=== PATIENT | male | born 1950 | race African-American/Black ===

== ENCOUNTER → 2016-07-08 | Outpatient (CLI) | payer MEDICARE ==
[2016-03-10 22:30] VITALS: BP 170/72
[~2016-07-08] MED LIST: ALLO100T PO; ALPR0.254 PO; AMIT10TA PO; AMLO10TA2 PO; ASPI1CPM PO; ASPI325T4 PO; ATOR20TA PO; BACL10TA PO; BENA40TA15 PO; CALC-98 PO; CALC667C PO; CITA20TA9 PO; CLOP75TA27 PO; COLC0.6T34 PO; DOCU-27 PO; ERGO500012 PO; FAMO-63 PO; FOLI1TAB16 PO; FURO40TA4 PO; GEMF600T3 PO; HYDR-2762 PO; INSU100I13 SQ; IOHEXOL 180 MG/ML 10 ML VIAL. ONE; Metoprolol Tartrate PO; NITR0.4T SL; OMEP20CA9 PO; ONDA4TAB10 SL; OXYC1TAB9 PO; PARI1CAP PO; POTA20TA12 PO; PROAIR HFA8.5 GM IH; TIZA2CAP PO; VITA1TAB19 PO; [UNRECOGNIZED DRUG - CODE]; [UNRECOGNIZED DRUG - CODE] PO; [UNRECOGNIZED DRUG - OTHER] PO; methylPREDNISolone ACETATE 40 MG/ML VIAL. ONE; methylPREDNISolone ACETATE 80 MG/ML VIAL. ONE
--- NOTE | 2016-07-08 13:23 | PAIN ---
DATE OF SERVICE: 07/08/2016 PROGRESS NOTE DIAGNOSES: Lumbar radiculopathy with lumbar spinal stenosis. HISTORY OF PRESENT ILLNESS: The patient is a 66-year-old male who returns for followup status post lumbar epidural steroid injection x 1 in 09/2015. The patient did very well after this. Reports the pain only began returning in the last few weeks. The patient reports still significant pain in the low back, now more on the right side than the left side, but still pain in the bilateral lower extremities, rated as 10 on a scale of 10, worse with walking and he has been ambulating with a walker because of the pain and perceived weakness in the lower extremities. The patient reports also some weakness and pain in the right leg, more on the lateral and anterior thigh, rates a 10 on a scale of 10. The patient has been off his Plavix now for 7 days, reports no new motor or sensory deficits, no new bowel or bladder incontinence or other complaints. The patient's old chart was reviewed as his current medication regimen updated. Current review of systems updated today as well. PHYSICAL EXAMINATION: VITAL SIGNS: Today, the patient's blood pressure is 145/75, pulse 87, respirations 18, temperature 97.6 degrees Fahrenheit and height is 64 inches. GENERAL: The patient is awake, alert, oriented, appropriate, very pleasant demeanor. HEENT: Shows normocephalic and atraumatic. Extraocular movements are intact and symmetrical. Oral cavity shows mucous membranes are moist and pink. Dentition is intact. NECK: Shows anterior throat supple. CHEST: Shows breath sounds clear to auscultation bilaterally. HEART: Shows S1 and S2 clear. ABDOMEN: Soft, nontender, and nondistended. No palpable organomegaly noted. No rebound or guarding demonstrated. BACK: The patient's back shows spine grossly in midline. Lumbar paraspinous muscle shows some moderate tenderness to palpation, but only diffusely throughout the upper, middle and lower distribution of paraspinous muscles, but is symmetrical without evidence of atrophy or hypertrophy. No tenderness over the sacrum or sacroiliac regions. EXTREMITIES: The patient's lower extremities show deep tendon reflexes at 1+ in the patellar and tendo calcaneus tendons and are equal. Motor is approximately 3 on a scale 5 with left dorsiflexion, extension and 4/5 on the right. Quadriceps and hamstring flexion is 4/5 bilaterally. PLAN: Options were discussed with the patient and the patient's spouse who accompanies her to this visit today. We will proceed with a lumbar epidural steroid injection as he has done very well with these in the past. He is also in between days of dialysis. Risks were again discussed including, but not limited to bleeding, infection, possibility of epidural hematoma, subsequent neurologic compromise, dural puncture, headaches, spinal cord and/or nerve damage, side effects of steroid medication and poor results regarding pain control. The patient understands and wished to proceed. The patient will return to clinic in approximately 2 weeks for followup. He was counseled on return appointment, activity level and side effects to be aware of. The patient will start his Plavix again tomorrow. DIAGNOSES: Lumbar radiculopathy with lumbar spinal stenosis. PROCEDURE: Lumbar epidural steroid injection, translaminar approach at the L4-L5 level with fluoroscopic guidance under sterile prep and drape and local anesthetic. MEDICATIONS INJECTED: Depo-Medrol 120 mg plus 10 mL of preservative-free normal saline and 2 mL of Isovue for contrast. The patient's condition at discharge is stable. The patient tolerated the procedure well, had no complications. RON BEE MD DR: RIANA/fanny JOB#: [id number] / [id number]
== END | disposition home or self-care (01) ==
LOC: PNCL 11:38
PROVIDERS: ATTEND Anesthesiology
DX: M54.16 Radiculopathy, lumbar region (principal); I63.9 Cerebral infarction, unspecified; I10 Essential (primary) hypertension; I73.9 Peripheral vascular disease, unspecified; E78.00 Pure hypercholesterolemia, unspecified; E66.9 Obesity, unspecified; N28.9 Disorder of kidney and ureter, unspecified; M19.90 Unspecified osteoarthritis, unspecified site; E11.9 Type 2 diabetes mellitus without complications; Z87.891 Personal history of nicotine dependence; D64.9 Anemia, unspecified
CPT/HCPCS: 62311; J1030; J1040

== ENCOUNTER → 2016-07-22 | Outpatient (CLI) | payer MEDICARE ==
[2016-03-10 22:30] VITALS: BP 170/72
--- NOTE | 2016-07-23 00:13 | PAIN ---
DATE OF SERVICE: 07/22/2016 DIAGNOSIS: Lumbar radiculopathy with lumbar spinal stenosis. HISTORY OF PRESENT ILLNESS: The patient is a 66-year-old male who returns for followup status post lumbar epidural steroid injection x 1. The patient reports about 80% improvement and is still helping the pain in his low back and right leg. The patient reports he is able to sleep in his own bed now. He has been walking with much greater ease and comfort, though still using his walker. He reports his pain 8 on a scale of 10 that is worse, but currently is 2 on a scale of 10 today. The patient reports no new motor or sensory deficits, no new bowel or bladder incontinence or other complaints, though still some significant pain that is sharp and achy in the right side right leg as it was previously, radiating into the posterior lateral aspect of the thigh, medial thigh as well as the posterior lateral lower leg. PHYSICAL EXAMINATION: VITAL SIGNS: Shows blood pressure 159/79, pulse 85, respirations 18, temperature 97.8 degrees Fahrenheit, height 6 feet 4 inches, weight 190 pounds. GENERAL: The patient is awake, alert, oriented, appropriate, very pleasant demeanor. HEENT: Head shows normocephalic, atraumatic. Extraocular movements are intact, symmetrical. Oral cavity, mucous membranes moist and pink. Dentition is intact. NECK: Shows anterior throat supple without palpable lymphadenopathy noted. Swallow reflex is symmetrical. CHEST: Shows normal on inspection. Breath sounds clear to auscultation bilaterally. HEART: Shows S1 and S2 clear. ABDOMEN: Soft, nontender, nondistended. No palpable organomegaly is noted. BACK: Shows spine grossly midline. Lumbar paraspinous muscle shows some moderate tenderness with palpation bilaterally, but appears roughly symmetrical on inspection. No atrophy or hypertrophy. There is moderate tenderness in the inferior aspect, more on the right than the left, but without radiation. No tenderness over the spinous processes, sacrum or sacroiliac regions. The patient has full rotational motion of the lumbar spine, both laterally as well as extension and flexion without difficulty. EXTREMITIES: Lower extremities showed deep tendon reflexes 1+ in the patellar and tendo calcaneus tendons are equal. Motor exam is approximately 4 on a scale of 5 left ankle and 5/5 on the right. The patient is wearing a supportive brace on his left ankle. Options were discussed with the patient. The patient's old chart was reviewed as his current medication regimen updated. Current review of systems updated today as well. We will plan on a second lumbar epidural steroid injection today with fluoroscopic guidance. The patient has been off his Plavix now for 7 days. Risks were again discussed including, but not limited to bleeding, infection, possibility of epidural hematoma, subsequent neurologic compromise, dural puncture, headaches, spinal cord and/or nerve damage, side effects of steroid medication and poor results regarding pain control. The patient understands and wishes to proceed. The patient will return to clinic in approximately 2 weeks for followup, was counseled on return appointment, activity level and side effects to be aware of. DIAGNOSIS: Lumbar radiculopathy with lumbar spinal stenosis. PROCEDURE: Lumbar epidural steroid injection, translaminar approach at the L4-L5 level using C-arm fluoroscopic guidance under sterile prep and drape using local anesthesia. Medications injected 120 mg Depo-Medrol plus 10 mL of preservative-free normal saline and 2 mL of Isovue contrast. CONDITION AT DISCHARGE: Stable. The patient tolerated procedure well, had no complications. RON BEE MD DR: RIANA/fanny JOB#: [id number] / [id number]
== END ==
LOC: PNCL 08:50
PROVIDERS: ATTEND Anesthesiology
DX: M48.06 Spinal stenosis, lumbar region (principal); M54.16 Radiculopathy, lumbar region; E78.00 Pure hypercholesterolemia, unspecified; E11.22 Type 2 diabetes mellitus with diabetic chronic kidney disease; N18.9 Chronic kidney disease, unspecified; E66.9 Obesity, unspecified; M19.90 Unspecified osteoarthritis, unspecified site; D64.9 Anemia, unspecified; Z87.891 Personal history of nicotine dependence
CPT/HCPCS: 62323; J1030; J1040

== ENCOUNTER → 2017-02-24 | Outpatient (CLI) | payer MEDICARE ==
[2016-03-10 22:30] VITALS: BP 170/72
[~2017-02-24] MED LIST changes: -ASPI325T4 PO; +ASPI325T8 PO; +BUPIVACAINE MPF 0.5% 10 ML VIAL for KCIC. IJ ONE; -CLOP75TA27 PO; +CLOP75TA57 PO; +DOCU-109 PO; -DOCU-27 PO; -ERGO500012 PO; +ERGO500027 PO; -IOHEXOL 180 MG/ML 10 ML VIAL. ONE; +IOHEXOL 300 MG/ML 50 ML VIAL. INT ART ONE; +LIDOCAINE 1% Multi-Dose 20 ML VIAL. ID ONE; +methylPREDNISolone ACETATE 40 MG/ML VIAL. INT ART ONE; -methylPREDNISolone ACETATE 40 MG/ML VIAL. ONE; -methylPREDNISolone ACETATE 80 MG/ML VIAL. ONE
--- NOTE | 2017-02-24 16:27 | KCIC ---
Examination: Frontal view the pelvis with frontal view of the left hip HISTORY: History of left hip pain COMPARISON: None available FINDINGS: The bilateral femoral heads within the acetabula. Mild joint space loss identified in the bilateral hip joint likely degeneration Few well-formed calcific densities identified lateral to the proximal femur within the soft tissues likely soft tissue calcifications. There is no acute fracture or dislocation. Surgical clips project in the region of the left IMPRESSION: 1. Mild degenerative changes bilateral hip joints. 2. Few well-formed calcific densities identified lateral to the proximal femur within the soft tissues likely soft tissue calcifications. Electronically signed by: Christo Lopez MD (02/24/2017 4:24 PM) [place] [id number]
--- NOTE | 2017-02-24 16:44 | KCIC ---
PROCEDURE Therapeutic left hip injection using fluoroscopic guidance. HISTORY Hip pain. DJD. TECHNIQUE The procedure was explained to the patient as were potential risks, including infection, bleeding or allergic reaction. All questions were answered. Informed written and verbal consent was obtained. The hip was prepped and draped in the usual sterile manner. Following administration of local anesthetic, a 22-gauge spinal needle was advanced into the hip joint without difficulty, with care taken to avoid the vascular structures. Stylet was removed and following negative aspiration, a mixture of 4 cc Omnipaque-300, 2 cc (80 mg) Depo-Medrol, 4 cc 0.5% Marcaine and 4 cc 1% lidocaine were injected without difficulty. Fluoroscopy demonstrates uniform and satisfactory distribution of the injection through the hip. The needle was removed. There was good hemostasis at the injection site. The patient left in stable condition without immediate complication. The patient was given postprocedural instructions, instructed to contact us or the emergency room if there are any complications. Note there is communication of the iliopsoas bursa with the joint. A single spot image was obtained. FLUOROSCOPY TIME: 22 seconds Electronically signed by: Cornell Ojeda MD (02/24/2017 4:40 PM) [facility]
== END | disposition home or self-care (01) ==
LOC: KCIC 13:53
PROVIDERS: ATTEND Physical Medicine & Rehabilitation
DX: M16.12 Unilateral primary osteoarthritis, left hip (principal)
CPT/HCPCS: 20610; 73501; 77002; J1030; Q9967

== ENCOUNTER → 2017-04-28 | Outpatient (CLI) | payer MEDICARE ==
[2016-03-10 22:30] VITALS: BP 170/72
[~2017-04-28] MED LIST changes: -BUPIVACAINE MPF 0.5% 10 ML VIAL for KCIC. IJ ONE; -IOHEXOL 300 MG/ML 50 ML VIAL. INT ART ONE; -LIDOCAINE 1% Multi-Dose 20 ML VIAL. ID ONE; +REGADENOSON 0.4 MG/5 ML DISP.SYRIN. IV ONE; -methylPREDNISolone ACETATE 40 MG/ML VIAL. INT ART ONE
--- NOTE | 2017-04-29 07:36 | RAD ---
APPROVED REPORT Test Type: Pharmacological Stress Nurse/Tech: Abbie Wheeler R.N. Test Indications: cp Cardiac History: stents 3 yrs ago, htn, cva, dm Medications: see ehr Medical History: see ehr Resting ECG: sr Resting Heart Rate: 76 bpm Resting Blood Pressure: 128/66mmHg Pretest Chest Pain: No chest pain Nurse/Tech Notes lungs cta, heart tones regular Consent: The procedure was explained to the patient in lay terms. Informed consent was witnessed. Pato eout was entered into [employer]. History and Stress Test performed by RT Eric (R) (N) Pharm. Details Pharmacologic stress testing was performed using 0.4mg per 5ml of regadenoson given intravenously ove r 7-10 seconds. Stress Symptoms No chest pain or symptoms.Dyspnea POST EXERCISE Reason for Termination: Infusion complete Target HR: No Max HR: 119 bpm Max Blood Pressure: 135/64mmHg Chest Pain: No. Arrhythmia: No. ST Change: No. INTERPRETATION Stress EKG Conclusion: Baseline EKG showed sinus rhythm. No ischemic changes at peak stress. No arr hythmias. Imaging Protocol IMAGE PROTOCOL: Rest Tc-99m/stress Tc-99m 1 day Rest: Stress: Viability: Radiopharm.Tc99m UpcmqctoxBk42g Sestamibi Ozmk46jOn 32mCi Img Date 04/28/2017 04/28/2017 Inj-Img Uiqp49qpa. 60min. Rest Admin Site:IV - Left HandAdministrator:RT Eric (R)(N) Stress Admin Site: IV - Left HandAdministrator: RT Eric (Shayla)(N) STRESS DATA End Diast. Vol.73.0mlAv. Heart Rate89.0bpm End Syst. Vol.22.0mlCO Index BSA0.0L/min Myocardial Xdlg408.0gEject. Rmqnnaoh50.0% Stress Rates Pk. Fill Rate3.84EDV/secLVtime Pk. Fill 165.21msec Pk. Empty Rate5.43ESV/secLVtime Pk. Cjjum110.79msec 07/08 Pk. Fill1.06EDV/sec Stress Scores Regional WT1.00Summed WT10.00 Regional WM0.00Summed WM12.00 Study quality was good. Left Ventricular size was Normal at Rest and Stress. Lung uptake was Normal. Left Ventricular ejection fraction is 70%. The rest and stress images show normal perfusion, normal contraction and thickening. LV Perf. Quant 17 Seg. SSS0.00 17 Seg. SRS0.00 17 Seg. SDS0.00 Stress Defect Extent (% LAD)0.00Rest Defect Extent (% LAD)0.00Rev. Defect Extent (% LAD)0.00 Stress Defect Extent (% LCX) 0.00Rest Defect Extent (% LCX)0.00Rev. Defect Extent (% LCX)0.00 Stress Defect Extent (% RCA)0.00Rest Defect Extent (% RCA)0.00Rev. Defect Extent (% RCA)0.00 Stress Defect Extent (% DELMI)0.00Rest Defect Extent (% DELMI)0.00Rev. Defect Extent (% DELMI)0.00 Conclusion 1. Regadenoson cardioisotope stress test did not show any evidence of ischemia or infarct. 2. Normal left ventricular systolic function with ejection fraction calculated at 70%. 3. Low risk for cardiac events.
== END | disposition home or self-care (01) ==
LOC: NM 09:19
PROVIDERS: ATTEND Internal Medicine Cardiovascular Disease
DX: I63.9 Cerebral infarction, unspecified (principal); I10 Essential (primary) hypertension; E11.9 Type 2 diabetes mellitus without complications; I49.5 Sick sinus syndrome
CPT/HCPCS: 78452; 93017; 96374; 96375; 96376; A9500; J2785

== ENCOUNTER 2018-09-07 13:47 | Emergency (ER) | payer MEDICARE ==
[~2018-09-07] VITALS: Ht 193 cm; Wt 90.7 kg
[~2018-09-07 13:47] MED LIST changes: +ALBU2.5V8 IH; -AMLO10TA2 PO; +AMLO10TA8 PO; -GEMF600T3 PO; +GEMF600T8 PO; -HYDR-2762 PO; +HYDR-2765 PO; +OMEP20CA10 PO; -OMEP20CA9 PO; +OXYC-411 PO; -OXYC1TAB9 PO; -PROAIR HFA8.5 GM IH; -REGADENOSON 0.4 MG/5 ML DISP.SYRIN. IV ONE
[2018-09-07 14:21] VITALS: BP 114/56
--- NOTE | 2018-09-07 14:31 | PHYS DOC ---
Past Medical History Past Medical History: CVA, Diabetes-Type II, Hypertension, OR, Renal Disease, Stroke Past Surgical History: Coronary Bypass Surgery Additional Past Surgical Histo: CARDIAC STENT, LEFT LEG BYPASS, fem pop left leg x 2 Alcohol Use: None Drug Use: None Adult General Chief Complaint Chief Complaint: MECHANICAL FALL HPI HPI Patient is a 68 year old male who presents with patient states he fell on his left side hitting his ribs in the edge of the couch patient continues to have pain to the left ribs and he does have bruising to the left ribs. Review of Systems Review of Systems Constitutional: Denies fever or chills [] Eyes: Denies change in visual acuity, redness, or eye pain [] HENT: Denies nasal congestion or sore throat [] Respiratory: Denies cough or shortness of breath [] Cardiovascular: No additional information not addressed in HPI [] GI: Denies abdominal pain, nausea, vomiting, bloody stools or diarrhea [] : Denies dysuria or hematuria [] Musculoskeletal: Left Rib pain. Denies back pain or joint pain [] Integument: Denies rash or skin lesions [] Neurologic: Denies headache, focal weakness or sensory changes [] All other systems were reviewed and found to be within normal limits, except as documented in this note. Allergies Allergies Allergies Coded Allergies Type Severity Reaction Last Updated Verified No Known Drug Allergies 02/27/15 No Physical Exam Physical Exam Constitutional: Well developed, well nourished, no acute distress, non-toxic appearance. [] HENT: Normocephalic, atraumatic, bilateral external ears normal, oropharynx moist, no oral exudates, nose normal. [] Eyes: PERRLA, EOMI, conjunctiva normal, no discharge. [] Neck: Normal range of motion, no tenderness, supple, no stridor. [] Cardiovascular:Heart rate regular rhythm, no murmur [] Lungs & Thorax: Bilateral breath sounds clear to auscultation [] Abdomen: Bowel sounds normal, soft, no tenderness, no masses, no pulsatile masses. [] Skin: Warm, dry, no erythema, no rash. [] Back: No tenderness, no CVA tenderness. [] Extremities: Left rib tenderness and bruising, no cyanosis, no clubbing, ROM intact, no edema. [] Neurologic: Alert and oriented X 3, normal motor function, normal sensory function, no focal deficits noted. [] Psychologic: Affect normal, judgement normal, mood normal. [] Current Patient Data Vital Signs Vital Signs Date Time Temp Pulse Resp B/P (MAP) Pulse Ox O2 Delivery O2 Flow Rate FiO2 09/07/18 14:21 97.9 77 16 114/56 (75) 97 Room Air 97.9 EKG EKG [] Radiology/Procedures Radiology/Procedures [] Impressions: [facility] [address] [place] [address] IMAGING REPORT Signed PATIENT: VALENTINA PHILIP ACCOUNT: [id number] : 1950 LOCATION: ER AGE: 68 SEX: M EXAM STATUS: REG ER ORD. PHYSICIAN: KURTIS MANSFIELD APRN REASON: FALL, LANDING ON LEFT SIDE PROCEDURE: RIBS LEFT Exam:Left ribs with PA/lateral chest Date: 09/07/2018 2:20 PM Comparison: No prior Indication: FALL, LANDED ON LEFT SIDE, PAIN TO LEFT RIBS Findings/ Impression: The heart is not enlarged. Mediastinal and hilar contours are normal. Subtle linear opacities in the lung bases likely scarring/atelectasis. No lobar consolidation. No pleural effusion or pneumothorax. AP, Oblique and Spot images of left ribs demonstrate a minimally displaced left lateral left fifth rib fracture. Symmetrical intercostal spacing. Electronically signed by: Dwight Thomas MD (09/07/2018 2:47 PM) [facility] DICTATED and SIGNED BY: DWIGHT THOMAS MD DATE: 09/07/18 1446 Course & Med Decision Making Course & Med Decision Making Patient is a 68 year old male who presents with patient states he fell on his left side hitting his ribs in the edge of the couch patient continues to have pain to the left ribs and he does have bruising to the left ribs. Alert and oriented. Speaks in full clear sentences. Patient has had a past history of a stroke in he walks with a walker and a cane. Lung sounds are clear to upper lobes but diminished in lower lobes. Vital signs within normal limits. Patient has left rib bruising, tenderness with palpation but no crepitus or deformities felt. Patient denies hitting his head, loc, visual changes, neck pain, chest pain or shortness of air or dizziness. No cervical, thoracic or lumbar spine pain, bruising or deformity with palpation. Patient states when he coughs it is painful. Left rib and chest xray The heart is not enlarged. Mediastinal and hilar contours are normal. Subtle linear opacities in the lung bases likely scarring/ atelectasis. No lobar consolidation. No pleural effusion or pneumothorax. AP, Oblique and Spot images of left ribs demonstrate a minimally displaced left lateral left fifth rib fracture. Symmetrical intercostal spacing. Patient will be educated how to use a incentive spirometry and not to wrap anything around his rib cage as he has a higher chance of developing pneumonia. Patient needs to follow up with his primary care doctor within 3 days. Dragon Disclaimer Dragon Disclaimer This electronic medical record was generated, in whole or in part, using a voice recognition dictation system. Departure Departure Impression: Primary Impression: Rib fracture Additional Impression: Fall Disposition: HOME, SELF-CARE Condition: STABLE Referrals: UNKNOWN PCP NAME (PCP) Patient Instructions: Incentive Spirometer, Rib Fracture Additional Instructions: Take medication as prescribed. Do not to wrap anything around your rib cage as you have a higher chance of developing pneumonia. Patient needs to follow up with his primary care doctor within 3 days. Scripts Hydrocodone Bit/Acetaminophen (HYDROCODONE-APAP 5-325 ) 1 Tab Tablet 1 TAB PO PRN Q8HRS PRN for PAIN, #10 TAB 0 Refills Prov: KURTIS MANSFIELD APRN 09/07/18 Problem Qualifiers Primary Impression: Rib fracture Encounter type: initial encounter Rib fracture type: single rib Fracture type: closed Laterality: left Qualified Codes: S22.32XA - Fracture of one rib, left side, initial encounter for closed fracture Additional Impression: Fall Encounter type: initial encounter Qualified Codes: W19.XXXA - Unspecified fall, initial encounter KURTIS MANSFIELD [employer] Sep 07, 2018 14:31
--- NOTE | 2018-09-07 14:50 | RAD ---
Exam:Left ribs with PA/lateral chest Date: 09/07/2018 2:20 PM Comparison: No prior Indication: FALL, LANDED ON LEFT SIDE, PAIN TO LEFT RIBS Findings/ Impression: The heart is not enlarged. Mediastinal and hilar contours are normal. Subtle linear opacities in the lung bases likely scarring/atelectasis. No lobar consolidation. No pleural effusion or pneumothorax. AP, Oblique and Spot images of left ribs demonstrate a minimally displaced left lateral left fifth rib fracture. Symmetrical intercostal spacing. Electronically signed by: Carlos Thomas MD (09/07/2018 2:47 PM) [facility]
[2018-09-07] MEDS ORDERED: HYDR-2761 PO (15:10)
== END 2018-09-07 15:37 | disposition home or self-care (01) ==
LOC: ER 13:47
DX: S22.32XA Fracture of one rib, left side, initial encounter for closed fracture (principal); I10 Essential (primary) hypertension; E11.9 Type 2 diabetes mellitus without complications; Z86.73 Personal history of transient ischemic attack (TIA), and cerebral infarction without residual deficits; I25.2 Old myocardial infarction; Z95.1 Presence of aortocoronary bypass graft; Z95.5 Presence of coronary angioplasty implant and graft; W18.09XA Striking against other object with subsequent fall, initial encounter; Y93.89 Activity, other specified; Y92.89 Other specified places as the place of occurrence of the external cause; Y99.8 Other external cause status
CPT/HCPCS: 71046; 71100; 99283

== ENCOUNTER 2019-01-19 09:58 | Inpatient (IN) | payer MEDICARE ==
[~2019-01-19] VITALS: Ht 190.5 cm; Wt 94.8 kg
[~2019-01-19 09:58] MED LIST changes: +HYDR-2761 PO
[2019-01-19] MEDS ORDERED: IV NORMAL SALINE 1000ML BAG 1,000 ML IV SCH (10:29)
[2019-01-19] MEDS ORDERED: fentaNYL PF VIAL 100 MCG/2 ML VIAL IV ONE ×2 (10:30→13:00)
--- NOTE | 2019-01-19 10:38 | PHYS DOC ---
Past Medical History Past Medical History: CVA, Diabetes-Type II, Hypertension, MA, Renal Disease, Stroke Past Surgical History: Coronary Bypass Surgery Additional Past Surgical Histo: CARDIAC STENT, LEFT LEG BYPASS, fem pop left leg x 2 Alcohol Use: None Drug Use: None Adult General Chief Complaint Chief Complaint: RIB PAIN HPI HPI Patient is a 68 year old male who presents with Thursday began having left rib pain. Patient states it hurts when he takes a deep breath and with movement. Patient states the pain is sharp and rates it 10 out 10. Patient states she's been taking Aleve for the pain. Review of Systems Review of Systems Constitutional: Denies fever or chills [] Eyes: Denies change in visual acuity, redness, or eye pain [] HENT: Denies nasal congestion or sore throat [] Respiratory: Denies cough or shortness of breath [] Cardiovascular: No additional information not addressed in HPI [] GI: Denies abdominal pain, nausea, vomiting, bloody stools or diarrhea [] : Denies dysuria or hematuria [] Musculoskeletal: Left rib pain. Denies back pain or joint pain [] Integument: Denies rash or skin lesions [] Neurologic: Denies headache, focal weakness or sensory changes [] Endocrine: Denies polyuria or polydipsia [] All other systems were reviewed and found to be within normal limits, except as documented in this note. Current Medications Current Medications Current Medications Medications (Trade) Dose Ordered Sig/Neeraj Start Time Stop Time Status Last Admin Dose Admin Fentanyl Citrate (Fentanyl 2ml Vial) 25 mcg PRN Q1HR PRN 01/19/19 13:00 01/20/19 12:59 Info (CONTRAST GIVEN -- Rx MONITORING) 1 each PRN DAILY PRN 01/19/19 11:30 01/21/19 11:29 Iohexol (Omnipaque 350 Mg/ml) 100 ml 1X ONCE 01/19/19 11:30 01/19/19 11:31 DC 01/19/19 11:30 100 ML Ondansetron HCl (Zofran) 4 mg PRN Q8HRS PRN 01/19/19 13:00 01/20/19 12:59 Piperacillin Sod/ Tazobactam Sod (Zosyn Per Pharmacy) 1 each PRN DAILY PRN 01/19/19 13:00 UNV Piperacillin Sod/ Tazobactam Sod 2.25 gm/Sodium Chloride 50 ml @ 100 mls/hr 1X ONCE 01/19/19 13:00 01/19/19 13:29 Sodium Chloride 1,000 ml @ 1,000 mls/hr Q1H 01/19/19 10:29 01/19/19 11:28 DC 01/19/19 11:02 1,000 MLS/HR Allergies Allergies Allergies Coded Allergies Type Severity Reaction Last Updated Verified No Known Drug Allergies 02/27/15 No Physical Exam Physical Exam Constitutional: Well developed, well nourished, no acute distress, non-toxic appearance. [] HENT: Normocephalic, atraumatic, bilateral external ears normal, oropharynx moist, no oral exudates, nose normal. [] Eyes: PERRLA, EOMI, conjunctiva normal, no discharge. [] Neck: Normal range of motion, no tenderness, supple, no stridor. [] Cardiovascular:Heart rate regular, Sinus rhythm with T abnormality, no murmur [] Lungs & Thorax: Bilateral upper breath sounds clear to auscultation, lower bilateral breath sounds diminished. [] Abdomen: Bowel sounds normal, soft, no tenderness, no masses, no pulsatile masses. [] Skin: Warm, dry, no erythema, no rash. [] Back: No tenderness, no CVA tenderness. [] Extremities: No tenderness, no cyanosis, no clubbing, ROM intact, no edema. [] Neurologic: Alert and oriented X 3, normal motor function, normal sensory function, no focal deficits noted. [] Psychologic: Affect normal, judgement normal, mood normal. [] Current Patient Data Vital Signs Vital Signs Date Time Temp Pulse Resp B/P (MAP) Pulse Ox O2 Delivery O2 Flow Rate FiO2 01/19/19 12:30 76 18 121/63 (82) 97 Room Air 01/19/19 10:15 98.5 98.5 Lab Values Laboratory Tests Test 01/19/19 10:33 White Blood Count 8.1 x10^3/uL (4.0-11.0) Red Blood Count 4.11 x10^6/uL (4.30-5.70) L Hemoglobin 12.7 g/dL (13.0-17.5) L Hematocrit 37.0 % (39.0-53.0) L Mean Corpuscular Volume 90 fL (79-100) Mean Corpuscular Hemoglobin 31 pg (25-35) Mean Corpuscular Hemoglobin Concent 34 g/dL (31-37) Red Cell Distribution Width 15.2 % (11.5-14.5) H Platelet Count 235 x10^3/uL (140-400) Neutrophils (%) (Auto) 69 % (31-73) Lymphocytes (%) (Auto) 17 % (24-48) L Monocytes (%) (Auto) 8 % (0-9) Eosinophils (%) (Auto) 5 % (0-3) H Basophils (%) (Auto) 1 % (0-3) Neutrophils # (Auto) 5.6 x10^3/uL (1.8-7.7) Lymphocytes # (Auto) 1.4 x10^3/uL (1.0-4.8) Monocytes # (Auto) 0.6 x10^3/uL (0.0-1.1) Eosinophils # (Auto) 0.4 x10^3/uL (0.0-0.7) Basophils # (Auto) 0.1 x10^3/uL (0.0-0.2) Prothrombin Time 13.8 SEC (11.7-14.0) Prothrombin Time INR 1.1 (0.8-1.1) Sodium Level 140 mmol/L (136-145) Potassium Level 4.1 mmol/L (3.5-5.1) Chloride Level 98 mmol/L (98-107) Carbon Dioxide Level 29 mmol/L (21-32) Anion Gap 13 (6-14) Blood Urea Nitrogen 27 mg/dL (8-26) H Creatinine 5.4 mg/dL (0.7-1.3) H Estimated GFR (Cockcroft-Gault) 12.9 BUN/Creatinine Ratio 5 (6-20) L Glucose Level 188 mg/dL (70-99) H Calcium Level 9.1 mg/dL (8.5-10.1) Total Bilirubin 0.3 mg/dL (0.2-1.0) Aspartate Amino Transferase (AST) 11 U/L (15-37) L Alanine Aminotransferase (ALT) 14 U/L (16-63) L Alkaline Phosphatase 74 U/L (46-116) Troponin I Quantitative < 0.017 ng/mL (0.000-0.055) Total Protein 7.3 g/dL (6.4-8.2) Albumin 4.1 g/dL (3.4-5.0) Albumin/Globulin Ratio 1.3 (1.0-1.7) Lipase 209 U/L (73-393) Laboratory Tests 01/19/19 10:33 Laboratory Tests 01/19/19 10:33 EKG EKG Sinus rhythm T abnormality but no STEMI.[] Interpretation Time: [address] Howell Radiology/Procedures Radiology/Procedures [] Impressions: [facility] [address] [place] [address] IMAGING REPORT Signed PATIENT: VALENTINA PHILIP ACCOUNT: [id number] : 1950 LOCATION: ER AGE: 68 SEX: M EXAM STATUS: REG ER ORD. PHYSICIAN: KURTIS MANSFIELD APRN REASON: left sided sharp pain with breathing-[id number] OMNI 350 PROCEDURE: CT ANGIOGRAPHY CHEST Examination: CT angiography chest HISTORY: History of left-sided pain with breathing COMPARISON: None available TECHNIQUE: Axial CT angiographic images of the chest were performed with IV contrast. Coronal and sagittal 3-D MIP reformats are performed Exposure: One or more of the following individualized dose reduction techniques were utilized for this examination: 1. Automated exposure control 2. Adjustment of the mA and/or kV according to patient size 3. Use of iterative reconstruction technique FINDINGS: The central airways are patent. The heart size grossly appears unremarkable. The caliber of the aorta grossly appears unremarkable. Diffuse coronary artery calcifications identified. There is no evidence of filling defect identified in the main pulmonary arterial trunk and right and left main pulmonary arteries and the visualized lobar, segmental branch of the pulmonary arteries. Bilateral lung emphysematous changes. Mild bibasilar lung airspace opacities likely atelectasis or infiltrates. The visualized liver, spleen, adrenals grossly appears unremarkable. Probable sludge in the gallbladder partially visualized. Mild degenerative changes thoracic spine. Old left rib fractures. IMPRESSION: 1. No evidence of pulmonary embolism. 2. Coronary artery calcifications. 3. Bilateral lung emphysematous changes. Minimal bibasilar lung atelectasis. 4. Probable gallbladder sludge. Electronically signed by: Christo Lopez MD (01/19/2019 12:27 PM) [id number] DICTATED and SIGNED BY: CHRISTO LOPEZ MD DATE: 01/19/19 1227 Course & Med Decision Making Course & Med Decision Making Patient is a 68 year old male who presents with Thursday began having left mid rib pain. Patient states it hurts when he takes a deep breath and with movement. Patient states the pain is sharp and rates it 10 out 10. Patient states she's been taking Aleve for the pain. Patient is currently on Plavix. Patient has a history of NSTEMI, sciatica, UTI, hypertension, rib fractures, falls. Vital signs are within normal limits. Patient's rating his pain a 10 out of 10. He denies chest pain, shortness of air, nausea, vomiting, recent illness, cough, falls, injury to his left ribs, fever, diarrhea, dysuria, dizziness. No extremity swelling. Lungs are clear to auscultation in upper lobes but managed and lower lobes. Abdomen is soft and nontender. There is no tenderness, bruising, deformities, or crepitus over left ribs or chest. Patient speaks in full clear sentences. No calf tenderness. EKG shows sinus rhythm with a T abnormality but no STEMI. Receives dialysis on Wednesdays and Fridays. Patient states he did have dialysis today. CTA of chest is ordered to rule out PE. I have consulted with Dr. Howell on this patient. We will tell nephrology that the patient will need dialysis tomorrow because of the contrast used. CT Chest shows 1. No evidence of pulmonary embolism. 2. Coronary artery calcifications. 3. Bilateral lung emphysematous changes. Minimal bibasilar lung atelectasis or infiltrates. 4. Probable gallbladder sludge. Patient to be treated for pneumonia and admitted. I have spoken to Dr Kaur for admission. I have spoken with Dr Chavez with nephrology about the patient needing dialysis due to contrast dye given. Dr Chavez states that he can get dialysis Thursday. Dragon Disclaimer Dragon Disclaimer This electronic medical record was generated, in whole or in part, using a voice recognition dictation system. Departure Departure Impression: Primary Impression: Pneumonia Disposition: ADMITTED INPATIENT Admitting Physician: QUE Condition: STABLE Referrals: ANGELA RM MD (PCP) Problem Qualifiers Primary Impression: Pneumonia Pneumonia type: due to unspecified organism Laterality: bilateral Lung location: lower lobe of lung Qualified Codes: J18.1 - Lobar pneumonia, unspecified organism KURTIS MANSFIELD PETROGRAPHY TEACHER Jan 19, 2019 10:38
[2019-01-19 10:44] LABS: BASO # 0.1 x10^3/uL (0.0-0.2); BASO % 1 % (0-3); EOS # 0.4 x10^3/uL (0.0-0.7); EOS % 5 % (0-3); HEMOGLOBIN 12.7 g/dL (13.0-17.5); LYMPH # 1.4 x10^3/uL (1.0-4.8); LYMPH % 17 % (24-48); MEAN CORPUSCULAR HEMOGLOBIN 31 pg (25-35); MEAN CORPUSCULAR HGB CONC 34 g/dL (31-37); MEAN CORPUSCULAR VOLUME 90 fL (79-100); MONO # 0.6 x10^3/uL (0.0-1.1); MONO % 8 % (0-9); NEUT # 5.6 x10^3/uL (1.8-7.7); NEUT % 69 % (31-73); PLATELET COUNT 235 x10^3/uL (140-400); RED BLOOD COUNT 4.11 x10^6/uL (4.30-5.70); RED CELL DISTRIBUTION WIDTH 15.2 % (11.5-14.5); WHITE BLOOD COUNT 8.1 x10^3/uL (4.0-11.0)
[2019-01-19 10:54] LABS: PROTHROMBIN TIME PATIENT 13.8 SEC (11.7-14.0)
[2019-01-19 10:56] LABS: CALCIUM 9.1 mg/dL (8.5-10.1); CREATININE 5.4 mg/dL (0.7-1.3); GFR 12.9; POTASSIUM 4.1 mmol/L (3.5-5.1)
[2019-01-19 11:03] LABS: ALBUMIN 4.1 g/dL (3.4-5.0); ALBUMIN/GLOBULIN RATIO 1.3 (1.0-1.7); TOTAL BILIRUBIN 0.3 mg/dL (0.2-1.0); TOTAL PROTEIN 7.3 g/dL (6.4-8.2)
[2019-01-19] MEDS ORDERED: CONTRAST GIVEN. MC PRN (11:30)
[2019-01-19] MEDS ORDERED: IOHEXOL 350 MG/ML 100 ML VIAL. IV ONE (11:30)
--- NOTE | 2019-01-19 12:29 | RAD ---
Examination: CT angiography chest HISTORY: History of left-sided pain with breathing COMPARISON: None available TECHNIQUE: Axial CT angiographic images of the chest were performed with IV contrast. Coronal and sagittal 3-D MIP reformats are performed Exposure: One or more of the following individualized dose reduction techniques were utilized for this examination: 1. Automated exposure control 2. Adjustment of the mA and/or kV according to patient size 3. Use of iterative reconstruction technique FINDINGS: The central airways are patent. The heart size grossly appears unremarkable. The caliber of the aorta grossly appears unremarkable. Diffuse coronary artery calcifications identified. There is no evidence of filling defect identified in the main pulmonary arterial trunk and right and left main pulmonary arteries and the visualized lobar, segmental branch of the pulmonary arteries. Bilateral lung emphysematous changes. Mild bibasilar lung airspace opacities likely atelectasis or infiltrates. The visualized liver, spleen, adrenals grossly appears unremarkable. Probable sludge in the gallbladder partially visualized. Mild degenerative changes thoracic spine. Old left rib fractures. IMPRESSION: 1. No evidence of pulmonary embolism. 2. Coronary artery calcifications. 3. Bilateral lung emphysematous changes. Minimal bibasilar lung atelectasis. 4. Probable gallbladder sludge. Electronically signed by: Christo Lopez MD (01/19/2019 12:27 PM) [id number]
[2019-01-19] MEDS ORDERED: ONDANSETRON PF 4 MG/2 ML VIAL. IV PRN (13:00)
[2019-01-19] MEDS ORDERED: PIP/TAZO PER PHARMACY MC PRN (13:00)
[2019-01-19] MEDS ORDERED: fentaNYL PF VIAL 100 MCG/2 ML VIAL IV PRN ×2 (13:00→15:45)
[2019-01-19] MEDS ORDERED: PIPERACILLIN/TAZOBACTAM 2.25 GM in IV NORMAL SALINE 50ML 50 ML IV ONE (13:00)
--- NOTE | 2019-01-19 13:11 | PDOC1 ---
History and Physical Date of Admission Date of Admission DATE: 01/19/19 TIME: 13:10 Identification/Chief Complaint Chief Complaint SEEN IN ER, 68 year old male who presents SINCE Thursday began having left rib pain. Patient states it hurts when he takes a deep breath CTA C/W POSSIBLE INFILTRATE ON LEFT Past Medical History Past Medical History Past Medical History Past Medical History: CVA, Diabetes-Type II, Hypertension, ID, Renal Disease, Stroke Past Surgical History: Coronary Bypass Surgery Additional Past Surgical Histo: CARDIAC STENT, LEFT LEG BYPASS, fem pop left leg x 2 Alcohol Use: None Drug Use: None Cardiovascular: CAD Family History Family History: High Cholestrol Social History Smoke: Quit (REMOTE USE 2006) ALCOHOL: none Drugs: None Current Problem List Problem List Problems Medical Problems: (1) Pneumonia Status: Acute Current Medications Current Medications Current Medications Sodium Chloride 1,000 ml @ 1,000 mls/hr Q1H IV Last administered on 01/19/19at 11:02; Start 01/19/19 at 10:29; Stop 01/19/19 at 11:28; Status DC Fentanyl Citrate (Fentanyl 2ml Vial) 50 mcg 1X ONCE IV Last administered on 01/19/19at 11:01; Start 01/19/19 at 10:30; Stop 01/19/19 at 10:33; Status DC Iohexol (Omnipaque 350 Mg/ml) 100 ml 1X ONCE IV Last administered on 01/19/19at 11:30; Start 01/19/19 at 11:30; Stop 01/19/19 at 11:31; Status DC Info (CONTRAST GIVEN -- Rx MONITORING) 1 each PRN DAILY PRN MC SEE COMMENTS; Start 01/19/19 at 11:30; Stop 01/21/19 at 11:29 Piperacillin Sod/ Tazobactam Sod (Zosyn Per Pharmacy) 1 each PRN DAILY PRN MC SEE COMMENTS; Start 01/19/19 at 13:00; Status UNV Piperacillin Sod/ Tazobactam Sod 2.25 gm/Sodium Chloride 50 ml @ 100 mls/hr 1X ONCE IV ; Start 01/19/19 at 13:00; Stop 01/19/19 at 13:29 Fentanyl Citrate (Fentanyl 2ml Vial) 25 mcg 1X ONCE IV ; Start 01/19/19 at 13:00; Stop 01/19/19 at 13:03; Status DC Ondansetron HCl (Zofran) 4 mg PRN Q8HRS PRN IV NAUSEA/VOMITING; Start 01/19/19 at 13:00; Stop 01/20/19 at 12:59 Fentanyl Citrate (Fentanyl 2ml Vial) 25 mcg PRN Q1HR PRN IV PAIN; Start 01/19/19 at 13:00; Stop 01/20/19 at 12:59 Active Scripts Active Hydrocodone-Apap 5-325 (Hydrocodone Bit/Acetaminophen) 1 Tab Tablet 1 Tab PO PRN Q8HRS PRN Nitrostat (Nitroglycerin) 0.4 Mg Tab.subl 0.4 Mg SL PRN Q5MIN PRN Lipitor (Atorvastatin Calcium) 20 Mg Tablet 40 Mg PO QHS [Metoprolol Tartrate] 25 MG Tablet 12.5 Mg PO BID Plavix (Clopidogrel Bisulfate) 75 Mg Tablet 75 Mg PO DAILYWBKFT Reported Colace (Docusate Sodium) 100 Mg Capsule 1 Cap PO BID [hydrocod-acet 5/500] 1-2 Tab PO Q6-8HRS PRN [hydrocodone-acet] 1-2 Tab Aspirin 325 Mg Tablet 1 Tab PO DAILY Zofran Odt (Ondansetron) 4 Mg Tab.rapdis 1 Tab SL Q8HRS Amlodipine Besylate 10 Mg Tablet 1 Tab PO DAILY Alprazolam 0.25 Mg Tablet 1 Tab PO PRN TID PRN Calcium Acetate 667 Mg Capsule 667 Mg PO BIDWMEALS Baclofen 10 Mg Tablet 1 Tab PO TID Hydrocodone-Apap 7.5-325 (Hydrocodone Bit/Acetaminophen) 1 Each Tablet 1 Tab PO QID Allopurinol 100 Mg Tablet 2 Tab PO BID Celexa (Citalopram Hydrobromide) 20 Mg Tablet 1 Tab PO DAILY Lantus Solostar (Insulin Glargine,Hum.rec.anlog) 100 Unit/1 Ml Insuln.pen 15 Unit SQ QHS Allergies Allergies: Coded Allergies: No Known Drug Allergies (Unverified , 02/27/15) ROS Review of System Review of Systems Review of Systems Constitutional: Denies fever or chills [] Eyes: Denies change in visual acuity, redness, or eye pain [] HENT: Denies nasal congestion or sore throat [] Respiratory: Denies cough or shortness of breath [] Cardiovascular: No additional information not addressed in HPI [] GI: Denies abdominal pain, nausea, vomiting, bloody stools or diarrhea [] : Denies dysuria or hematuria [] Musculoskeletal: Left rib pain. Denies back pain or joint pain [] Integument: Denies rash or skin lesions [] Neurologic: Denies headache, focal weakness or sensory changes [] Endocrine: Denies polyuria or polydipsia [] 14 PT systems were reviewed and found to be within normal limits, except as documented General: YES: Fatigue Respiratory: YES: Shortness of breath Cardiovascular: yes Chest Pain Gastrointestinal: No Nausea, No Vomiting, No Abdominal Pain, No Diarrhea, No Constipation, No Melena, No Hematochezia, No Other Musculoskeletal: Yes Joint Stiffness Neurological: Yes Gait Disturbance Physical Exam Physical Exam Physical Exam Physical Exam Constitutional: Well developed, well nourished, no acute distress, non-toxic appearance. [] HENT: Normocephalic, atraumatic, bilateral external ears normal, oropharynx moist, no oral exudates, nose normal. [] Eyes: PERRLA, EOMI, conjunctiva normal, no discharge. [] Neck: Normal range of motion, no tenderness, supple, no stridor. [] Cardiovascular:Heart rate regular, Sinus rhythm with T abnormality, no murmur [] Lungs & Thorax: Bilateral upper breath sounds clear to auscultation, lower bilateral breath sounds diminished. [] Abdomen: Bowel sounds normal, soft, no tenderness, no masses, no pulsatile masses. [] Skin: Warm, dry, no erythema, no rash. [] Back: No tenderness, no CVA tenderness. [] Extremities: No tenderness, no cyanosis, no clubbing, ROM intact, no edema. [] Neurologic: Alert and oriented X 3, normal motor function, normal sensory function, no focal deficits noted. [] Psychologic: Affect normal, judgement normal, mood normal. [] General: Alert, Oriented X3, Cooperative, No acute distress HEENT: Atraumatic, EOMI, Mucous membr. moist/pink Lungs: Clear to auscultation, Normal air movement Heart: RRR, no thrills Breasts: Not examined Abdomen: Normal bowel sounds, Soft Rectal Exam: not examined Extremities: No cyanosis Neuro: Normal speech, Cranial nerves 3-12 NL Psych/Mental Status: Mental status NL, Mood NL Vitals Vitals Vital Signs Date Time Temp Pulse Resp B/P (MAP) Pulse Ox O2 Delivery O2 Flow Rate FiO2 01/19/19 12:30 76 18 121/63 (82) 97 Room Air 01/19/19 10:15 98.5 98.5 Labs Labs Laboratory Tests Test 01/19/19 10:33 White Blood Count 8.1 x10^3/uL (4.0-11.0) Red Blood Count 4.11 x10^6/uL (4.30-5.70) Hemoglobin 12.7 g/dL (13.0-17.5) Hematocrit 37.0 % (39.0-53.0) Mean Corpuscular Volume 90 fL (79-100) Mean Corpuscular Hemoglobin 31 pg (25-35) Mean Corpuscular Hemoglobin Concent 34 g/dL (31-37) Red Cell Distribution Width 15.2 % (11.5-14.5) Platelet Count 235 x10^3/uL (140-400) Neutrophils (%) (Auto) 69 % (31-73) Lymphocytes (%) (Auto) 17 % (24-48) Monocytes (%) (Auto) 8 % (0-9) Eosinophils (%) (Auto) 5 % (0-3) Basophils (%) (Auto) 1 % (0-3) Neutrophils # (Auto) 5.6 x10^3/uL (1.8-7.7) Lymphocytes # (Auto) 1.4 x10^3/uL (1.0-4.8) Monocytes # (Auto) 0.6 x10^3/uL (0.0-1.1) Eosinophils # (Auto) 0.4 x10^3/uL (0.0-0.7) Basophils # (Auto) 0.1 x10^3/uL (0.0-0.2) Prothrombin Time 13.8 SEC (11.7-14.0) Prothromb Time International Ratio 1.1 (0.8-1.1) Sodium Level 140 mmol/L (136-145) Potassium Level 4.1 mmol/L (3.5-5.1) Chloride Level 98 mmol/L (98-107) Carbon Dioxide Level 29 mmol/L (21-32) Anion Gap 13 (6-14) Blood Urea Nitrogen 27 mg/dL (8-26) Creatinine 5.4 mg/dL (0.7-1.3) Estimated GFR (Cockcroft-Gault) 12.9 BUN/Creatinine Ratio 5 (6-20) Glucose Level 188 mg/dL (70-99) Calcium Level 9.1 mg/dL (8.5-10.1) Total Bilirubin 0.3 mg/dL (0.2-1.0) Aspartate Amino Transf (AST/SGOT) 11 U/L (15-37) Alanine Aminotransferase (ALT/SGPT) 14 U/L (16-63) Alkaline Phosphatase 74 U/L (46-116) Troponin I Quantitative < 0.017 ng/mL (0.000-0.055) Total Protein 7.3 g/dL (6.4-8.2) Albumin 4.1 g/dL (3.4-5.0) Albumin/Globulin Ratio 1.3 (1.0-1.7) Lipase 209 U/L (73-393) Laboratory Tests Test 01/19/19 10:33 White Blood Count 8.1 x10^3/uL (4.0-11.0) Red Blood Count 4.11 x10^6/uL (4.30-5.70) Hemoglobin 12.7 g/dL (13.0-17.5) Hematocrit 37.0 % (39.0-53.0) Mean Corpuscular Volume 90 fL (79-100) Mean Corpuscular Hemoglobin 31 pg (25-35) Mean Corpuscular Hemoglobin Concent 34 g/dL (31-37) Red Cell Distribution Width 15.2 % (11.5-14.5) Platelet Count 235 x10^3/uL (140-400) Neutrophils (%) (Auto) 69 % (31-73) Lymphocytes (%) (Auto) 17 % (24-48) Monocytes (%) (Auto) 8 % (0-9) Eosinophils (%) (Auto) 5 % (0-3) Basophils (%) (Auto) 1 % (0-3) Neutrophils # (Auto) 5.6 x10^3/uL (1.8-7.7) Lymphocytes # (Auto) 1.4 x10^3/uL (1.0-4.8) Monocytes # (Auto) 0.6 x10^3/uL (0.0-1.1) Eosinophils # (Auto) 0.4 x10^3/uL (0.0-0.7) Basophils # (Auto) 0.1 x10^3/uL (0.0-0.2) Prothrombin Time 13.8 SEC (11.7-14.0) Prothromb Time International Ratio 1.1 (0.8-1.1) Sodium Level 140 mmol/L (136-145) Potassium Level 4.1 mmol/L (3.5-5.1) Chloride Level 98 mmol/L (98-107) Carbon Dioxide Level 29 mmol/L (21-32) Anion Gap 13 (6-14) Blood Urea Nitrogen 27 mg/dL (8-26) Creatinine 5.4 mg/dL (0.7-1.3) Estimated GFR (Cockcroft-Gault) 12.9 BUN/Creatinine Ratio 5 (6-20) Glucose Level 188 mg/dL (70-99) Calcium Level 9.1 mg/dL (8.5-10.1) Total Bilirubin 0.3 mg/dL (0.2-1.0) Aspartate Amino Transf (AST/SGOT) 11 U/L (15-37) Alanine Aminotransferase (ALT/SGPT) 14 U/L (16-63) Alkaline Phosphatase 74 U/L (46-116) Troponin I Quantitative < 0.017 ng/mL (0.000-0.055) Total Protein 7.3 g/dL (6.4-8.2) Albumin 4.1 g/dL (3.4-5.0) Albumin/Globulin Ratio 1.3 (1.0-1.7) Lipase 209 U/L (73-393) Images Images STRESS TEST STRESS TEST Conclusion 1. Regadenoson cardioisotope stress test did not show any evidence of ischemia or infarct. 2. Normal left ventricular systolic function with ejection fraction calculated at 70%. 3. Low risk for cardiac events. DATE: 04/29/17 0736 HEART CATH HEART CATH Findings. Hemodynamics. LV pressure of 132/26 aortic root pressure 128/82. Coronaries. Left main. The left main had no lesions. Left anterior descending. The LAD was a moderate size vessel with normal distribution. It had a proximal to mid eccentric 95% lesion. Left circumflex. The left circumflex is a moderate size vessel. It had a mid 45-50% lesion. Right coronary artery. Right coronary was a moderate sized vessel. A diffuse mid disease in the 40% range. <Conclusion> Severe single-vessel coronary artery disease with a 95% eccentric LAD lesion. Moderate disease of the left circumflex and right coronary artery. Successful bare metal stent placement to the LAD decreasing a 95% lesion to 0%. DATE: 11/15/14 1100 PROCEDURE: CT ANGIOGRAPHY CHEST Examination: CT angiography chest HISTORY: History of left-sided pain with breathing COMPARISON: None available TECHNIQUE: Axial CT angiographic images of the chest were performed with IV contrast. Coronal and sagittal 3-D MIP reformats are performed Exposure: One or more of the following individualized dose reduction techniques were utilized for this examination: 1. Automated exposure control 2. Adjustment of the mA and/or kV according to patient size 3. Use of iterative reconstruction technique FINDINGS: The central airways are patent. The heart size grossly appears unremarkable. The caliber of the aorta grossly appears unremarkable. Diffuse coronary artery calcifications identified. There is no evidence of filling defect identified in the main pulmonary arterial trunk and right and left main pulmonary arteries and the visualized lobar, segmental branch of the pulmonary arteries. Bilateral lung emphysematous changes. Mild bibasilar lung airspace opacities likely atelectasis or infiltrates. The visualized liver, spleen, adrenals grossly appears unremarkable. Probable sludge in the gallbladder partially visualized. Mild degenerative changes thoracic spine. Old left rib fractures. IMPRESSION: 1. No evidence of pulmonary embolism. 2. Coronary artery calcifications. 3. Bilateral lung emphysematous changes. Minimal bibasilar lung atelectasis. 4. Probable gallbladder sludge. Electronically signed by: Christo Lopez MD (01/19/2019 12:27 PM) [id number] LEFT VENTRICLE The left ventricle is normal size. There is moderate concentric left ventricular hypertrophy. The left ventricular systolic function is normal. The ejection fraction is 50-55%. There is normal LV segmental wall motion. The left ventricular diastolic function and filling is normal for age. RIGHT VENTRICLE The right ventricle is normal size. There is normal right ventricular wall thickness. The right ventricular systolic function is normal. ATRIA The left atrium is borderline dilated. The right atrium size is normal. The interatrial septum is intact with no evidence for an atrial septal defect or patent foramen ovale as noted on 2-D or Doppler imaging. AORTIC VALVE The aortic valve is normal in structure and function. Doppler and Color Flow revealed no significant aortic regurgitation. There is no significant aortic valvular stenosis. MITRAL VALVE The mitral valve is normal in structure and function. There is no evidence of mitral valve prolapse. There is no mitral valve stenosis. Doppler and Color-flow revealed trace mitral regurgitation. TRICUSPID VALVE The tricuspid valve is normal in structure and function. Doppler and Color Flow revealed trace tricuspid regurgitation with an estimated PAP of 30 mmHg. There is no tricuspid valve stenosis. PULMONIC VALVE The pulmonic valve is not well visualized. Doppler and Color Flow revealed trace pulmonic valvular regurgitation. GREAT VESSELS The aortic root is normal in size. The IVC was not visualized. PERICARDIAL EFFUSION There is no evidence of significant pericardial effusion. Critical Notification Critical Value: No <Conclusion> The left ventricular systolic function is normal. The ejection fraction is 50-55%. There is normal LV segmental wall motion. Trace mitral regurgitation. Trace tricuspid regurgitation with an estimated PAP of 30 mmHg. There is no evidence of significant pericardial effusion. Signed by : Sonny Merrill, Electronically Approved : 01/19/2019 16:57:49 VTE Prophylaxis Ordered VTE Prophylaxis Devices: Yes VTE Pharmacological Prophylaxi: Yes Assessment/Plan Assessment/Plan IMPRESSION 1. LEFT CHEST DISCOMFORT AT REST 2. ESRD on dialysis 3. No evidence of pulmonary embolism. 4.Coronary artery calcifications. 5. Bilateral lung emphysematous changes. Minimal bibasilar lung atelectasis. 6. Probable gallbladder sludge. 7. Successful bare metal stent placement to the LAD decreasing a 95% lesion to 0%. 11/17 plan admit cardiology consult pulm consult tele serial troponin i IS ECHO 64 MIN PT EXAM, CHART REVIEW, > 50% OF TIME SPENT WITH EXAM, CHART REVIEW, PT CARE COORDINATION CARLA RIVAS MD Jan 19, 2019 13:11
--- NOTE | 2019-01-19 14:22 | EKG ---
[facility] [address] [place] [address] Test Date: 2019-01-19 Test Time: 10:23:18 Pat Name: VALENTINA PHILIP Department: Room: Gender: M Field [employer]: : 1950 Requested By: KURTIS MANSFIELD Order Number: [id number] Reading MD: Measurements Intervals [place] Rate: 94 P: 39 NE: 140 QRS: 41 QRSD: 82 T: 59 QT: 366 QTc: 463 Interpretive Statements SINUS RHYTHM T ABNORMALITY IN HIGH LATERAL LEADS ABNORMAL ECG RI6.01 No previous ECG available for comparison
--- NOTE | 2019-01-19 14:56 | PDOC2 ---
CARDIAC CONSULT DATE OF CONSULT Date of Consult DATE: 01/19/19 TIME: 14:52 REASON FOR CONSULT Reason for Consult: Chest pain REFERRING PHYSICIAN Referring Physician: Dr. Kaur. SOURCE Source: Chart review, Patient HISTORY OF PRESENT ILLNESS HISTORY OF PRESENT ILLNESS This is a 68 yo male who presented secondary to left rib pain since Thursday. Has been constant. Describes as aching and sharp. Worse with deep breathing. Is excruciating with certain movements. Cannot lay on his left side due to the pain. Left side is slightly tender to touch. No associated shortness of breath, dizziness, diaphoresis, palpitations, or nausea/vomiting. No recent illness/fevers or injury. Does report occasional non-productive cough. PAST MEDICAL HISTORY Cardiovascular: CAD, HTN, Hyperlipidemia, Other (PVD) CENTRAL NERVOUS SYSTEM: CVA Heme/Onc: Anemia NOS Musculoskeletal: Osteoarthritis Renal/: Chronic renal insuff Endocrine: Diabetes PAST SURGICAL HISTORY Past Surgical History: Other (PCI/BMS to LAD) FAMILY HISTORY Family History: Diabetes, Hypertension SOCIAL HISTORY Smoke: Quit (2006) ALCOHOL: none Drugs: None Lives: with Family CURRENT MEDICATIONS CURRENT MEDICATIONS Current Medications Medications (Trade) Dose Ordered Sig/Neeraj Route PRN Reason Start Time Stop Time Status Last Admin Dose Admin Sodium Chloride 1,000 ml @ 1,000 mls/hr Q1H IV 01/19/19 10:29 01/19/19 11:28 DC 01/19/19 11:02 Fentanyl Citrate (Fentanyl 2ml Vial) 50 mcg 1X ONCE IV 01/19/19 10:30 01/19/19 10:33 DC 01/19/19 11:01 Iohexol (Omnipaque 350 Mg/ml) 100 ml 1X ONCE IV 01/19/19 11:30 01/19/19 11:31 DC 01/19/19 11:30 Piperacillin Sod/ Tazobactam Sod 2.25 gm/Sodium Chloride 50 ml @ 100 mls/hr 1X ONCE IV 01/19/19 13:00 01/19/19 13:29 DC 01/19/19 13:08 Fentanyl Citrate (Fentanyl 2ml Vial) 25 mcg 1X ONCE IV 01/19/19 13:00 01/19/19 13:03 DC 01/19/19 13:11 ALLERGIES ALLERGIES: Coded Allergies: No Known Drug Allergies (Unverified , 02/27/15) ROS Review of System 14 point ROS conducted with pertinent positives noted above in HPI. PHYSICAL EXAM General: Alert, Oriented X3, Cooperative, No acute distress HEENT: Atraumatic, Mucous membr. moist/pink Lungs: Clear to auscultation, Normal air movement, Other (left side tenderness upon palpitation) Heart: Regular rate, Normal S1, Normal S2, Other (2/6 systolic murmur) Abdomen: Soft, No tenderness Extremities: No edema, Normal pulses Skin: No significant lesion Neuro: Normal speech, Sensation intact Psych/Mental Status: Mental status NL, Mood NL MUSCULOSKELETAL: Osteoarthritic changes both hands VITALS/I&O VITALS/I&O: Vital Signs Date Time Temp Pulse Resp B/P (MAP) Pulse Ox O2 Delivery O2 Flow Rate FiO2 01/19/19 14:00 74 18 113/69 (84) 96 Room Air 01/19/19 10:15 98.5 98.5 LABS Lab: Laboratory Tests Test 01/19/19 10:33 White Blood Count 8.1 x10^3/uL (4.0-11.0) Red Blood Count 4.11 x10^6/uL (4.30-5.70) L Hemoglobin 12.7 g/dL (13.0-17.5) L Hematocrit 37.0 % (39.0-53.0) L Mean Corpuscular Volume 90 fL (79-100) Mean Corpuscular Hemoglobin 31 pg (25-35) Mean Corpuscular Hemoglobin Concent 34 g/dL (31-37) Red Cell Distribution Width 15.2 % (11.5-14.5) H Platelet Count 235 x10^3/uL (140-400) Neutrophils (%) (Auto) 69 % (31-73) Lymphocytes (%) (Auto) 17 % (24-48) L Monocytes (%) (Auto) 8 % (0-9) Eosinophils (%) (Auto) 5 % (0-3) H Basophils (%) (Auto) 1 % (0-3) Neutrophils # (Auto) 5.6 x10^3/uL (1.8-7.7) Lymphocytes # (Auto) 1.4 x10^3/uL (1.0-4.8) Monocytes # (Auto) 0.6 x10^3/uL (0.0-1.1) Eosinophils # (Auto) 0.4 x10^3/uL (0.0-0.7) Basophils # (Auto) 0.1 x10^3/uL (0.0-0.2) Prothrombin Time 13.8 SEC (11.7-14.0) Prothrombin Time INR 1.1 (0.8-1.1) Sodium Level 140 mmol/L (136-145) Potassium Level 4.1 mmol/L (3.5-5.1) Chloride Level 98 mmol/L (98-107) Carbon Dioxide Level 29 mmol/L (21-32) Anion Gap 13 (6-14) Blood Urea Nitrogen 27 mg/dL (8-26) H Creatinine 5.4 mg/dL (0.7-1.3) H Estimated GFR (Cockcroft-Gault) 12.9 BUN/Creatinine Ratio 5 (6-20) L Glucose Level 188 mg/dL (70-99) H Calcium Level 9.1 mg/dL (8.5-10.1) Total Bilirubin 0.3 mg/dL (0.2-1.0) Aspartate Amino Transferase (AST) 11 U/L (15-37) L Alanine Aminotransferase (ALT) 14 U/L (16-63) L Alkaline Phosphatase 74 U/L (46-116) Troponin I Quantitative < 0.017 ng/mL (0.000-0.055) Total Protein 7.3 g/dL (6.4-8.2) Albumin 4.1 g/dL (3.4-5.0) Albumin/Globulin Ratio 1.3 (1.0-1.7) Lipase 209 U/L (73-393) Laboratory Tests 01/19/19 10:33 Laboratory Tests 01/19/19 10:33 ECHOCARDIOGRAM ECHOCARDIOGRAM <Conclusion> The left ventricular systolic function is normal. The Ejection Fraction is estimated at 55-60%. Transmitral Doppler flow pattern is Grade I-abnormal relaxation pattern. Doppler and Color Flow revealed trace mitral valve regurgitation. Doppler and Color Flow revealed mild tricuspid regurgitation. The PA pressure was estimated at 35 mmHg. There is no evidence of significant pericardial effusion. DATE: 11/14/14 7018 STRESS TEST STRESS TEST Conclusion 1. Regadenoson cardioisotope stress test did not show any evidence of ischemia or infarct. 2. Normal left ventricular systolic function with ejection fraction calculated at 70%. 3. Low risk for cardiac events. DATE: 04/29/17 0736 HEART CATH HEART CATH Findings. Hemodynamics. LV pressure of 132/26 aortic root pressure 128/82. Coronaries. Left main. The left main had no lesions. Left anterior descending. The LAD was a moderate size vessel with normal distribution. It had a proximal to mid eccentric 95% lesion. Left circumflex. The left circumflex is a moderate size vessel. It had a mid 45-50% lesion. Right coronary artery. Right coronary was a moderate sized vessel. A diffuse mid disease in the 40% range. <Conclusion> Severe single-vessel coronary artery disease with a 95% eccentric LAD lesion. Moderate disease of the left circumflex and right coronary artery. Successful bare metal stent placement to the LAD decreasing a 95% lesion to 0%. DATE: 11/15/14 1100 ASSESSMENT/PLAN ASSESSMENT/PLAN 1. Left side, chest pain. Atypical. Initial troponin negative. CT with old left rib fractures 2. CAD s/p PCI/BMS stent to the LAD 2014. Clinically stable 3. Hypertension; controlled 4. Hyperlipidemia; statin 5. Diabetes, II; as per PCP 6. ESRD on HD 7. H/o CVA Recommendations Trend troponin Echo to assess LV systolic function Resume secondary prevention measures including DAPT with ASA/Plavix, statin therapy, and BB. Fluid management via HD as per nephrology. Supportive care EILEEN CHATTERJEE APRN Jan 19, 2019 14:56
[2019-01-19] MEDS ORDERED: ACETAMINOPHEN 325 MG TABLET. PO PRN (15:45)
[2019-01-19 15:49] VITALS: BP 139/80
[2019-01-19] MEDS: ASPIRIN ENTERIC COATED 81 MG TABLET.DR. PO SCH (16:36)
--- NOTE | 2019-01-19 16:58 | CARD ---
MR#: [id number] Date of Study: 01/19/2019 Ordering Physician: EILEEN CHATTERJEE, Referring Physician: CARLA RIVAS, Tech: Janeth Parra APPROVED REPORT EXAM: Two-dimensional and M-mode echocardiogram with Doppler and color Doppler. Other Information Quality : AverageHR: 70bpm INDICATION CAD Chest Pain Surgery/Intervention CABG: Date: 2011 RISK FACTORS Hypertension Diabetes 2D DIMENSIONS Left Atrium(2D)4.9 (1.6-4.0cm)IVSd1.7 (0.7-1.1cm) Aortic Root(2D)3.4 (2.0-3.7cm)LVDd5.4 (3.9-5.9cm) LVOT Diameter2.2 (1.8-2.4cm)PWd1.5 (0.7-1.1cm) LVDs4.0 (2.5-4.0cm)FS (%) 25.8 % SV72.1 mlLVEF(%)50.2 (>50%) Aortic Valve AoV Peak Jerzy.127.6cm/sAoV VTI25.2cm AO Peak GR.6.5mmHgLVOT VTI 20.61cm AO Mean GR.3mmHg Mitral Valve MV E Lgczcszf50.4cm/sMV DECEL [id number] MV A Kwhfrtcj05.4cm/sE/A Ratio1.3 TDI Lateral E' P. V10.23cm/sMedial E' P. V8.04cm/s E/Lateral E'9.6E/Medial E'12.2 Tricuspid Valve TR P. Idmrqckd502cv/sRAP PCWKXBFK4wdTn TR Peak Gr.08fnKaRKAW12nmZy Pulmonary Vein S1 Mtvnjlam29.5cm/sS2 Dxyvejig13.87cm/s D2 Pehfdclj50.9cm/sPVa [id number] LEFT VENTRICLE The left ventricle is normal size. There is moderate concentric left ventricular hypertrophy. The lef t ventricular systolic function is normal. The ejection fraction is 50-55%. There is normal LV segmen marisol wall motion. The left ventricular diastolic function and filling is normal for age. RIGHT VENTRICLE The right ventricle is normal size. There is normal right ventricular wall thickness. The right ventr icular systolic function is normal. ATRIA The left atrium is borderline dilated. The right atrium size is normal. The interatrial septum is int act with no evidence for an atrial septal defect or patent foramen ovale as noted on 2-D or Doppler i maging. AORTIC VALVE The aortic valve is normal in structure and function. Doppler and Color Flow revealed no significant aortic regurgitation. There is no significant aortic valvular stenosis. MITRAL VALVE The mitral valve is normal in structure and function. There is no evidence of mitral valve prolapse. There is no mitral valve stenosis. Doppler and Color-flow revealed trace mitral regurgitation. TRICUSPID VALVE The tricuspid valve is normal in structure and function. Doppler and Color Flow revealed trace tricus pid regurgitation with an estimated PAP of 30 mmHg. There is no tricuspid valve stenosis. PULMONIC VALVE The pulmonic valve is not well visualized. Doppler and Color Flow revealed trace pulmonic valvular re gurgitation. GREAT VESSELS The aortic root is normal in size. The IVC was not visualized. PERICARDIAL EFFUSION There is no evidence of significant pericardial effusion. Critical Notification Critical Value: No <Conclusion> The left ventricular systolic function is normal. The ejection fraction is 50-55%. There is normal LV segmental wall motion. Trace mitral regurgitation. Trace tricuspid regurgitation with an estimated PAP of 30 mmHg. There is no evidence of significant pericardial effusion. Signed by : Sonny Merrill, Electronically Approved : 01/19/2019 16:57:49
[2019-01-19 19:00] VITALS: BP 124/61
[2019-01-19] MEDS: PIPERACILLIN/TAZOBACTAM 2.25 GM in IV NORMAL SALINE 50ML 50 ML IV SCH (20:10)
[2019-01-19] MEDS: HYDROcodone/APAP 5/325MG 1 TAB TABLET PO PRN (21:11)
[2019-01-19] MEDS ORDERED: NITROGLYCERIN SUBLINGUAL 0.4 MG BOTTLE OF 25. SL PRN (21:30)
[2019-01-19] MEDS: INSULIN GLARGINE 300 UNITS/3 ML INSULN.PEN. SQ SCH (22:00)
[2019-01-19] MEDS: ONDANSETRON ODT 4 MG TAB.RAPDIS. PO SCH (22:00)
[2019-01-19 23:31] VITALS: BP 119/69
[2019-01-19] MEDS: ATORVASTATIN CALCIUM 40 MG TABLET. PO SCH (23:42)
[2019-01-19] MEDS: ALPRAZolam 0.25 MG TABLET PO PRN (23:42)
[2019-01-19] MEDS: METOPROLOL TART IMMED RELEASE 25 MG TABLET. PO SCH (23:43)
[2019-01-20] MEDS: HYDROcodone/APAP 5/325MG 1 TAB TABLET PO PRN ×5 (01:15→23:41)
[2019-01-20 03:00] VITALS: BP 127/64
[2019-01-20] MEDS: ONDANSETRON ODT 4 MG TAB.RAPDIS. PO SCH ×4 (05:29→21:30)
[2019-01-20 07:20] VITALS: BP 129/65
[2019-01-20] MEDS ORDERED: guaiFENesin DM 200MG/20MG 10 ML SYRUP PO PRN (08:30)
[2019-01-20] MEDS ORDERED: DEXTROSE 50% 25 GM / 50ML DISP.SYRIN. IV PRN (08:30)
[2019-01-20] MEDS ORDERED: TEMAZEPAM 7.5 MG CAPSULE PO PRN (08:30)
[2019-01-20] MEDS: PIPERACILLIN/TAZOBACTAM 2.25 GM in IV NORMAL SALINE 50ML 50 ML IV SCH (08:58)
[2019-01-20] MEDS: ASPIRIN ENTERIC COATED 81 MG TABLET.DR. PO SCH (08:59)
[2019-01-20] MEDS: CITALOPRAM 20 MG TABLET. PO SCH (08:59)
[2019-01-20] MEDS: DOCUSATE SODIUM 100 MG CAPSULE. PO SCH ×2 (08:59→21:30)
[2019-01-20] MEDS: ALLOPURINOL 100 MG TABLET. PO SCH (08:59)
[2019-01-20] MEDS: CALCIUM ACETATE 667 MG CAPSULE PO SCH ×2 (08:59→17:22)
[2019-01-20] MEDS: CLOPIDOGREL BISULFATE 75 MG TABLET PO SCH (08:59)
[2019-01-20] MEDS: ASPIRIN 325 MG TABLET PO SCH (09:00)
[2019-01-20] MEDS: amLODIPine BESYLATE 10 MG TABLET PO SCH (09:00)
[2019-01-20] MEDS: METOPROLOL TART IMMED RELEASE 25 MG TABLET. PO SCH ×2 (09:01→21:31)
--- NOTE | 2019-01-20 11:00 | PDOC ---
PROGRESS NOTES Chief Complaint Chief Complaint 1. LEFT CHEST DISCOMFORT AT REST 2. ESRD on dialysis, AOCD 3. No evidence of pulmonary embolism. 4.Coronary artery calcifications. 5. Bilateral lung emphysematous changes. Minimal bibasilar lung atelectasis. 6. Probable gallbladder sludge. 7. Successful bare metal stent placement to the LAD decreasing a 95% lesion to 0%. 11/17 History of Present Illness History of Present Illness Feels fine, no more left-sided chest discomfort Cardiology note reviewed, for echocardiogram Also dialysis per renal Being treated for "" pneumonia" on Zosyn Plan: dc abx no convincing pneumonia on x-ray Dialysis per renal Okay to transfer out of telemetry DC library monitor Discussed with RN echo today,. target home tmr or even maybe later today Vitals Vitals Vital Signs Date Time Temp Pulse Resp B/P (MAP) Pulse Ox O2 Delivery O2 Flow Rate FiO2 01/20/19 09:01 73 127/64 01/20/19 08:00 Room Air 01/20/19 07:20 97.7 16 95 97.7 Physical Exam General: Alert, Oriented X3, Cooperative, No acute distress Heart: Regular rate, Normal S1, Normal S2, Other (2/6 systolic murmur) Abdomen: Normal bowel sounds, Soft Extremities: No cyanosis Skin: No significant lesion Labs LABS Laboratory Tests Test 01/19/19 16:45 01/19/19 20:23 01/19/19 21:45 01/20/19 03:15 Troponin I Quantitative < 0.017 ng/mL (0.000-0.055) < 0.017 ng/mL (0.000-0.055) Glucose (Fingerstick) 156 mg/dL (70-99) Triglycerides Level 136 mg/dL (0-150) Cholesterol Level 114 mg/dL (0-200) LDL Cholesterol, Calculated 49 mg/dL (0-100) VLDL Cholesterol, Calculated 27 mg/dL (0-40) Non-HDL Cholesterol Calculated 76 mg/dL (0-129) HDL Cholesterol 38 mg/dL (40-60) Cholesterol/HDL Ratio 3.0 Review of Systems Review of Systems A 14 point ROS was completed with the following noted as positive: Other systems reviewed and negative. \\CONSTITUTIONAL: No fever or chills EYES: No recent changes SKIN: No rash or itching CARDIOVASCULAR: No chest pain, syncope, palpitations, or edema RESPIRATORY: No SOB or cough GASTROINTESTINAL: No nausea, vomiting or abdominal pain NEUROLOGICAL: No headaches or weakness ENDOCRINE: No cold or heat intolerance GENITOURINARY: No urgency or frequency of urination MUSCULOSKELETAL: No back pain or joint pain LYMPHATICS: No enlarged lymph nodes PSYCHIATRIC: No anxiety or depression Assessment and Plan Assessmemt and Plan Problems Medical Problems: (1) Pneumonia Status: Acute Comment Review of Relevant I have reviewed the following items dariel (where applicable) has been applied. Labs Laboratory Tests Test 01/19/19 10:33 01/19/19 16:45 01/19/19 20:23 01/19/19 21:45 White Blood Count 8.1 x10^3/uL (4.0-11.0) Red Blood Count 4.11 x10^6/uL (4.30-5.70) Hemoglobin 12.7 g/dL (13.0-17.5) Hematocrit 37.0 % (39.0-53.0) Mean Corpuscular Volume 90 fL (79-100) Mean Corpuscular Hemoglobin 31 pg (25-35) Mean Corpuscular Hemoglobin Concent 34 g/dL (31-37) Red Cell Distribution Width 15.2 % (11.5-14.5) Platelet Count 235 x10^3/uL (140-400) Neutrophils (%) (Auto) 69 % (31-73) Lymphocytes (%) (Auto) 17 % (24-48) Monocytes (%) (Auto) 8 % (0-9) Eosinophils (%) (Auto) 5 % (0-3) Basophils (%) (Auto) 1 % (0-3) Neutrophils # (Auto) 5.6 x10^3/uL (1.8-7.7) Lymphocytes # (Auto) 1.4 x10^3/uL (1.0-4.8) Monocytes # (Auto) 0.6 x10^3/uL (0.0-1.1) Eosinophils # (Auto) 0.4 x10^3/uL (0.0-0.7) Basophils # (Auto) 0.1 x10^3/uL (0.0-0.2) Prothrombin Time 13.8 SEC (11.7-14.0) Prothromb Time International Ratio 1.1 (0.8-1.1) Sodium Level 140 mmol/L (136-145) Potassium Level 4.1 mmol/L (3.5-5.1) Chloride Level 98 mmol/L (98-107) Carbon Dioxide Level 29 mmol/L (21-32) Anion Gap 13 (6-14) Blood Urea Nitrogen 27 mg/dL (8-26) Creatinine 5.4 mg/dL (0.7-1.3) Estimated GFR (Cockcroft-Gault) 12.9 BUN/Creatinine Ratio 5 (6-20) Glucose Level 188 mg/dL (70-99) Calcium Level 9.1 mg/dL (8.5-10.1) Total Bilirubin 0.3 mg/dL (0.2-1.0) Aspartate Amino Transf (AST/SGOT) 11 U/L (15-37) Alanine Aminotransferase (ALT/SGPT) 14 U/L (16-63) Alkaline Phosphatase 74 U/L (46-116) Troponin I Quantitative < 0.017 ng/mL (0.000-0.055) < 0.017 ng/mL (0.000-0.055) < 0.017 ng/mL (0.000-0.055) Total Protein 7.3 g/dL (6.4-8.2) Albumin 4.1 g/dL (3.4-5.0) Albumin/Globulin Ratio 1.3 (1.0-1.7) Lipase 209 U/L (73-393) Glucose (Fingerstick) 156 mg/dL (70-99) Test 01/20/19 03:15 Triglycerides Level 136 mg/dL (0-150) Cholesterol Level 114 mg/dL (0-200) LDL Cholesterol, Calculated 49 mg/dL (0-100) VLDL Cholesterol, Calculated 27 mg/dL (0-40) Non-HDL Cholesterol Calculated 76 mg/dL (0-129) HDL Cholesterol 38 mg/dL (40-60) Cholesterol/HDL Ratio 3.0 Laboratory Tests Test 01/19/19 16:45 01/19/19 20:23 01/19/19 21:45 01/20/19 03:15 Troponin I Quantitative < 0.017 ng/mL (0.000-0.055) < 0.017 ng/mL (0.000-0.055) Glucose (Fingerstick) 156 mg/dL (70-99) Triglycerides Level 136 mg/dL (0-150) Cholesterol Level 114 mg/dL (0-200) LDL Cholesterol, Calculated 49 mg/dL (0-100) VLDL Cholesterol, Calculated 27 mg/dL (0-40) Non-HDL Cholesterol Calculated 76 mg/dL (0-129) HDL Cholesterol 38 mg/dL (40-60) Cholesterol/HDL Ratio 3.0 Medications Current Medications Sodium Chloride 1,000 ml @ 1,000 mls/hr Q1H IV Last administered on 01/19/19at 11:02; Start 01/19/19 at 10:29; Stop 01/19/19 at 11:28; Status DC Fentanyl Citrate (Fentanyl 2ml Vial) 50 mcg 1X ONCE IV Last administered on 01/19/19at 11:01; Start 01/19/19 at 10:30; Stop 01/19/19 at 10:33; Status DC Iohexol (Omnipaque 350 Mg/ml) 100 ml 1X ONCE IV Last administered on 01/19/19at 11:30; Start 01/19/19 at 11:30; Stop 01/19/19 at 11:31; Status DC Info (CONTRAST GIVEN -- Rx MONITORING) 1 each PRN DAILY PRN MC SEE COMMENTS; Start 01/19/19 at 11:30; Stop 01/21/19 at 11:29 Piperacillin Sod/ Tazobactam Sod (Zosyn Per Pharmacy) 1 each PRN DAILY PRN MC SEE COMMENTS; Start 01/19/19 at 13:00 Piperacillin Sod/ Tazobactam Sod 2.25 gm/Sodium Chloride 50 ml @ 100 mls/hr 1X ONCE IV Last administered on 01/19/19at 13:08; Start 01/19/19 at 13:00; Stop 01/19/19 at 13:29; Status DC Fentanyl Citrate (Fentanyl 2ml Vial) 25 mcg 1X ONCE IV Last administered on 01/19/19at 13:11; Start 01/19/19 at 13:00; Stop 01/19/19 at 13:03; Status DC Ondansetron HCl (Zofran) 4 mg PRN Q8HRS PRN IV NAUSEA/VOMITING; Start 01/19/19 at 13:00; Stop 01/20/19 at 12:59 Fentanyl Citrate (Fentanyl 2ml Vial) 25 mcg PRN Q1HR PRN IV PAIN; Start 01/19/19 at 13:00; Stop 01/19/19 at 15:43; Status DC Piperacillin Sod/ Tazobactam Sod 2.25 gm/Sodium Chloride 50 ml @ 100 mls/hr Q12HR IV Last administered on 01/20/19 08:58; Start 01/19/19 at 21:00 Aspirin (Ecotrin) 81 mg DAILYWBKFT PO Last administered on 01/20/19 08:59; Start 01/19/19 at 16:00 Fentanyl Citrate (Fentanyl 2ml Vial) 50 mcg PRN Q6HRS PRN IV PAIN Last administered on 01/19/19 16:36; Start 01/19/19 at 15:45 Acetaminophen (Tylenol) 650 mg PRN Q6HRS PRN PO PAIN; Start 01/19/19 at 15:45 Acetaminophen/ Hydrocodone Bitart (Lortab 5/325) 1 tab PRN Q4HRS PRN PO PAIN Last administered on 01/20/19at 05:29; Start 01/19/19 at 21:15 Allopurinol (Zyloprim) 200 mg QODAY PO Last administered on 01/20/19 08:59; Start 01/20/19 at 09:00 Alprazolam (Xanax) 0.25 mg PRN TID PRN PO ANXIETY Last administered on 01/19/19 t 23:42; Start 01/19/19 at 21:30 Amlodipine Besylate (Norvasc) 10 mg DAILY PO Last administered on 01/20/19at 09:00; Start 01/20/19 at 09:00 Aspirin (Yuniel Aspirin) 325 mg DAILY PO ; Start 01/20/19 at 09:00 Atorvastatin Calcium (Lipitor) 40 mg QHS PO Last administered on 01/19/19at 23:42; Start 01/19/19 at 22:00 Calcium Acetate (Phoslo) 667 mg BIDWMEALS PO Last administered on 01/20/19at 08:59; Start 01/20/19 at 08:00 Citalopram Hydrobromide (CeleXA) 20 mg DAILY PO Last administered on 01/20/19at 08:59; Start 01/20/19 at 09:00 Clopidogrel Bisulfate (Plavix) 75 mg DAILYWBKFT PO Last administered on 01/20/19at 08:59; Start 01/20/19 at 08:00 Docusate Sodium (Colace) 100 mg BID PO Last administered on 01/20/19at 08:59; Start 01/20/19 at 09:00 Acetaminophen/ Hydrocodone Bitart (Lortab 5/325) 1 tab PRN Q8HRS PRN PO MODERATE PAIN 4-6; Start 01/19/19 at 21:30 Insulin Glargine (Lantus) 15 units QHS SQ ; Start 01/19/19 at 22:00 Nitroglycerin (Nitrostat) 0.4 mg PRN Q5MIN PRN SL CHEST PAIN; Start 01/19/19 at 21:30 Ondansetron HCl (Zofran Odt) 4 mg Q8HRS PO ; Start 01/19/19 at 22:00; Stop 01/20/19 at 08:24; Status DC Metoprolol Tartrate (Lopressor) 12.5 mg BID PO Last administered on 01/20/19at 09:01; Start 01/19/19 at 22:00 Ondansetron HCl (Zofran Odt) 4 mg Q6HRS PO ; Start 01/20/19 at 12:00 Albuterol/ Ipratropium (Duoneb) 3 ml RTQID NEB ; Start 01/20/19 at 12:00 Guaifenesin (Robitussin Dm) 10 ml PRN Q6HRS PRN PO COUGH; Start 01/20/19 at 08:30 Insulin Human Lispro (HumaLOG) 0-9 UNITS TIDWMEALS SQ ; Start 01/20/19 at 12:00 Dextrose (Dextrose 50%-Water Syringe) 12.5 gm PRN Q15MIN PRN IV SEE COMMENTS; Start 01/20/19 at 08:30 Temazepam (Restoril) 7.5 mg PRN QHS PRN PO INSOMNIA; Start 01/20/19 at 08:30 Active Scripts Active Hydrocodone-Apap 5-325 (Hydrocodone Bit/Acetaminophen) 1 Tab Tablet 1 Tab PO PRN Q8HRS PRN Nitrostat (Nitroglycerin) 0.4 Mg Tab.subl 0.4 Mg SL PRN Q5MIN PRN Lipitor (Atorvastatin Calcium) 20 Mg Tablet 40 Mg PO QHS [Metoprolol Tartrate] 25 MG Tablet 12.5 Mg PO BID Plavix (Clopidogrel Bisulfate) 75 Mg Tablet 75 Mg PO DAILYWBKFT Reported Colace (Docusate Sodium) 100 Mg Capsule 1 Cap PO BID [hydrocod-acet 5/500] 1-2 Tab PO Q6-8HRS PRN [hydrocodone-acet] 1-2 Tab Aspirin 325 Mg Tablet 1 Tab PO DAILY Zofran Odt (Ondansetron) 4 Mg Tab.rapdis 1 Tab SL Q8HRS Amlodipine Besylate 10 Mg Tablet 1 Tab PO DAILY Alprazolam 0.25 Mg Tablet 1 Tab PO PRN TID PRN Calcium Acetate 667 Mg Capsule 667 Mg PO BIDWMEALS Allopurinol 100 Mg Tablet 2 Tab PO BID Celexa (Citalopram Hydrobromide) 20 Mg Tablet 1 Tab PO DAILY Lantus Solostar (Insulin Glargine,Hum.rec.anlog) 100 Unit/1 Ml Insuln.pen 15 U nit SQ QHS Vitals/I & O Vital Sign - Last 24 Hours 01/19/19 01/19/19 01/19/19 01/19/19 11:00 11:30 12:00 12:30 Pulse 86 78 78 76 Resp 18 18 18 18 B/P (MAP) 103/61 (75) 123/61 (81) 126/66 (86) 121/63 (82) Pulse Ox 96 97 95 97 O2 Delivery Room Air Room Air Room Air Room Air 01/19/19 01/19/19 01/19/19 01/19/19 13:00 14:00 14:30 15:49 Temp 98.7 98.7 Pulse 76 74 86 Resp 18 18 20 B/P (MAP) 138/72 (94) 113/69 (84) 139/80 (99) Pulse Ox 97 96 95 O2 Delivery Room Air Room Air Room Air Room Air 01/19/19 01/19/19 01/19/19 01/19/19 17:06 19:00 20:00 21:11 Temp 98.4 98.4 Pulse 74 Resp 16 B/P (MAP) 124/61 (82) Pulse Ox 95 98 O2 Delivery Room Air Room Air Room Air Room Air 01/19/19 01/19/19 01/20/19 01/20/19 23:31 23:43 01:15 03:00 Temp 98.5 98.1 98.5 98.1 Pulse 79 79 73 Resp 16 16 B/P (MAP) 119/69 (86) 119/69 127/64 (85) Pulse Ox 97 96 O2 Delivery Room Air Room Air Room Air 01/20/19 01/20/19 01/20/19 01/20/19 05:29 06:32 07:20 08:00 Temp 97.7 97.7 Pulse 70 Resp 16 B/P (MAP) 129/65 (86) Pulse Ox 95 O2 Delivery Room Air Room Air Room Air Room Air 01/20/19 01/20/19 09:00 09:01 Pulse 73 73 B/P (MAP) 127/64 127/64 Intake and Output 01/19/19 01/19/19 01/20/19 15:00 23:00 07:00 Intake Total 1050 ml 300 ml 350 ml Output Total 150 ml Balance 1050 ml 300 ml 200 ml KAREN SHARP MD Jan 20, 2019 11:00
[2019-01-20 11:20] VITALS: BP 125/60
--- NOTE | 2019-01-20 11:56 | PDOC2 ---
CONSULT Date of Consult Date of Consult DATE: 01/20/19 TIME: 11:51 Reason for Consult Reason for Consult: ESRD MWF on HD Identification/Chief Complaint Chief Complaint No complaints currently Source Source: Chart review, Patient History of Present Illness Reason for Visit: Pt is a 68 yo AA male who presented secondary to left rib pain since Thursday. Has been constant. Describes as aching and sharp. Worse with deep breathing. Is excruciating with certain movements. Cannot lay on his left side due to the pain. Left side is slightly tender to touch. No associated shortness of breath, dizziness, diaphoresis, palpitations, or nausea/vomiting. No recent illness/fevers or injury. Does report occasional non-productive cough. He is ESRD on HD MWF morning 6 am shift ,under the care of Dr. Gallardo. No RRF . No Complaints currently Past Medical History Cardiovascular: CAD, HTN, Hyperlipidemia, Other (PVD) CENTRAL NERVOUS SYSTEM: CVA Heme/Onc: Anemia NOS Musculoskeletal: Osteoarthritis Renal/: Chronic renal insuff Endocrine: Diabetes Past Surgical History Past Surgical History: Other (PCI/BMS to LAD) Family History Family History: Diabetes, Hypertension Social History Quit (2006) ALCOHOL: none Drugs: None Lives: with Family Current Problem List Problem List Problems Medical Problems: (1) Pneumonia Status: Acute Current Medications Current Medications Current Medications Sodium Chloride 1,000 ml @ 1,000 mls/hr Q1H IV Last administered on 01/19/19at 11:02; Start 01/19/19 at 10:29; Stop 01/19/19 at 11:28; Status DC Fentanyl Citrate (Fentanyl 2ml Vial) 50 mcg 1X ONCE IV Last administered on 01/19/19at 11:01; Start 01/19/19 at 10:30; Stop 01/19/19 at 10:33; Status DC Iohexol (Omnipaque 350 Mg/ml) 100 ml 1X ONCE IV Last administered on 01/19/19at 11:30; Start 01/19/19 at 11:30; Stop 01/19/19 at 11:31; Status DC Info (CONTRAST GIVEN -- Rx MONITORING) 1 each PRN DAILY PRN MC SEE COMMENTS; Start 01/19/19 at 11:30; Stop 01/21/19 at 11:29 Piperacillin Sod/ Tazobactam Sod (Zosyn Per Pharmacy) 1 each PRN DAILY PRN MC SEE COMMENTS; Start 01/19/19 at 13:00; Stop 01/20/19 at 11:00; Status DC Piperacillin Sod/ Tazobactam Sod 2.25 gm/Sodium Chloride 50 ml @ 100 mls/hr 1X ONCE IV Last administered on 01/19/19at 13:08; Start 01/19/19 at 13:00; Stop 01/19/19 at 13:29; Status DC Fentanyl Citrate (Fentanyl 2ml Vial) 25 mcg 1X ONCE IV Last administered on 01/19/19at 13:11; Start 01/19/19 at 13:00; Stop 01/19/19 at 13:03; Status DC Ondansetron HCl (Zofran) 4 mg PRN Q8HRS PRN IV NAUSEA/VOMITING; Start 01/19/19 at 13:00; Stop 01/20/19 at 12:59 Fentanyl Citrate (Fentanyl 2ml Vial) 25 mcg PRN Q1HR PRN IV PAIN; Start 01/19/19 at 13:00; Stop 01/19/19 at 15:43; Status DC Piperacillin Sod/ Tazobactam Sod 2.25 gm/Sodium Chloride 50 ml @ 100 mls/hr Q12HR IV Last administered on 01/20/19at 08:58; Start 01/19/19 at 21:00; Stop 01/20/19 at 11:00; Status DC Aspirin (Ecotrin) 81 mg DAILYWBKFT PO Last administered on 01/20/19at 08:59; Start 01/19/19 at 16:00 Fentanyl Citrate (Fentanyl 2ml Vial) 50 mcg PRN Q6HRS PRN IV PAIN Last administered on 01/19/19at 16:36; Start 01/19/19 at 15:45 Acetaminophen (Tylenol) 650 mg PRN Q6HRS PRN PO PAIN; Start 01/19/19 at 15:45 Acetaminophen/ Hydrocodone Bitart (Lortab 5/325) 1 tab PRN Q4HRS PRN PO PAIN Last administered on 01/20/19at 05:29; Start 01/19/19 at 21:15 Allopurinol (Zyloprim) 200 mg QODAY PO Last administered on 01/20/19at 08:59; Start 01/20/19 at 09:00 Alprazolam (Xanax) 0.25 mg PRN TID PRN PO ANXIETY Last administered on 01/19/19at 23:42; Start 01/19/19 at 21:30 Amlodipine Besylate (Norvasc) 10 mg DAILY PO Last administered on 01/20/19at 09:00; Start 01/20/19 at 09:00 Aspirin (Yuniel Aspirin) 325 mg DAILY PO ; Start 01/20/19 at 09:00 Atorvastatin Calcium (Lipitor) 40 mg QHS PO Last administered on 01/19/19at 23:42; Start 01/19/19 at 22:00 Calcium Acetate (Phoslo) 667 mg BIDWMEALS PO Last administered on 01/20/19at 08:59; Start 01/20/19 at 08:00 Citalopram Hydrobromide (CeleXA) 20 mg DAILY PO Last administered on 01/20/19at 08:59; Start 01/20/19 at 09:00 Clopidogrel Bisulfate (Plavix) 75 mg DAILYWBKFT PO Last administered on 01/20/19at 08:59; Start 01/20/19 at 08:00 Docusate Sodium (Colace) 100 mg BID PO Last administered on 01/20/19at 08:59; Start 01/20/19 at 09:00 Acetaminophen/ Hydrocodone Bitart (Lortab 5/325) 1 tab PRN Q8HRS PRN PO MODERATE PAIN 4-6; Start 01/19/19 at 21:30 Insulin Glargine (Lantus) 15 units QHS SQ ; Start 01/19/19 at 22:00 Nitroglycerin (Nitrostat) 0.4 mg PRN Q5MIN PRN SL CHEST PAIN; Start 01/19/19 at 21:30 Ondansetron HCl (Zofran Odt) 4 mg Q8HRS PO ; Start 01/19/19 at 22:00; Stop at 08:24; Status DC Metoprolol Tartrate (Lopressor) 12.5 mg BID PO Last administered on 01/20/19at 09:01; Start 01/19/19 at 22:00 Ondansetron HCl (Zofran Odt) 4 mg Q6HRS PO ; Start 01/20/19 at 12:00 Albuterol/ Ipratropium (Duoneb) 3 ml RTQID NEB ; Start 01/20/19 at 12:00 Guaifenesin (Robitussin Dm) 10 ml PRN Q6HRS PRN PO COUGH; Start 01/20/19 at 08:30 Insulin Human Lispro (HumaLOG) 0-9 UNITS TIDWMEALS SQ ; Start 01/20/19 at 12:00 Dextrose (Dextrose 50%-Water Syringe) 12.5 gm PRN Q15MIN PRN IV SEE COMMENTS; Start 01/20/19 at 08:30 Temazepam (Restoril) 7.5 mg PRN QHS PRN PO INSOMNIA; Start 01/20/19 at 08:30 Active Scripts Active Hydrocodone-Apap 5-325 (Hydrocodone Bit/Acetaminophen) 1 Tab Tablet 1 Tab PO PRN Q8HRS PRN Nitrostat (Nitroglycerin) 0.4 Mg Tab.subl 0.4 Mg SL PRN Q5MIN PRN Lipitor (Atorvastatin Calcium) 20 Mg Tablet 40 Mg PO QHS [Metoprolol Tartrate] 25 MG Tablet 12.5 Mg PO BID Plavix (Clopidogrel Bisulfate) 75 Mg Tablet 75 Mg PO DAILYWBKFT Reported Colace (Docusate Sodium) 100 Mg Capsule 1 Cap PO BID [hydrocod-acet 5/500] 1-2 Tab PO Q6-8HRS PRN [hydrocodone-acet] 1-2 Tab Aspirin 325 Mg Tablet 1 Tab PO DAILY Zofran Odt (Ondansetron) 4 Mg Tab.rapdis 1 Tab SL Q8HRS Amlodipine Besylate 10 Mg Tablet 1 Tab PO DAILY Alprazolam 0.25 Mg Tablet 1 Tab PO PRN TID PRN Calcium Acetate 667 Mg Capsule 667 Mg PO BIDWMEALS Allopurinol 100 Mg Tablet 2 Tab PO BID Celexa (Citalopram Hydrobromide) 20 Mg Tablet 1 Tab PO DAILY Lantus Solostar (Insulin Glargine,Hum.rec.anlog) 100 Unit/1 Ml Insuln.pen 15 Unit SQ QHS Allergies Allergies: Coded Allergies: No Known Drug Allergies (Unverified , 02/27/15) ROS Review of System Per HPI Physical Exam Physical Exam GEN: NAD, sitting up in chair HEN: OM moist NECK Supple, CVS: RRR RESP: CTA, No Acc. Muscle Use GI: Non Tender, Non Distended : No CVA tenderness, No Suprapubic Tenderness, No Veliz NEURO Grossly normal Vital Signs Vital Signs Date Time Temp Pulse Resp B/P (MAP) Pulse Ox O2 Delivery O2 Flow Rate FiO2 01/20/19 09:01 73 127/64 01/20/19 08:00 Room Air 01/20/19 07:20 97.7 16 95 97.7 Assessment & Plan ESRD - On HD MWF - Dr Gallardo Last HD on 01/19, labs reviewed from yesterday currently no indication for HD , tomorrow if not dced if Dced will go back to OP unit (he goes at 6 am ) Left Chest discomfort No evidence of pulmonary embolism. Hx of CAD Dc per primary, Rc RN and patient Labs Labs Laboratory Tests Test 01/19/19 10:33 01/19/19 16:45 01/19/19 20:23 01/19/19 21:45 White Blood Count 8.1 x10^3/uL (4.0-11.0) Red Blood Count 4.11 x10^6/uL (4.30-5.70) Hemoglobin 12.7 g/dL (13.0-17.5) Hematocrit 37.0 % (39.0-53.0) Mean Corpuscular Volume 90 fL (79-100) Mean Corpuscular Hemoglobin 31 pg (25-35) Mean Corpuscular Hemoglobin Concent 34 g/dL (31-37) Red Cell Distribution Width 15.2 % (11.5-14.5) Platelet Count 235 x10^3/uL (140-400) Neutrophils (%) (Auto) 69 % (31-73) Lymphocytes (%) (Auto) 17 % (24-48) Monocytes (%) (Auto) 8 % (0-9) Eosinophils (%) (Auto) 5 % (0-3) Basophils (%) (Auto) 1 % (0-3) Neutrophils # (Auto) 5.6 x10^3/uL (1.8-7.7) Lymphocytes # (Auto) 1.4 x10^3/uL (1.0-4.8) Monocytes # (Auto) 0.6 x10^3/uL (0.0-1.1) Eosinophils # (Auto) 0.4 x10^3/uL (0.0-0.7) Basophils # (Auto) 0.1 x10^3/uL (0.0-0.2) Prothrombin Time 13.8 SEC (11.7-14.0) Prothromb Time International Ratio 1.1 (0.8-1.1) Sodium Level 140 mmol/L (136-145) Potassium Level 4.1 mmol/L (3.5-5.1) Chloride Level 98 mmol/L (98-107) Carbon Dioxide Level 29 mmol/L (21-32) Anion Gap 13 (6-14) Blood Urea Nitrogen 27 mg/dL (8-26) Creatinine 5.4 mg/dL (0.7-1.3) Estimated GFR (Cockcroft-Gault) 12.9 BUN/Creatinine Ratio 5 (6-20) Glucose Level 188 mg/dL (70-99) Calcium Level 9.1 mg/dL (8.5-10.1) Total Bilirubin 0.3 mg/dL (0.2-1.0) Aspartate Amino Transf (AST/SGOT) 11 U/L (15-37) Alanine Aminotransferase (ALT/SGPT) 14 U/L (16-63) Alkaline Phosphatase 74 U/L (46-116) Troponin I Quantitative < 0.017 ng/mL (0.000-0.055) < 0.017 ng/mL (0.000-0.055) < 0.017 ng/mL (0.000-0.055) Total Protein 7.3 g/dL (6.4-8.2) Albumin 4.1 g/dL (3.4-5.0) Albumin/Globulin Ratio 1.3 (1.0-1.7) Lipase 209 U/L (73-393) Glucose (Fingerstick) 156 mg/dL (70-99) Test 01/20/19 03:15 Triglycerides Level 136 mg/dL (0-150) Cholesterol Level 114 mg/dL (0-200) LDL Cholesterol, Calculated 49 mg/dL (0-100) VLDL Cholesterol, Calculated 27 mg/dL (0-40) Non-HDL Cholesterol Calculated 76 mg/dL (0-129) HDL Cholesterol 38 mg/dL (40-60) Cholesterol/HDL Ratio 3.0 Laboratory Tests Test 01/19/19 16:45 01/19/19 20:23 01/19/19 21:45 01/20/19 03:15 Troponin I Quantitative < 0.017 ng/mL (0.000-0.055) < 0.017 ng/mL (0.000-0.055) Glucose (Fingerstick) 156 mg/dL (70-99) Triglycerides Level 136 mg/dL (0-150) Cholesterol Level 114 mg/dL (0-200) LDL Cholesterol, Calculated 49 mg/dL (0-100) VLDL Cholesterol, Calculated 27 mg/dL (0-40) Non-HDL Cholesterol Calculated 76 mg/dL (0-129) HDL Cholesterol 38 mg/dL (40-60) Cholesterol/HDL Ratio 3.0 Review All relevant outside records, renal labs, imaging studies, telemetry/EKG's were reviewed. Images Images CTA 1. No evidence of pulmonary embolism. 2. Coronary artery calcifications. 3. Bilateral lung emphysematous changes. Minimal bibasilar lung atelectasis. 4. Probable gallbladder sludge. MARRY NATH MD Jan 20, 2019 11:56
[2019-01-20] MEDS: INSULIN LISPRO 300 UNITS/3 ML INSULN.PEN. SQ SCH ×2 (12:00→17:26)
[2019-01-20] MEDS: IPRATRPIUM/ALBUTEROL 0.5/2.5MG 3 ML NEBU. NEB SCH ×3 (12:05→20:50)
--- NOTE | 2019-01-20 13:58 | NUR ---
SS following for discharge planning. SS reviewed pt chart. Pt is from home and is currently on room air. PT recommended group home unit. SS met with pt to discuss group home unit and discharge planning. Pt declined group home unit and home healthcare at this time. SS will continue to follow for discharge planning.
[2019-01-20 15:00] VITALS: BP 119/64
--- NOTE | 2019-01-20 15:40 | NUR ---
Patient received to room 530 per wheelchair accompanied by his . Patient A&O times four. Side rails up times two, call light at hand. Patient verb. understanding up with assist only and fall protocol. Bed alarm set. Patient verb. understanding orientation to room and unit routines. Patient skin W&D, VIVIAN fistula with good bruit and thrill. Continue cares and monitor.
[2019-01-20 19:00] VITALS: BP 168/69
[2019-01-20] MEDS: ATORVASTATIN CALCIUM 40 MG TABLET. PO SCH (21:30)
[2019-01-20] MEDS: LACTOBACILLUS RHAMNOSUS GG 1 CAPSULE. PO SCH (21:30)
[2019-01-20] MEDS: INSULIN GLARGINE 300 UNITS/3 ML INSULN.PEN. SQ SCH (21:39)
[2019-01-20 23:00] VITALS: BP 136/59
[2019-01-21 03:00] VITALS: BP 122/62
[2019-01-21] MEDS: ONDANSETRON ODT 4 MG TAB.RAPDIS. PO SCH ×4 (06:16→23:31)
[2019-01-21 07:00] VITALS: BP 135/70
[2019-01-21] MEDS: IPRATRPIUM/ALBUTEROL 0.5/2.5MG 3 ML NEBU. NEB SCH ×5 (07:25→20:57)
[2019-01-21] MEDS: HYDROcodone/APAP 5/325MG 1 TAB TABLET PO PRN ×3 (07:42→23:33)
[2019-01-21] MEDS: INSULIN LISPRO 300 UNITS/3 ML INSULN.PEN. SQ SCH ×3 (08:00→17:50)
[2019-01-21] MEDS ORDERED: IV NORMAL SALINE 1000ML BAG 1,000 ML IV PRN ×2 (08:22)
[2019-01-21] MEDS ORDERED: DIALYSIS PATIENT. MC PRN (08:30)
[2019-01-21] MEDS ORDERED: diphenhydrAMINE 50 MG/ML VIAL IV PRN ×2 (08:30)
[2019-01-21] MEDS: amLODIPine BESYLATE 10 MG TABLET PO SCH (09:00)
[2019-01-21] MEDS: METOPROLOL TART IMMED RELEASE 25 MG TABLET. PO SCH ×2 (09:00→21:34)
[2019-01-21 11:00] VITALS: BP 111/71
--- NOTE | 2019-01-21 11:25 | NUR ---
Patient return from dialysis per bed. Patient alert and oriented times four, call light at hand, side rails up times two, bed alarm set, patient verb. understanding up assist only. Continue cares and monitor.
--- NOTE | 2019-01-21 11:44 | NUR ---
Blood pressure medications in morning held for dialysis, continue to hold on return as BP 111/71, pulse 84. Continue cares and monitor.
[2019-01-21] MEDS: ASPIRIN 325 MG TABLET PO SCH (12:03)
[2019-01-21] MEDS: DOCUSATE SODIUM 100 MG CAPSULE. PO SCH ×2 (12:04→21:34)
[2019-01-21] MEDS: ASPIRIN ENTERIC COATED 81 MG TABLET.DR. PO SCH (12:04)
[2019-01-21] MEDS: CLOPIDOGREL BISULFATE 75 MG TABLET PO SCH (12:04)
[2019-01-21] MEDS: CITALOPRAM 20 MG TABLET. PO SCH (12:04)
[2019-01-21] MEDS: LACTOBACILLUS RHAMNOSUS GG 1 CAPSULE. PO SCH ×2 (12:04→21:35)
[2019-01-21] MEDS: CALCIUM ACETATE 667 MG CAPSULE PO SCH ×2 (12:04→17:46)
--- NOTE | 2019-01-21 12:27 | PDOC ---
PROGRESS NOTES Chief Complaint Chief Complaint 1. LEFT CHEST DISCOMFORT AT REST, persist 2. ESRD on dialysis, AOCD 3. No evidence of pulmonary embolism. 4.Coronary artery calcifications. 5. Bilateral lung emphysematous changes. Minimal bibasilar lung atelectasis. 6. Probable gallbladder sludge. 7. Successful bare metal stent placement to the LAD decreasing a 95% lesion to 0%. 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 Discussed with RN x-ray l/s, thoracic spine 27 min pt exam, chart review, > 50% of time spent with exam, chart review, pt care coordination Vitals Vitals Vital Signs Date Time Temp Pulse Resp B/P (MAP) Pulse Ox O2 Delivery O2 Flow Rate FiO2 01/21/19 11:00 98.4 84 18 111/71 (84) 99 Room Air 98.4 Physical Exam General: Alert, Oriented X3, Cooperative, No acute distress, mild distress, moderate distress Heart: Regular rate, Normal S1, Normal S2, Other (2/6 systolic murmur) Lungs: Clear Abdomen: Normal bowel sounds, Soft, No tenderness Extremities: No clubbing, No cyanosis Skin: No significant lesion Labs LABS Laboratory Tests Test 01/20/19 16:59 01/20/19 20:48 01/21/19 07:40 01/21/19 11:34 Glucose (Fingerstick) 257 mg/dL (70-99) 197 mg/dL (70-99) 137 mg/dL (70-99) 129 mg/dL (70-99) Assessment and Plan Assessmemt and Plan Problems Medical Problems: (1) Pneumonia Status: Acute Comment Review of Relevant I have reviewed the following items dariel (where applicable) has been applied. Labs Laboratory Tests Test 01/19/19 16:45 01/19/19 20:23 01/19/19 21:45 01/20/19 03:15 Troponin I Quantitative < 0.017 ng/mL (0.000-0.055) < 0.017 ng/mL (0.000-0.055) Glucose (Fingerstick) 156 mg/dL (70-99) Triglycerides Level 136 mg/dL (0-150) Cholesterol Level 114 mg/dL (0-200) LDL Cholesterol, Calculated 49 mg/dL (0-100) VLDL Cholesterol, Calculated 27 mg/dL (0-40) Non-HDL Cholesterol Calculated 76 mg/dL (0-129) HDL Cholesterol 38 mg/dL (40-60) Cholesterol/HDL Ratio 3.0 Test 01/20/19 07:26 01/20/19 11:59 01/20/19 16:59 01/20/19 20:48 Glucose (Fingerstick) 122 mg/dL (70-99) 132 mg/dL (70-99) 257 mg/dL (70-99) 197 mg/dL (70-99) Test 01/21/19 07:40 01/21/19 11:34 Glucose (Fingerstick) 137 mg/dL (70-99) 129 mg/dL (70-99) Laboratory Tests Test 01/20/19 16:59 01/20/19 20:48 01/21/19 07:40 01/21/19 11:34 Glucose (Fingerstick) 257 mg/dL (70-99) 197 mg/dL (70-99) 137 mg/dL (70-99) 129 mg/dL (70-99) Microbiology 01/19/19 Blood Culture - Preliminary, Resulted NO GROWTH AFTER 1 DAY Medications Current Medications Sodium Chloride 1,000 ml @ 1,000 mls/hr Q1H IV Last administered on 01/19/19at 11:02; Start 01/19/19 at 10:29; Stop 01/19/19 at 11:28; Status DC Fentanyl Citrate (Fentanyl 2ml Vial) 50 mcg 1X ONCE IV Last administered on 01/19/19at 11:01; Start 01/19/19 at 10:30; Stop 01/19/19 at 10:33; Status DC Iohexol (Omnipaque 350 Mg/ml) 100 ml 1X ONCE IV Last administered on 01/19/19at 11:30; Start 01/19/19 at 11:30; Stop 01/19/19 at 11:31; Status DC Info (CONTRAST GIVEN -- Rx MONITORING) 1 each PRN DAILY PRN MC SEE COMMENTS; Start 01/19/19 at 11:30; Stop 01/21/19 at 11:29; Status DC Piperacillin Sod/ Tazobactam Sod (Zosyn Per Pharmacy) 1 each PRN DAILY PRN MC SEE COMMENTS; Start 01/19/19 at 13:00; Stop 01/20/19 at 11:00; Status DC Piperacillin Sod/ Tazobactam Sod 2.25 gm/Sodium Chloride 50 ml @ 100 mls/hr 1X ONCE IV Last administered on 01/19/19at 13:08; Start 01/19/19 at 13:00; Stop 01/19/19 at 13:29; Status DC Fentanyl Citrate (Fentanyl 2ml Vial) 25 mcg 1X ONCE IV Last administered on 01/19/19at 13:11; Start 01/19/19 at 13:00; Stop 01/19/19 at 13:03; Status DC Ondansetron HCl (Zofran) 4 mg PRN Q8HRS PRN IV NAUSEA/VOMITING; Start 01/19/19 at 13:00; Stop 01/20/19 at 12:59; Status DC Fentanyl Citrate (Fentanyl 2ml Vial) 25 mcg PRN Q1HR PRN IV PAIN; Start 01/19/19 at 13:00; Stop 01/19/19 at 15:43; Status DC Piperacillin Sod/ Tazobactam Sod 2.25 gm/Sodium Chloride 50 ml @ 100 mls/hr Q12HR IV Last administered on 01/20/19at 08:58; Start 01/19/19 at 21:00; Stop 01/20/19 at 11:00; Status DC Aspirin (Ecotrin) 81 mg DAILYWBKFT PO Last administered on 01/21/19at 12:04; Start 01/19/19 at 16:00 Fentanyl Citrate (Fentanyl 2ml Vial) 50 mcg PRN Q6HRS PRN IV PAIN Last administered on 01/19/19at 16:36; Start 01/19/19 at 15:45 Acetaminophen (Tylenol) 650 mg PRN Q6HRS PRN PO HEADACHE / FEVER; Start 01/19/19 at 15:45 Acetaminophen/ Hydrocodone Bitart (Lortab 5/325) 1 tab PRN Q4HRS PRN PO PAIN Last administered on 01/20/19at 13:00; Start 01/19/19 at 21:15; Stop 01/20/19 at 14:27; Status DC Allopurinol (Zyloprim) 200 mg QODAY PO Last administered on 01/20/19 08:59; Start 01/20/19 at 09:00 Alprazolam (Xanax) 0.25 mg PRN TID PRN PO ANXIETY Last administered on 01/19/19 23:42; Start 01/19/19 at 21:30 Amlodipine Besylate (Norvasc) 10 mg DAILY PO Last administered on 01/20/19 09:00; Start 01/20/19 at 09:00 Aspirin (Yuniel Aspirin) 325 mg DAILY PO Last administered on 01/21/19 12:03; Start 01/20/19 at 09:00 Atorvastatin Calcium (Lipitor) 40 mg QHS PO Last administered on 01/20/19 21:30; Start 01/19/19 at 22:00 Calcium Acetate (Phoslo) 667 mg BIDWMEALS PO Last administered on 01/21/19 12:04; Start 01/20/19 at 08:00 Citalopram Hydrobromide (CeleXA) 20 mg DAILY PO Last administered on 01/21/19 12:04; Start 01/20/19 at 09:00 Clopidogrel Bisulfate (Plavix) 75 mg DAILYWBKFT PO Last administered on 01/21/19 12:04; Start 01/20/19 at 08:00 Docusate Sodium (Colace) 100 mg BID PO Last administered on 01/21/19 12:04; Start 01/20/19 at 09:00 Acetaminophen/ Hydrocodone Bitart (Lortab 5/325) 1 tab PRN Q8HRS PRN PO MODERAT E PAIN 4-6 Last administered on 01/21/19 07:42; Start 01/19/19 at 21:30 Insulin Glargine (Lantus) 15 units QHS SQ Last administered on 01/20/19at 21:39; Start 01/19/19 at 22:00 Nitroglycerin (Nitrostat) 0.4 mg PRN Q5MIN PRN SL CHEST PAIN; Start 01/19/19 at 21:30 Ondansetron HCl (Zofran Odt) 4 mg Q8HRS PO ; Start 01/19/19 at 22:00; Stop 01/20/19 at 08:24; Status DC Metoprolol Tartrate (Lopressor) 12.5 mg BID PO Last administered on 01/20/19at 21:31; Start 01/19/19 at 22:00 Ondansetron HCl (Zofran Odt) 4 mg Q6HRS PO Last administered on 01/21/19at 06:16; Start 01/20/19 at 12:00 Albuterol/ Ipratropium (Duoneb) 3 ml RTQID NEB Last administered on 01/21/19at 07:25; Start 01/20/19 at 12:00 Guaifenesin (Robitussin Dm) 10 ml PRN Q6HRS PRN PO COUGH; Start 01/20/19 at 08:30 Insulin Human Lispro (HumaLOG) 0-9 UNITS TIDWMEALS SQ Last administered on 01/20/19at 17:26; Start 01/20/19 at 12:00 Dextrose (Dextrose 50%-Water Syringe) 12.5 gm PRN Q15MIN PRN IV SEE COMMENTS; Start 01/20/19 at 08:30 Temazepam (Restoril) 7.5 mg PRN QHS PRN PO INSOMNIA; Start 01/20/19 at 08:30 Lactobacillus Rhamnosus (Culturelle) 1 cap BID PO Last administered on 01/03 03/24at 12:04; Start 01/20/19 at 21:00 Sodium Chloride 1,000 ml @ 1,000 mls/hr Q1H PRN IV hypotension; Start 01/21/19 at 08:22; Stop 01/21/19 at 14:21 Diphenhydramine HCl (Benadryl) 25 mg 1X PRN PRN IV ITCHING; Start 01/21/19 at 08:30; Stop 01/22/19 at 08:29 Diphenhydramine HCl (Benadryl) 25 mg 1X PRN PRN IV ITCHING; Start 01/21/19 at 08:30; Stop 01/22/19 at 08:29 Sodium Chloride 1,000 ml @ 400 mls/hr Q2H30M PRN IV PATENCY; Start 01/21/19 at 08:22; Stop 01/21/19 at 20:21 Info (PHARMACY MONITORING -- do not chart) 1 each PRN DAILY PRN MC SEE COMMENTS; Start 01/21/19 at 08:30 Active Scripts Active Hydrocodone-Apap 5-325 (Hydrocodone Bit/Acetaminophen) 1 Tab Tablet 1 Tab PO PRN Q8HRS PRN Nitrostat (Nitroglycerin) 0.4 Mg Tab.subl 0.4 Mg SL PRN Q5MIN PRN Lipitor (Atorvastatin Calcium) 20 Mg Tablet 40 Mg PO QHS [Metoprolol Tartrate] 25 MG Tablet 12.5 Mg PO BID Plavix (Clopidogrel Bisulfate) 75 Mg Tablet 75 Mg PO DAILYWBKFT Reported Colace (Docusate Sodium) 100 Mg Capsule 1 Cap PO BID [hydrocod-acet 5/500] 1-2 Tab PO Q6-8HRS PRN [hydrocodone-acet] 1-2 Tab Aspirin 325 Mg Tablet 1 Tab PO DAILY Zofran Odt (Ondansetron) 4 Mg Tab.rapdis 1 Tab SL Q8HRS Amlodipine Besylate 10 Mg Tablet 1 Tab PO DAILY Alprazolam 0.25 Mg Tablet 1 Tab PO PRN TID PRN Calcium Acetate 667 Mg Capsule 667 Mg PO BIDWMEALS Allopurinol 100 Mg Tablet 2 Tab PO BID Celexa (Citalopram Hydrobromide) 20 Mg Tablet 1 Tab PO DAILY Lantus Solostar (Insulin Glargine,Hum.rec.anlog) 100 Unit/1 Ml Insuln.pen 15 Unit SQ QHS Vitals/I & O Vital Sign - Last 24 Hours 01/20/19 01/20/19 01/20/19 01/20/19 13:00 15:00 15:39 16:14 Temp 97.5 97.5 Pulse 64 Resp 17 18 B/P (MAP) 119/64 (82) Pulse Ox 94 95 O2 Delivery Room Air Room Air Room Air Room Air 01/20/19 01/20/19 01/20/19 01/20/19 16:39 19:00 20:00 20:51 Temp 97.3 97.3 Pulse 77 Resp 20 20 B/P (MAP) 168/69 (102) Pulse Ox 92 98 O2 Delivery Room Air Room Air Room Air 01/20/19 01/20/19 01/20/19 01/21/19 21:31 23:00 23:41 00:41 Temp 98.3 98.3 Pulse 77 77 Resp 20 B/P (MAP) 168/69 136/59 (84) Pulse Ox 92 98 98 O2 Delivery Room Air Room Air Room Air 01/21/19 01/21/19 01/21/19 01/21/19 03:00 07:00 07:25 07:42 Temp 97.5 98.6 97.5 98.6 Pulse 69 69 Resp 22 18 20 B/P (MAP) 122/62 (82) 135/70 (91) Pulse Ox 98 100 96 O2 Delivery Room Air Room Air Room Air Room Air 01/21/19 01/21/19 01/21/19 01/21/19 08:00 09:00 09:00 11:00 Temp 98.4 98.4 Pulse 84 84 84 Resp 18 B/P (MAP) 111/71 111/71 111/71 (84) Pulse Ox 99 O2 Delivery Room Air Room Air Intake and Output 01/20/19 01/20/19 01/21/19 15:00 23:00 07:00 Intake Total 200 ml 380 ml 390 ml Output Total 150 ml Balance 50 ml 380 ml 390 ml CARLA RIVAS MD Jan 21, 2019 12:27
[2019-01-21 15:00] VITALS: BP 100/62
[2019-01-21] MEDS: LIDOCAINE (700MG/PATCH) PATCH. TD SCH (17:54)
[2019-01-21 19:00] VITALS: BP 127/65
[2019-01-21] MEDS: PATCH REMOVAL. MC SCH (21:00)
[2019-01-21] MEDS: ATORVASTATIN CALCIUM 40 MG TABLET. PO SCH (21:31)
[2019-01-21] MEDS: ALPRAZolam 0.25 MG TABLET PO PRN (21:31)
[2019-01-21] MEDS: INSULIN GLARGINE 300 UNITS/3 ML INSULN.PEN. SQ SCH (21:42)
[2019-01-21 22:58] VITALS: BP 132/64
--- NOTE | 2019-01-22 00:52 | PDOC ---
SUBJECTIVE ROS Seen on HD 01/21 OBJECTIVE Vital Signs Vital Signs Date Time Temp Pulse Resp B/P (MAP) Pulse Ox O2 Delivery O2 Flow Rate FiO2 01/22/19 00:34 18 95 Room Air 01/21/19 22:58 98.3 92 132/64 (86) 98.3 I & 0 Intake and Output 01/22/19 06:59 Intake Total 420 ml Output Total 120 ml Balance 300 ml Intake Oral 420 ml Output Urine Total 120 ml # Voids 2 PHYSICAL EXAM Physical Exam GEN: NAD, sitting up in chair HEN: OM moist NECK Supple, CVS: RRR RESP: CTA, No Acc. 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 Hx of CAD COMMENT/RELEVANT DATA Meds Current Medications Medications (Trade) Dose Ordered Sig/Neeraj Start Time Stop Time Status Last Admin Dose Admin Acetaminophen (Tylenol) 650 mg PRN Q6HRS PRN 01/19/19 15:45 Acetaminophen/ Hydrocodone Bitart (Lortab 5/325) 1 tab PRN Q8HRS PRN 01/19/19 21:30 01/21/19 23:33 1 TAB Albuterol/ Ipratropium (Duoneb) 3 ml RTQID 01/20/19 12:00 01/21/19 20:57 3 ML Allopurinol (Zyloprim) 200 mg QODAY 01/20/19 09:00 01/20/19 08:59 200 MG Alprazolam (Xanax) 0.25 mg PRN TID PRN 01/19/19 21:30 01/21/19 21:31 0.25 MG Amlodipine Besylate (Norvasc) 10 mg DAILY 01/20/19 09:00 01/20/19 09:00 10 MG Aspirin (Yuniel Aspirin) 325 mg DAILY 01/20/19 09:00 01/21/19 12:03 325 MG Aspirin (Ecotrin) 81 mg DAILYWBKFT 01/19/19 16:00 01/21/19 12:04 81 MG Atorvastatin Calcium (Lipitor) 40 mg QHS 01/19/19 22:00 01/21/19 21:31 40 MG Calcium Acetate (Phoslo) 667 mg BIDWMEALS 01/20/19 08:00 01/21/19 17:46 667 MG Citalopram Hydrobromide (CeleXA) 20 mg DAILY 01/20/19 09:00 01/21/19 12:04 20 MG Clopidogrel Bisulfate (Plavix) 75 mg DAILYWBKFT 01/20/19 08:00 01/21/19 12:04 75 MG Dextrose (Dextrose 50%-Water Syringe) 12.5 gm PRN Q15MIN PRN 01/20/19 08:30 Diphenhydramine HCl (Benadryl) 25 mg 1X PRN PRN 01/21/19 08:30 01/22/19 08:29 Docusate Sodium (Colace) 100 mg BID 01/20/19 09:00 01/21/19 21:34 100 MG Fentanyl Citrate (Fentanyl 2ml Vial) 50 mcg PRN Q6HRS PRN 01/19/19 15:45 01/19/19 16:36 50 MCG Guaifenesin (Robitussin Dm) 10 ml PRN Q6HRS PRN 01/20/19 08:30 Info (CONTRAST GIVEN -- Rx MONITORING) 1 each PRN DAILY PRN 01/19/19 11:30 01/21/19 11:29 DC Info (PHARMACY MONITORING -- do not chart) 1 each PRN DAILY PRN 01/21/19 08:30 Insulin Glargine (Lantus) 15 units QHS 01/19/19 22:00 01/21/19 21:42 15 UNITS Insulin Human Lispro (HumaLOG) 0-9 UNITS TIDWMEALS 01/20/19 12:00 01/21/19 17:50 7 UNITS Iohexol (Omnipaque 350 Mg/ml) 100 ml 1X ONCE 01/19/19 11:30 01/19/19 11:31 DC 01/19/19 11:30 100 ML Lactobacillus Rhamnosus (Culturelle) 1 cap BID 01/20/19 21:00 01/21/19 21:35 1 CAP Lidocaine (Lidoderm) 1 patch DAILY 01/21/19 17:00 01/21/19 17:54 1 PATCH Metoprolol Tartrate (Lopressor) 12.5 mg BID 01/19/19 22:00 01/21/19 21:34 12.5 MG Miscellaneous (Lidoderm Patch Removal) 1 ea QHS 01/21/19 21:00 Nitroglycerin (Nitrostat) 0.4 mg PRN Q5MIN PRN 01/19/19 21:30 Ondansetron HCl (Zofran Odt) 4 mg Q6HRS 01/20/19 12:00 01/21/19 23:31 4 MG Ondansetron HCl (Zofran) 4 mg PRN Q8HRS PRN 01/19/19 13:00 01/20/19 12:59 DC Piperacillin Sod/ Tazobactam Sod (Zosyn Per Pharmacy) 1 each PRN DAILY PRN 01/19/19 13:00 01/20/19 11:00 DC Piperacillin Sod/ Tazobactam Sod 2.25 gm/Sodium Chloride 50 ml @ 100 mls/hr Q12HR 01/19/19 21:00 01/20/19 11:00 DC 01/20/19 08:58 100 MLS/HR Sodium Chloride 1,000 ml @ 400 mls/hr Q2H30M PRN 01/21/19 08:22 01/21/19 20:21 DC Temazepam (Restoril) 7.5 mg PRN QHS PRN 01/20/19 08:30 Lab Laboratory Tests Test 01/21/19 07:40 01/21/19 11:34 01/21/19 16:48 01/21/19 20:44 Glucose (Fingerstick) 137 mg/dL (70-99) 129 mg/dL (70-99) 279 mg/dL (70-99) 193 mg/dL (70-99) Results All relevant outside records, renal labs, imaging studies, telemetry/EKG's were reviewed. MARRY NATH MD Jan 22, 2019 00:52
[2019-01-22 03:00] VITALS: BP 108/60
[2019-01-22 04:55] LABS: BASO # 0.1 x10^3/uL (0.0-0.2); BASO % 1 % (0-3); EOS # 0.4 x10^3/uL (0.0-0.7); EOS % 7 % (0-3); HEMATOCRIT 37.1 % (39.0-53.0); HEMOGLOBIN 12.3 g/dL (13.0-17.5); LYMPH # 1.3 x10^3/uL (1.0-4.8); LYMPH % 20 % (24-48); MEAN CORPUSCULAR HEMOGLOBIN 30 pg (25-35); MEAN CORPUSCULAR HGB CONC 33 g/dL (31-37); MEAN CORPUSCULAR VOLUME 91 fL (79-100); MONO # 0.5 x10^3/uL (0.0-1.1); MONO % 8 % (0-9); NEUT % 64 % (31-73); PLATELET COUNT 236 x10^3/uL (140-400); RED BLOOD COUNT 4.08 x10^6/uL (4.30-5.70); RED CELL DISTRIBUTION WIDTH 15.1 % (11.5-14.5); WHITE BLOOD COUNT 6.3 x10^3/uL (4.0-11.0)
[2019-01-22] MEDS: ONDANSETRON ODT 4 MG TAB.RAPDIS. PO SCH ×3 (05:23→17:25)
[2019-01-22 05:24] LABS: ALBUMIN 3.5 g/dL (3.4-5.0); ALBUMIN/GLOBULIN RATIO 0.9 (1.0-1.7); CALCIUM 9.7 mg/dL (8.5-10.1); CREATININE 8.8 mg/dL (0.7-1.3); GFR 7.4; POTASSIUM 4.4 mmol/L (3.5-5.1); TOTAL BILIRUBIN 0.3 mg/dL (0.2-1.0); TOTAL PROTEIN 7.2 g/dL (6.4-8.2)
[2019-01-22] MEDS: IPRATRPIUM/ALBUTEROL 0.5/2.5MG 3 ML NEBU. NEB SCH ×4 (07:36→21:20)
[2019-01-22 07:44] VITALS: BP 130/79
[2019-01-22] MEDS: ASPIRIN ENTERIC COATED 81 MG TABLET.DR. PO SCH (08:00)
[2019-01-22] MEDS: INSULIN LISPRO 300 UNITS/3 ML INSULN.PEN. SQ SCH ×3 (08:00→17:00)
--- NOTE | 2019-01-22 08:11 | RAD ---
Indication: Severe pain TECHNIQUE: 4 views of the left ribs COMPARISON: None FINDINGS/ impression: Multiple healed 5, 6, 7 left lateral rib fractures. Left lung is clear. Minimally displaced acute fractures are seen of the left eighth and ninth ribs. Electronically signed by: Cayetano rTujillo DO (01/22/2019 8:08 AM) [facility]
--- NOTE | 2019-01-22 08:31 | RAD ---
Indication: Severe pain TECHNIQUE: 3 views of the thoracic spine and multiple views of the lumbar spine COMPARISON: None FINDINGS: Thoracic spine: Thoracic spine is in normal anatomic alignment. Multilevel mild degenerative disc disease. Heart is normal in size. Visualized lungs are clear. No significant loss of vertebral body height to suggest high-grade compression deformity. Lumbar spine: Very mild grade 1 anterolisthesis of L5 over S1. No compression deformities. Mild multilevel degenerative disc disease. No significant facet arthropathy. IMPRESSION: As above. Electronically signed by: Cayetano Trujillo DO (01/22/2019 8:28 AM) [facility]
[2019-01-22] MEDS: LIDOCAINE (700MG/PATCH) PATCH. TD SCH (08:45)
[2019-01-22] MEDS: CALCIUM ACETATE 667 MG CAPSULE PO SCH ×2 (08:46→17:25)
[2019-01-22] MEDS: CITALOPRAM 20 MG TABLET. PO SCH (08:47)
[2019-01-22] MEDS: ALPRAZolam 0.25 MG TABLET PO PRN (08:47)
[2019-01-22] MEDS: ASPIRIN 325 MG TABLET PO SCH (08:47)
[2019-01-22] MEDS: CLOPIDOGREL BISULFATE 75 MG TABLET PO SCH (08:47)
[2019-01-22] MEDS: LACTOBACILLUS RHAMNOSUS GG 1 CAPSULE. PO SCH ×2 (08:47→21:04)
[2019-01-22] MEDS: DOCUSATE SODIUM 100 MG CAPSULE. PO SCH ×2 (08:47→21:04)
[2019-01-22] MEDS: ALLOPURINOL 100 MG TABLET. PO SCH (08:47)
[2019-01-22] MEDS: METOPROLOL TART IMMED RELEASE 25 MG TABLET. PO SCH ×2 (08:48→21:04)
[2019-01-22] MEDS: amLODIPine BESYLATE 10 MG TABLET PO SCH (08:48)
[2019-01-22 10:32] VITALS: BP 95/65
--- NOTE | 2019-01-22 10:44 | PDOC ---
PROGRESS NOTES Chief Complaint Chief Complaint 1. LEFT CHEST DISCOMFORT AT REST, persist Minimally displaced acute fractures are seen of the left eighth and ninth ribs. 2. ESRD on dialysis, AOCD 3. No evidence of pulmonary embolism. 4.Coronary artery calcifications. 5. Bilateral lung emphysematous changes. Minimal bibasilar lung atelectasis. 6. Probable gallbladder sludge. 7. Successful bare metal stent placement to the LAD decreasing a 95% lesion to 0%. 11/17 History of Present Illness History of Present Illness left-sided chest discomfort, mod- severe left flank, IMPROVING STILL PRESENT REVIEWED echocardiogram Also dialysis per renal Plan: dc abx Dialysis per renal Discussed with RN x-ray l/s, thoracic spine LEFT RIBS 29 min pt exam, chart review, > 50% of time spent with exam, chart review, pt care coordination Vitals Vitals Vital Signs Date Time Temp Pulse Resp B/P (MAP) Pulse Ox O2 Delivery O2 Flow Rate FiO2 01/22/19 10:32 97.8 81 18 95/65 (75) 96 Room Air 97.8 Physical Exam General: Alert, Oriented X3, Cooperative, No acute distress, mild distress Heart: Regular rate, Normal S1, Normal S2, Other (2/6 systolic murmur) Lungs: Clear Abdomen: Normal bowel sounds, Soft, No tenderness Extremities: No clubbing, No cyanosis, No edema Skin: No significant lesion Labs LABS RECD: 01/19/19-[address]: KURTIS MANSFIELD APRN SOURCE: BLOOD ENTR: 01/19/19-[address]: [facility]ELA [facility] DO ORDERED: BCULT Procedure Result BLOOD CULTURE Preliminary NO GROWTH AFTER 3 DAYS Indication: Severe pain TECHNIQUE: 4 views of the left ribs COMPARISON: None FINDINGS/ impression: Multiple healed 5, 6, 7 left lateral rib fractures. Left lung is clear. Minimally displaced acute fractures are seen of the left eighth and ninth ribs. Electronically signed by: Cayetano Trujillo DO (01/22/2019 8:08 AM) [facility] Indication: Severe pain TECHNIQUE: 3 views of the thoracic spine and multiple views of the lumbar spine COMPARISON: None FINDINGS: Thoracic spine: Thoracic spine is in normal anatomic alignment. Multilevel mild degenerative disc disease. Heart is normal in size. Visualized lungs are clear. No significant loss of vertebral body height to suggest high-grade compression deformity. Lumbar spine: Very mild grade 1 anterolisthesis of L5 over S1. No compression deformities. Mild multilevel degenerative disc disease. No significant facet arthropathy. IMPRESSION: As above. Electronically signed by: Cayetano Trujillo DO (01/22/2019 8:28 AM) [facility]okay[facility]comUN[facility] REASON: severe pain PROCEDURE: LUMBAR SPINE MIN 4V Indication: Severe pain TECHNIQUE: 3 views of the thoracic spine and multiple views of the lumbar spine COMPARISON: None FINDINGS: Thoracic spine: Thoracic spine is in normal anatomic alignment. Multilevel mild degenerative disc disease. Heart is normal in size. Visualized lungs are clear. No significant loss of vertebral body height to suggest high-grade compression deformity. Lumbar spine: Very mild grade 1 anterolisthesis of L5 over S1. No compression deformities. Mild multilevel degenerative disc disease. No significant facet arthropathy. IMPRESSION: As above. Electronically signed by: Cayetano Trujillo DO (01/22/2019 8:28 AM) [facility] Laboratory Tests Test 01/21/19 11:34 01/21/19 16:48 01/21/19 20:44 01/22/19 04:00 Glucose (Fingerstick) 129 mg/dL (70-99) 279 mg/dL (70-99) 193 mg/dL (70-99) White Blood Count 6.3 x10^3/uL (4.0-11.0) Red Blood Count 4.08 x10^6/uL (4.30-5.70) Hemoglobin 12.3 g/dL (13.0-17.5) Hematocrit 37.1 % (39.0-53.0) Mean Corpuscular Volume 91 fL (79-100) Mean Corpuscular Hemoglobin 30 pg (25-35) Mean Corpuscular Hemoglobin Concent 33 g/dL (31-37) Red Cell Distribution Width 15.1 % (11.5-14.5) Platelet Count 236 x10^3/uL (140-400) Neutrophils (%) (Auto) 64 % (31-73) Lymphocytes (%) (Auto) 20 % (24-48) Monocytes (%) (Auto) 8 % (0-9) Eosinophils (%) (Auto) 7 % (0-3) Basophils (%) (Auto) 1 % (0-3) Neutrophils # (Auto) 4.0 x10^3/uL (1.8-7.7) Lymphocytes # (Auto) 1.3 x10^3/uL (1.0-4.8) Monocytes # (Auto) 0.5 x10^3/uL (0.0-1.1) Eosinophils # (Auto) 0.4 x10^3/uL (0.0-0.7) Basophils # (Auto) 0.1 x10^3/uL (0.0-0.2) Sodium Level 140 mmol/L (136-145) Potassium Level 4.4 mmol/L (3.5-5.1) Chloride Level 96 mmol/L (98-107) Carbon Dioxide Level 30 mmol/L (21-32) Anion Gap 14 (6-14) Blood Urea Nitrogen 49 mg/dL (8-26) Creatinine 8.8 mg/dL (0.7-1.3) Estimated GFR (Cockcroft-Gault) 7.4 BUN/Creatinine Ratio 6 (6-20) Glucose Level 235 mg/dL (70-99) Calcium Level 9.7 mg/dL (8.5-10.1) Total Bilirubin 0.3 mg/dL (0.2-1.0) Aspartate Amino Transf (AST/SGOT) 10 U/L (15-37) Alanine Aminotransferase (ALT/SGPT) 12 U/L (16-63) Alkaline Phosphatase 68 U/L (46-116) Total Protein 7.2 g/dL (6.4-8.2) Albumin 3.5 g/dL (3.4-5.0) Albumin/Globulin Ratio 0.9 (1.0-1.7) Test 01/22/19 07:15 Glucose (Fingerstick) 153 mg/dL (70-99) Assessment and Plan Assessmemt and Plan Problems Medical Problems: (1) Pneumonia Status: Acute Comment Review of Relevant I have reviewed the following items dariel (where applicable) has been applied. Labs Laboratory Tests Test 01/20/19 11:59 01/20/19 16:59 01/20/19 20:48 01/21/19 07:40 Glucose (Fingerstick) 132 mg/dL (70-99) 257 mg/dL (70-99) 197 mg/dL (70-99) 137 mg/dL (70-99) Test 01/21/19 11:34 01/21/19 16:48 01/21/19 20:44 01/22/19 04:00 Glucose (Fingerstick) 129 mg/dL (70-99) 279 mg/dL (70-99) 193 mg/dL (70-99) White Blood Count 6.3 x10^3/uL (4.0-11.0) Red Blood Count 4.08 x10^6/uL (4.30-5.70) Hemoglobin 12.3 g/dL (13.0-17.5) Hematocrit 37.1 % (39.0-53.0) Mean Corpuscular Volume 91 fL (79-100) Mean Corpuscular Hemoglobin 30 pg (25-35) Mean Corpuscular Hemoglobin Concent 33 g/dL (31-37) Red Cell Distribution Width 15.1 % (11.5-14.5) Platelet Count 236 x10^3/uL (140-400) Neutrophils (%) (Auto) 64 % (31-73) Lymphocytes (%) (Auto) 20 % (24-48) Monocytes (%) (Auto) 8 % (0-9) Eosinophils (%) (Auto) 7 % (0-3) Basophils (%) (Auto) 1 % (0-3) Neutrophils # (Auto) 4.0 x10^3/uL (1.8-7.7) Lymphocytes # (Auto) 1.3 x10^3/uL (1.0-4.8) Monocytes # (Auto) 0.5 x10^3/uL (0.0-1.1) Eosinophils # (Auto) 0.4 x10^3/uL (0.0-0.7) Basophils # (Auto) 0.1 x10^3/uL (0.0-0.2) Sodium Level 140 mmol/L (136-145) Potassium Level 4.4 mmol/L (3.5-5.1) Chloride Level 96 mmol/L (98-107) Carbon Dioxide Level 30 mmol/L (21-32) Anion Gap 14 (6-14) Blood Urea Nitrogen 49 mg/dL (8-26) Creatinine 8.8 mg/dL (0.7-1.3) Estimated GFR (Cockcroft-Gault) 7.4 BUN/Creatinine Ratio 6 (6-20) Glucose Level 235 mg/dL (70-99) Calcium Level 9.7 mg/dL (8.5-10.1) Total Bilirubin 0.3 mg/dL (0.2-1.0) Aspartate Amino Transf (AST/SGOT) 10 U/L (15-37) Alanine Aminotransferase (ALT/SGPT) 12 U/L (16-63) Alkaline Phosphatase 68 U/L (46-116) Total Protein 7.2 g/dL (6.4-8.2) Albumin 3.5 g/dL (3.4-5.0) Albumin/Globulin Ratio 0.9 (1.0-1.7) Test 01/22/19 07:15 Glucose (Fingerstick) 153 mg/dL (70-99) Laboratory Tests Test 01/21/19 11:34 01/21/19 16:48 01/21/19 20:44 01/22/19 04:00 Glucose (Fingerstick) 129 mg/dL (70-99) 279 mg/dL (70-99) 193 mg/dL (70-99) White Blood Count 6.3 x10^3/uL (4.0-11.0) Red Blood Count 4.08 x10^6/uL (4.30-5.70) Hemoglobin 12.3 g/dL (13.0-17.5) Hematocrit 37.1 % (39.0-53.0) Mean Corpuscular Volume 91 fL (79-100) Mean Corpuscular Hemoglobin 30 pg (25-35) Mean Corpuscular Hemoglobin Concent 33 g/dL (31-37) Red Cell Distribution Width 15.1 % (11.5-14.5) Platelet Count 236 x10^3/uL (140-400) Neutrophils (%) (Auto) 64 % (31-73) Lymphocytes (%) (Auto) 20 % (24-48) Monocytes (%) (Auto) 8 % (0-9) Eosinophils (%) (Auto) 7 % (0-3) Basophils (%) (Auto) 1 % (0-3) Neutrophils # (Auto) 4.0 x10^3/uL (1.8-7.7) Lymphocytes # (Auto) 1.3 x10^3/uL (1.0-4.8) Monocytes # (Auto) 0.5 x10^3/uL (0.0-1.1) Eosinophils # (Auto) 0.4 x10^3/uL (0.0-0.7) Basophils # (Auto) 0.1 x10^3/uL (0.0-0.2) Sodium Level 140 mmol/L (136-145) Potassium Level 4.4 mmol/L (3.5-5.1) Chloride Level 96 mmol/L (98-107) Carbon Dioxide Level 30 mmol/L (21-32) Anion Gap 14 (6-14) Blood Urea Nitrogen 49 mg/dL (8-26) Creatinine 8.8 mg/dL (0.7-1.3) Estimated GFR (Cockcroft-Gault) 7.4 BUN/Creatinine Ratio 6 (6-20) Glucose Level 235 mg/dL (70-99) Calcium Level 9.7 mg/dL (8.5-10.1) Total Bilirubin 0.3 mg/dL (0.2-1.0) Aspartate Amino Transf (AST/SGOT) 10 U/L (15-37) Alanine Aminotransferase (ALT/SGPT) 12 U/L (16-63) Alkaline Phosphatase 68 U/L (46-116) Total Protein 7.2 g/dL (6.4-8.2) Albumin 3.5 g/dL (3.4-5.0) Albumin/Globulin Ratio 0.9 (1.0-1.7) Test 01/22/19 07:15 Glucose (Fingerstick) 153 mg/dL (70-99) Microbiology 01/19/19 Blood Culture - Preliminary, Resulted NO GROWTH AFTER 2 DAYS Medications Current Medications Sodium Chloride 1,000 ml @ 1,000 mls/hr Q1H IV Last administered on 01/19/19at 11:02; Start 01/19/19 at 10:29; Stop 01/19/19 at 11:28; Status DC Fentanyl Citrate (Fentanyl 2ml Vial) 50 mcg 1X ONCE IV Last administered on 01/19/19at 11:01; Start 01/19/19 at 10:30; Stop 01/19/19 at 10:33; Status DC Iohexol (Omnipaque 350 Mg/ml) 100 ml 1X ONCE IV Last administered on 01/19/19at 11:30; Start 01/19/19 at 11:30; Stop 01/19/19 at 11:31; Status DC Info (CONTRAST GIVEN -- Rx MONITORING) 1 each PRN DAILY PRN MC SEE COMMENTS; Start 01/19/19 at 11:30; Stop 01/21/19 at 11:29; Status DC Piperacillin Sod/ Tazobactam Sod (Zosyn Per Pharmacy) 1 each PRN DAILY PRN MC SEE COMMENTS; Start 01/19/19 at 13:00; Stop 01/20/19 at 11:00; Status DC Piperacillin Sod/ Tazobactam Sod 2.25 gm/Sodium Chloride 50 ml @ 100 mls/hr 1X ONCE IV Last administered on 01/19/19at 13:08; Start 01/19/19 at 13:00; Stop 01/19/19 at 13:29; Status DC Fentanyl Citrate (Fentanyl 2ml Vial) 25 mcg 1X ONCE IV Last administered on 01/19/19at 13:11; Start 01/19/19 at 13:00; Stop 01/19/19 at 13:03; Status DC Ondansetron HCl (Zofran) 4 mg PRN Q8HRS PRN IV NAUSEA/VOMITING; Start 01/19/19 at 13:00; Stop 01/20/19 at 12:59; Status DC Fentanyl Citrate (Fentanyl 2ml Vial) 25 mcg PRN Q1HR PRN IV PAIN; Start 01/19/19 at 13:00; Stop 01/19/19 at 15:43; Status DC Piperacillin Sod/ Tazobactam Sod 2.25 gm/Sodium Chloride 50 ml @ 100 mls/hr Q12HR IV Last administered on 01/20/19 08:58; Start 01/19/19 at 21:00; Stop 01/20/19 at 11:00; Status DC Aspirin (Ecotrin) 81 mg DAILYWBKFT PO Last administered on 01/21/19 12:04; Start 01/19/19 at 16:00 Fentanyl Citrate (Fentanyl 2ml Vial) 50 mcg PRN Q6HRS PRN IV PAIN Last administered on 01/19/19 16:36; Start 01/19/19 at 15:45 Acetaminophen (Tylenol) 650 mg PRN Q6HRS PRN PO HEADACHE / FEVER; Start 9 at 15:45 Acetaminophen/ Hydrocodone Bitart (Lortab 5/325) 1 tab PRN Q4HRS PRN PO PAIN Last administered on 01/20/19 13:00; Start 01/19/19 at 21:15; Stop 01/20/19 at 14:27; Status DC Allopurinol (Zyloprim) 200 mg QODAY PO Last administered on 01/22/19 08:47; Start 01/20/19 at 09:00 Alprazolam (Xanax) 0.25 mg PRN TID PRN PO ANXIETY Last administered on 01/22/19 08:47; Start 01/19/19 at 21:30 Amlodipine Besylate (Norvasc) 10 mg DAILY PO Last administered on 01/22/19 08:48; Start 01/20/19 at 09:00 Aspirin (Yuniel Aspirin) 325 mg DAILY PO Last administered on 01/22/19 08:47; Start 01/20/19 at 09:00 Atorvastatin Calcium (Lipitor) 40 mg QHS PO Last administered on 01/21/19 21:31; Start 01/19/19 at 22:00 Calcium Acetate (Phoslo) 667 mg BIDWMEALS PO Last administered on 01/22/19 08:46; Start 01/20/19 at 08:00 Citalopram Hydrobromide (CeleXA) 20 mg DAILY PO Last administered on 01/22/19 08:47; Start 01/20/19 at 09:00 Clopidogrel Bisulfate (Plavix) 75 mg DAILYWBKFT PO Last administered on 01/22/19 08:47; Start 01/20/19 at 08:00 Docusate Sodium (Colace) 100 mg BID PO Last administered on 01/22/19 08:47; Start 01/20/19 at 09:00 Acetaminophen/ Hydrocodone Bitart (Lortab 5/325) 1 tab PRN Q8HRS PRN PO MODERATE PAIN 4-6 Last administered on 01/21/19 23:33; Start 01/19/19 at 21:30 Insulin Glargine (Lantus) 15 units QHS SQ Last administered on 01/21/19 21:42; Start 01/19/19 at 22:00 Nitroglycerin (Nitrostat) 0.4 mg PRN Q5MIN PRN SL CHEST PAIN; Start 01/19/19 at 21:30 Ondansetron HCl (Zofran Odt) 4 mg Q8HRS PO ; Start 01/19/19 at 22:00; Stop 01/20/19 at 08:24; Status DC Metoprolol Tartrate (Lopressor) 12.5 mg BID PO Last administered on 01/22/19at 08:48; Start 01/19/19 at 22:00 Ondansetron HCl (Zofran Odt) 4 mg Q6HRS PO Last administered on 01/22/19 05 :23; Start 01/20/19 at 12:00 Albuterol/ Ipratropium (Duoneb) 3 ml RTQID NEB Last administered on 01/22/19at 07:36; Start 01/20/19 at 12:00 Guaifenesin (Robitussin Dm) 10 ml PRN Q6HRS PRN PO COUGH; Start 01/20/19 at 08:30 Insulin Human Lispro (HumaLOG) 0-9 UNITS TIDWMEALS SQ Last administered on 01/21/19at 17:50; Start 01/20/19 at 12:00 Dextrose (Dextrose 50%-Water Syringe) 12.5 gm PRN Q15MIN PRN IV SEE COMMENTS; Start 01/20/19 at 08:30 Temazepam (Restoril) 7.5 mg PRN QHS PRN PO INSOMNIA; Start 01/20/19 at 08:30 Lactobacillus Rhamnosus (Culturelle) 1 cap BID PO Last administered on 01/22/19at 08:47; Start 01/20/19 at 21:00 Sodium Chloride 1,000 ml @ 1,000 mls/hr Q1H PRN IV hypotension; Start 01/21/19 at 08:22; Stop 01/21/19 at 14:21; Status DC Diphenhydramine HCl (Benadryl) 25 mg 1X PRN PRN IV ITCHING; Start 01/21/19 at 08:30; Stop 01/22/19 at 08:29; Status DC Diphenhydramine HCl (Benadryl) 25 mg 1X PRN PRN IV ITCHING; Start 01/21/19 at 08:30; Stop 01/22/19 at 08:29; Status DC Sodium Chloride 1,000 ml @ 400 mls/hr Q2H30M PRN IV PATENCY; Start 01/21/19 at 08:22; Stop 01/21/19 at 20:21; Status DC Info (PHARMACY MONITORING -- do not chart) 1 each PRN DAILY PRN MC SEE COMMENTS; Start 01/21/19 at 08:30 Lidocaine (Lidoderm) 1 patch DAILY TD Last administered on 01/22/19at 08:45; Start 01/21/19 at 17:00 Miscellaneous (Lidoderm Patch Removal) 1 ea QHS MC ; Start 01/21/19 at 21:00 Active Scripts Active Hydrocodone-Apap 5-325 (Hydrocodone Bit/Acetaminophen) 1 Tab Tablet 1 Tab PO PRN Q8HRS PRN Nitrostat (Nitroglycerin) 0.4 Mg Tab.subl 0.4 Mg SL PRN Q5MIN PRN Lipitor (Atorvastatin Calcium) 20 Mg Tablet 40 Mg PO QHS [Metoprolol Tartrate] 25 MG Tablet 12.5 Mg PO BID Plavix (Clopidogrel Bisulfate) 75 Mg Tablet 75 Mg PO DAILYWBKFT Reported Colace (Docusate Sodium) 100 Mg Capsule 1 Cap PO BID [hydrocod-acet 5/500] 1-2 Tab PO Q6-8HRS PRN [hydrocodone-acet] 1-2 Tab Aspirin 325 Mg Tablet 1 Tab PO DAILY Zofran Odt (Ondansetron) 4 Mg Tab.rapdis 1 Tab SL Q8HRS Amlodipine Besylate 10 Mg Tablet 1 Tab PO DAILY Alprazolam 0.25 Mg Tablet 1 Tab PO PRN TID PRN Calcium Acetate 667 Mg Capsule 667 Mg PO BIDWMEALS Allopurinol 100 Mg Tablet 2 Tab PO BID Celexa (Citalopram Hydrobromide) 20 Mg Tablet 1 Tab PO DAILY Lantus Solostar (Insulin Glargine,Hum.rec.anlog) 100 Unit/1 Ml Insuln.pen 15 Unit SQ QHS Vitals/I & O Vital Sign - Last 24 Hours 01/21/19 01/21/19 01/21/19 01/21/19 11:00 13:00 15:00 15:17 Temp 98.4 98.3 98.4 98.3 Pulse 84 84 Resp 18 17 B/P (MAP) 111/71 (84) 100/62 (75) Pulse Ox 99 99 93 95 O2 Delivery Room Air Room Air Room Air Room Air 01/21/19 01/21/19 01/21/19 01/21/19 15:32 19:00 20:00 20:59 Temp 98.6 98.6 Pulse 86 Resp 20 18 B/P (MAP) 127/65 (85) Pulse Ox 94 96 O2 Delivery Room Air Room Air Room Air Room Air 01/21/19 01/21/19 01/21/19 01/22/19 21:34 22:58 23:33 00:34 Temp 98.3 98.3 Pulse 86 92 Resp 18 18 18 B/P (MAP) 127/65 132/64 (86) Pulse Ox 95 95 95 O2 Delivery Room Air Room Air Room Air 01/22/19 01/22/19 01/22/19 01/22/19 03:00 07:36 07:44 08:48 Temp 98.3 97.6 98.3 97.6 Pulse 84 88 88 Resp 18 18 B/P (MAP) 108/60 (76) 130/79 (96) 130/79 Pulse Ox 90 95 96 O2 Delivery Room Air Room Air Room Air 01/22/19 01/22/19 08:48 10:32 Temp 97.8 97.8 Pulse 88 81 Resp 18 B/P (MAP) 130/79 95/65 (75) Pulse Ox 96 O2 Delivery Room Air Intake and Output 01/21/19 01/21/19 01/22/19 14:59 22:59 06:59 Intake Total 180 ml 240 ml Output Total 120 ml Balance 60 ml 240 ml CARLA RIVAS MD Jan 22, 2019 10:44
--- NOTE | 2019-01-22 11:47 | PDOC ---
Renal-Progress Notes Subjective Notes Notes NO COMPLAINTS History of Present Illness Hx of present illness STABLE Vitals Vitals Vital Signs Date Time Temp Pulse Resp B/P (MAP) Pulse Ox O2 Delivery O2 Flow Rate FiO2 01/22/19 11:36 95 Room Air 01/22/19 10:32 97.8 81 18 95/65 (75) 97.8 Weight Weight [ ] I.O. Intake and Output Intake and Output 01/22/19 07:00 Intake Total 420 ml Output Total 120 ml Balance 300 ml Intake Oral 420 ml Output Urine Total 120 ml # Voids 3 Labs Labs Laboratory Tests Test 01/21/19 16:48 01/21/19 20:44 01/22/19 04:00 01/22/19 07:15 Glucose (Fingerstick) 279 mg/dL (70-99) 193 mg/dL (70-99) 153 mg/dL (70-99) White Blood Count 6.3 x10^3/uL (4.0-11.0) Red Blood Count 4.08 x10^6/uL (4.30-5.70) Hemoglobin 12.3 g/dL (13.0-17.5) Hematocrit 37.1 % (39.0-53.0) Mean Corpuscular Volume 91 fL (79-100) Mean Corpuscular Hemoglobin 30 pg (25-35) Mean Corpuscular Hemoglobin Concent 33 g/dL (31-37) Red Cell Distribution Width 15.1 % (11.5-14.5) Platelet Count 236 x10^3/uL (140-400) Neutrophils (%) (Auto) 64 % (31-73) Lymphocytes (%) (Auto) 20 % (24-48) Monocytes (%) (Auto) 8 % (0-9) Eosinophils (%) (Auto) 7 % (0-3) Basophils (%) (Auto) 1 % (0-3) Neutrophils # (Auto) 4.0 x10^3/uL (1.8-7.7) Lymphocytes # (Auto) 1.3 x10^3/uL (1.0-4.8) Monocytes # (Auto) 0.5 x10^3/uL (0.0-1.1) Eosinophils # (Auto) 0.4 x10^3/uL (0.0-0.7) Basophils # (Auto) 0.1 x10^3/uL (0.0-0.2) Sodium Level 140 mmol/L (136-145) Potassium Level 4.4 mmol/L (3.5-5.1) Chloride Level 96 mmol/L (98-107) Carbon Dioxide Level 30 mmol/L (21-32) Anion Gap 14 (6-14) Blood Urea Nitrogen 49 mg/dL (8-26) Creatinine 8.8 mg/dL (0.7-1.3) Estimated GFR (Cockcroft-Gault) 7.4 BUN/Creatinine Ratio 6 (6-20) Glucose Level 235 mg/dL (70-99) Calcium Level 9.7 mg/dL (8.5-10.1) Total Bilirubin 0.3 mg/dL (0.2-1.0) Aspartate Amino Transf (AST/SGOT) 10 U/L (15-37) Alanine Aminotransferase (ALT/SGPT) 12 U/L (16-63) Alkaline Phosphatase 68 U/L (46-116) Total Protein 7.2 g/dL (6.4-8.2) Albumin 3.5 g/dL (3.4-5.0) Albumin/Globulin Ratio 0.9 (1.0-1.7) Micro Micro Microbiology 01/19/19 Blood Culture - Preliminary, Resulted NO GROWTH AFTER 2 DAYS Review of Systems Constitutional: yes: weakness, alert Ears/Nose/Throat: Yes: no symptom reported Eyes: Yes: no symptom reported Pulmonary: Yes no symptom reported Cardiovascular: Yes no symptom reported Gastrointestional: Yes: no symptom reported Genitourinary: Yes: no symptom reported Musculoskeletal: Yes: no symptom reported Psychiatric/Neurological: Yes: no symptom reported Endocrine: Yes: no symptom reported Physical Exam General Appearance: no apparent distress Skin: warm Respiratory: decreased breath sounds Heart: S1S2 Abdomen: bowel sounds present Genitourinary: bladder flat Extremities: pulses present Neurology: alert Musculoskeletal: Osteoarthritis Assessment Assessment IMP ESRD ANEMIA HTN LEFT CHEST WALL PAIN-BETTER PLAN HD MWF WILL FOLLOW MARIE YUAN MD Jan 22, 2019 11:47
[2019-01-22 15:00] VITALS: BP 148/75
[2019-01-22] MEDS: HYDROcodone/APAP 5/325MG 1 TAB TABLET PO PRN (17:25)
[2019-01-22 19:00] VITALS: BP_SYST 119; BP_SYST 130; BP_DIAS 65; BP_DIAS 69
[2019-01-22] MEDS: PATCH REMOVAL. MC SCH (21:00)
[2019-01-22] MEDS: ATORVASTATIN CALCIUM 40 MG TABLET. PO SCH (21:04)
[2019-01-22] MEDS: INSULIN GLARGINE 300 UNITS/3 ML INSULN.PEN. SQ SCH (21:08)
[2019-01-22 22:41] VITALS: BP 100/64
[2019-01-23] MEDS: ONDANSETRON ODT 4 MG TAB.RAPDIS. PO SCH ×2 (00:35→05:49)
[2019-01-23] MEDS: HYDROcodone/APAP 5/325MG 1 TAB TABLET PO PRN ×2 (01:26→09:04)
[2019-01-23 03:00] VITALS: BP 121/68
[2019-01-23 06:32] LABS: BASO # 0.1 x10^3/uL (0.0-0.2); BASO % 1 % (0-3); EOS # 0.6 x10^3/uL (0.0-0.7); EOS % 9 % (0-3); HEMATOCRIT 37.1 % (39.0-53.0); HEMOGLOBIN 12.2 g/dL (13.0-17.5); LYMPH # 1.5 x10^3/uL (1.0-4.8); LYMPH % 21 % (24-48); MEAN CORPUSCULAR HEMOGLOBIN 30 pg (25-35); MEAN CORPUSCULAR HGB CONC 33 g/dL (31-37); MEAN CORPUSCULAR VOLUME 92 fL (79-100); MONO # 0.5 x10^3/uL (0.0-1.1); MONO % 8 % (0-9); NEUT # 4.3 x10^3/uL (1.8-7.7); NEUT % 62 % (31-73); PLATELET COUNT 239 x10^3/uL (140-400); RED BLOOD COUNT 4.05 x10^6/uL (4.30-5.70); RED CELL DISTRIBUTION WIDTH 15.1 % (11.5-14.5)
[2019-01-23] MEDS: IPRATRPIUM/ALBUTEROL 0.5/2.5MG 3 ML NEBU. NEB SCH ×2 (07:50→11:53)
[2019-01-23 07:59] VITALS: BP 127/64
[2019-01-23] MEDS: INSULIN LISPRO 300 UNITS/3 ML INSULN.PEN. SQ SCH (08:00)
[2019-01-23] MEDS: LIDOCAINE (700MG/PATCH) PATCH. TD SCH (09:00)
[2019-01-23] MEDS: DOCUSATE SODIUM 100 MG CAPSULE. PO SCH (09:01)
[2019-01-23] MEDS: METOPROLOL TART IMMED RELEASE 25 MG TABLET. PO SCH (09:02)
[2019-01-23] MEDS: CALCIUM ACETATE 667 MG CAPSULE PO SCH (09:05)
[2019-01-23] MEDS: ASPIRIN 325 MG TABLET PO SCH (09:05)
[2019-01-23] MEDS: amLODIPine BESYLATE 10 MG TABLET PO SCH (09:06)
[2019-01-23] MEDS: CITALOPRAM 20 MG TABLET. PO SCH (09:06)
[2019-01-23] MEDS: ALPRAZolam 0.25 MG TABLET PO PRN (09:07)
[2019-01-23] MEDS: CLOPIDOGREL BISULFATE 75 MG TABLET PO SCH (09:07)
[2019-01-23] MEDS: LACTOBACILLUS RHAMNOSUS GG 1 CAPSULE. PO SCH (09:08)
[2019-01-23 09:52] LABS: ALBUMIN 3.4 g/dL (3.4-5.0); CALCIUM 9.3 mg/dL (8.5-10.1); CREATININE 10.5 mg/dL (0.7-1.3); PHOSPHORUS 6.7 mg/dL (2.6-4.7); POTASSIUM 4.9 mmol/L (3.5-5.1)
[2019-01-23] MEDS ORDERED: HYDR-2761 PO (10:33)
[2019-01-23] MEDS ORDERED: LIDO700A21 TD (10:33)
--- NOTE | 2019-01-23 10:38 | PDOC3 ---
Discharge Summary Visit Information Date of Admission: Jan 19, 2019 Date of Discharge: Jan 23, 2019 Admitting Diagnosis Comment: 1. LEFT CHEST DISCOMFORT AT REST, persist Minimally displaced acute fractures are seen of the left eighth and ninth ribs. 2. ESRD on dialysis, AOCD 3. No evidence of pulmonary embolism. 4.Coronary artery calcifications. 5. Bilateral lung emphysematous changes. Minimal bibasilar lung atelectasis. 6. Probable gallbladder sludge. 7. Successful bare metal stent placement to the LAD decreasing a 95% lesion to 0%. 11/17 Final Diagnosis Problems Medical Problems: (1) Pneumonia Status: Acute Brief Hospital Course Allergies Allergies Coded Allergies Type Severity Reaction Last Updated Verified No Known Drug Allergies 02/27/15 No Vital Signs Vital Signs Date Time Temp Pulse Resp B/P (MAP) Pulse Ox O2 Delivery O2 Flow Rate FiO2 01/23/19 09:06 70 127/64 01/23/19 09:04 18 Room Air 01/23/19 07:59 97.9 95 97.9 Lab Results Laboratory Tests Test 01/21/19 11:34 01/21/19 16:48 01/21/19 20:44 01/22/19 04:00 Glucose (Fingerstick) 129 mg/dL (70-99) 279 mg/dL (70-99) 193 mg/dL (70-99) White Blood Count 6.3 x10^3/uL (4.0-11.0) Red Blood Count 4.08 x10^6/uL (4.30-5.70) Hemoglobin 12.3 g/dL (13.0-17.5) Hematocrit 37.1 % (39.0-53.0) Mean Corpuscular Volume 91 fL (79-100) Mean Corpuscular Hemoglobin 30 pg (25-35) Mean Corpuscular Hemoglobin Concent 33 g/dL (31-37) Red Cell Distribution Width 15.1 % (11.5-14.5) Platelet Count 236 x10^3/uL (140-400) Neutrophils (%) (Auto) 64 % (31-73) Lymphocytes (%) (Auto) 20 % (24-48) Monocytes (%) (Auto) 8 % (0-9) Eosinophils (%) (Auto) 7 % (0-3) Basophils (%) (Auto) 1 % (0-3) Neutrophils # (Auto) 4.0 x10^3/uL (1.8-7.7) Lymphocytes # (Auto) 1.3 x10^3/uL (1.0-4.8) Monocytes # (Auto) 0.5 x10^3/uL (0.0-1.1) Eosinophils # (Auto) 0.4 x10^3/uL (0.0-0.7) Basophils # (Auto) 0.1 x10^3/uL (0.0-0.2) Sodium Level 140 mmol/L (136-145) Potassium Level 4.4 mmol/L (3.5-5.1) Chloride Level 96 mmol/L (98-107) Carbon Dioxide Level 30 mmol/L (21-32) Anion Gap 14 (6-14) Blood Urea Nitrogen 49 mg/dL (8-26) Creatinine 8.8 mg/dL (0.7-1.3) Estimated GFR (Cockcroft-Gault) 7.4 BUN/Creatinine Ratio 6 (6-20) Glucose Level 235 mg/dL (70-99) Calcium Level 9.7 mg/dL (8.5-10.1) Total Bilirubin 0.3 mg/dL (0.2-1.0) Aspartate Amino Transf (AST/SGOT) 10 U/L (15-37) Alanine Aminotransferase (ALT/SGPT) 12 U/L (16-63) Alkaline Phosphatase 68 U/L (46-116) Total Protein 7.2 g/dL (6.4-8.2) Albumin 3.5 g/dL (3.4-5.0) Albumin/Globulin Ratio 0.9 (1.0-1.7) Test 01/22/19 07:15 01/22/19 11:49 01/22/19 17:12 01/22/19 20:13 Glucose (Fingerstick) 153 mg/dL (70-99) 212 mg/dL (70-99) 132 mg/dL (70-99) 172 mg/dL (70-99) Test 01/23/19 05:30 01/23/19 07:47 01/23/19 09:00 White Blood Count 7.0 x10^3/uL (4.0-11.0) Red Blood Count 4.05 x10^6/uL (4.30-5.70) Hemoglobin 12.2 g/dL (13.0-17.5) Hematocrit 37.1 % (39.0-53.0) Mean Corpuscular Volume 92 fL (79-100) Mean Corpuscular Hemoglobin 30 pg (25-35) Mean Corpuscular Hemoglobin Concent 33 g/dL (31-37) Red Cell Distribution Width 15.1 % (11.5-14.5) Platelet Count 239 x10^3/uL (140-400) Neutrophils (%) (Auto) 62 % (31-73) Lymphocytes (%) (Auto) 21 % (24-48) Monocytes (%) (Auto) 8 % (0-9) Eosinophils (%) (Auto) 9 % (0-3) Basophils (%) (Auto) 1 % (0-3) Neutrophils # (Auto) 4.3 x10^3/uL (1.8-7.7) Lymphocytes # (Auto) 1.5 x10^3/uL (1.0-4.8) Monocytes # (Auto) 0.5 x10^3/uL (0.0-1.1) Eosinophils # (Auto) 0.6 x10^3/uL (0.0-0.7) Basophils # (Auto) 0.1 x10^3/uL (0.0-0.2) Glucose (Fingerstick) 144 mg/dL (70-99) Sodium Level 134 mmol/L (136-145) Potassium Level 4.9 mmol/L (3.5-5.1) Chloride Level 94 mmol/L (98-107) Carbon Dioxide Level 23 mmol/L (21-32) Anion Gap 17 (6-14) Blood Urea Nitrogen 67 mg/dL (8-26) Creatinine 10.5 mg/dL (0.7-1.3) Estimated GFR (Cockcroft-Gault) 6.0 Glucose Level 189 mg/dL (70-99) Calcium Level 9.3 mg/dL (8.5-10.1) Phosphorus Level 6.7 mg/dL (2.6-4.7) Albumin 3.4 g/dL (3.4-5.0) Laboratory Tests Test 01/22/19 11:49 01/22/19 17:12 01/22/19 20:13 01/23/19 05:30 Glucose (Fingerstick) 212 mg/dL (70-99) 132 mg/dL (70-99) 172 mg/dL (70-99) White Blood Count 7.0 x10^3/uL (4.0-11.0) Red Blood Count 4.05 x10^6/uL (4.30-5.70) Hemoglobin 12.2 g/dL (13.0-17.5) Hematocrit 37.1 % (39.0-53.0) Mean Corpuscular Volume 92 fL (79-100) Mean Corpuscular Hemoglobin 30 pg (25-35) Mean Corpuscular Hemoglobin Concent 33 g/dL (31-37) Red Cell Distribution Width 15.1 % (11.5-14.5) Platelet Count 239 x10^3/uL (140-400) Neutrophils (%) (Auto) 62 % (31-73) Lymphocytes (%) (Auto) 21 % (24-48) Monocytes (%) (Auto) 8 % (0-9) Eosinophils (%) (Auto) 9 % (0-3) Basophils (%) (Auto) 1 % (0-3) Neutrophils # (Auto) 4.3 x10^3/uL (1.8-7.7) Lymphocytes # (Auto) 1.5 x10^3/uL (1.0-4.8) Monocytes # (Auto) 0.5 x10^3/uL (0.0-1.1) Eosinophils # (Auto) 0.6 x10^3/uL (0.0-0.7) Basophils # (Auto) 0.1 x10^3/uL (0.0-0.2) Test 01/23/19 07:47 01/23/19 09:00 Glucose (Fingerstick) 144 mg/dL (70-99) Sodium Level 134 mmol/L (136-145) Potassium Level 4.9 mmol/L (3.5-5.1) Chloride Level 94 mmol/L (98-107) Carbon Dioxide Level 23 mmol/L (21-32) Anion Gap 17 (6-14) Blood Urea Nitrogen 67 mg/dL (8-26) Creatinine 10.5 mg/dL (0.7-1.3) Estimated GFR (Cockcroft-Gault) 6.0 Glucose Level 189 mg/dL (70-99) Calcium Level 9.3 mg/dL (8.5-10.1) Phosphorus Level 6.7 mg/dL (2.6-4.7) Albumin 3.4 g/dL (3.4-5.0) Brief Hospital Course Mr. Amaya is a 68 old -[place] male ESRD on dialysis. Came in for chest pains comanage with cardiology. That is okay- the CP part./ He has some left eighth and ninth rib fractures - acute fractures- he refuses SNU or home health. That will heal by scar tissue. Imaging showed no PE. Some bronchitis or chronic lung disease. Stable to go home. Lidoderm patch was helping his left sided rib fractures and I have Rxd that and also some pain medicine Again refuses SNU her home health Cleared by cardiology and other services including renal To undergo dialysis as scheduled as outpatient Consults performed renal/cardiac Procedures performed just imaging Discharge Information Condition at Discharge: Improved, Stable Disposition/Orders: D/C to Home Scheduled Allopurinol (Allopurinol) 100 Mg Tablet, 2 TAB PO BID, #30 Ref 5 (Reported) Entered as Reported by: PANKAJ DOZIER on 04/22/145 Last Action: Continued on 01/19/192121 by CARLA RIVAS MD Amlodipine Besylate (Amlodipine Besylate) 10 Mg Tablet, 1 TAB PO DAILY, #30 Ref 5 (Reported) Entered as Reported by: PANKAJ DOZIER on 04/22/14 2315 Last Action: Continued on 01/19/192121 by CARLA RIVAS MD Aspirin (Aspirin) 325 Mg Tablet, 1 TAB PO DAILY, #30 Ref 5 (Reported) Entered as Reported by: ANA VALADEZ on 03/06/15 1234 Last Action: Continued on 01/19/192121 by CARLA RIVAS MD Atorvastatin Calcium (Lipitor) 20 Mg Tablet, 40 MG PO QHS, #30 Prescribed by: HAYLIE LONG on 11/16/14 1303 Last Action: Continued on 01/19/192121 by CARLA RIVAS MD Calcium Acetate (Calcium Acetate) 667 Mg Capsule, 667 MG PO BIDWMEALS, (Reported) Entered as Reported by: PANKAJ DOZIER on 04/22/142314 Last Action: Continued on 01/19/192121 by CARLA RIVAS MD Citalopram Hydrobromide (Celexa) 20 Mg Tablet, 1 TAB PO DAILY, #90 Ref 3 (Reported) Entered as Reported by: PANKAJ DOZIER on 04/22/142314 Last Action: Continued on 01/19/192121 by CARLA RIVAS MD Clopidogrel Bisulfate (Plavix) 75 Mg Tablet, 75 MG PO DAILYWBK, #30 Ref 1 Prescribed by: HAYLIE LONG on 11/16/14 1303 Last Action: Continued on 01/19/192121 by CARLA RIVAS MD Docusate Sodium (Colace) 100 Mg Capsule, 1 CAP PO BID, #14 (Reported) Entered as Reported by: MARCO ANTONIO SANTO on 05/02/15 1438 Last Action: Continued on 01/19/192121 by CARLA RIVAS MD Insulin Glargine,Hum.rec.anlog (Lantus Solostar) 100 Unit/1 Ml Insuln.pen, 15 UNIT SQ QHS, #15 Ref 3 (Reported) Entered as Reported by: PANKAJ DOZIER on 04/22/142314 Last Action: Continued on 01/19/192121 by CRALA RIVAS MD Lidocaine (Lidocaine PATCH ) 1 Each Adh..patch, 1 PATCH TD DAILY for pain, #14 Prescribed by: KAREN SHARP on 01/23/19 1033 Ondansetron (Zofran Odt) 4 Mg Tab.rapdis, 1 TAB SL Q8HRS, #10 (Reported) Entered as Reported by: Luanne Wahl on 11/13/142158 Last Action: Continued on 01/19/192121 by CARLA RIVAS MD [Metoprolol Tartrate] 25 MG TABLET, 12.5 MG PO BID Prescribed by: HAYLIE LONG on 11/16/14 1303 Last Action: Converted on 01/19/192121 by CARLA RIVAS MD Scheduled PRN Alprazolam (Alprazolam) 0.25 Mg Tablet, 1 TAB PO PRN TID PRN for ANXIETY, #90 (Reported) Entered as Reported by: PANKAJ DOZIER on 04/22/142314 Last Action: Continued on 01/19/192121 by CARLA RIVAS MD Hydrocodone Bit/Acetaminophen (Hydrocodone-Apap 5-325 ) 1 Tab Tablet, 1 TAB PO PRN Q8HRS PRN for PAIN, #30 Ref 0 Prescribed by: KAREN SHARP on 01/23/19 1033 Nitroglycerin (Nitrostat) 0.4 Mg Tab.subl, 0.4 MG SL PRN Q5MIN PRN for CHEST PAIN, #120 Prescribed by: HAYLIE LONG on 11/16/14 1303 Last Action: Continued on 01/19/192121 by CARLA RIVAS MD Discontinued Medications Baclofen (Baclofen) 10 Mg Tablet, 1 TAB PO TID, #90 Ref 2 (Reported) Entered as Reported by: PANKAJ DOZIER on 04/22/142314 Last Action: Discontinued on 01/19/191501 by JUAN JOSÉ ROJAS Hydrocodone Bit/Acetaminophen (Hydrocodone-Apap 7.5-325 ) 1 Each Tablet, 1 TAB PO QID, #120 (Reported) Entered as Reported by: PANKAJ DOZIER on 04/22/142314 Last Action: Discontinued on 01/19/191501 by JUAN JOSÉ ROJAS [hydrocod-acet 5/500] , 1-2 TAB PO Q6-8HRS PRN for PAIN, #24 (Reported) Entered as Reported by: MARCO ANTONIO SANTO on 05/02/15 1438 Last Action: HELD on 01/19/192121 by CARLA RIVAS MD [hydrocodone-acet] , 1-2 TAB, (Reported) Entered as Reported by: MARCO ANTONIO SANTO on 05/02/15 143 Last Action: HELD on 01/19/192121 by MD LILA HANDLEY CHERRIE Y MD Jan 23, 2019 10:38
--- NOTE | 2019-01-23 10:58 | PDOC ---
Renal-Progress Notes Subjective Notes Notes NOTHING NEW History of Present Illness Hx of present illness STABLE Vitals Vitals Vital Signs Date Time Temp Pulse Resp B/P (MAP) Pulse Ox O2 Delivery O2 Flow Rate FiO2 01/23/19 09:06 70 127/64 01/23/19 09:04 18 Room Air 01/23/19 07:59 97.9 95 97.9 Weight Weight [ ] I.O. Intake and Output Intake and Output 01/23/19 06:59 Intake Total 1100 ml Output Total 200 ml Balance 900 ml Intake Oral 1100 ml Output Urine Total 200 ml Labs Labs Laboratory Tests Test 01/22/19 11:49 01/22/19 17:12 01/22/19 20:13 01/23/19 05:30 Glucose (Fingerstick) 212 mg/dL (70-99) 132 mg/dL (70-99) 172 mg/dL (70-99) White Blood Count 7.0 x10^3/uL (4.0-11.0) Red Blood Count 4.05 x10^6/uL (4.30-5.70) Hemoglobin 12.2 g/dL (13.0-17.5) Hematocrit 37.1 % (39.0-53.0) Mean Corpuscular Volume 92 fL (79-100) Mean Corpuscular Hemoglobin 30 pg (25-35) Mean Corpuscular Hemoglobin Concent 33 g/dL (31-37) Red Cell Distribution Width 15.1 % (11.5-14.5) Platelet Count 239 x10^3/uL (140-400) Neutrophils (%) (Auto) 62 % (31-73) Lymphocytes (%) (Auto) 21 % (24-48) Monocytes (%) (Auto) 8 % (0-9) Eosinophils (%) (Auto) 9 % (0-3) Basophils (%) (Auto) 1 % (0-3) Neutrophils # (Auto) 4.3 x10^3/uL (1.8-7.7) Lymphocytes # (Auto) 1.5 x10^3/uL (1.0-4.8) Monocytes # (Auto) 0.5 x10^3/uL (0.0-1.1) Eosinophils # (Auto) 0.6 x10^3/uL (0.0-0.7) Basophils # (Auto) 0.1 x10^3/uL (0.0-0.2) Test 01/23/19 07:47 01/23/19 09:00 Glucose (Fingerstick) 144 mg/dL (70-99) Sodium Level 134 mmol/L (136-145) Potassium Level 4.9 mmol/L (3.5-5.1) Chloride Level 94 mmol/L (98-107) Carbon Dioxide Level 23 mmol/L (21-32) Anion Gap 17 (6-14) Blood Urea Nitrogen 67 mg/dL (8-26) Creatinine 10.5 mg/dL (0.7-1.3) Estimated GFR (Cockcroft-Gault) 6.0 Glucose Level 189 mg/dL (70-99) Calcium Level 9.3 mg/dL (8.5-10.1) Phosphorus Level 6.7 mg/dL (2.6-4.7) Albumin 3.4 g/dL (3.4-5.0) Micro Micro Microbiology 01/19/19 Blood Culture - Preliminary, Resulted NO GROWTH AFTER 3 DAYS Review of Systems Constitutional: yes: weakness, alert Ears/Nose/Throat: Yes: no symptom reported Eyes: Yes: no symptom reported Pulmonary: Yes no symptom reported Cardiovascular: Yes no symptom reported Gastrointestional: Yes: no symptom reported Genitourinary: Yes: no symptom reported Musculoskeletal: Yes: no symptom reported Psychiatric/Neurological: Yes: no symptom reported Endocrine: Yes: no symptom reported Physical Exam General Appearance: no apparent distress Skin: warm Respiratory: decreased breath sounds Heart: S1S2 Abdomen: bowel sounds present Genitourinary: bladder flat Extremities: pulses present Neurology: alert Musculoskeletal: Osteoarthritis Assessment Assessment IMP ESRD ANEMIA HTN LEFT CHEST WALL PAIN-BETTER PLAN HD TOMORROW WILL FOLLOW MARIE YUAN MD Jan 23, 2019 10:58
[2019-01-23 11:46] VITALS: BP 98/59
--- NOTE | 2019-01-23 12:39 | NUR ---
Discharge Note: VALENTINA PHILIP CANDO Discharge instructions and discharge home medications reviewed with Spouse and a copy given. All questions have been answered and understanding verbalized. The following instructions and handouts were given: PNU, ABT&R, ABD pain Discontinued lines and drains: peripheral line. Patient discharged to Home or Self Care with Spouse via Wheelchair
== END 2019-01-23 12:43 | disposition home or self-care (01) | DRG 177 ==
LOC: ER 09:58 → 6 SOUTH 12:47 → 5 NORTH 01-20 15:22
PROVIDERS: ADMIT Family Medicine; ATTEND Family Medicine
PROC: 5A1D70Z Performance of Urinary Filtration, Intermittent, Less than 6 Hours Per Day (ICD-10-PCS; principal; 2019-01-19)
DX: J15.6 Pneumonia due to other Gram-negative bacteria (principal); N18.6 End stage renal disease; S22.42XA Multiple fractures of ribs, left side, initial encounter for closed fracture; I12.0 Hypertensive chronic kidney disease with stage 5 chronic kidney disease or end stage renal disease; D63.8 Anemia in other chronic diseases classified elsewhere; E11.22 Type 2 diabetes mellitus with diabetic chronic kidney disease; E11.51 Type 2 diabetes mellitus with diabetic peripheral angiopathy without gangrene; E78.5 Hyperlipidemia, unspecified; F41.9 Anxiety disorder, unspecified; M19.90 Unspecified osteoarthritis, unspecified site; I25.10 Atherosclerotic heart disease of native coronary artery without angina pectoris; Z79.82 Long term (current) use of aspirin; Z79.4 Long term (current) use of insulin; Z79.899 Other long term (current) drug therapy; Z82.49 Family history of ischemic heart disease and other diseases of the circulatory system; Z86.73 Personal history of transient ischemic attack (TIA), and cerebral infarction without residual deficits; Z95.5 Presence of coronary angioplasty implant and graft; Z99.2 Dependence on renal dialysis; Z95.1 Presence of aortocoronary bypass graft; Z83.3 Family history of diabetes mellitus
CPT/HCPCS: 36415; 71100; 71275; 72072; 72110; 80053; 80061; 80069; 82962; 83690; 84484; 85025; 85610; 87040; 93005; 93306; 94640; 94760; 96361; 96365; 96375; 96376; G0238; J1815; J2543; J3010; J7030; J7620; Q0162; Q9967; 99285-25

== ENCOUNTER → 2019-04-07 | Outpatient (CLI) | payer MEDICARE ==
[~2019-04-07] MED LIST changes: +LIDO700A21 TD; -NITR0.4T SL; +NITR0.4T24 SL; -PARI1CAP PO; +PARI1CAP17 PO
--- NOTE | 2019-04-07 09:21 | KCIC ---
EXAM: Abdominal aortic sonogram. HISTORY: Aneurysm screening. Cigarette smoking history. Hypertension. TECHNIQUE: Sonographic imaging of the abdominal aorta was performed. COMPARISON: None. FINDINGS: The proximal abdominal aorta is obscured due to bowel gas. There is partially calcified atherosclerotic plaque throughout the visualized abdominal aorta. The abdominal aorta measures 2.0 cm in maximum caliber. The common iliac arteries are normal in caliber. IMPRESSION: No sonographic evidence of abdominal aortic aneurysm. The proximal abdominal aorta is obscured. Electronically signed by: Elsi Holguin MD (04/07/2019 9:18 AM) [place] [id number]
== END | disposition home or self-care (01) ==
LOC: KCIC US 07:51
PROVIDERS: ATTEND Family Medicine
DX: I70.0 Atherosclerosis of aorta (principal); I71.4 Abdominal aortic aneurysm, without rupture; I10 Essential (primary) hypertension; Z87.891 Personal history of nicotine dependence; I25.2 Old myocardial infarction
CPT/HCPCS: 76770

== ENCOUNTER → 2019-07-21 | Day surgery (SDC) | payer MEDICARE ==
[~2019-07-21] MED LIST changes: +AMOX1TAB58 PO; +CITA20TA6 PO; +CLON0.1T PO; +CLONAZEPAM1 MG PO; +IV NORMAL SALINE 1000ML BAG 1,000 ML IV ONE; +IV RINGERS,LACTATED 1000ML 1,000 ML IV SCH; +LIDOCAINE 1% PF 2 ML VIAL. ID PRN; -OMEP20CA10 PO; +OMEP20CA16 PO; +ONDANSETRON PF 4 MG/2 ML VIAL. IV PRN; +PROCHLORPERAZINE 10 MG/2 ML VIAL. IV PRN; +PROPOFOL 40 ML IV ONE; +fentaNYL PF VIAL 100 MCG/2 ML VIAL IV PRN
[2019-07-21 13:14] VITALS: BP 128/59
--- NOTE | 2019-07-21 16:20 | HP ---
ADMIT DATE: 07/21/2019 REFERRING PHYSICIAN: Shonda Manzanares MD REASON: Colonic polyps and possible kidney transplant, end-stage renal disease. HISTORY OF PRESENT ILLNESS: This is a 69-year-old -[place] male with past medical history significant for end-stage kidney disease, on dialysis; dyslipidemia, diabetes, diverticulosis, colonic polyps, hyperlipidemia and status post cardiac stenting is seen for interval colon exam. He is presently attempting to advance into the kidney transplant list and surveillance exam. There has been no change in bowel habits, diarrhea, constipation and no melena and/or hematochezia and family history likewise is unrevealing for colon cancer. He is otherwise without additional complaints. PAST MEDICAL HISTORY: End-stage renal disease, hypertension, diabetes, hyperparathyroidism, colonic polyps, diverticulosis. ALLERGIES: MORPHINE. MEDICATIONS: Include Xanax, amlodipine, aspirin, atorvastatin, calcium, citalopram, clonazepam, clonidine, Plavix, hydrocodone, insulin, nitroglycerin, Zofran. FAMILY AND SOCIAL HISTORY: Significant for hypertension with siblings, diabetes with brother and mother, breast cancer with sister and aunt. PAST SURGICAL HISTORY: CABG. REVIEW OF SYSTEMS: Per records. PHYSICAL EXAMINATION: GENERAL: Reveals a well-nourished, well-developed -[place] male who is alert, cooperative, in no acute distress. VITAL SIGNS: Temperature 98.2, pulse 80, respirations 20. HEENT: Normocephalic, atraumatic head. Pupils and extraocular muscles are not tested. Sclerae anicteric. NECK: Supple. LUNGS: Clear. CARDIOVASCULAR: Reveals an S1, S2 without S3, S4 or appreciable murmur. ABDOMEN: Reveals a soft abdomen, normal bowel sounds, without appreciable hepatosplenomegaly. EXTREMITIES: Reveals AV fistula in one arm. IMPRESSION AND PLAN: History of colonic polyps. Surveillance exam is recommended at this time. Risks and benefits of procedure were discussed. The patient is willing to proceed. YUKI OLSON MD DR: CHRISTIANE/fanny JOB#: [id number] / [id number]
== END ==
LOC: ENDOS 10:55
PROVIDERS: ATTEND Internal Medicine Gastroenterology
DX: Z12.11 Encounter for screening for malignant neoplasm of colon (principal); K57.30 Diverticulosis of large intestine without perforation or abscess without bleeding; K64.0 First degree hemorrhoids; I12.0 Hypertensive chronic kidney disease with stage 5 chronic kidney disease or end stage renal disease; E11.22 Type 2 diabetes mellitus with diabetic chronic kidney disease; N18.6 End stage renal disease; Z86.010 Personal history of colon polyps; Z79.899 Other long term (current) drug therapy; Z88.6 Allergy status to analgesic agent; Z95.1 Presence of aortocoronary bypass graft; Z79.4 Long term (current) use of insulin
CPT/HCPCS: 82962; G0105; J2704; 45378

== ENCOUNTER 2019-09-21 10:33 | Emergency (ER) | payer MEDICARE ==
[~2019-09-21] VITALS: Ht 190.5 cm; Wt 160.0 kg
[~2019-09-21 10:33] MED LIST changes: +ASPI-630 PO; -IV NORMAL SALINE 1000ML BAG 1,000 ML IV ONE; -IV RINGERS,LACTATED 1000ML 1,000 ML IV SCH; -LIDOCAINE 1% PF 2 ML VIAL. ID PRN; -ONDANSETRON PF 4 MG/2 ML VIAL. IV PRN; -PROCHLORPERAZINE 10 MG/2 ML VIAL. IV PRN; -PROPOFOL 40 ML IV ONE; -fentaNYL PF VIAL 100 MCG/2 ML VIAL IV PRN; +phoslo
[2019-09-21 11:02] VITALS: BP 128/59
--- NOTE | 2019-09-21 11:28 | PHYS DOC ---
Past Medical History Past Medical History: CVA, Diabetes-Type II, Hypertension, TX, Renal Disease, Stroke (KURTIS MANSFIELD APRN) Past Surgical History: Coronary Bypass Surgery Additional Past Surgical Histo: CARDIAC STENT, LEFT LEG BYPASS, fem pop left leg x 2 (KURTIS AMNSFIELD APRN) Smoking Status: Former Smoker Alcohol Use: None Drug Use: None (KURTIS MANSFIELD APRN) Adult General Chief Complaint Chief Complaint: ABDOMINAL PAIN HPI HPI Patient is a 69 year old male who presents with patient states he is currently going to [facility] and 2 weeks ago he went to [facility] and they did a CT of his abdomen and pelvis. He states that they did this CT because he is on the kidney transplant list and they are looking for placement of where they could put the kidney when a new one came available. He states that this was all done 2 weeks ago. He states that yesterday they called him and stated that it looked like he had a bowel blockage. He states he is been taking a lot of laxatives and only having watery bowel movements but no stool is coming out. He states his been going on for the last 2 weeks. Patient states he has not had a bowel movement for the last 2 weeks. He denies abdominal pain, nausea, vomiting, fever, headache, numbness or tingling, chest pain, shortness of breath, visual changes, dizziness. Patient states he gets dialysis Thursday and Fridays at [facility] and his band and cuff cutter is Dr. Gallardo. Patient has a history of hypertension, TX with stents, CVA, diabetes type 2, renal disease. Patient s tates that when he had the bypass he was given too much contrast dye and that is what killed his kidneys. Patient denies any pain. (KURTIS MANSFIELD EDUCATION MANAGER) Review of Systems Review of Systems GI: Denies abdominal pain, nausea, vomiting, bloody stools or diarrhea. Constipation. [] All other systems were reviewed and found to be within normal limits, except as documented in this note. (KURTIS MANSFIELD APRN) Allergies Allergies Allergies Coded Allergies Type Severity Reaction Last Updated Verified morphine Adverse Reaction Severe 07/21/19 Yes (CECE RITCHIE MD) Physical Exam Physical Exam Constitutional: Well developed, well nourished, no acute distress, non-toxic appearance. [] HENT: Normocephalic, atraumatic, bilateral external ears normal, oropharynx moist, no oral exudates, nose normal. [] Eyes: PERRLA, EOMI, conjunctiva normal, no discharge. [] Neck: Normal range of motion, no tenderness, supple, no stridor. [] Cardiovascular:Heart rate regular rhythm, no murmur [] Lungs & Thorax: Bilateral breath sounds clear to auscultation [] Abdomen: Bowel sounds hypoactive, soft, distended, no tenderness, no masses, no pulsatile masses. Hard bowel felt in rectal vault. [] Skin: Warm, dry, no erythema, no rash. [] Back: No tenderness, no CVA tenderness. [] Extremities: No tenderness, no cyanosis, no clubbing, ROM intact, no edema. [] Neurologic: Alert and oriented X 3, normal motor function, normal sensory function, no focal deficits noted. [] Psychologic: Affect normal, judgement normal, mood normal. [] (KURTIS MANSFIELD APRN) Current Patient Data Vital Signs Vital Signs Date Time Temp Pulse Resp B/P (MAP) Pulse Ox O2 Delivery O2 Flow Rate FiO2 09/21/19 11:02 98.1 103 20 128/59 (82) 95 Room Air 98.1 (CECE RITCHIE MD) Lab Values Laboratory Tests Test 09/21/19 11:55 White Blood Count 9.7 x10^3/uL (4.0-11.0) Red Blood Count 4.18 x10^6/uL (4.30-5.70) L Hemoglobin 12.3 g/dL (13.0-17.5) L Hematocrit 37.2 % (39.0-53.0) L Mean Corpuscular Volume 89 fL (79-100) Mean Corpuscular Hemoglobin 29 pg (25-35) Mean Corpuscular Hemoglobin Concent 33 g/dL (31-37) Red Cell Distribution Width 16.1 % (11.5-14.5) H Platelet Count 238 x10^3/uL (140-400) Neutrophils (%) (Auto) 72 % (31-73) Lymphocytes (%) (Auto) 14 % (24-48) L Monocytes (%) (Auto) 9 % (0-9) Eosinophils (%) (Auto) 4 % (0-3) H Basophils (%) (Auto) 1 % (0-3) Neutrophils # (Auto) 7.0 x10^3/uL (1.8-7.7) Lymphocytes # (Auto) 1.4 x10^3/uL (1.0-4.8) Monocytes # (Auto) 0.8 x10^3/uL (0.0-1.1) Eosinophils # (Auto) 0.4 x10^3/uL (0.0-0.7) Basophils # (Auto) 0.1 x10^3/uL (0.0-0.2) Sodium Level 141 mmol/L (136-145) Potassium Level 4.5 mmol/L (3.5-5.1) Chloride Level 102 mmol/L (98-107) Carbon Dioxide Level 28 mmol/L (21-32) Anion Gap 11 (6-14) Blood Urea Nitrogen 29 mg/dL (8-26) H Creatinine 5.9 mg/dL (0.7-1.3) H Estimated GFR (Cockcroft-Gault) 11.6 BUN/Creatinine Ratio 5 (6-20) L Glucose Level 140 mg/dL (70-99) H Calcium Level 9.5 mg/dL (8.5-10.1) Total Bilirubin 0.3 mg/dL (0.2-1.0) Aspartate Amino Transferase (AST) 8 U/L (15-37) L Alanine Aminotransferase (ALT) 9 U/L (16-63) L Alkaline Phosphatase 87 U/L (46-116) Total Protein 7.4 g/dL (6.4-8.2) Albumin 3.6 g/dL (3.4-5.0) Albumin/Globulin Ratio 0.9 (1.0-1.7) L Laboratory Tests 09/21/19 11:55 Laboratory Tests 09/21/19 11:55 (CECE RITCHIE MD) Lab Values Laboratory Tests Test 09/21/19 11:55 White Blood Count 9.7 x10^3/uL (4.0-11.0) Red Blood Count 4.18 x10^6/uL (4.30-5.70) L Hemoglobin 12.3 g/dL (13.0-17.5) L Hematocrit 37.2 % (39.0-53.0) L Mean Corpuscular Volume 89 fL (79-100) Mean Corpuscular Hemoglobin 29 pg (25-35) Mean Corpuscular Hemoglobin Concent 33 g/dL (31-37) Red Cell Distribution Width 16.1 % (11.5-14.5) H Platelet Count 238 x10^3/uL (140-400) Neutrophils (%) (Auto) 72 % (31-73) Lymphocytes (%) (Auto) 14 % (24-48) L Monocytes (%) (Auto) 9 % (0-9) Eosinophils (%) (Auto) 4 % (0-3) H Basophils (%) (Auto) 1 % (0-3) Neutrophils # (Auto) 7.0 x10^3/uL (1.8-7.7) Lymphocytes # (Auto) 1.4 x10^3/uL (1.0-4.8) Monocytes # (Auto) 0.8 x10^3/uL (0.0-1.1) Eosinophils # (Auto) 0.4 x10^3/uL (0.0-0.7) Basophils # (Auto) 0.1 x10^3/uL (0.0-0.2) Sodium Level 141 mmol/L (136-145) Potassium Level 4.5 mmol/L (3.5-5.1) Chloride Level 102 mmol/L (98-107) Carbon Dioxide Level 28 mmol/L (21-32) Anion Gap 11 (6-14) Blood Urea Nitrogen 29 mg/dL (8-26) H Creatinine 5.9 mg/dL (0.7-1.3) H Estimated GFR (Cockcroft-Gault) 11.6 BUN/Creatinine Ratio 5 (6-20) L Glucose Level 140 mg/dL (70-99) H Calcium Level 9.5 mg/dL (8.5-10.1) Total Bilirubin 0.3 mg/dL (0.2-1.0) Aspartate Amino Transferase (AST) 8 U/L (15-37) L Alanine Aminotransferase (ALT) 9 U/L (16-63) L Alkaline Phosphatase 87 U/L (46-116) Total Protein 7.4 g/dL (6.4-8.2) Albumin 3.6 g/dL (3.4-5.0) Albumin/Globulin Ratio 0.9 (1.0-1.7) L Laboratory Tests 09/21/19 11:55 Laboratory Tests 09/21/19 11:55 (KURTIS MANSFIELD APRN) EKG EKG [] (KURTIS MANSFIELD APRN) Radiology/Procedures Radiology/Procedures [] (KURTIS MANSFIELD APRN) Impressions: [facility] [address] [place] [address] IMAGING REPORT Signed PATIENT: VALENTINA PHILIP ACCOUNT: [id number] : 1950 LOCATION: ER AGE: 69 SEX: M EXAM STATUS: PRE ER ORD. PHYSICIAN: KURTIS MANSFIELD APRN REASON: constipation PROCEDURE: KUB Supine abdomen. HISTORY: Constipation Supine view was taken of the abdomen. There is moderate stool throughout the colon including the rectum. A fecal impaction is possible. Patient previous surgery at the left groin. There are clips from a cholecystectomy. There is no small bowel obstruction. IMPRESSION: 1. Increased stool in colon and rectum. Electronically signed by: Mitchell Byers MD (09/21/2019 11:45 AM) [id number] DICTATED and SIGNED BY: MITCHELL BYERS MD DATE: 09/21/19 1145 (KURTIS MANSFIELD APRN) Course & Med Decision Making Course & Med Decision Making Pertinent Labs and Imaging studies reviewed. (See chart for details) Abdomen is distended but soft and nontender. During rectal exam hard stool could be felt at the tip of my index finger but could not be grasped to be disimpacted. No hemorrhoids or masses are felt or seen with rectal exam. There was no blood seen on my finger only stool. Patient's bowel sounds are hypoactive. Patient states he is passing gas. He states he is still eating but may be 2 small meals a day and then after that he states he cannot eat anymore. A soap suds enema if administered by MITZI Pantoja. RN states that the patient would not hold the fluid in the rectum and would push the fluid back out. A Milk of Molasses enema is done with again just fluid out. I have rechecked the rectum and the stool has moved down lower. I was able to remove a moderate amount of stool. The stool is soft. The patient is put on the commode at this time to see if he can expel more stool on his own. PCT Emigdio was business services analyst in the room. Upon reexamination patient was able to have a bowel movement on his own. Patient is discharged home and to follow up with primary care provider. [] (KURTIS MANSFIELD APRN) Course & Med Decision Making Staff Physician Addendum: I was working in the ER during the course of this patient's visit. I was available for consultation as needed, but I was not directly involved in the c are of this patient. (CECE RITCHIE MD) Dragon Disclaimer Dragon Disclaimer This electronic medical record was generated, in whole or in part, using a voice recognition dictation system. (KURTIS MANSFIELD APRN) Departure Departure Impression: Primary Impression: Constipation Disposition: 01 HOME, SELF-CARE Condition: STABLE Referrals: ANGELA RM MD (PCP) Patient Instructions: Constipation, Adult Additional Instructions: Follow up with primary care provider. Problem Qualifiers Primary Impression: Constipation Constipation type: unspecified constipation type Qualified Codes: K59.00 - Constipation, unspecified KURTIS MANSFIELD APRN Sep 21, 2019 11:28 CECE RITCHIE MD Sep 22, 2019 06:37
--- NOTE | 2019-09-21 11:48 | RAD ---
Supine abdomen. HISTORY: Constipation Supine view was taken of the abdomen. There is moderate stool throughout the colon including the rectum. A fecal impaction is possible. Patient previous surgery at the left groin. There are clips from a cholecystectomy. There is no small bowel obstruction. IMPRESSION: 1. Increased stool in colon and rectum. Electronically signed by: Mitchell Byers MD (09/21/2019 11:45 AM) [id number]
[2019-09-21 12:07] LABS: BASO # 0.1 x10^3/uL (0.0-0.2); BASO % 1 % (0-3); EOS # 0.4 x10^3/uL (0.0-0.7); EOS % 4 % (0-3); HEMATOCRIT 37.2 % (39.0-53.0); HEMOGLOBIN 12.3 g/dL (13.0-17.5); LYMPH # 1.4 x10^3/uL (1.0-4.8); LYMPH % 14 % (24-48); MEAN CORPUSCULAR HEMOGLOBIN 29 pg (25-35); MEAN CORPUSCULAR HGB CONC 33 g/dL (31-37); MEAN CORPUSCULAR VOLUME 89 fL (79-100); MONO # 0.8 x10^3/uL (0.0-1.1); MONO % 9 % (0-9); NEUT % 72 % (31-73); PLATELET COUNT 238 x10^3/uL (140-400); RED BLOOD COUNT 4.18 x10^6/uL (4.30-5.70); RED CELL DISTRIBUTION WIDTH 16.1 % (11.5-14.5); WHITE BLOOD COUNT 9.7 x10^3/uL (4.0-11.0)
[2019-09-21 12:22] LABS: CALCIUM 9.5 mg/dL (8.5-10.1); CREATININE 5.9 mg/dL (0.7-1.3); GFR 11.6; POTASSIUM 4.5 mmol/L (3.5-5.1)
[2019-09-21 12:28] LABS: ALBUMIN 3.6 g/dL (3.4-5.0); ALBUMIN/GLOBULIN RATIO 0.9 (1.0-1.7); TOTAL BILIRUBIN 0.3 mg/dL (0.2-1.0); TOTAL PROTEIN 7.4 g/dL (6.4-8.2)
== END 2019-09-21 13:41 | disposition home or self-care (01) ==
LOC: ER 10:33
DX: K59.00 Constipation, unspecified (principal); R11.2 Nausea with vomiting, unspecified; E11.9 Type 2 diabetes mellitus without complications; I10 Essential (primary) hypertension; I25.2 Old myocardial infarction; Z86.73 Personal history of transient ischemic attack (TIA), and cerebral infarction without residual deficits; Z87.891 Personal history of nicotine dependence; Z95.1 Presence of aortocoronary bypass graft; Z95.5 Presence of coronary angioplasty implant and graft
CPT/HCPCS: 36415; 74018; 80053; 85025; 99284-25

== ENCOUNTER 2020-02-22 10:12 | Emergency (ER) | payer MEDICARE ==
[~2020-02-22] VITALS: Ht 190.5 cm; Wt 90.0 kg
[~2020-02-22 10:12] MED LIST changes: -OXYC-411 PO; +OXYC1TAB20 PO
--- NOTE | 2020-02-22 11:52 | PHYS DOC ---
Past Medical History Past Medical History: Diabetes-Type II, Hypertension, Renal Failure Past Surgical History: Cholecystectomy, Other Additional Past Surgical Histo: [id number] Smoking Status: Never Smoker Alcohol Use: None Drug Use: None General Adult EDM: Chief Complaint: RIB PAIN HPI: HPI: Patient is a 69 year old male with history of diabetes type 2, hypertension, kidney disease, who presents the ED today complaining of 10 out of 10 left posterior rib pain that began 5 days ago after he is felt. Patient denies any loss of consciousness. Denies hitting his head on the ground. Reports the pain is worse on deep breaths. Denies anything specifically relieving the pain. Describes the pain as sharp. States the pain is constant. Review of Systems: Review of Systems: Constitutional: Denies fever or chills. [] Eyes: Denies change in visual acuity. [] HENT: Denies nasal congestion or sore throat. [] Respiratory: Denies cough or shortness of breath. [] Cardiovascular: Reports left posterior rib pain. Denies chest pain or edema. [] GI: Denies abdominal pain, nausea, vomiting, bloody stools or diarrhea. [] : Denies dysuria. [] Musculoskeletal: Denies back pain or joint pain. [] Integument: Denies rash. [] Neurologic: Denies headache, focal weakness or sensory changes. [] Psychiatric: Denies depression or anxiety. [] Heart Score: Risk Factors: Risk Factors: DM, Current or recent (<one month) smoker, HTN, HLP, family history of CAD, obesity. Risk Scores: Score 0 - 3: 2.5% MACE over next 6 weeks - Discharge Home Score 4 - 6: 20.3% MACE over next 6 weeks - Admit for Clinical Observation Score 7 - 10: 72.7% MACE over next 6 weeks - Early Invasive Strategies Allergies: Allergies: Allergies Coded Allergies Type Severity Reaction Last Updated Verified morphine Adverse Reaction Severe 07/21/19 Yes Physical Exam: PE: Constitutional: Well developed, well nourished, no acute distress, non-toxic appearance. [] HENT: Normocephalic, atraumatic, bilateral external ears normal, oropharynx moist, no oral exudates, nose normal. [] Eyes: PERRLA, EOMI, conjunctiva normal, no discharge. [] Neck: Normal range of motion, tenderness on palpation of left posterior ribs approximately ribs 8 through 11, supple, no stridor. [] Cardiovascular:Heart rate regular rhythm, no murmur [] Lungs & Thorax: Bilateral breath sounds clear to auscultation [] Abdomen: Bowel sounds normal, soft, no tenderness, no masses, no pulsatile masses. [] Skin: Warm, dry, no erythema, no rash. [] Back: No tenderness, no CVA tenderness. [] Extremities: No tenderness, no cyanosis, no clubbing, ROM intact, no edema. [] Neurologic: Alert and oriented X 3, normal motor function, normal sensory function, no focal deficits noted. [] Psychologic: Affect normal, judgement normal, mood normal. [] Current Patient Data: Vital Signs: Vital Signs Date Time Temp Pulse Resp B/P (MAP) Pulse Ox O2 Delivery O2 Flow Rate FiO2 02/22/20 10:22 97.8 114 16 116/66 (83) 99 Room Air 97.8 EKG: EKG: [] Radiology/Procedures: Radiology/Procedures: []PROCEDURE: RIBS LEFT AND PA CHEST PA CHEST AND LEFT RIB SERIES Clinical Indication: fall pain Comparison: AP chest, June 07, 2019. Findings: The cardiomediastinal silhouette is normal. Pulmonary vasculature is normal. Mild scarring or atelectasis in the bilateral lung bases. No pleural effusion or pneumothorax is seen. There are several old left lateral rib fractures, appears to involve the fifth through ninth ribs. There is no acute displaced rib fracture. A nondisplaced or subtle rib fracture could be obscured. IMPRESSION: 1. Mild bibasilar scarring or atelectasis. 2. No acute displaced rib fracture. 3. There are old left lateral rib fractures. Electronically signed by: Reji Hernandez MD (02/22/2020 12:17 PM) [id number] DICTATED and SIGNED BY: REJI HERNANDEZ MD DATE: 02/22/20 1217 Course & Med Decision Making: Course & Med Decision Making Pertinent Labs and Imaging studies reviewed. (See chart for details) This is a 69-year-old male patient presenting to the ED today with left posterior wrist pain that began 5 days ago after falling. Left lateral rib x- rays including PA chest interpreted by radiologist are negative for any acute findings. Noted for old left rib fractures. Patient was discharged home. Incentive spirometry recommended. Ice elevation recommended. Follow-up with PCP in the course of this week. Nadeem Disclaimer: Nadeem Disclaimer: This electronic medical record was generated, in whole or in part, using a voice recognition dictation system. Departure Departure Impression: Primary Impression: Fall Qualified Codes: W19.XXXA - Unspecified fall, initial encounter Additional Impression: Contusion of rib on left side Qualified Codes: S20.212A - Contusion of left front wall of thorax, initial encounter Disposition: HOME, SELF-CARE Condition: STABLE Referrals: ANGELA RM MD (PCP) follow up next week Patient Instructions: Rib Contusion Additional Instructions: You were evaluated in the emergency room for rib pain, your rib x-rays including chest x-rays are negative for any acute findings. Please consider using the incentive spirometry 10 times every hour while awake. Try to ice and elevate the affected area. Take the medicine prescribed as ordered Scripts Cyclobenzaprine Hcl (CYCLOBENZAPRINE HCL) 10 Mg Tablet 1 TAB PO TID, #30 TAB Prov: HORACIO HU APRN 02/22/20 Justicifation of Admission Dx: Justifications for Admission: Justification of Admission Dx: N/A HORACIO HU APRN Feb 22, 2020 11:52
--- NOTE | 2020-02-22 12:20 | RAD ---
PA CHEST AND LEFT RIB SERIES Clinical Indication: fall pain Comparison: AP chest, June 07, 2019. Findings: The cardiomediastinal silhouette is normal. Pulmonary vasculature is normal. Mild scarring or atelectasis in the bilateral lung bases. No pleural effusion or pneumothorax is seen. There are several old left lateral rib fractures, appears to involve the fifth through ninth ribs. There is no acute displaced rib fracture. A nondisplaced or subtle rib fracture could be obscured. IMPRESSION: 1. Mild bibasilar scarring or atelectasis. 2. No acute displaced rib fracture. 3. There are old left lateral rib fractures. Electronically signed by: Reji Herrera MD (02/22/2020 12:17 PM) [id number]
[2020-02-22] MEDS ORDERED: CYCL10TA2 PO (12:31)
[2020-02-22 12:42] VITALS: BP 133/71
== END 2020-02-22 12:43 | disposition home or self-care (01) ==
LOC: ER 10:12
DX: S20.212A Contusion of left front wall of thorax, initial encounter (principal); E11.22 Type 2 diabetes mellitus with diabetic chronic kidney disease; I12.9 Hypertensive chronic kidney disease with stage 1 through stage 4 chronic kidney disease, or unspecified chronic kidney disease; N18.9 Chronic kidney disease, unspecified; Z95.5 Presence of coronary angioplasty implant and graft; Z88.5 Allergy status to narcotic agent; W18.39XA Other fall on same level, initial encounter; Y93.89 Activity, other specified; Y92.89 Other specified places as the place of occurrence of the external cause; Y99.8 Other external cause status
CPT/HCPCS: 71101; 99284

== ENCOUNTER → 2020-07-11 | Outpatient (CLI) | payer MEDICARE ==
[~2020-07-11] MED LIST changes: +AMLO-187 PO; -AMLO10TA8 PO; +CYCL10TA2 PO; +IOHEXOL 180 MG/ML 10 ML VIAL. ONE; +methylPREDNISolone ACETATE 40 MG/ML VIAL. ONE; +methylPREDNISolone ACETATE 80 MG/ML VIAL. ONE
--- NOTE | 2020-07-11 10:13 | PDOC ---
Progress Note - Pain Clinic Date of Service: DOS: DATE: 07/11/20 TIME: 10:07 Diagnosis: Dx: Lumbar radiculopathy with lumbar spinal stenosis History or Present Illness: HPI: 70-year-old male returns follow-up status post lumbar epidural steroid injection x1 last seen August 09, 2019. Patient which did very well near 100% improvement for almost 1year. Patient reports the pain is returning now over the past 1 to 2 weeks in the low back bilaterally into the lower extremities posterior gluteus posterior lateral thighs lateral anterior thighs anterior medial thighs without any specific injury or accident that he is aware of patient reports its been worse with walking and standing better with sitting or laying down does not awaken from sleep at night does not cause any bowel or bladder incontinence patient reports is a 10 on scale 10 is worse however the past week least worst an average and is a 10 today. Patient reports it is aching and severe in the low back itself. Patient reports some radiation to the lower extremities again worse with walking no bowel or bladder incontinence patient is on dialysis as well no new motor or sensory deficits. Physical Exam: VS: Blood pressure 137/61 pulse 43 respirations 16 temperature 97.7 F height is 6 foot 4 inches weight is 200 pounds PE: PHYSICAL EXAMINATION: GENERAL: The patient is awake, alert, oriented, appropriate, very pleasant demeanor HEENT: Shows normocephalic, atraumatic. Extraocular movements are intact and symmetrical. Oral cavity: Mucous membranes moist and pink. NECK: Shows anterior throat supple without palpable lymphadenopathy noted. Swallow reflex symmetrical. CHEST: Shows normal on inspection. Breath sounds are clear bilaterally, distant but no rales or rhonchi. HEART: Shows S1, S2 clear. No murmurs auscultated. ABDOMEN: Soft, nontender, nondistended, obese. No palpable organomegaly is noted. No rebound or guarding demonstrated. BACK: Shows spine grossly in the midline. Normal-appearing cervical lordotic curvature. There is slightly increased thoracic kyphosis, some minor flattening of the lumbar lordotic curvature. Lumbar paraspinous muscles show symmetrical on inspection, on palpation shows some moderate tenderness diffusely throughout the upper, middle and lower distribution of the paraspinous muscles bilaterally and also into the lower thoracic paraspinous musculature, firm and tender, but without specific trigger points, without radiation of pain. The patient has good rotational motion of the lumbar spine, both laterally as well as extension and flexion without significant difficulty. No tenderness over the spinous processes, sacrum or sacroiliac regions. EXTREMITIES: Lower extremities show deep tendon reflexes 1+ in the patellar and tendo calcaneus tendons. Motor exam is 5 on a scale of 5 with right dorsiflexion, extension, quadriceps and hamstring flexion and 4/5 on the left. Peripheral pulses are 1+ posterior tibial. No peripheral edema is noted bilaterally. Lower extremities are warm and dry to touch, equal in color and appearance. SKIN: Shows warm and dry, good turgor. No edema. No sores, rashes or bruising throughout. Procedure: Procedure: Options discussed with the patient. Patient chart reviewed his current medication regimen updated current review of systems updated today as well. We will proceed with a lumbar epidural steroid injection today as the first in the series. Risks are discussed including but not limited to bleeding infection possibility of epidural hematoma and subsequent neurological compromise dural puncture headache spinal cord and nerve damage side effects steroid medication and poor results regarding pain control. Patient understands wished to proceed. Patient will return to clinic in approximate 2 weeks for follow-up, patient was counseled as to return appointment activity level and side effects to be aware of. Medication Injected: Med Injected: Underscore prep and drape patient in prone position using C-arm fluoroscopic guidance the L4-5 level was identified and under sterile prep and drape was and locally anesthetized using 1% lidocaine using a 18-gauge [employer] curved tip needle with stylette the L4-5 epidural space was entered without difficulty using preservative-free normal saline loss of resistance technique. This was verified in both AP and lateral views. At this time negative aspiration was noted and 2 cc of Isovue was injected showing good spread in the epidural space above and below the area of injection without uptake or washout. At this time solution containing 120 mg Depo-Medrol +10 cc preservative-free normal saline was injected. Needle was withdrawn and sterile bandage was applied. Patient tolerated the procedure well and had no complications. Condition at Discharge: Condition at Discharge: Condition at discharge stable, patient tolerated the procedure well and had no complications. RON BEE MD Jul 11, 2020 10:13
== END | disposition home or self-care (01) ==
LOC: PNCL 08:54
PROVIDERS: ATTEND Anesthesiology
DX: M54.16 Radiculopathy, lumbar region (principal); M48.061 Spinal stenosis, lumbar region without neurogenic claudication; Z98.890 Other specified postprocedural states; Z88.8 Allergy status to other drugs, medicaments and biological substances
CPT/HCPCS: 62323; J1030; J1040; Q9965

== ENCOUNTER → 2020-07-30 | Outpatient (CLI) | payer MEDICARE ==
--- NOTE | 2020-07-30 09:07 | PDOC ---
Progress Note - Pain Clinic Date of Service: DOS: DATE: 07/30/20 TIME: 09:04 Diagnosis: Dx: Lumbar radiculopathy with lumbar spinal stenosis History or Present Illness: HPI: 70-year-old male returns follow-up status post lumbar epidural steroid action x1. Patient reports about 50% improvement in the back pain and the bilateral lower extremity pain. Patient reports he can increase his activities greater ease and comfort walking greater distances doing household activities travel with greater ease as well. Patient reports the pain is in the low back and the bilateral lower extremities posterior gluteus posterior lateral thighs anterior thighs mostly in the back itself. Patient ports right essentially equal to left. Patient describes pain as a 10 on scale 10 is worse over the past week 10 on average 10 is least and is a 10 today. Patient scribes pain is severe aching dull and tight shooting sharp in the back as well as aching. Patient reports no new motor or sensory deficits no new bowel or bladder incontinence or other complaints. Physical Exam: VS: Blood pressure is 148/80 pulse 94 respirations 18 temperature 98.3 F height is 6 foot 4 inches weight 200 pounds PE: PHYSICAL EXAMINATION: GENERAL: The patient is awake, alert, oriented, appropriate, very pleasant demeanor HEENT: Shows normocephalic, atraumatic. Extraocular movements are intact and symmetrical. Oral cavity: Mucous membranes moist and pink. NECK: Shows anterior throat supple without palpable lymphadenopathy noted. Swallow reflex symmetrical. CHEST: Shows normal on inspection. Breath sounds are clear bilaterally, no rales or rhonchi. HEART: Shows S1, S2 clear. No murmurs auscultated. ABDOMEN: Soft, nontender, nondistended, obese. No palpable organomegaly is noted. No rebound or guarding demonstrated. BACK: Shows spine grossly in the midline. Normal-appearing cervical lordotic curvature. There is increased thoracic kyphosis, some flattening of the lumbar lordotic curvature. Lumbar paraspinous muscles show symmetrical on inspection, on palpation shows some moderate tenderness diffusely throughout the upper, middle and lower distribution of the paraspinous muscles without specific trigger points, without radiation of pain. The patient has good rotational motion of the lumbar spine, both laterally as well as extension and flexion without significant difficulty. EXTREMITIES: Lower extremities show deep tendon reflexes 1+ in the patellar and tendo calcaneus tendons. Motor exam is 5 on a scale of 5 with right dorsiflexion, extension, quadriceps and hamstring flexion and 4/5 on the left. Peripheral pulses are 1+ posterior tibial. No peripheral edema is noted bilaterally. Patient wearing 90 degree brace on his left ankle. Lower extremities are warm and dry to touch, equal in color and appearance. SKIN: Shows warm and dry, good turgor. No edema. No sores, rashes or bruising throughout. Procedure: Procedure: Options discussed with the patient and patient's spouse who accompanied him his visit today. We will proceed with a second in the series lumbar epidural steroid injection today with fluoroscopic guidance. Risks were discussed including but not limited to: Bleeding, infection, possibility of epidural hematoma and subsequent neurological compromise, dural puncture, headaches, spinal cord and/or nerve damage, side effects of steroid medication, and poor results regarding pain control. Patient understands and wished to proceed. Patient will return to the clinic in approximate 2 weeks for follow-up, was counseled as return appointment activity level and side effects to be aware of. Medication Injected: Med Injected: Procedure is lumbar epidural steroid injection under local anesthetic using sterile prep and drape at the L4-5 level using C-arm fluoroscopic guidance in both AP and lateral views medications injected is 120 mg Depo-Medrol + 10 mL preservative-free normal saline and 2 mL contrast- condition at discharge is stable patient tolerated procedure well had no complications. Condition at Discharge: Condition at Discharge: Condition at discharge stable, patient tolerated procedure well and had no complications. RON BEE MD Jul 30, 2020 09:07
--- NOTE | 2020-07-30 09:08 | PDOC4 ---
PROCEDURE Procedure Patient was consented for lumbar epidural steroid injection. Risks were dis cussed including but not limited to: Bleeding, infection, possibility of epidural hematoma and subsequent neurological compromise, dural puncture, headaches, spinal cord and/or nerve damage, side effects of steroid medication, and poor results regarding pain control. Patient understands and wished to proceed. Procedure is lumbar epidural steroid injection under local anesthetic using sterile prep and drape at the L4-5 level using C-arm fluoroscopic guidance in both AP and lateral views medications injected is 120 mg Depo-Medrol + 10 mL preservative-free normal saline and 2 mL contrast- condition at discharge is stable patient tolerated procedure well had no complications. RON BEE MD Jul 30, 2020 09:08
== END | disposition home or self-care (01) ==
LOC: PNCL 08:15
PROVIDERS: ATTEND Anesthesiology
DX: M48.061 Spinal stenosis, lumbar region without neurogenic claudication (principal); M54.16 Radiculopathy, lumbar region; I25.10 Atherosclerotic heart disease of native coronary artery without angina pectoris; E78.00 Pure hypercholesterolemia, unspecified; I12.9 Hypertensive chronic kidney disease with stage 1 through stage 4 chronic kidney disease, or unspecified chronic kidney disease; E11.22 Type 2 diabetes mellitus with diabetic chronic kidney disease; N18.9 Chronic kidney disease, unspecified; E66.9 Obesity, unspecified; M19.90 Unspecified osteoarthritis, unspecified site; F41.9 Anxiety disorder, unspecified; Z99.2 Dependence on renal dialysis; Z90.49 Acquired absence of other specified parts of digestive tract; Z98.890 Other specified postprocedural states; Z79.899 Other long term (current) drug therapy; Z79.82 Long term (current) use of aspirin; Z79.4 Long term (current) use of insulin; Z87.891 Personal history of nicotine dependence; Z88.6 Allergy status to analgesic agent
CPT/HCPCS: 62323; J1030; J1040; Q9965

== ENCOUNTER → 2020-09-12 | Outpatient (CLI) | payer MEDICARE ==
[2020-08-28 07:00] VITALS: BP 121/70
[~2020-09-12] MED LIST changes: +GEMF600T20 PO; -GEMF600T8 PO; -IOHEXOL 180 MG/ML 10 ML VIAL. ONE; -methylPREDNISolone ACETATE 40 MG/ML VIAL. ONE; -methylPREDNISolone ACETATE 80 MG/ML VIAL. ONE
--- NOTE | 2020-09-12 11:59 | RAD ---
EXAM: Thoracic spine, 3 views. HISTORY: T11 fracture. COMPARISON: 08/27/2020. FINDINGS: 3 views of the thoracic spine are obtained. There is a severe T11 wedge compression fractur e with complete loss of anterior vertebral body height and 2 mm retropulsion of the posterior cortex into the central canal. The degree of compression is increased compared to the prior study. There is minimal chronic anterior wedging of T6. There is suspected bone demineralization. There are incidenta l cholecystectomy clips. IMPRESSION: 1. Increase in a severe wedge compression fracture of T11 with complete loss of anterior vertebral fausto dy height. There is stable slight retropulsion of the cortex at this level. 2. Stable minimal chronic anterior wedging of T6. Electronically signed by: Elsi Holguin MD (09/12/2020 11:57 AM) [id number]
== END ==
LOC: RAD 10:59
PROVIDERS: ATTEND Neurological Surgery
DX: S22.080A Wedge compression fracture of T11-T12 vertebra, initial encounter for closed fracture (principal); S82.201A Unspecified fracture of shaft of right tibia, initial encounter for closed fracture; X58.XXXA Exposure to other specified factors, initial encounter; Y93.89 Activity, other specified; Y92.89 Other specified places as the place of occurrence of the external cause; Y99.8 Other external cause status
CPT/HCPCS: 72072

== ENCOUNTER → 2020-10-29 | Outpatient (CLI) | payer MEDICARE ==
[2020-10-12 10:30] VITALS: BP 117/66
[~2020-10-29] MED LIST changes: +ATOR40TA59 PO; +CLOP75TA PO; +FERR210T PO; +FOLI0.8T7 PO
--- NOTE | 2020-10-29 14:05 | RAD ---
EXAM: Thoracic spine, 4 views. HISTORY: Fracture. COMPARISON: 09/12/2020 FINDINGS: 4 views of the thoracic spine are obtained. There is a severe T11 compression fracture with slight retropulsion of the cortex. This is stable compared to the prior exam. There is a minimal chr onic appearing anterior wedging of T7, also stable in appearance. There is multilevel endplate remode ling. IMPRESSION: 1. Stable severe T11 compression fracture with vertebral body cortex. 2. Mild chronic appearing anterior wedging of T7 superimposed on multilevel endplate remodeling. Electronically signed by: Elsi Holguin MD (10/29/2020 2:03 PM) [id number]
== END ==
LOC: RAD 12:00
PROVIDERS: ATTEND Neurological Surgery
DX: S22.089A Unspecified fracture of T11-T12 vertebra, initial encounter for closed fracture (principal); X58.XXXA Exposure to other specified factors, initial encounter; Y93.89 Activity, other specified; Y92.89 Other specified places as the place of occurrence of the external cause; Y99.8 Other external cause status
CPT/HCPCS: 72072

== ENCOUNTER → 2021-06-11 | Outpatient (CLI) | payer MEDICARE ==
[2020-10-12 10:30] VITALS: BP 117/66
[~2021-06-11] MED LIST changes: +CYCL10TA19 PO; -CYCL10TA2 PO
--- NOTE | 2021-06-12 10:29 | KCIC ---
EXAM: XR KNEE_AP BILAT STANDING 06/11/2021 11:20 AM CLINICAL INDICATION: DJD of both knees. Pain. Left leg brace for foot drop. COMPARISON: None TECHNIQUE: AP standing view of the bilateral knees FINDINGS: The bones are demineralized. There are vascular calcifications. There are surgical clips a nd a vascular stent seen in the medial left thigh and leg. There is no acute fracture or malalignment . Very mild right greater than left medial compartment narrowing and subchondral sclerosis. Tiny late ral compartment osteophytes in the right knee. IMPRESSION: Mild degenerative joint disease, greater on the right. Electronically signed by: Nadine Paredes MD (06/12/2021 10:27 AM) [id number]
== END ==
LOC: KCIC 11:12
PROVIDERS: ATTEND Physical Medicine & Rehabilitation
DX: M17.0 Bilateral primary osteoarthritis of knee (principal); M81.8 Other osteoporosis without current pathological fracture; M25.761 Osteophyte, right knee; M25.861 Other specified joint disorders, right knee; M25.862 Other specified joint disorders, left knee
CPT/HCPCS: 73565

== ENCOUNTER 2021-08-26 05:04 | Inpatient (IN) | payer MEDICARE ==
[~2021-08-26] VITALS: Ht 193 cm; Wt 79.7 kg
[~2021-08-26 05:04] MED LIST changes: +ALPR0.5T6 PO; +SUCR500T PO; +TIZA-75 PO; +TRAM50TA PO
--- NOTE | 2021-08-26 05:40 | PHYS DOC ---
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 Patient states he walks with a cane and has had recurrent falling due to prior CVA in July. Reports he did not hit his head or lose consciousness. No associated dizziness, chest pain, shortness of breath, weakness, facial droop, speech changes, neck pain, headache or dehydration. Reports he received full dialysis on Thursday but is due for dialysis today. EMR was reviewed and patient was admitted 1 month ago for concern for new CVA, MRI did not show any new ischemia. (GUILHERME HENNESSY DO) Review of Systems: Review of Systems: Constitutional: Denies fever or chills. [] Eyes: Denies change in visual acuity. [] HENT: Denies nasal congestion or sore throat. [] Respiratory: Denies cough or shortness of breath. [] Cardiovascular: Denies chest pain or edema. [] GI: Denies abdominal pain, nausea, vomiting, bloody stools or diarrhea. [] : Denies saddle anesthesia or incontinence Musculoskeletal: Denies midline back pain or joint pain. [] Integument: Denies rash or diaphoresis Neurologic: Denies headache, midline neck pain, focal weakness or sensory changes. [] Endocrine: Denies polyuria or polydipsia. [] Lymphatic: Denies swollen glands. [] Psychiatric: Denies depression or anxiety. [] (GUILHERME HENNESSY DO) Heart Score: C/O Chest Pain: No Risk Factors: Risk Factors: DM, Current or recent (<one month) smoker, HTN, HLP, family history of CAD, obesity. Risk Scores: Score 0 - 3: 2.5% MACE over next 6 weeks - Discharge Home Score 4 - 6: 20.3% MACE over next 6 weeks - Admit for Clinical Observation Score 7 - 10: 72.7% MACE over next 6 weeks - Early Invasive Strategies (GUILHERME HENNESSY DO) Allergies: Allergies: Allergies Coded Allergies Type Severity Reaction Last Updated Verified No Known Drug Allergies 08/27/20 No (GUILHERME HENNESSY DO) Physical Exam: PE: Constitutional: no acute distress, non-toxic appearance. HENT: Normocephalic, atraumatic, no septal hematoma, no oral bleeding, no hemotympanum Eyes: Pupils equal and reactive, EOMI, conjunctiva normal, no discharge, no raccoon eyes Neck: Normal range of motion, supple, no midline neck pain, does report left- sided lateral neck pain Cardiovascular: S1/2 present, regular rhythm Lungs & Thorax: Speaking in full sentences, bilateral equal chest rise, no tachypnea or increased work of breathing Abdomen: soft, no tenderness, no rigidity or guarding Skin: Warm, dry, no erythema, no rash. [] Back: No midline spinal step-offs or tenderness, no CVA tenderness, planes of pain in right buttock-pain is reproducible right SI joint Extremities: No tenderness, no cyanosis, no lower extremity edema Neurologic: Alert and oriented X 3, cannot lift his left leg above the bed but states this is chronic from prior stroke, Psychologic: Calm mood, no agitation (GUILHERME HENNESSY DO) EKG: EK concern for motion artifact with heart rate of 101, QTC 449, cannot appreciate any obvious ST elevations or ST depressions, PVCs are present (GUILHERME HENNESSY DO) Radiology/Procedures: Radiology/Procedures: [] (GUILHERME HENNESSY DO) Course & Med Decision Making: Course & Med Decision Making Pertinent Labs and Imaging studies reviewed. (See chart for details) Concern for right-sided low back pain over posterior hip and SI joint in a well- appearing male, fall down 4 steps on Plavix. Pt resting comfortably and in no distress. Due to shift change patient was signed out to oncoming physician Dr. Zhou. Labs, x-rays and CT scans pending. (GUILHERME HENNESSY DO) Course & Med Decision Making Received patient in signout. CT shows worsening of thoracic compression fracture. Discussed with radiologist and it does show progression with some retropulsion. On exam he does have chronic left leg weakness that he states is unchanged. RLE strength is intact through knee flexion, extension, plantarflexion/dorsiflexion of ankle, and dorsiflexion of the great toe. Discussed with neurosurgery PA, pending review with attending neurosurgeon, but likely plan for MRI to evaluate for chronicity. Patient is in a significant amount of pain and has had many frequent falls recently, and will need to be admitted to the hospital for further management. He is due for dialysis today, labs do not show any need for emergent dialysis. Nephrology routinely consulted. His troponin was checked and is mildly elevated, likely due to poor clearance in the setting of ESRD. He has no chest pain or discernible anginal equivalent. We will draw serial troponins to ensure no upward trend. [id number] (SILVIO ZHOU MD) Dragon Disclaimer: Dragon Disclaimer: This electronic medical record was generated, in whole or in part, using a voice recognition dictation system. (GUILHERME HENNESSY DO) Departure Departure Impression: Primary Impression: Thoracic compression fracture Additional Impressions: ESRD (end stage renal disease) Multiple falls Disposition: ADMITTED INPATIENT Admitting Physician: QUE Sánchez) (SILVIO ZHOU MD) Condition: STABLE Referrals: ANGELA RM MD (PCP) GUILHERME HENNESSY DO Aug 26, 2021 05:40 SILVIO ZHOU MD Aug 26, 2021 08:00
[2021-08-26 05:54] LABS: CALCIUM 9.8 mg/dL (8.5-10.1); CREATININE 10.8 mg/dL (0.7-1.3); GFR 5.8; POTASSIUM 5.1 mmol/L (3.5-5.1)
[2021-08-26 05:55] LABS: ALBUMIN 3.6 g/dL (3.4-5.0); ALBUMIN/GLOBULIN RATIO 1.3 (1.0-1.7); MAGNESIUM 2.2 mg/dL (1.8-2.4); TOTAL BILIRUBIN 0.4 mg/dL (0.2-1.0); TOTAL PROTEIN 6.3 g/dL (6.4-8.2)
[2021-08-26 05:56] LABS: BASO # 0.1 x10^3/uL (0.0-0.2); BASO % 1 % (0-3); EOS # 0.3 x10^3/uL (0.0-0.7); EOS % 7 % (0-3); HEMATOCRIT 30.9 % (39.0-53.0); HEMOGLOBIN 9.9 g/dL (13.0-17.5); LYMPH # 0.8 x10^3/uL (1.0-4.8); LYMPH % 17 % (24-48); MEAN CORPUSCULAR HEMOGLOBIN 29 pg (25-35); MEAN CORPUSCULAR HGB CONC 32 g/dL (31-37); MEAN CORPUSCULAR VOLUME 91 fL (79-100); MONO # 0.4 x10^3/uL (0.0-1.1); MONO % 8 % (0-9); NEUT # 3.2 x10^3/uL (1.8-7.7); NEUT % 67 % (31-73); PLATELET COUNT 180 x10^3/uL (140-400); RED BLOOD COUNT 3.39 x10^6/uL (4.30-5.70); RED CELL DISTRIBUTION WIDTH 15.8 % (11.5-14.5); WHITE BLOOD COUNT 4.7 x10^3/uL (4.0-11.0)
[2021-08-26 06:13] LABS: PROTHROMBIN TIME PATIENT 13.4 SEC (11.7-14.0)
--- NOTE | 2021-08-26 06:13 | RAD ---
XR KNEE 3 VIEWS_RT 08/26/2021 5:15 AM INDICATION: Right knee pain COMPARISON: None available. TECHNIQUE: 3 views of the right knee are provided. FINDINGS/ IMPRESSION: There is no acute fracture or dislocation. Small knee joint effusion. Moderate patellofemoral and mil d medial femorotibial osteoarthrosis with joint space narrowing and marginal osteophytosis. Vascular calcifications are present. Bone mineralization is within normal limits. Regional soft tissues are wi thin normal limits. There is no soft tissue gas or osseous erosion. No radiopaque foreign body. Electronically signed by: Rosa Hayes MD (08/26/2021 6:10 AM) SULY
--- NOTE | 2021-08-26 06:15 | RAD ---
XR CHEST 1V 08/26/2021 5:41 AM INDICATION: Fall, back pain COMPARISON: None available TECHNIQUE: Portable frontal view of the chest is provided. FINDINGS: The cardiomediastinal silhouette is within normal limits. Lungs are clear. Atherosclerotic calcificat ion of the thoracic aorta. There are no significant pleural effusions. There is no pulmonary vascular congestion. No pneumothora x. No suspicious osseous abnormality. Remote healed left-sided rib deformity involving the fifth, sixth and seventh ribs. IMPRESSION: There is no acute cardiopulmonary process. Electronically signed by: Rosa Hayes MD (08/26/2021 6:13 AM) [facility]
--- NOTE | 2021-08-26 06:35 | RAD ---
PQRS Compliance Statement: One or more of the following individualized dose reduction techniques were utilized for this examinat ion: 1. Automated exposure control 2. Adjustment of the mA and/or kV according to patient size 3. Use of iterative reconstruction technique CT head and cervical spine without contrast 08/26/2021 6:06 AM INDICATION: Fall on Plavix, back pain COMPARISON: MRI brain 07/24/2021, 08/26/[address] TECHNIQUE: Multiple axial CT images of the head were obtained from skull base through the vertex with out intravenous contrast. Multiple axial CT images of the cervical spine were obtained without intrav enous contrast. Coronal and sagittal reformats are provided. FINDINGS: Head: Ventricles, sulci and basal cisterns are prominent compatible with mild generalized cerebral volume l oss.. Low-attenuation in the periventricular white matter is suggestive of chronic small vessel ische lobito changes. There is no hydrocephalus. Stevens-white matter differentiation is normal. There is no acut e intracranial hemorrhage. There is no mass, mass effect or midline shift. Posterior fossa is normal in appearance. Visualized portions of the orbits are normal. Paranasal sinuses are well aerated. Mastoid air cells a re well aerated. Scalp and calvaria are normal. Cervical spine: Alignment of the cervical spine is normal. Skull base is intact. Craniocervical junction is normal in appearance. Atlantoaxial articulation is normal. Vertebral body heights are maintained without evidence for acute fracture. There is moderate disc height loss at C6-C7 with endplate erosive changes and subcortical sclerosis. Findings could reflect sequela of advanced degenerative disc disease or prior history of discitis. No compressive epidural hematoma. Mild disc height loss at C5-C6. At C4-C5, there is a posterior disc o steophyte complex with moderate left and moderate facet arthropathy results in mild to moderate bilat eral neuroforaminal stenosis. At C5-C6, there is a posterior disc osteophyte complex with moderate fa cet arthropathy and moderate uncovertebral joint disease. Mild bilateral neuroforaminal stenosis. At C6-C7, there is a posterior disc osteophyte complex with severe uncovertebral joint disease and moder ate facet arthropathy results in mild to moderate bilateral neuroforaminal stenosis. There is no prevertebral soft tissue swelling. Thyroid gland is normal in appearance. Visualized port ions of the lung apices are normal without evidence for suspicious pulmonary nodule or infiltrate. IMPRESSION: 1. No acute intracranial hemorrhage. Mild generalized cerebral line loss. Low-attenuation in the alex ventricular white matter is suggestive of chronic small vessel ischemic changes. 2. No acute fracture or significant malalignment of the cervical spine. Progression of degenerative d isc disease at C6-C7 versus sequela of prior discitis. Electronically signed by: Rosa Hayes MD (08/26/2021 6:32 AM) [facility]
--- NOTE | 2021-08-26 06:41 | RAD ---
PQRS Compliance Statement: One or more of the following individualized dose reduction techniques were utilized for this examinat ion: 1. Automated exposure control 2. Adjustment of the mA and/or kV according to patient size 3. Use of iterative reconstruction technique CT abdomen/pelvis without contrast 08/26/2021 6:06 AM INDICATION: Fall on Plavix, back pain COMPARISON: None available TECHNIQUE: Multiple axial CT images of the abdomen and pelvis were obtained without intravenous contr ast. Coronal and sagittal reformats are provided. FINDINGS: There is subsegmental atelectasis at the lung base. Three-vessel coronary artery vascular calcificati on. Heart size is within normal limits. Remote healed left lateral sixth, seventh, eighth and ninth r ib fractures. Evaluation of the solid abdominal viscera is limited by lack of intravenous contrast. Liver is normal in appearance. Calcifications within the spleen suggest sequela prior granulomatous exposure. Adrena l glands and pancreas are normal. Cholecystectomy changes. Abdominal aorta is normal in course and caliber with moderate calcified atheromatous plaque. No patho logically enlarged lymph nodes are identified in abdomen and pelvis. There is no free fluid or free i ntraperitoneal air. There is a simple cyst in the superior pole the right kidney measuring 2.2 cm. Si mple cyst in inferior pole the right kidney measures 2.1 cm. 2 mm nonobstructing calculi identified i n the inferior pole the right kidney. There is no hydronephrosis. No calculi within the ureters or ur inary bladder. Urinary bladder is within normal limits given degree of distention. Prostate and semin al vesicles are normal. Mild to moderate diverticulosis. There is minimal inflammation along the left pericolic gutter adjace nt to moderate diverticulosis suggestive of diverticulitis. Appendix is normal in appearance. No alex diverticular abscess. No bowel obstruction. There is a compression fracture at T12 which is new from 06/07/2019 with 75 percent height loss and retropulsion of the superior endplate resulting in mild to moderate osseous spinal canal stenosis. No definite compressive epidural hematoma. IMPRESSION: 1. There are findings suggestive of mild diverticulitis involving the left colon. No associated absce ss or free air. 2. There is a compression fracture at T12 (there is transitional anatomy at the lumbosacral junction and counting of levels may be of benefit with plain films if surgical intervention is a consideration ). There is 75 percent height loss with retropulsion resulting in mild to moderate osseous spinal can al stenosis. Correlate with point tenderness as findings remain age indeterminate. If there is persis tent clinical concern, further evaluation with MRI of the lumbar spine is recommended. 3. Nonobstructing calculus in inferior pole the right kidney measure 2 mm. Electronically signed by: Rosa Hayes MD (08/26/2021 6:39 AM) [facility]
--- NOTE | 2021-08-26 06:49 | RAD ---
PQRS Compliance Statement: One or more of the following individualized dose reduction techniques were utilized for this examinat ion: 1. Automated exposure control 2. Adjustment of the mA and/or kV according to patient size 3. Use of iterative reconstruction technique CT LUMBAR SPINE RECONSTRUCTION 08/26/2021 6:06 AM Indication: Fall on Plavix COMPARISON: CT lumbar spine 08/26/2020. TECHNIQUE: Multiple axial CT images of the lumbar spine were obtained without intravenous contrast. C oronal and sagittal reformats are provided. FINDINGS: There is transitional anatomy at the lumbosacral junction with rudimentary disc at S1-S2. For the pur poses of this examination, there is a compression fracture at T12 with greater than 75 percent height loss. There may be subtle gas identified along the superior endplate as may be seen with osteonecros is. There is gas within the disc space at T11-T12 and T12-L1 which may represent vacuum disc phenomen a. There is retropulsion of the superior endplate resulting in mild to moderate spinal canal stenosis . No compressive epidural hematoma. IMPRESSION: Superior endplate compression fracture at T12 with greater than 75 percent height loss. There is sugg estion of osteonecrosis. Retropulsion with mild to moderate osseous spinal canal stenosis, progressed . This finding appears progressed since the CT lumbar spine from 08/26/2020, however remains age indet erminate. If there is concern for acute or chronic trauma, further characterization with MRI of the l umbar spine may be of benefit. Electronically signed by: Rosa Hayes MD (08/26/2021 6:47 AM) SULY
--- NOTE | 2021-08-26 06:55 | EKG ---
[facility] [address] [place] [address] Test Date: 2021-08-26 Test Time: 05:51:19 Pat Name: VALENTINA PHILIP Department: Room: Gender: M [employer] Internship: : 1950 Requested By: GUILHERME HENNESSY Order Number: [id number] Reading MD: Bruno Lou MD Measurements Intervals [place] Rate: 99 P: 75 NV: 124 QRS: 34 QRSD: 74 T: 36 QT: 346 QTc: 449 Interpretive Statements SINUS RHYTHM QRS(T) CONTOUR ABNORMALITY CONSISTENT WITH ANTEROSEPTAL INFARCT PROBABLY OLD ABNORMAL ECG Electronically Signed On 09-02-2021 16:22:01 [employer] by Bruno Lou MD
[2021-08-26] MEDS ORDERED: MORPHINE SULFATE 4 MG/ML INJ. IVP ONE (07:15)
[2021-08-26] MEDS ORDERED: LABETALOL 20 MG/4 ML DISP.SYRIN. IVP PRN (11:15)
[2021-08-26] MEDS ORDERED: LABETALOL 20 MG/4 ML DISP.SYRIN. IVP ONE (11:15)
[2021-08-26] MEDS: cloNIDine HCL 0.1 MG TABLET PO SCH (11:47)
[2021-08-26] MEDS: HYDROcodone/APAP 5/325MG 1 TAB TABLET PO PRN ×2 (12:00→20:56)
[2021-08-26] MEDS ORDERED: IV NORMAL SALINE 1000ML BAG 1,000 ML IV PRN ×2 (12:00)
[2021-08-26] MEDS ORDERED: DIALYSIS PATIENT. MC PRN (12:00)
--- NOTE | 2021-08-26 14:37 | PDOC1 ---
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 He also had a fall on Thursday and also today. However he believes that most of his back pain is coming from when he fell down the stairs about 5 steps on a week ago. Patient did not lose consciousness or head of any head trauma. He denies any dizziness, chest pain, shortness of breath, weakness, facial droop, speech changes, neck pain, dehydration. Patient did go to dialysis on Thursday but missed dialysis today on Thursday. Past Medical/Surgical History: PMH/PSH: Past Medical History: Diabetes-Type II, Hypertension, SC, Renal Failure, Stroke, ESRD Past Surgical History: Cholecystectomy, STENTX1, LLE VEIN GRAFT Allergies: Allergies: Coded Allergies: No Known Drug Allergies (Unverified , 08/27/20) Family History: Family History: Reviewed with no relevant findings in the chart Social History: Social History: Smoking Status: Former Smoker Alcohol Use: None Drug Use: None Current Medications: Current Medications Current Medications Morphine Sulfate (Morphine Sulfate) 4 mg 1X ONCE IVP Last administered on 08/26/21at 07:54; Start 08/26/21 at 07:15; Stop 08/26/21 at 07:16; Status DC Amlodipine Besylate (Norvasc) 10 mg DAILY PO Last administered on 08/26/21at 12:09; Start 08/27/21 at 09:00 Clonidine HCl (Catapres) 0.1 mg DAILY PO Last administered on 08/26/21at 11:47; Start 08/26/21 at 12:00 Labetalol HCl (Normodyne Iv Push) 10 mg PRN Q2HRS PRN IVP ELEVATED BP, SEE COMMENTS; Start 08/26/21 at 11:15 Labetalol HCl (Normodyne Iv Push) 10 mg PRN Q15MIN ONCE IVP ; Start 08/26/21 at 11:15; Stop 08/26/21 at 11:28; Status DC Acetaminophen/ Hydrocodone Bitart (Lortab 5/325) 1 tab PRN Q6HRS PRN PO PAIN Last administered on 08/26/21at 12:00; Start 08/26/21 at 12:00 Methocarbamol (Robaxin) 750 mg PRN Q8HRS PRN PO MUSCLE SPASMS; Start 08/26/21 at 12:00 Sodium Chloride 1,000 ml @ 1,000 mls/hr Q1H PRN IV hypotension; Start 08/26/21 at 12:00; Stop 08/26/21 at 17:59 Sodium Chloride 1,000 ml @ 400 mls/hr Q2H30M PRN IV PATENCY; Start 08/26/21 at 12:00; Stop 08/26/21 at 23:59 Info (PHARMACY MONITORING -- do not chart) 1 each PRN DAILY PRN MC SEE COMMENTS; Start 08/26/21 at 12:00 Active Scripts Active Tramadol Hcl 50 Mg Tablet 50 Mg PO PRN TID PRN 3 Days Clopidogrel (Clopidogrel Bisulfate) 75 Mg Tablet 75 Mg PO DAILYWBKFT MDD 75 mg 90 Days Reported Velphoro (Sucroferric Oxyhydroxide) 500 Mg Tab.chew 2 Tab PO TID 30 Days Alprazolam 0.5 Mg Tablet 1 Tab PO PRN TID PRN Amlodipine Besylate 10 Mg Tablet 10 Mg PO DAILY Clonidine Hcl 0.1 Mg Tablet 0.1 Mg PO DAILY Dialyvite 800 Tablet (Folic Acid/Vitamin B Comp W-C) 0.8 Mg Tablet 1 Tab PO DAILY 30 Days Ferric Citrate 210 Mg Tablet 2 Tab PO TIDWMEALS 30 Days Aspirin 325 Mg Tablet 1 Tab PO DAILY Lantus Solostar (Insulin Glargine,Hum.rec.anlog) 100 Unit/1 Ml Insuln.pen 10 Unit SQ DAILY 8-10 units daily ROS: Review of Systems Review of System REVIEW OF SYSTEMS: GENERAL: Denies weakness SKIN: No bruising, hair changes or rashes. EYES: No blurred, double or loss of vision. NOSE AND THROAT: No history of nosebleeds, hoarseness or sore throat. HEART: No history of palpitations, chest pain or shortness of breath on exertion. LUNGS: Denies cough, hemoptysis, wheezing or shortness of breath. GASTROINTESTINAL: Denies changes in appetite, nausea, vomiting, diarrhea or constipation. GENITOURINARY: No history of frequency, urgency, hesitancy or nocturia. NEUROLOGIC: Denies history of numbness, tingling, or tremor. PSYCHIATRIC: No history of panic, anxiety or depression. ENDOCRINE: No history of heat or cold intolerance, polyuria or polydipsia. EXTREMITIES: Denies joint pain, pain on walking or stiffness. Physical Exam: Vital Signs: Vital Signs Date Time Temp Pulse Resp B/P (MAP) Pulse Ox O2 Delivery O2 Flow Rate FiO2 08/26/21 12:30 94 206/102 (136) 94 Room Air 08/26/21 12:00 16 08/26/21 05:10 98.7 98.7 Physcial Exam: General: Well developed, well nourished, no acute distress, well appearing HEENT: Pupils equally round and reactive to light, EOMI, no discharge, normal conjunctiva Neck: Supple, no nuchal rigidity, no JVD, trachea midline, no tenderness Cardiac: RRR, no murmurs, no gallops, no rubs Chest/Lungs: CTAB, no wheeze, no rhonchi, no crackles Abdomen: soft, non-distended, no guarding, no peritoneal signs, non-tender Back: No point tenderness. There is some right buttock pain. Extremities: no edema, pulses intact, non-tender,capillary refill <3 sec bilateral upper and lower extremities, Neuro:Alert and oriented X 3, cannot lift his left leg above the bed but states this is chronic from prior stroke, Labs: Labs: Laboratory Tests Test 08/26/21 05:30 08/26/21 08:35 08/26/21 11:45 White Blood Count 4.7 x10^3/uL (4.0-11.0) Red Blood Count 3.39 x10^6/uL (4.30-5.70) Hemoglobin 9.9 g/dL (13.0-17.5) Hematocrit 30.9 % (39.0-53.0) Mean Corpuscular Volume 91 fL (79-100) Mean Corpuscular Hemoglobin 29 pg (25-35) Mean Corpuscular Hemoglobin Concent 32 g/dL (31-37) Red Cell Distribution Width 15.8 % (11.5-14.5) Platelet Count 180 x10^3/uL (140-400) Neutrophils (%) (Auto) 67 % (31-73) Lymphocytes (%) (Auto) 17 % (24-48) Monocytes (%) (Auto) 8 % (0-9) Eosinophils (%) (Auto) 7 % (0-3) Basophils (%) (Auto) 1 % (0-3) Neutrophils # (Auto) 3.2 x10^3/uL (1.8-7.7) Lymphocytes # (Auto) 0.8 x10^3/uL (1.0-4.8) Monocytes # (Auto) 0.4 x10^3/uL (0.0-1.1) Eosinophils # (Auto) 0.3 x10^3/uL (0.0-0.7) Basophils # (Auto) 0.1 x10^3/uL (0.0-0.2) Prothrombin Time 13.4 SEC (11.7-14.0) Prothromb Time International Ratio 1.0 (0.8-1.1) Activated Partial Thromboplast Time 38 SEC (24-38) Sodium Level 140 mmol/L (136-145) Potassium Level 5.1 mmol/L (3.5-5.1) Chloride Level 101 mmol/L (98-107) Carbon Dioxide Level 24 mmol/L (21-32) Anion Gap 15 (6-14) Blood Urea Nitrogen 36 mg/dL (8-26) Creatinine 10.8 mg/dL (0.7-1.3) Estimated GFR (Cockcroft-Gault) 5.8 BUN/Creatinine Ratio 3 (6-20) Glucose Level 115 mg/dL (70-99) Calcium Level 9.8 mg/dL (8.5-10.1) Magnesium Level 2.2 mg/dL (1.8-2.4) Total Bilirubin 0.4 mg/dL (0.2-1.0) Aspartate Amino Transf (AST/SGOT) 15 U/L (15-37) Alanine Aminotransferase (ALT/SGPT) 13 U/L (16-63) Alkaline Phosphatase 71 U/L (46-116) Troponin I High Sensitivity 119 ng/L (4-75) 116 ng/L (4-75) 106 ng/L (4-75) Total Protein 6.3 g/dL (6.4-8.2) Albumin 3.6 g/dL (3.4-5.0) Albumin/Globulin Ratio 1.3 (1.0-1.7) Laboratory Tests Test 08/26/21 05:30 08/26/21 08:35 08/26/21 11:45 White Blood Count 4.7 x10^3/uL (4.0-11.0) Red Blood Count 3.39 x10^6/uL (4.30-5.70) Hemoglobin 9.9 g/dL (13.0-17.5) Hematocrit 30.9 % (39.0-53.0) Mean Corpuscular Volume 91 fL (79-100) Mean Corpuscular Hemoglobin 29 pg (25-35) Mean Corpuscular Hemoglobin Concent 32 g/dL (31-37) Red Cell Distribution Width 15.8 % (11.5-14.5) Platelet Count 180 x10^3/uL (140-400) Neutrophils (%) (Auto) 67 % (31-73) Lymphocytes (%) (Auto) 17 % (24-48) Monocytes (%) (Auto) 8 % (0-9) Eosinophils (%) (Auto) 7 % (0-3) Basophils (%) (Auto) 1 % (0-3) Neutrophils # (Auto) 3.2 x10^3/uL (1.8-7.7) Lymphocytes # (Auto) 0.8 x10^3/uL (1.0-4.8) Monocytes # (Auto) 0.4 x10^3/uL (0.0-1.1) Eosinophils # (Auto) 0.3 x10^3/uL (0.0-0.7) Basophils # (Auto) 0.1 x10^3/uL (0.0-0.2) Prothrombin Time 13.4 SEC (11.7-14.0) Prothromb Time International Ratio 1.0 (0.8-1.1) Activated Partial Thromboplast Time 38 SEC (24-38) Sodium Level 140 mmol/L (136-145) Potassium Level 5.1 mmol/L (3.5-5.1) Chloride Level 101 mmol/L (98-107) Carbon Dioxide Level 24 mmol/L (21-32) Anion Gap 15 (6-14) Blood Urea Nitrogen 36 mg/dL (8-26) Creatinine 10.8 mg/dL (0.7-1.3) Estimated GFR (Cockcroft-Gault) 5.8 BUN/Creatinine Ratio 3 (6-20) Glucose Level 115 mg/dL (70-99) Calcium Level 9.8 mg/dL (8.5-10.1) Magnesium Level 2.2 mg/dL (1.8-2.4) Total Bilirubin 0.4 mg/dL (0.2-1.0) Aspartate Amino Transf (AST/SGOT) 15 U/L (15-37) Alanine Aminotransferase (ALT/SGPT) 13 U/L (16-63) Alkaline Phosphatase 71 U/L (46-116) Troponin I High Sensitivity 119 ng/L (4-75) 116 ng/L (4-75) 106 ng/L (4-75) Total Protein 6.3 g/dL (6.4-8.2) Albumin 3.6 g/dL (3.4-5.0) Albumin/Globulin Ratio 1.3 (1.0-1.7) Images: Images PROCEDURE: KNEE RIGHT 3V XR KNEE 3 VIEWS_RT 08/26/2021 5:15 AM INDICATION: Right knee pain COMPARISON: None available. TECHNIQUE: 3 views of the right knee are provided. FINDINGS/ IMPRESSION: There is no acute fracture or dislocation. Small knee joint effusion. Moderate patellofemoral and mild medial femorotibial osteoarthrosis with joint space narrowing and marginal osteophytosis. Vascular calcifications are present. Bone mineralization is within normal limits. Regional soft tissues are within normal limits. There is no soft tissue gas or osseous erosion. No radiopaque foreign body. PROCEDURE: CT LUMBAR SPINE RECONSTRUCTION PQRS Compliance Statement: One or more of the following individualized dose reduction techniques were utilized for this examination: 1. Automated exposure control 2. Adjustment of the mA and/or kV according to patient size 3. Use of iterative reconstruction technique CT LUMBAR SPINE RECONSTRUCTION 08/26/2021 6:06 AM Indication: Fall on Plavix COMPARISON: CT lumbar spine 08/26/2020. TECHNIQUE: Multiple axial CT images of the lumbar spine were obtained without intravenous contrast. Coronal and sagittal reformats are provided. FINDINGS: There is transitional anatomy at the lumbosacral junction with rudimentary disc at S1-S2. For the purposes of this examination, there is a compression fracture at T12 with greater than 75 percent height loss. There may be subtle gas identified along the superior endplate as may be seen with osteonecrosis. There is gas within the disc space at T11-T12 and T12-L1 which may represent vacuum disc phenomena. There is retropulsion of the superior endplate resulting in mild to moderate spinal canal stenosis. No compressive epidural hematoma. IMPRESSION: Superior endplate compression fracture at T12 with greater than 75 percent height loss. There is suggestion of osteonecrosis. Retropulsion with mild to moderate osseous spinal canal stenosis, progressed. This finding appears progressed since the CT lumbar spine from 08/26/2020, however remains age indeterminate. If there is concern for acute or chronic trauma, further characterization with MRI of the lumbar spine may be of benefit. PROCEDURE: CT HEAD AND CERVICAL SPINE WO RS Compliance Statement: One or more of the following individualized dose reduction techniques were utilized for this examination: 1. Automated exposure control 2. Adjustment of the mA and/or kV according to patient size 3. Use of iterative reconstruction technique CT head and cervical spine without contrast 08/26/2021 6:06 AM INDICATION: Fall on Plavix, back pain COMPARISON: MRI brain 07/24/2021, 08/26/[address] TECHNIQUE: Multiple axial CT images of the head were obtained from skull base through the vertex without intravenous contrast. Multiple axial CT images of the cervical spine were obtained without intravenous contrast. Coronal and sagittal reformats are provided. FINDINGS: Head: Ventricles, sulci and basal cisterns are prominent compatible with mild generalized cerebral volume loss.. Low-attenuation in the periventricular white matter is suggestive of chronic small vessel ischemic changes. There is no hydrocephalus. Stevens-white matter differentiation is normal. There is no acute intracranial hemorrhage. There is no mass, mass effect or midline shift. Posterior fossa is normal in appearance. Visualized portions of the orbits are normal. Paranasal sinuses are well aerated. Mastoid air cells are well aerated. Scalp and calvaria are normal. Cervical spine: Alignment of the cervical spine is normal. Skull base is intact. Craniocervical junction is normal in appearance. Atlantoaxial articulation is normal. Vertebral body heights are maintained without evidence for acute fracture. There is moderate disc height loss at C6-C7 with endplate erosive changes and subcortical sclerosis. Findings could reflect sequela of advanced degenerative disc disease or prior history of discitis. No compressive epidural hematoma. Mild disc height loss at C5-C6. At C4-C5, there is a posterior disc osteophyte complex with moderate left and moderate facet arthropathy results in mild to moderate bilateral neuroforaminal stenosis. At C5-C6, there is a posterior disc osteophyte complex with moderate facet arthropathy and moderate uncovertebral joint disease. Mild bilateral neuroforaminal stenosis. At C6-C7, there is a posterior disc osteophyte complex with severe uncovertebral joint disease and moderate facet arthropathy results in mild to moderate bilateral neuroforaminal stenosis. There is no prevertebral soft tissue swelling. Thyroid gland is normal in appearance. Visualized portions of the lung apices are normal without evidence for suspicious pulmonary nodule or infiltrate. IMPRESSION: 1. No acute intracranial hemorrhage. Mild generalized cerebral line loss. Low- attenuation in the periventricular white matter is suggestive of chronic small vessel ischemic changes. 2. No acute fracture or significant malalignment of the cervical spine. Progression of degenerative disc disease at C6-C7 versus sequela of prior discitis. Assessment/Plan Assessment/Plan Hypertensive urgency Multiple mechanical falls Worsening of T12 compression fracture showing retropulsion History of ESRD on HD MWF Anemia consistent with ESRD Electrolyte derangements consistent with ESRD. Elevated troponins likely related to ESRD History of CVA with residual left-sided weakness History of peripheral vascular disease History of diabetes mellitus type 2 History of hypertension Admit to hospitalist service for further management IV antihypertensive regimen to maintain systolic blood pressures between 140-180 Neurosurgery consult PMR consult for back pain Nephrology consult for dialysis PO and IV pain control PT OT modalities Heparin for DVT prophylaxis Protonix GI prophylaxis ADA diet CODE STATUS full code Discussed with RN and SW Disposition inpatient management as above DPOA: Justifications for Admission Other Justification Thoracic Fx SUYAPA GALLEGOS MD Aug 26, 2021 14:37
[2021-08-26] MEDS ORDERED: DEXTROSE 50% 25 GM / 50ML DISP.SYRIN. IV PRN (15:00)
[2021-08-26] MEDS ORDERED: PROCHLORPERAZINE 10 MG/2 ML VIAL. IV PRN (15:00)
[2021-08-26] MEDS ORDERED: diphenhydrAMINE HCL 25 MG CAPSULE PO PRN ×2 (15:00)
[2021-08-26] MEDS ORDERED: SENNOSIDES 8.6 MG TABLET PO PRN (15:00)
[2021-08-26] MEDS ORDERED: diphenhydrAMINE 50 MG/ML VIAL IVP PRN (15:00)
[2021-08-26] MEDS ORDERED: DOCUSATE SODIUM 100 MG CAPSULE. PO PRN (15:00)
[2021-08-26] MEDS ORDERED: ACETAMINOPHEN 325 MG TABLET. PO PRN (15:00)
[2021-08-26] MEDS ORDERED: ONDANSETRON PF 4 MG/2 ML VIAL. IVP PRN (15:00)
[2021-08-26] MEDS: INSULIN LISPRO 300 UNITS/3 ML VIAL. SQ SCH (17:00)
[2021-08-26 17:29] VITALS: BP 163/76
[2021-08-26 19:54] VITALS: BP 162/75
[2021-08-26] MEDS: METHOCARBAMOL 750 MG TABLET PO PRN (20:55)
[2021-08-26] MEDS: LORazepam 0.5 MG TABLET PO PRN (20:56)
[2021-08-26] MEDS: HEPARIN for SUB-Q USE 5,000 UNIT/ML VIAL. SQ SCH (20:58)
[2021-08-26] MEDS: ZOLPIDEM 5 MG TABLET. PO PRN (22:40)
[2021-08-26 23:40] VITALS: BP 142/81
[2021-08-27 03:12] VITALS: BP 169/95
[2021-08-27 07:00] VITALS: BP 194/77
[2021-08-27 07:15] LABS: BASO # 0.1 x10^3/uL (0.0-0.2); BASO % 1 % (0-3); EOS # 0.4 x10^3/uL (0.0-0.7); EOS % 10 % (0-3); HEMATOCRIT 30.7 % (39.0-53.0); LYMPH # 0.8 x10^3/uL (1.0-4.8); LYMPH % 19 % (24-48); MEAN CORPUSCULAR HEMOGLOBIN 30 pg (25-35); MEAN CORPUSCULAR HGB CONC 33 g/dL (31-37); MEAN CORPUSCULAR VOLUME 91 fL (79-100); MONO # 0.4 x10^3/uL (0.0-1.1); MONO % 9 % (0-9); NEUT # 2.6 x10^3/uL (1.8-7.7); NEUT % 61 % (31-73); PLATELET COUNT 179 x10^3/uL (140-400); RED CELL DISTRIBUTION WIDTH 16.1 % (11.5-14.5); WHITE BLOOD COUNT 4.3 x10^3/uL (4.0-11.0)
[2021-08-27] MEDS: PANTOPRAZOLE 40 MG TABLET.DR. PO SCH (07:19)
[2021-08-27 07:30] LABS: CALCIUM 9.4 mg/dL (8.5-10.1); CREATININE 7.6 mg/dL (0.7-1.3); GFR 8.6; MAGNESIUM 2.3 mg/dL (1.8-2.4); PHOSPHORUS 6.6 mg/dL (2.6-4.7); POTASSIUM 4.1 mmol/L (3.5-5.1)
[2021-08-27] MEDS: INSULIN LISPRO 300 UNITS/3 ML VIAL. SQ SCH ×3 (08:00→16:58)
[2021-08-27] MEDS: HEPARIN for SUB-Q USE 5,000 UNIT/ML VIAL. SQ SCH ×2 (09:00→19:55)
[2021-08-27] MEDS: cloNIDine HCL 0.1 MG TABLET PO SCH ×2 (09:02→09:03)
[2021-08-27 11:00] VITALS: BP 137/76
--- NOTE | 2021-08-27 11:05 | PDOC2 ---
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 He also had a fall on Thursday and also today. However he believes that most of his back pain is coming from when he fell down the stairs about 5 steps on a week ago. Patient did not lose consciousness or head of any head trauma. He denies any dizziness, chest pain, shortness of breath, weakness, facial droop, speech changes, neck pain, dehydration. Past Medical History Cardiovascular: CAD, HTN, VT, Hyperlipidemia, Other CENTRAL NERVOUS SYSTEM: CVA Heme/Onc: Anemia NOS Musculoskeletal: Osteoarthritis Renal/: Chronic renal failure Endocrine: Diabetes, Hyperparathyroidism Past Surgical History Past Surgical History: Cholecystectomy, Total knee replacement, Other Family History Family History: Diabetes, Hypertension Social History ALCOHOL: none Drugs: None Lives: with Family Current Problem List Problem List Problems Medical Problems: (1) ESRD (end stage renal disease) Status: Acute (2) Multiple falls Status: Acute (3) Thoracic compression fracture Status: Acute Current Medications Current Medications Current Medications Morphine Sulfate (Morphine Sulfate) 4 mg 1X ONCE IVP Last administered on 08/26/21at 07:54; Start 08/26/21 at 07:15; Stop 08/26/21 at 07:16; Status DC Amlodipine Besylate (Norvasc) 10 mg DAILY PO Last administered on 08/27/21at 09:06; Start 08/27/21 at 09:00 Clonidine HCl (Catapres) 0.1 mg DAILY PO Last administered on 08/27/21at 09:03; Start 08/26/21 at 12:00 Labetalol HCl (Normodyne Iv Push) 10 mg PRN Q2HRS PRN IVP ELEVATED BP, SEE COMMENTS; Start 08/26/21 at 11:15 Labetalol HCl (Normodyne Iv Push) 10 mg PRN Q15MIN ONCE IVP Last administered on 08/26/21at 16:17; Start 08/26/21 at 11:15; Stop 08/26/21 at 11:28; Status DC Acetaminophen/ Hydrocodone Bitart (Lortab 5/325) 1 tab PRN Q6HRS PRN PO PAIN Last administered on 08/26/21at 20:56; Start 08/26/21 at 12:00 Methocarbamol (Robaxin) 750 mg PRN Q8HRS PRN PO MUSCLE SPASMS Last administered on 08/26/21at 20:55; Start 08/26/21 at 12:00 Sodium Chloride 1,000 ml @ 1,000 mls/hr Q1H PRN IV hypotension; Start 08/26/21 at 12:00; Stop 08/26/21 at 17:59; Status DC Sodium Chloride 1,000 ml @ 400 mls/hr Q2H30M PRN IV PATENCY; Start 08/26/21 at 12:00; Stop 08/26/21 at 23:59; Status DC Info (PHARMACY MONITORING -- do not chart) 1 each PRN DAILY PRN MC SEE COMMENTS; Start 08/26/21 at 12:00 Sennosides (Senna) 17.2 mg PRN BID PRN PO CONSTIPATION; Start 08/26/21 at 15:00 Docusate Sodium (Colace) 100 mg PRN DAILY PRN PO HARD STOOLS; Start 08/26/21 at 15:00 Ondansetron HCl (Zofran) 4 mg PRN Q6HRS PRN IVP NAUSEA/VOMITING, 1st CHOICE Last administered on 08/26/21at 20:56; Start 08/26/21 at 15:00 Insulin Human Lispro (HumaLOG) 0-5 UNITS TIDWMEALS SQ ; Start 08/26/21 at 17:00 Dextrose (Dextrose 50%-Water Syringe) 12.5 gm PRN Q15MIN PRN IV SEE COMMENTS; Start 08/26/21 at 15:00 Acetaminophen (Tylenol) 650 mg PRN Q4HRS PRN PO TEMP OVER 100.4F OR MILD PAIN; Start 08/26/21 at 15:00 Lorazepam (Ativan) 0.5 mg PRN Q6HRS PRN PO ANXIETY / AGITATION Last admi nistered on 08/26/21at 20:56; Start 08/26/21 at 15:00 Lorazepam (Ativan Inj) 0.25 mg PRN Q4HRS PRN IV ANXIETY / AGITATION Last a dministered on 08/26/21at 22:40; Start 08/26/21 at 15:00 Heparin Sodium (Porcine) (Heparin Sodium) 5,000 unit Q12HR SQ Last administered on 08/27/21at 09:00; Start 08/26/21 at 21:00 Pantoprazole Sodium (Protonix) 40 mg DAILYAC PO Last administered on 08/27/21at 07:19; Start 08/27/21 at 07:30 Prochlorperazine Edisylate (Compazine) 10 mg PRN Q6HRS PRN IV NAUSEA/VOMITING, 2nd CHOICE; Start 08/26/21 at 15:00 Diphenhydramine HCl (Benadryl) 25 mg PRN Q6HRS PRN IVP ITCHING; Start 08/26/21 at 15:00 Diphenhydramine HCl (Benadryl) 25 mg PRN Q6HRS PRN PO ITCHING; Start 08/26/21 at 15:00 Diphenhydramine HCl (Benadryl) 25 mg PRN QHS PRN PO INSOMNIA, 1st CHOICE Last administered on 08/26/21at 20:56; Start 08/26/21 at 15:00 Zolpidem Tartrate (Ambien) 2.5 mg PRN QHS PRN PO INSOMNIA, 2nd CHOICE Last administered on 08/26/21at 22:40; Start 08/26/21 at 15:00 Lidocaine (Lidoderm) 1 patch DAILY TD ; Start 08/28/21 at 09:00 Miscellaneous (Lidoderm Patch Removal) 1 ea QHS MC ; Start 08/27/21 at 21:00 Diclofenac Sodium (Voltaren) 1 terrell BID TP ; Start 08/27/21 at 21:00 Active Scripts Active Tramadol Hcl 50 Mg Tablet 50 Mg PO PRN TID PRN 3 Days Clopidogrel (Clopidogrel Bisulfate) 75 Mg Tablet 75 Mg PO DAILYWBKFT MDD 75 mg 90 Days Reported Velphoro (Sucroferric Oxyhydroxide) 500 Mg Tab.chew 2 Tab PO TID 30 Days Alprazolam 0.5 Mg Tablet 1 Tab PO PRN TID PRN Amlodipine Besylate 10 Mg Tablet 10 Mg PO DAILY Clonidine Hcl 0.1 Mg Tablet 0.1 Mg PO DAILY Dialyvite 800 Tablet (Folic Acid/Vitamin B Comp W-C) 0.8 Mg Tablet 1 Tab PO DAILY 30 Days Ferric Citrate 210 Mg Tablet 2 Tab PO TIDWMEALS 30 Days Aspirin 325 Mg Tablet 1 Tab PO DAILY Lantus Solostar (Insulin Glargine,Hum.rec.anlog) 100 Unit/1 Ml Insuln.pen 10 Unit SQ DAILY 8-10 units daily Allergies Allergies: Coded Allergies: No Known Drug Allergies (Unverified , 08/27/20) ROS Review of System As per HPI, rest of the ROS is negative Physical Exam Physical Exam General: NAD HEENT: Atraumatic, PERRLA, EOMI, Mucous membr. moist/pink neck Supple Lungs: Decreased at bases, Non labored Heart: S1S2, RRR, no thrills, no rubs, no gallops, no murmurs Abdomen: Normal bowel sounds, Soft, No tenderness, No hepatosplenomegaly, No masses Extremities: No clubbing, No cyanosis, No edema, . RUE fistula with good bruit and thrill Skin: No rashes, Neuro: Normal speech Left upper lower extremity 4 out of 5. Right upper extremity with decreased renal technician strength. Psych/Mental Status: Mental status NL, Mood NL No Veliz, No CVA or SP tenderness Vital Signs Vital Signs Date Time Temp Pulse Resp B/P (MAP) Pulse Ox O2 Delivery O2 Flow Rate FiO2 08/27/21 09:06 86 169/95 08/27/21 08:00 Room Air 96.0 08/27/21 07:00 96.5 18 94 96.5 Assessment & Plan ESRD on HD MWF at [facility],Dialyzed yesterday as inpatient. Currently no emergent indication for dialysis Hypertensive urgencyPOA - antihypertensives/Dialysis per schedule Anemia . S/P PRBC on 07/24/2021 Currently Hgb at goal Multiple mechanical falls Low back pain- Worsening of T12 compression fracture showing retropulsion History of CVA with residual left-sided weakness-- brainstem in 2006 History of peripheral vascular disease History of diabetes mellitus type 2 Peripheral arterial disease - s/p left leg bypass surgeries and stenting 10/2020, on plavix. CAD - s/p remote stenting. Labs Labs Laboratory Tests Test 08/26/21 05:30 08/26/21 08:35 08/26/21 11:45 08/26/21 17:06 White Blood Count 4.7 x10^3/uL (4.0-11.0) Red Blood Count 3.39 x10^6/uL (4.30-5.70) Hemoglobin 9.9 g/dL (13.0-17.5) Hematocrit 30.9 % (39.0-53.0) Mean Corpuscular Volume 91 fL (79-100) Mean Corpuscular Hemoglobin 29 pg (25-35) Mean Corpuscular Hemoglobin Concent 32 g/dL (31-37) Red Cell Distribution Width 15.8 % (11.5-14.5) Platelet Count 180 x10^3/uL (140-400) Neutrophils (%) (Auto) 67 % (31-73) Lymphocytes (%) (Auto) 17 % (24-48) Monocytes (%) (Auto) 8 % (0-9) Eosinophils (%) (Auto) 7 % (0-3) Basophils (%) (Auto) 1 % (0-3) Neutrophils # (Auto) 3.2 x10^3/uL (1.8-7.7) Lymphocytes # (Auto) 0.8 x10^3/uL (1.0-4.8) Monocytes # (Auto) 0.4 x10^3/uL (0.0-1.1) Eosinophils # (Auto) 0.3 x10^3/uL (0.0-0.7) Basophils # (Auto) 0.1 x10^3/uL (0.0-0.2) Prothrombin Time 13.4 SEC (11.7-14.0) Prothromb Time International Ratio 1.0 (0.8-1.1) Activated Partial Thromboplast Time 38 SEC (24-38) Sodium Level 140 mmol/L (136-145) Potassium Level 5.1 mmol/L (3.5-5.1) Chloride Level 101 mmol/L (98-107) Carbon Dioxide Level 24 mmol/L (21-32) Anion Gap 15 (6-14) Blood Urea Nitrogen 36 mg/dL (8-26) Creatinine 10.8 mg/dL (0.7-1.3) Estimated GFR (Cockcroft-Gault) 5.8 BUN/Creatinine Ratio 3 (6-20) Glucose Level 115 mg/dL (70-99) Calcium Level 9.8 mg/dL (8.5-10.1) Magnesium Level 2.2 mg/dL (1.8-2.4) Total Bilirubin 0.4 mg/dL (0.2-1.0) Aspartate Amino Transf (AST/SGOT) 15 U/L (15-37) Alanine Aminotransferase (ALT/SGPT) 13 U/L (16-63) Alkaline Phosphatase 71 U/L (46-116) Troponin I High Sensitivity 119 ng/L (4-75) 116 ng/L (4-75) 106 ng/L (4-75) Total Protein 6.3 g/dL (6.4-8.2) Albumin 3.6 g/dL (3.4-5.0) Albumin/Globulin Ratio 1.3 (1.0-1.7) Glucose (Fingerstick) 122 mg/dL (70-99) Test 08/26/21 20:39 08/27/21 06:00 08/27/21 07:28 Glucose (Fingerstick) 159 mg/dL (70-99) 137 mg/dL (70-99) White Blood Count 4.3 x10^3/uL (4.0-11.0) Red Blood Count 3.40 x10^6/uL (4.30-5.70) Hemoglobin 10.0 g/dL (13.0-17.5) Hematocrit 30.7 % (39.0-53.0) Mean Corpuscular Volume 91 fL (79-100) Mean Corpuscular Hemoglobin 30 pg (25-35) Mean Corpuscular Hemoglobin Concent 33 g/dL (31-37) Red Cell Distribution Width 16.1 % (11.5-14.5) Platelet Count 179 x10^3/uL (140-400) Neutrophils (%) (Auto) 61 % (31-73) Lymphocytes (%) (Auto) 19 % (24-48) Monocytes (%) (Auto) 9 % (0-9) Eosinophils (%) (Auto) 10 % (0-3) Basophils (%) (Auto) 1 % (0-3) Neutrophils # (Auto) 2.6 x10^3/uL (1.8-7.7) Lymphocytes # (Auto) 0.8 x10^3/uL (1.0-4.8) Monocytes # (Auto) 0.4 x10^3/uL (0.0-1.1) Eosinophils # (Auto) 0.4 x10^3/uL (0.0-0.7) Basophils # (Auto) 0.1 x10^3/uL (0.0-0.2) Sodium Level 143 mmol/L (136-145) Potassium Level 4.1 mmol/L (3.5-5.1) Chloride Level 101 mmol/L (98-107) Carbon Dioxide Level 31 mmol/L (21-32) Anion Gap 11 (6-14) Blood Urea Nitrogen 24 mg/dL (8-26) Creatinine 7.6 mg/dL (0.7-1.3) Estimated GFR (Cockcroft-Gault) 8.6 Glucose Level 122 mg/dL (70-99) Calcium Level 9.4 mg/dL (8.5-10.1) Phosphorus Level 6.6 mg/dL (2.6-4.7) Magnesium Level 2.3 mg/dL (1.8-2.4) Laboratory Tests Test 08/26/21 11:45 08/26/21 17:06 08/26/21 20:39 08/27/21 06:00 Troponin I High Sensitivity 106 ng/L (4-75) Glucose (Fingerstick) 122 mg/dL (70-99) 159 mg/dL (70-99) White Blood Count 4.3 x10^3/uL (4.0-11.0) Red Blood Count 3.40 x10^6/uL (4.30-5.70) Hemoglobin 10.0 g/dL (13.0-17.5) Hematocrit 30.7 % (39.0-53.0) Mean Corpuscular Volume 91 fL (79-100) Mean Corpuscular Hemoglobin 30 pg (25-35) Mean Corpuscular Hemoglobin Concent 33 g/dL (31-37) Red Cell Distribution Width 16.1 % (11.5-14.5) Platelet Count 179 x10^3/uL (140-400) Neutrophils (%) (Auto) 61 % (31-73) Lymphocytes (%) (Auto) 19 % (24-48) Monocytes (%) (Auto) 9 % (0-9) Eosinophils (%) (Auto) 10 % (0-3) Basophils (%) (Auto) 1 % (0-3) Neutrophils # (Auto) 2.6 x10^3/uL (1.8-7.7) Lymphocytes # (Auto) 0.8 x10^3/uL (1.0-4.8) Monocytes # (Auto) 0.4 x10^3/uL (0.0-1.1) Eosinophils # (Auto) 0.4 x10^3/uL (0.0-0.7) Basophils # (Auto) 0.1 x10^3/uL (0.0-0.2) Sodium Level 143 mmol/L (136-145) Potassium Level 4.1 mmol/L (3.5-5.1) Chloride Level 101 mmol/L (98-107) Carbon Dioxide Level 31 mmol/L (21-32) Anion Gap 11 (6-14) Blood Urea Nitrogen 24 mg/dL (8-26) Creatinine 7.6 mg/dL (0.7-1.3) Estimated GFR (Cockcroft-Gault) 8.6 Glucose Level 122 mg/dL (70-99) Calcium Level 9.4 mg/dL (8.5-10.1) Phosphorus Level 6.6 mg/dL (2.6-4.7) Magnesium Level 2.3 mg/dL (1.8-2.4) Test 08/27/21 07:28 Glucose (Fingerstick) 137 mg/dL (70-99) Review All relevant outside records, renal labs, imaging studies, telemetry/EKG's were reviewed. Images Images XR CHEST 1V 08/26/2021 5:41 AM INDICATION: Fall, back pain COMPARISON: None available TECHNIQUE: Portable frontal view of the chest is provided. FINDINGS: The cardiomediastinal silhouette is within normal limits. Lungs are clear. Atherosclerotic calcification of the thoracic aorta. There are no significant pleural effusions. There is no pulmonary vascular congestion. No pneumothorax. No suspicious osseous abnormality. Remote healed left-sided rib deformity involving the fifth, sixth and seventh ribs. IMPRESSION: There is no acute cardiopulmonary process. MRI THORACIC SPINE WO History:Reason: T11 fracture / Spl. Instructions: / History: Technique: Multiplanar, multi sequential noncontrast MR imaging was performed of the thoracic spine. Comparison: CT August 26, 2021. MRI August 27, 2020. Findings: Motion degraded evaluation. T11 severe compression fracture most prominent centrally. The overall height loss of the fracture is increased compared to prior MRI. There is edema with cleft fluid in the fracture. There is increased paravertebral edema. Increased retropulsion contributing to mild canal narrowing. No pathologic signal abnormality within the thoracic spinal cord. Mild multilevel degenerative disc changes throughout the thoracic spine. Prominent posterior epidural fat within the upper and mid thoracic spine contributing to mild canal narrowing. No high-grade canal narrowing. Increased moderate T11-T12 neuroforaminal narrowing. Poorly characterized renal cysts. Impression: 1. Motion degraded evaluation. 2. Severe T11 compression fracture with paravertebral edema and fluid in the fracture. Findings may represent acute on chronic compression fracture. 3. Increased T11 compression fracture retropulsion contributing to mild canal narrowing. 4. Increased T11-T12 moderate neuroforaminal narrowing. MARRY NATH MD Aug 27, 2021 11:05
--- NOTE | 2021-08-27 11:07 | CONS ---
DATE OF CONSULTATION: 08/27/2021 ATTENDING PHYSICIAN: Dr. Tan. REASON FOR CONSULTATION: The patient was seen at the request of Dr. Tan for rehab evaluation. HISTORY OF PRESENT ILLNESS: This is a 71-year-old right-handed male known to me. The patient with end-stage renal disease, on hemodialysis; brainstem cerebrovascular accident in 2006 with residual spastic left hemiparesis; peripheral vascular disease with arterial bypass and stent. The patient also with diabetes mellitus, hypertension, anemia of chronic disease and old T11 vertebral body compression fracture, comes with right-sided lower back pain after he fell down a week ago and also on 08/26/2021, the patient did not lose consciousness or any head trauma. The patient also admits pain in his right knee. The patient is not known allergic to any medication. He lives with his . He usually walks with a quad cane. He also had degenerative joint disease of his knees and left shoulder with frozen shoulder left and not much function in his left upper extremity and he uses left ankle foot brace. PHYSICAL EXAMINATION: GENERAL: Today revealed a middle-aged male. He is alert and oriented to time, place, person and circumstance, follows commands appropriately. NEUROLOGIC: Moves all 4 extremities voluntarily. He had residual left hemiparesis with no active left foot dorsiflexion and significant weakness of left upper extremity muscles and also left lower extremity antigravity muscles. He had crepitus on range of motion of left shoulder and both knees with right knee joint effusion. He had tenderness to palpation over lower thoracic spine and adjoining paraspinal muscles. Straight leg raising test is negative bilaterally. No significant thoracic or lumbar paraspinal muscle spasm was noted at this time. He is independent rolling from side to side. I have not tested his transfers for ambulation skills at this time. I have compared his compression fractures of T11 vertebral body done about a year ago and today, may be slightly more retropulsion of the fragments when compared to last time. Other than that, no significant change noted. 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 He had also diabetes mellitus with peripheral neuropathy. RECOMMENDATIONS: Agree with the plans for neurosurgical consultation. He already had back support brace and right knee brace. I suggested injecting his right knee joint with steroids, but at the present time, he feels like last time I have injected, it did not help much. We may have to think about lubrication injection to his right knee, he already had a knee brace. Agree with the plan for physical therapy and occupational therapy, to see what Dr. Atkinson feels comfortable about his compression fractures. Dr. Tan, I appreciate asking me to participate in the care of this interesting patient. I will be glad to see him for followup with you on as needed basis. RICHA/DANICA/KANDIS DR: RICHA/fanny TID: [id number]
--- NOTE | 2021-08-27 11:29 | RAD ---
MRI THORACIC SPINE WO History:Reason: T11 fracture / Spl. Instructions: / History: Technique: Multiplanar, multi sequential noncontrast MR imaging was performed of the thoracic spine. Comparison: CT August 26, 2021. MRI August 27, 2020. Findings: Motion degraded evaluation. T11 severe compression fracture most prominent centrally. The overall height loss of the fracture is increased compared to prior MRI. There is edema with cleft fluid in the fracture. There is increased paravertebral edema. Increased retropulsion contributing to mild canal narrowing. No pathologic signal abnormality within the thoracic spinal cord. Mild multilevel degenerative disc changes throughout the thoracic spine. Prominent posterior epidural fat within the upper and mid thoracic spine contributing to mild canal narrowing. No high-grade alida l narrowing. Increased moderate T11-T12 neuroforaminal narrowing. Poorly characterized renal cysts. Impression: 1. Motion degraded evaluation. 2. Severe T11 compression fracture with paravertebral edema and fluid in the fracture. Findings may represent acute on chronic compression fracture. 3. Increased T11 compression fracture retropulsion contributing to mild canal narrowing. 4. Increased T11-T12 moderate neuroforaminal narrowing. Electronically signed by: James Shetty DO (08/27/2021 11:26 AM) [facility]
--- NOTE | 2021-08-27 12:19 | NUR ---
SW following. Discussed with RN, pt from home with , room air, renal diet. Dr. Atkinson, Dr. Watt and Nephrology following. PT/OT - OT recommending SNF, awaiting therapy note. SW requested PCR COVID for potential placement. SW will continue to follow.
--- NOTE | 2021-08-27 13:01 | PDOC ---
[employer] PROGRESS NOTE Date of Service DOS: DATE: 08/27/21 TIME: 12:59 Chief Complaint Chief Complaint Assessment/Plan Hypertensive urgency Multiple mechanical falls Worsening of T12 compression fracture showing retropulsion History of ESRD on HD MWF Anemia consistent with ESRD Electrolyte derangements consistent with ESRD. Elevated troponins likely related to ESRD History of CVA with residual left-sided weakness History of peripheral vascular disease History of diabetes mellitus type 2 History of hypertension Admit to hospitalist service for further management IV antihypertensive regimen to maintain systolic blood pressures between 140-180 Neurosurgery consult PMR consult for back pain Nephrology consult for dialysis PO and IV pain control PT OT modalities Heparin for DVT prophylaxis Protonix GI prophylaxis ADA diet CODE STATUS full code Discussed with RN and SW Disposition inpatient management as above DPOA: History of Present Illness History of Present Illness 08/27 Patient evaluated examined at bedside. Resting in bed. Had undergone MRI now bit lethargic. Neurosurgery PMR nephrology are following. PT OT ordered. May need placement. Discussed with bedside RN. Vitals/I&O Vitals/I&O: Vital Signs Date Time Temp Pulse Resp B/P (MAP) Pulse Ox O2 Delivery O2 Flow Rate FiO2 08/27/21 11:00 96.6 81 20 137/76 (96) 94 Room Air 96.6 08/27/21 08:00 96.0 I & O 08/26/21 08/26/21 08/27/21 15:00 23:00 07:00 Intake Total 120 ml 0 ml Balance 120 ml 0 ml Physical Exam General: Alert, Oriented X3, Cooperative Heart: Regular rate Lungs: Clear, Other Abdomen: Normal bowel sounds, Soft, No tenderness Extremities: No edema, Normal pulses Skin: No significant lesion Labs Labs: Laboratory Tests Test 08/26/21 17:06 08/26/21 20:39 08/27/21 06:00 08/27/21 07:28 Glucose (Fingerstick) 122 mg/dL (70-99) 159 mg/dL (70-99) 137 mg/dL (70-99) White Blood Count 4.3 x10^3/uL (4.0-11.0) Red Blood Count 3.40 x10^6/uL (4.30-5.70) Hemoglobin 10.0 g/dL (13.0-17.5) Hematocrit 30.7 % (39.0-53.0) Mean Corpuscular Volume 91 fL (79-100) Mean Corpuscular Hemoglobin 30 pg (25-35) Mean Corpuscular Hemoglobin Concent 33 g/dL (31-37) Red Cell Distribution Width 16.1 % (11.5-14.5) Platelet Count 179 x10^3/uL (140-400) Neutrophils (%) (Auto) 61 % (31-73) Lymphocytes (%) (Auto) 19 % (24-48) Monocytes (%) (Auto) 9 % (0-9) Eosinophils (%) (Auto) 10 % (0-3) Basophils (%) (Auto) 1 % (0-3) Neutrophils # (Auto) 2.6 x10^3/uL (1.8-7.7) Lymphocytes # (Auto) 0.8 x10^3/uL (1.0-4.8) Monocytes # (Auto) 0.4 x10^3/uL (0.0-1.1) Eosinophils # (Auto) 0.4 x10^3/uL (0.0-0.7) Basophils # (Auto) 0.1 x10^3/uL (0.0-0.2) Sodium Level 143 mmol/L (136-145) Potassium Level 4.1 mmol/L (3.5-5.1) Chloride Level 101 mmol/L (98-107) Carbon Dioxide Level 31 mmol/L (21-32) Anion Gap 11 (6-14) Blood Urea Nitrogen 24 mg/dL (8-26) Creatinine 7.6 mg/dL (0.7-1.3) Estimated GFR (Cockcroft-Gault) 8.6 Glucose Level 122 mg/dL (70-99) Calcium Level 9.4 mg/dL (8.5-10.1) Phosphorus Level 6.6 mg/dL (2.6-4.7) Magnesium Level 2.3 mg/dL (1.8-2.4) Hepatitis B Surface Antigen Nonreactive (Nonreactive) Test 08/27/21 11:53 Glucose (Fingerstick) 155 mg/dL (70-99) Assessment and Plan Assessmemt and Plan Problems Medical Problems: (1) ESRD (end stage renal disease) Status: Acute (2) Multiple falls Status: Acute (3) Thoracic compression fracture Status: Acute Comment Review of Relevant I have reviewed the following items dariel (where applicable) has been applied. Medications: Current Medications Medications (Trade) Dose Ordered Sig/Neeraj Route PRN Reason Start Time Stop Time Status Last Admin Dose Admin Amlodipine Besylate (Norvasc) 10 mg DAILY PO 08/27/21 09:00 08/27/21 09:06 Ondansetron HCl (Zofran) 4 mg PRN Q6HRS PRN IVP NAUSEA/VOMITING, 1st CHOICE 08/26/21 15:00 08/26/21 20:56 Insulin Human Lispro (HumaLOG) 0-5 UNITS TIDWMEALS SQ 08/26/21 17:00 08/27/21 12:46 Lorazepam (Ativan) 0.5 mg PRN Q6HRS PRN PO ANXIETY / AGITATION 08/26/21 15:00 08/26/21 20:56 Lorazepam (Ativan Inj) 0.25 mg PRN Q4HRS PRN IV ANXIETY / AGITATION 08/26/21 15:00 08/26/21 22:40 Heparin Sodium (Porcine) (Heparin Sodium) 5,000 unit Q12HR SQ 08/26/21 21:00 08/27/21 09:00 Pantoprazole Sodium (Protonix) 40 mg DAILYAC PO 08/27/21 07:30 08/27/21 07:19 Diphenhydramine HCl (Benadryl) 25 mg PRN QHS PRN PO INSOMNIA, 1st CHOICE 08/26/21 15:00 08/26/21 20:56 Zolpidem Tartrate (Ambien) 2.5 mg PRN QHS PRN PO INSOMNIA, 2nd CHOICE 08/26/21 15:00 08/26/21 22:40 Justifications for Admission Other Justification Thoracic Fx PRATIMA RODRIGUEZ MD Aug 27, 2021 13:01
[2021-08-27 15:00] VITALS: BP 127/70
[2021-08-27] MEDS ORDERED: NON FORMULARY ITEM (Ferric Citrate 2 TAB) PO SCH (17:00)
--- NOTE | 2021-08-27 17:26 | PDOC ---
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 The patient also with diabetes mellitus, hypertension, anemia of chronic disease and old T11 vertebral body compression fracture Moves all 4 extremities voluntarily. He had residual left hemiparesis with no active left foot dorsiflexion and significant weakness of left upper extremity muscles and also left lower extremity antigravity muscles Reviewed imaging with Dr. Atkinson, MRI with Severe T11 compression fracture with paravertebral edema and fluid in the fracture. Findings may represent acute on chronic compression fracture. Increased T11 compression fracture retropulsion contributing to mild canal narrowing. Recommend lumbar brace, rehab Justifications for Admission Other Justification Thoracic Fx FELIPE ESQUIVEL APRN Aug 27, 2021 17:26
[2021-08-27 19:00] VITALS: BP 184/85
[2021-08-27] MEDS: PATCH REMOVAL. MC SCH (19:49)
[2021-08-27] MEDS: ALPRAZolam 0.5 MG TABLET PO PRN (19:57)
[2021-08-27] MEDS: HYDROcodone/APAP 5/325MG 1 TAB TABLET PO PRN (19:57)
[2021-08-27] MEDS: ZOLPIDEM 5 MG TABLET. PO PRN (19:57)
[2021-08-27] MEDS: METHOCARBAMOL 750 MG TABLET PO PRN (19:57)
[2021-08-27] MEDS: DICLOFENAC SODIUM 1% TOPICAL GEL 100GM TUBE. TP SCH (20:00)
[2021-08-27 23:30] VITALS: BP 159/72
[2021-08-28 03:30] VITALS: BP 163/81
[2021-08-28 07:00] VITALS: BP 187/90
[2021-08-28 08:00] LABS: BASO % 1 % (0-3); EOS # 0.3 x10^3/uL (0.0-0.7); EOS % 9 % (0-3); HEMATOCRIT 27.5 % (39.0-53.0); LYMPH # 0.9 x10^3/uL (1.0-4.8); LYMPH % 24 % (24-48); MEAN CORPUSCULAR HEMOGLOBIN 30 pg (25-35); MEAN CORPUSCULAR HGB CONC 33 g/dL (31-37); MEAN CORPUSCULAR VOLUME 90 fL (79-100); MONO # 0.3 x10^3/uL (0.0-1.1); MONO % 9 % (0-9); NEUT # 2.2 x10^3/uL (1.8-7.7); NEUT % 58 % (31-73); PLATELET COUNT 149 x10^3/uL (140-400); RED BLOOD COUNT 3.04 x10^6/uL (4.30-5.70); WHITE BLOOD COUNT 3.8 x10^3/uL (4.0-11.0)
[2021-08-28] MEDS: INSULIN LISPRO 300 UNITS/3 ML VIAL. SQ SCH ×3 (08:00→17:07)
[2021-08-28 08:15] LABS: CREATININE 10.2 mg/dL (0.7-1.3); GFR 6.1; MAGNESIUM 2.3 mg/dL (1.8-2.4); POTASSIUM 4.4 mmol/L (3.5-5.1)
[2021-08-28] MEDS: METHOCARBAMOL 750 MG TABLET PO PRN (09:26)
[2021-08-28] MEDS: FOLIC/VIT B COMP W-C (RENAL) TABLET. PO SCH (09:26)
[2021-08-28] MEDS: CLOPIDOGREL BISULFATE 75 MG TABLET PO SCH (09:26)
[2021-08-28] MEDS: LIDOCAINE (700MG/PATCH) PATCH. TD SCH (09:27)
[2021-08-28] MEDS: PANTOPRAZOLE 40 MG TABLET.DR. PO SCH (09:27)
[2021-08-28] MEDS: LORazepam 0.5 MG TABLET PO PRN ×2 (09:27→17:06)
[2021-08-28] MEDS: traMADol 50 MG TABLET PO PRN ×2 (09:27→17:06)
[2021-08-28] MEDS: DICLOFENAC SODIUM 1% TOPICAL GEL 100GM TUBE. TP SCH ×2 (09:28→21:00)
[2021-08-28] MEDS: HEPARIN for SUB-Q USE 5,000 UNIT/ML VIAL. SQ SCH ×2 (09:29→21:22)
[2021-08-28] MEDS: INSULIN GLARGINE SYRINGE. SQ SCH (09:32)
--- NOTE | 2021-08-28 09:51 | NUR ---
Amlodipine is a duplicate order. Only administered 10mg this am.
[2021-08-28] MEDS ORDERED: BUPIVACAINE MPF 0.25% 10 ML VIAL. IJ ONE (10:15)
--- NOTE | 2021-08-28 10:15 | PDOC ---
DATE OF SERVICE DATE: 08/28/21 TIME: 10:14 SUBJECTIVE ROS Stable, denies any complaints . OBJECTIVE Vital Signs Vital Signs Date Time Temp Pulse Resp B/P (MAP) Pulse Ox O2 Delivery O2 Flow Rate FiO2 08/28/21 09:27 95 Room Air 08/28/21 09:26 82 187/90 08/28/21 07:00 97.5 18 97.5 08/27/21 08:00 96.0 I & 0 Intake and Output 08/28/21 07:00 Intake Total 360 ml Balance 360 ml Intake Oral 360 ml PHYSICAL EXAM Physical Exam General: NAD HEENT: Atraumatic, PERRLA, EOMI, Mucous membr. moist/pink neck Supple Lungs: Decreased at bases, Non labored Heart: S1S2, RRR, no thrills, no rubs, no gallops, no murmurs Abdomen: Normal bowel sounds, Soft, No tenderness, No hepatosplenomegaly, No masses Extremities: No clubbing, No cyanosis, No edema, . RUE fistula with good bruit and thrill Skin: No rashes, Neuro: Normal speech Left upper lower extremity 4 out of 5. 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 Psych/Mental Status: Mental status NL, Mood NL No Veliz, No CVA or SP tenderness DIAGNOSIS/ASSESSMENT Assessment & Plan ESRD on HD MWF at [facility],Dialysis today. Discussed treatment plan with SAHIL Hypertensive urgencyPOA - antihypertensives/Dialysis per schedule Anemia . S/P PRBC on 07/24/2021 Currently Hgb at goal Multiple mechanical falls Low back pain- Worsening of T12 compression fracture showing retropulsion History of CVA with residual left-sided weakness-- brainstem in 2006 History of peripheral vascular disease History of diabetes mellitus type 2 Peripheral arterial disease - s/p left leg bypass surgeries and stenting 10/2020, on plavix. CAD - s/p remote stenting. COMMENT/RELEVANT DATA Meds Current Medications Medications (Trade) Dose Ordered Sig/Neeraj Start Time Stop Time Status Last Admin Dose Admin Acetaminophen (Tylenol) 650 mg PRN Q4HRS PRN 08/26/21 15:00 Acetaminophen/ Hydrocodone Bitart (Lortab 5/325) 1 tab PRN Q6HRS PRN 08/26/21 12:00 08/27/21 19:57 1 TAB Alprazolam (Xanax) 0.5 mg PRN TID PRN 08/27/21 13:00 08/27/21 19:57 0.5 MG Amlodipine Besylate (Norvasc) 10 mg DAILY 08/28/21 09:00 Bupivacaine HCl (Sensorcaine-Mpf 0.25%) 10 ml 1X ONCE 08/28/21 10:15 08/28/21 10:16 UNV Clonidine HCl (Catapres) 0.1 mg DAILY 08/26/21 12:00 08/27/21 09:03 0.1 MG Clopidogrel Bisulfate (Plavix) 75 mg DAILYWBKFT 08/28/21 08:00 08/28/21 09:26 75 MG Dextrose (Dextrose 50%-Water Syringe) 12.5 gm PRN Q15MIN PRN 08/26/21 15:00 Diclofenac Sodium (Voltaren) 1 terrell BID 08/27/21 21:00 08/28/21 09:28 1 TERRELL Diphenhydramine HCl (Benadryl) 25 mg PRN QHS PRN 08/26/21 15:00 08/26/21 20:56 25 MG Docusate Sodium (Colace) 100 mg PRN DAILY PRN 08/26/21 15:00 Heparin Sodium (Porcine) (Heparin Sodium) 5,000 unit Q12HR 08/26/21 21:00 08/28/21 09:29 5,000 UNIT Info (PHARMACY MONITORING -- do not chart) 1 each PRN DAILY PRN 08/26/21 12:00 Insulin Glargine (Lantus Syringe) 10 unit DAILY 08/28/21 09:00 08/28/21 09:32 10 UNIT Insulin Human Lispro (HumaLOG) 0-5 UNITS TIDWMEALS 08/26/21 17:00 08/27/21 12:46 2 UNITS Labetalol HCl (Normodyne Iv Push) 10 mg PRN Q15MIN ONCE 08/26/21 11:15 08/26/21 11:28 DC 08/26/21 16:17 10 MG Lidocaine (Lidoderm) 1 patch DAILY 08/28/21 09:00 08/28/21 09:27 1 PATCH Lorazepam (Ativan Inj) 0.25 mg PRN Q4HRS PRN 08/26/21 15:00 08/26/21 22:40 0.25 MG Lorazepam (Ativan) 0.5 mg PRN Q6HRS PRN 08/26/21 15:00 08/28/21 09:27 0.5 MG Methocarbamol (Robaxin) 750 mg PRN Q8HRS PRN 08/26/21 12:00 08/28/21 09:26 750 MG Methylprednisolone Acetate (DEPO-Medrol 40MG VIAL) 40 mg 1X ONCE 08/28/21 10:15 08/28/21 10:16 UNV Miscellaneous (Lidoderm Patch Removal) 1 ea QHS 08/27/21 21:00 Morphine Sulfate (Morphine Sulfate) 4 mg 1X ONCE 08/26/21 07:15 08/26/21 07:16 DC 08/26/21 07:54 4 MG Non-Formulary Medication (Ferric Citrate ) 2 tab TIDWMEALS 08/27/21 17:00 08/28/21 07:15 DC Ondansetron HCl (Zofran) 4 mg PRN Q6HRS PRN 08/26/21 15:00 08/26/21 20:56 4 MG Pantoprazole Sodium (Protonix) 40 mg DAILYAC 08/27/21 07:30 08/28/21 09:27 40 MG Prochlorperazine Edisylate (Compazine) 10 mg PRN Q6HRS PRN 08/26/21 15:00 Sennosides (Senna) 17.2 mg PRN BID PRN 08/26/21 15:00 Sodium Chloride 1,000 ml @ 400 mls/hr Q2H30M PRN 08/26/21 12:00 08/26/21 23:59 DC Tramadol HCl (Ultram) 50 mg PRN TID PRN 08/27/21 13:00 08/28/21 09:27 50 MG Vitamin B Complex/ Vitamin C (Tameka-Kapil) 1 tab DAILY 08/28/21 09:00 08/28/21 09:26 1 TAB Zolpidem Tartrate (Ambien) 2.5 mg PRN QHS PRN 08/26/21 15:00 08/27/21 19:57 2.5 MG Lab Laboratory Tests Test 08/27/21 11:53 08/27/21 15:20 08/27/21 16:35 08/27/21 19:51 Glucose (Fingerstick) 155 mg/dL (70-99) 78 mg/dL (70-99) 172 mg/dL (70-99) Coronavirus (COVID-19)(PCR) Not detected (NOT DETECTD) Test 08/28/21 06:45 08/28/21 07:57 White Blood Count 3.8 x10^3/uL (4.0-11.0) Red Blood Count 3.04 x10^6/uL (4.30-5.70) Hemoglobin 9.0 g/dL (13.0-17.5) Hematocrit 27.5 % (39.0-53.0) Mean Corpuscular Volume 90 fL (79-100) Mean Corpuscular Hemoglobin 30 pg (25-35) Mean Corpuscular Hemoglobin Concent 33 g/dL (31-37) Red Cell Distribution Width 16.0 % (11.5-14.5) Platelet Count 149 x10^3/uL (140-400) Neutrophils (%) (Auto) 58 % (31-73) Lymphocytes (%) (Auto) 24 % (24-48) Monocytes (%) (Auto) 9 % (0-9) Eosinophils (%) (Auto) 9 % (0-3) Basophils (%) (Auto) 1 % (0-3) Neutrophils # (Auto) 2.2 x10^3/uL (1.8-7.7) Lymphocytes # (Auto) 0.9 x10^3/uL (1.0-4.8) Monocytes # (Auto) 0.3 x10^3/uL (0.0-1.1) Eosinophils # (Auto) 0.3 x10^3/uL (0.0-0.7) Basophils # (Auto) 0.0 x10^3/uL (0.0-0.2) Sodium Level 142 mmol/L (136-145) Potassium Level 4.4 mmol/L (3.5-5.1) Chloride Level 101 mmol/L (98-107) Carbon Dioxide Level 28 mmol/L (21-32) Anion Gap 13 (6-14) Blood Urea Nitrogen 35 mg/dL (8-26) Creatinine 10.2 mg/dL (0.7-1.3) Estimated GFR (Cockcroft-Gault) 6.1 Glucose Level 90 mg/dL (70-99) Calcium Level 9.0 mg/dL (8.5-10.1) Magnesium Level 2.3 mg/dL (1.8-2.4) Glucose (Fingerstick) 98 mg/dL (70-99) Results All relevant outside records, renal labs, imaging studies, telemetry/EKG's were reviewed. Justicifation of Admission Dx: Justifications for Admission: Justification of Admission Dx: N/A MARRY NATH MD Aug 28, 2021 10:15
--- NOTE | 2021-08-28 10:19 | PDOC ---
PROGRESS NOTES Date of Service DATE: 08/28/21 TIME: 10:11 Subjective Subjective He admits right knee and low back pain. Objective Objective Vital Signs Date Time Temp Pulse Resp B/P (MAP) Pulse Ox O2 Delivery O2 Flow Rate FiO2 08/28/21 09:27 95 Room Air 08/28/21 09:26 82 187/90 08/28/21 07:00 97.5 18 97.5 08/27/21 08:00 96.0 Intake and Output 08/28/21 07:00 Intake Total 360 ml Balance 360 ml Intake Oral 360 ml Physical Exam Physical Exam He is awake,talking and no change with his neurological status,although nursing noted some disorientation this AM and also he is trying to use remote control as telephone. He continues with tenderness to palpation over right knee joint line and lower thoracic spine and adjoining paraspinal muscles and therapist noted that his back and right knee joint pain is interfering with his mobility and they recommended him to go to SNF. He continues with left hemiparesis and right knee joint effusion. Assessment Assessment Problems Medical Problems: (1) ESRD (end stage renal disease) Status: Acute (2) Multiple falls Status: Acute (3) Thoracic compression fracture Status: Acute Plan Plan of Care To proceed with right knee joint injection with depo-medrol and to ask for MRI scan of right knee to make sure he does not have any degenerative menisci tear that might be responsible or contributing to his frequent falls. Comment Review of Relevant I have reviewed the following items dariel (where applicable) has been applied. Labs Laboratory Tests Test 08/26/21 11:45 08/26/21 17:06 08/26/21 20:39 08/27/21 06:00 Troponin I High Sensitivity 106 ng/L (4-75) Glucose (Fingerstick) 122 mg/dL (70-99) 159 mg/dL (70-99) White Blood Count 4.3 x10^3/uL (4.0-11.0) Red Blood Count 3.40 x10^6/uL (4.30-5.70) Hemoglobin 10.0 g/dL (13.0-17.5) Hematocrit 30.7 % (39.0-53.0) Mean Corpuscular Volume 91 fL (79-100) Mean Corpuscular Hemoglobin 30 pg (25-35) Mean Corpuscular Hemoglobin Concent 33 g/dL (31-37) Red Cell Distribution Width 16.1 % (11.5-14.5) Platelet Count 179 x10^3/uL (140-400) Neutrophils (%) (Auto) 61 % (31-73) Lymphocytes (%) (Auto) 19 % (24-48) Monocytes (%) (Auto) 9 % (0-9) Eosinophils (%) (Auto) 10 % (0-3) Basophils (%) (Auto) 1 % (0-3) Neutrophils # (Auto) 2.6 x10^3/uL (1.8-7.7) Lymphocytes # (Auto) 0.8 x10^3/uL (1.0-4.8) Monocytes # (Auto) 0.4 x10^3/uL (0.0-1.1) Eosinophils # (Auto) 0.4 x10^3/uL (0.0-0.7) Basophils # (Auto) 0.1 x10^3/uL (0.0-0.2) Sodium Level 143 mmol/L (136-145) Potassium Level 4.1 mmol/L (3.5-5.1) Chloride Level 101 mmol/L (98-107) Carbon Dioxide Level 31 mmol/L (21-32) Anion Gap 11 (6-14) Blood Urea Nitrogen 24 mg/dL (8-26) Creatinine 7.6 mg/dL (0.7-1.3) Estimated GFR (Cockcroft-Gault) 8.6 Glucose Level 122 mg/dL (70-99) Calcium Level 9.4 mg/dL (8.5-10.1) Phosphorus Level 6.6 mg/dL (2.6-4.7) Magnesium Level 2.3 mg/dL (1.8-2.4) Hepatitis B Surface Antigen Nonreactive (Nonreactive) Test 08/27/21 07:28 08/27/21 11:53 08/27/21 15:20 08/27/21 16:35 Glucose (Fingerstick) 137 mg/dL (70-99) 155 mg/dL (70-99) 78 mg/dL (70-99) Coronavirus (COVID-19)(PCR) Not detected (NOT DETECTD) Test 08/27/21 19:51 08/28/21 06:45 08/28/21 07:57 Glucose (Fingerstick) 172 mg/dL (70-99) 98 mg/dL (70-99) White Blood Count 3.8 x10^3/uL (4.0-11.0) Red Blood Count 3.04 x10^6/uL (4.30-5.70) Hemoglobin 9.0 g/dL (13.0-17.5) Hematocrit 27.5 % (39.0-53.0) Mean Corpuscular Volume 90 fL (79-100) Mean Corpuscular Hemoglobin 30 pg (25-35) Mean Corpuscular Hemoglobin Concent 33 g/dL (31-37) Red Cell Distribution Width 16.0 % (11.5-14.5) Platelet Count 149 x10^3/uL (140-400) Neutrophils (%) (Auto) 58 % (31-73) Lymphocytes (%) (Auto) 24 % (24-48) Monocytes (%) (Auto) 9 % (0-9) Eosinophils (%) (Auto) 9 % (0-3) Basophils (%) (Auto) 1 % (0-3) Neutrophils # (Auto) 2.2 x10^3/uL (1.8-7.7) Lymphocytes # (Auto) 0.9 x10^3/uL (1.0-4.8) Monocytes # (Auto) 0.3 x10^3/uL (0.0-1.1) Eosinophils # (Auto) 0.3 x10^3/uL (0.0-0.7) Basophils # (Auto) 0.0 x10^3/uL (0.0-0.2) Sodium Level 142 mmol/L (136-145) Potassium Level 4.4 mmol/L (3.5-5.1) Chloride Level 101 mmol/L (98-107) Carbon Dioxide Level 28 mmol/L (21-32) Anion Gap 13 (6-14) Blood Urea Nitrogen 35 mg/dL (8-26) Creatinine 10.2 mg/dL (0.7-1.3) Estimated GFR (Cockcroft-Gault) 6.1 Glucose Level 90 mg/dL (70-99) Calcium Level 9.0 mg/dL (8.5-10.1) Magnesium Level 2.3 mg/dL (1.8-2.4) Laboratory Tests Test 08/27/21 11:53 08/27/21 15:20 08/27/21 16:35 08/27/21 19:51 Glucose (Fingerstick) 155 mg/dL (70-99) 78 mg/dL (70-99) 172 mg/dL (70-99) Coronavirus (COVID-19)(PCR) Not detected (NOT DETECTD) Test 08/28/21 06:45 08/28/21 07:57 White Blood Count 3.8 x10^3/uL (4.0-11.0) Red Blood Count 3.04 x10^6/uL (4.30-5.70) Hemoglobin 9.0 g/dL (13.0-17.5) Hematocrit 27.5 % (39.0-53.0) Mean Corpuscular Volume 90 fL (79-100) Mean Corpuscular Hemoglobin 30 pg (25-35) Mean Corpuscular Hemoglobin Concent 33 g/dL (31-37) Red Cell Distribution Width 16.0 % (11.5-14.5) Platelet Count 149 x10^3/uL (140-400) Neutrophils (%) (Auto) 58 % (31-73) Lymphocytes (%) (Auto) 24 % (24-48) Monocytes (%) (Auto) 9 % (0-9) Eosinophils (%) (Auto) 9 % (0-3) Basophils (%) (Auto) 1 % (0-3) Neutrophils # (Auto) 2.2 x10^3/uL (1.8-7.7) Lymphocytes # (Auto) 0.9 x10^3/uL (1.0-4.8) Monocytes # (Auto) 0.3 x10^3/uL (0.0-1.1) Eosinophils # (Auto) 0.3 x10^3/uL (0.0-0.7) Basophils # (Auto) 0.0 x10^3/uL (0.0-0.2) Sodium Level 142 mmol/L (136-145) Potassium Level 4.4 mmol/L (3.5-5.1) Chloride Level 101 mmol/L (98-107) Carbon Dioxide Level 28 mmol/L (21-32) Anion Gap 13 (6-14) Blood Urea Nitrogen 35 mg/dL (8-26) Creatinine 10.2 mg/dL (0.7-1.3) Estimated GFR (Cockcroft-Gault) 6.1 Glucose Level 90 mg/dL (70-99) Calcium Level 9.0 mg/dL (8.5-10.1) Magnesium Level 2.3 mg/dL (1.8-2.4) Glucose (Fingerstick) 98 mg/dL (70-99) Medications Current Medications Morphine Sulfate (Morphine Sulfate) 4 mg 1X ONCE IVP Last administered on 08/26/21at 07:54; Start 08/26/21 at 07:15; Stop 08/26/21 at 07:16; Status DC Amlodipine Besylate (Norvasc) 10 mg DAILY PO Last administered on 08/28/21at 09:26; Start 08/27/21 at 09:00 Clonidine HCl (Catapres) 0.1 mg DAILY PO Last administered on 08/27/21at 09:03; Start 08/26/21 at 12:00 Labetalol HCl (Normodyne Iv Push) 10 mg PRN Q2HRS PRN IVP ELEVATED BP, SEE COMMENTS; Start 08/26/21 at 11:15 Labetalol HCl (Normodyne Iv Push) 10 mg PRN Q15MIN ONCE IVP Last administered on 08/26/21at 16:17; Start 08/26/21 at 11:15; Stop 08/26/21 at 11:28; Status DC Acetaminophen/ Hydrocodone Bitart (Lortab 5/325) 1 tab PRN Q6HRS PRN PO MODERATE TO SEVERE PAIN Last administered on 08/27/21at 19:57; Start 08/26/21 at 12:00 Methocarbamol (Robaxin) 750 mg PRN Q8HRS PRN PO MUSCLE SPASMS Last administered on 08/28/21at 09:26; Start 08/26/21 at 12:00 Sodium Chloride 1,000 ml @ 1,000 mls/hr Q1H PRN IV hypotension; Start 08/26/21 at 12:00; Stop 08/26/21 at 17:59; Status DC Sodium Chloride 1,000 ml @ 400 mls/hr Q2H30M PRN IV PATENCY; Start 08/26/21 at 12:00; Stop 08/26/21 at 23:59; Status DC Info (PHARMACY MONITORING -- do not chart) 1 each PRN DAILY PRN MC SEE COMMENTS; Start 08/26/21 at 12:00 Sennosides (Senna) 17.2 mg PRN BID PRN PO CONSTIPATION; Start 08/26/21 at 15:00 Docusate Sodium (Colace) 100 mg PRN DAILY PRN PO HARD STOOLS; Start 08/26/21 at 15:00 Ondansetron HCl (Zofran) 4 mg PRN Q6HRS PRN IVP NAUSEA/VOMITING, 1st CHOICE Last administered on 08/26/21at 20:56; Start 08/26/21 at 15:00 Insulin Human Lispro (HumaLOG) 0-5 UNITS TIDWMEALS SQ Last administered on 08/27/21at 12:46; Start 08/26/21 at 17:00 Dextrose (Dextrose 50%-Water Syringe) 12.5 gm PRN Q15MIN PRN IV SEE COMMENTS; Start 08/26/21 at 15:00 Acetaminophen (Tylenol) 650 mg PRN Q4HRS PRN PO TEMP OVER 100.4F OR MILD PAIN; Start 08/26/21 at 15:00 Lorazepam (Ativan) 0.5 mg PRN Q6HRS PRN PO ANXIETY / AGITATION Last admi nistered on 08/28/21at 09:27; Start 08/26/21 at 15:00 Lorazepam (Ativan Inj) 0.25 mg PRN Q4HRS PRN IV ANXIETY / AGITATION Last a dministered on 08/26/21at 22:40; Start 08/26/21 at 15:00 Heparin Sodium (Porcine) (Heparin Sodium) 5,000 unit Q12HR SQ Last administered on 08/28/21at 09:29; Start 08/26/21 at 21:00 Pantoprazole Sodium (Protonix) 40 mg DAILYAC PO Last administered on 08/28/21at 09:27; Start 08/27/21 at 07:30 Prochlorperazine Edisylate (Compazine) 10 mg PRN Q6HRS PRN IV NAUSEA/VOMITING, 2nd CHOICE; Start 08/26/21 at 15:00 Diphenhydramine HCl (Benadryl) 25 mg PRN Q6HRS PRN IVP ITCHING; Start 08/26/21 at 15:00 Diphenhydramine HCl (Benadryl) 25 mg PRN Q6HRS PRN PO ITCHING; Start 08/26/21 at 15:00 Diphenhydramine HCl (Benadryl) 25 mg PRN QHS PRN PO INSOMNIA, 1st CHOICE Last administered on 08/26/21at 20:56; Start 08/26/21 at 15:00 Zolpidem Tartrate (Ambien) 2.5 mg PRN QHS PRN PO INSOMNIA, 2nd CHOICE Last administered on 08/27/21at 19:57; Start 08/26/21 at 15:00 Lidocaine (Lidoderm) 1 patch DAILY TD Last administered on 08/28/21at 09:27; Start 08/28/21 at 09:00 Miscellaneous (Lidoderm Patch Removal) 1 ea QHS MC ; Start 08/27/21 at 21:00 Diclofenac Sodium (Voltaren) 1 terrell BID TP Last administered on 08/28/21at 09:28; Start 08/27/21 at 21:00 Alprazolam (Xanax) 0.5 mg PRN TID PRN PO ANXIETY / AGITATION Last administered on 08/27/21at 19:57; Start 08/27/21 at 13:00 Amlodipine Besylate (Norvasc) 10 mg DAILY PO ; Start 08/28/21 at 09:00 Clopidogrel Bisulfate (Plavix) 75 mg DAILYWBKFT PO Last administered on 08/07 09/24at 09:26; Start 08/28/21 at 08:00 Vitamin B Complex/ Vitamin C (Tameka-Kapil) 1 tab DAILY PO Last administered on 08/28/21at 09:26; Start 08/28/21 at 09:00 Tramadol HCl (Ultram) 50 mg PRN TID PRN PO PAIN Last administered on 08/28/21 09:27; Start 08/27/21 at 13:00 Non-Formulary Medication (Ferric Citrate ) 2 tab TIDWMEALS PO ; Start 08/27/21 at 17:00; Stop 08/28/21 at 07:15; Status DC Insulin Glargine (Lantus Syringe) 10 unit DAILY SQ Last administered on 08/28/21at 09:32; Start 08/28/21 at 09:00 Active Scripts Active Tramadol Hcl 50 Mg Tablet 50 Mg PO PRN TID PRN 3 Days Clopidogrel (Clopidogrel Bisulfate) 75 Mg Tablet 75 Mg PO DAILYWBKFT MDD 75 mg 90 Days Reported Velphoro (Sucroferric Oxyhydroxide) 500 Mg Tab.chew 2 Tab PO TID 30 Days Alprazolam 0.5 Mg Tablet 1 Tab PO PRN TID PRN Amlodipine Besylate 10 Mg Tablet 10 Mg PO DAILY Clonidine Hcl 0.1 Mg Tablet 0.1 Mg PO DAILY Dialyvite 800 Tablet (Folic Acid/Vitamin B Comp W-C) 0.8 Mg Tablet 1 Tab PO MARY LY 30 Days Ferric Citrate 210 Mg Tablet 2 Tab PO TIDWMEALS 30 Days Aspirin 325 Mg Tablet 1 Tab PO DAILY Lantus Solostar (Insulin Glargine,Hum.rec.anlog) 100 Unit/1 Ml Insuln.pen 10 Unit SQ DAILY 8-10 units daily Vitals/I & O Vital Sign - Last 24 Hours 08/27/21 08/27/21 08/27/21 08/27/21 11:00 15:00 19:00 19:57 Temp 96.6 96.5 98.5 96.6 96.5 98.5 Pulse 81 74 93 Resp 20 20 18 18 B/P (MAP) 137/76 (96) 127/70 (89) 184/85 (118) Pulse Ox 94 98 94 98 O2 Delivery Room Air Room Air Room Air Room Air 08/27/21 08/27/21 08/27/21 08/28/21 20:00 20:27 23:30 03:30 Temp 98.5 97.0 98.5 97.0 Pulse 88 96 Resp 18 18 18 B/P (MAP) 159/72 (101) 163/81 (108) Pulse Ox 98 94 95 O2 Delivery Room Air Room Air Room Air Room Air 08/28/21 08/28/21 08/28/21 07:00 09:26 09:27 Temp 97.5 97.5 Pulse 82 82 Resp 18 B/P (MAP) 187/90 (122) 187/90 Pulse Ox 95 95 O2 Delivery Room Air Room Air Intake and Output 08/27/21 08/27/21 08/28/21 15:00 23:00 07:00 Intake Total 360 ml Balance 360 ml Justifications for Admission Other Justification Thoracic Fx LAUREN NAPOLES MD Aug 28, 2021 10:19
[2021-08-28] MEDS ORDERED: methylPREDNISolone ACETATE 80 MG/ML VIAL. IM ONE (10:30)
--- NOTE | 2021-08-28 10:46 | PDOC4 ---
PROCEDURE Procedure At his request,after skin prep with alcohol swab, i injected his right knee joint under aseptic skin technique with 1 ml of depo-medrol and 2 ml of 0.25% marcaine solution and he tolerated the procedure satisfactorily without any side effects. I could not obtain any joint fluid out. LAUREN NAPOLES MD Aug 28, 2021 10:46
[2021-08-28 11:00] VITALS: BP 176/90
[2021-08-28] MEDS ORDERED: DIALYSIS PATIENT. MC PRN (12:30)
--- NOTE | 2021-08-28 12:44 | PDOC ---
[facility] PROGRESS NOTE Date of Service DOS: DATE: 08/28/21 TIME: 12:43 Chief Complaint Chief Complaint Assessment/Plan Hypertensive urgency Multiple mechanical falls Worsening of T12 compression fracture showing retropulsion History of ESRD on HD MWF Anemia consistent with ESRD Electrolyte derangements consistent with ESRD. Elevated troponins likely related to ESRD History of CVA with residual left-sided weakness History of peripheral vascular disease History of diabetes mellitus type 2 History of hypertension Admit to hospitalist service for further management IV antihypertensive regimen to maintain systolic blood pressures between 140-180 Neurosurgery consult PMR consult for back pain Nephrology consult for dialysis PO and IV pain control PT OT modalities Heparin for DVT prophylaxis Protonix GI prophylaxis ADA diet CODE STATUS full code Discussed with RN and SW Disposition inpatient management as above DPOA: History of Present Illness History of Present Illness 08/28 Evaluated examined at bedside. Right knee MRI ordered by PMR team. Patient resting in bed when seen. He will need placement. We will follow up again after the MRI. 08/27 Patient evaluated examined at bedside. Resting in bed. Had undergone MRI now bit lethargic. Neurosurgery PMR nephrology are following. PT OT ordered. May need placement. Discussed with bedside RN. Vitals/I&O Vitals/I&O: Vital Signs Date Time Temp Pulse Resp B/P (MAP) Pulse Ox O2 Delivery O2 Flow Rate FiO2 08/28/21 11:00 97.9 86 18 176/90 (118) 96 Room Air 97.9 08/27/21 08:00 96.0 I & O 08/27/21 08/27/21 08/28/21 15:00 23:00 07:00 Intake Total 360 ml Balance 360 ml Physical Exam General: Alert, Oriented X3, Cooperative Heart: Regular rate Lungs: Clear, Other Abdomen: Normal bowel sounds, Soft, No tenderness Extremities: No edema, Normal pulses Skin: No significant lesion Labs Labs: Laboratory Tests Test 08/27/21 15:20 08/27/21 16:35 08/27/21 19:51 08/28/21 06:45 Coronavirus (COVID-19)(PCR) Not detected (NOT DETECTD) Glucose (Fingerstick) 78 mg/dL (70-99) 172 mg/dL (70-99) White Blood Count 3.8 x10^3/uL (4.0-11.0) Red Blood Count 3.04 x10^6/uL (4.30-5.70) Hemoglobin 9.0 g/dL (13.0-17.5) Hematocrit 27.5 % (39.0-53.0) Mean Corpuscular Volume 90 fL (79-100) Mean Corpuscular Hemoglobin 30 pg (25-35) Mean Corpuscular Hemoglobin Concent 33 g/dL (31-37) Red Cell Distribution Width 16.0 % (11.5-14.5) Platelet Count 149 x10^3/uL (140-400) Neutrophils (%) (Auto) 58 % (31-73) Lymphocytes (%) (Auto) 24 % (24-48) Monocytes (%) (Auto) 9 % (0-9) Eosinophils (%) (Auto) 9 % (0-3) Basophils (%) (Auto) 1 % (0-3) Neutrophils # (Auto) 2.2 x10^3/uL (1.8-7.7) Lymphocytes # (Auto) 0.9 x10^3/uL (1.0-4.8) Monocytes # (Auto) 0.3 x10^3/uL (0.0-1.1) Eosinophils # (Auto) 0.3 x10^3/uL (0.0-0.7) Basophils # (Auto) 0.0 x10^3/uL (0.0-0.2) Sodium Level 142 mmol/L (136-145) Potassium Level 4.4 mmol/L (3.5-5.1) Chloride Level 101 mmol/L (98-107) Carbon Dioxide Level 28 mmol/L (21-32) Anion Gap 13 (6-14) Blood Urea Nitrogen 35 mg/dL (8-26) Creatinine 10.2 mg/dL (0.7-1.3) Estimated GFR (Cockcroft-Gault) 6.1 Glucose Level 90 mg/dL (70-99) Calcium Level 9.0 mg/dL (8.5-10.1) Magnesium Level 2.3 mg/dL (1.8-2.4) Test 08/28/21 07:57 08/28/21 11:36 Glucose (Fingerstick) 98 mg/dL (70-99) 128 mg/dL (70-99) Assessment and Plan Assessmemt and Plan Problems Medical Problems: (1) ESRD (end stage renal disease) Status: Acute (2) Multiple falls Status: Acute (3) Thoracic compression fracture Status: Acute Comment Review of Relevant I have reviewed the following items dariel (where applicable) has been applied. Medications: Current Medications Medications (Trade) Dose Ordered Sig/Neeraj Route PRN Reason Start Time Stop Time Status Last Admin Dose Admin Lidocaine (Lidoderm) 1 patch DAILY TD 08/28/21 09:00 08/28/21 09:27 Diclofenac Sodium (Voltaren) 1 terrell BID TP 08/27/21 21:00 08/28/21 09:28 Alprazolam (Xanax) 0.5 mg PRN TID PRN PO ANXIETY / AGITATION 08/27/21 13:00 08/27/21 19:57 Clopidogrel Bisulfate (Plavix) 75 mg DAILYWBKFT PO 08/28/21 08:00 08/28/21 09:26 Vitamin B Complex/ Vitamin C (Tameka-Kapil) 1 tab DAILY PO 08/28/21 09:00 08/28/21 09:26 Tramadol HCl (Ultram) 50 mg PRN TID PRN PO PAIN 08/27/21 13:00 08/28/21 09:27 Insulin Glargine (Lantus Syringe) 10 unit DAILY SQ 08/28/21 09:00 08/28/21 09:32 Justifications for Admission Other Justification Thoracic Fx PRATIMA RODRIGUEZ MD Aug 28, 2021 12:44
--- NOTE | 2021-08-28 14:41 | NUR ---
SW following. Discussed with RN, therapy recommending SNF. RN advised SW best to speak with pt's . SW spoke with Emerita, she would like [facility] as that is where pt went in the past. Referral phoned and faxed, awaiting acceptance decision.
--- NOTE | 2021-08-28 16:20 | NUR ---
Received report from failure analysis engineer, 3L off BP 151/80. Gauze and tape applied to right upper arm. Pt complaining of pain in his back.
[2021-08-28 19:00] VITALS: BP 136/78
[2021-08-28] MEDS: PATCH REMOVAL. MC SCH (21:00)
[2021-08-28 23:00] VITALS: BP 146/82
--- NOTE | 2021-08-29 01:00 | NUR ---
Bed alarm alarming. Entered patient room and patient was attempting to stand to use bathroom. Attempting to help patient stand this RN and TOOLROOM CHECKER noticed patient was too weak and very unsteady when trying to help him to the bathroom/toilet. TOOLROOM CHECKER left room to get BSC and patient was asked to wait with RN in bed until TOOLROOM CHECKER returns with a BSC for safety. At that time patient became angry and told this RN to "get the fuck out of my way" while swinging his arms. This RN then called out for help. RN x2 arrived to room and helped assist the unsteady patient to the bathroom. Patient was near toilet when he could no longer stand, he was falling over and was then assisted to the toilet by another RN helping.
--- NOTE | 2021-08-29 01:30 | NUR ---
Patient agitated refusing to wear telemetry at this time
[2021-08-29 03:00] VITALS: BP 176/89
[2021-08-29 04:35] LABS: BASO % 1 % (0-3); EOS # 0.3 x10^3/uL (0.0-0.7); EOS % 6 % (0-3); HEMATOCRIT 30.4 % (39.0-53.0); HEMOGLOBIN 9.9 g/dL (13.0-17.5); LYMPH # 0.6 x10^3/uL (1.0-4.8); LYMPH % 12 % (24-48); MEAN CORPUSCULAR HEMOGLOBIN 29 pg (25-35); MEAN CORPUSCULAR HGB CONC 33 g/dL (31-37); MEAN CORPUSCULAR VOLUME 90 fL (79-100); MONO # 0.4 x10^3/uL (0.0-1.1); MONO % 8 % (0-9); NEUT # 3.5 x10^3/uL (1.8-7.7); NEUT % 74 % (31-73); PLATELET COUNT 172 x10^3/uL (140-400); RED BLOOD COUNT 3.38 x10^6/uL (4.30-5.70); RED CELL DISTRIBUTION WIDTH 15.9 % (11.5-14.5); WHITE BLOOD COUNT 4.8 x10^3/uL (4.0-11.0)
[2021-08-29 04:52] LABS: CALCIUM 9.7 mg/dL (8.5-10.1); CREATININE 7.4 mg/dL (0.7-1.3); GFR 8.9; MAGNESIUM 2.2 mg/dL (1.8-2.4); POTASSIUM 4.8 mmol/L (3.5-5.1)
[2021-08-29 07:00] VITALS: BP 196/88
[2021-08-29] MEDS: INSULIN LISPRO 300 UNITS/3 ML VIAL. SQ SCH ×2 (08:00→12:00)
[2021-08-29] MEDS: METHOCARBAMOL 750 MG TABLET PO PRN (09:51)
[2021-08-29] MEDS: cloNIDine HCL 0.1 MG TABLET PO SCH (09:52)
[2021-08-29] MEDS: CLOPIDOGREL BISULFATE 75 MG TABLET PO SCH (09:52)
[2021-08-29] MEDS: LIDOCAINE (700MG/PATCH) PATCH. TD SCH (09:52)
[2021-08-29] MEDS: ALPRAZolam 0.5 MG TABLET PO PRN (09:52)
[2021-08-29] MEDS: PANTOPRAZOLE 40 MG TABLET.DR. PO SCH (09:53)
[2021-08-29] MEDS: traMADol 50 MG TABLET PO PRN (09:53)
[2021-08-29] MEDS: FOLIC/VIT B COMP W-C (RENAL) TABLET. PO SCH (09:53)
[2021-08-29] MEDS: HEPARIN for SUB-Q USE 5,000 UNIT/ML VIAL. SQ SCH (09:54)
[2021-08-29] MEDS: DICLOFENAC SODIUM 1% TOPICAL GEL 100GM TUBE. TP SCH (09:54)
[2021-08-29] MEDS: INSULIN GLARGINE SYRINGE. SQ SCH (09:55)
[2021-08-29 11:00] VITALS: BP 177/86
[2021-08-29] MEDS ORDERED: PANT40TA77 PO (11:07)
[2021-08-29] MEDS ORDERED: METH-562 PO (11:07)
--- NOTE | 2021-08-29 11:09 | SNU/HH DC ---
DISCHARGE ORDERS DISCHARGE INFORMATION: DISCHARGE DATE: Aug 29, 2021 FINAL DIAGNOSIS Problems Medical Problems: (1) ESRD (end stage renal disease) Status: Acute (2) Multiple falls Status: Acute (3) Thoracic compression fracture Status: Acute CONDITION ON DISCHARGE: Stable CODE STATUS: Code Status: Full PRISON: SNF STAY <30 DAYS: Yes POST DISCHARGE ORDERS: ACTIVITY ORDERS: Activity as tolerated WEIGHT BEARING STATUS: As tolerated BATHING ORDERS: Shower-keep dressing dry DIET AFTER DISCHARGE: Renal WOUND/INCISION CARE: Ice to area for comfort, May get incision wet CHECKS AFTER DISCHARGE: CHECKS AFTER DISCHARGE: Check blood press - daily, Check blood sugar, ac/hs, Ch attila your Temp as needed, Weigh Yourself Daily TREATMENT/EQUIPMENT ORDERS: ADAPTIVE EQUIPMENT NEEDED: Walker Physical Therapy For: Evalulation/Treatment Occupational Therapy For: Evaluation/Treatment DISCHARGE MEDICATIONS: Home Meds Active Scripts Pantoprazole Sodium (PANTOPRAZOLE SODIUM ) 40 Mg Tablet.dr, 40 MG PO DAILYAC for gerd for 30 Days, #30 TAB.SR Prov:PRATIMA RODRIGUEZ MD 08/29/21 Methocarbamol (METHOCARBAMOL) 750 Mg Tablet, 750 MG PO PRN Q8HRS PRN for MUSCLE SPASMS for 30 Days, #30 TAB Prov:PRATIMA RODRIGUEZ MD 08/29/21 Tramadol Hcl (TRAMADOL HCL) 50 Mg Tablet, 50 MG PO PRN TID PRN for PAIN for 3 Days, #9 TAB Prov:RIFEDWARDOLPRATIMA MD 07/25/21 Clopidogrel Bisulfate (CLOPIDOGREL) 75 Mg Tablet, 75 MG PO DAILYWBKFT for blood clotting MDD 75 mg for 90 Days, #90 TAB Prov:KISHOR CHAMBERS APRN 10/11/20 Reported Medications Sucroferric Oxyhydroxide (VELPHORO) 500 Mg Tab.chew, 2 TAB PO TID for for 30 Days, #180 TAB 0 Refills 07/25/21 Alprazolam (ALPRAZOLAM) 0.5 Mg Tablet, 1 TAB PO PRN TID PRN for ANXIETY / AGITATION, #90 TAB 07/25/21 Amlodipine Besylate (AMLODIPINE BESYLATE) 10 Mg Tablet, 10 MG PO DAILY for , TAB 07/25/21 Clonidine Hcl (CLONIDINE HCL) 0.1 Mg Tablet, 0.1 MG PO DAILY for , TAB 07/25/21 Folic Acid/Vitamin B Comp W-C (DIALYVITE 800 TABLET) 0.8 Mg Tablet, 1 TAB PO DAILY for for 30 Days, #30 TAB 0 Refills 10/10/20 Ferric Citrate (Ferric Citrate) 210 Mg Tablet, 2 TAB PO TIDWMEALS for for 30 Days, #180 TAB 0 Refills 10/10/20 Aspirin (ASPIRIN) 325 Mg Tablet, 1 TAB PO DAILY for heart health, #30 TAB 5 Refills 07/11/20 Insulin Glargine,Hum.rec.anlog (LANTUS SOLOSTAR) 100 Unit/1 Ml Insuln.pen, 10 UNIT SQ DAILY for , #15 ML 3 Refills 8-10 units daily 04/22/14 PRATIMA RODRIGUEZ MD Aug 29, 2021 11:09
--- NOTE | 2021-08-29 11:11 | PDOC3 ---
[facility]-Discharge Summary Date of Admission: Date of Admission: Aug 26, 2021 Date of Discharge: Date of Discharge: Aug 29, 2021 Admission Diagnosis: Problems: (1) Frequent falls (2) Compression fracture (3) ESRD on dialysis Hospital Course: Hospital Course: [facility] Complaint Assessment/Plan Hypertensive urgency Multiple mechanical falls Worsening of T12 compression fracture showing retropulsion History of ESRD on HD MWF Anemia consistent with ESRD Electrolyte derangements consistent with ESRD. Elevated troponins likely related to ESRD History of CVA with residual left-sided weakness History of peripheral vascular disease History of diabetes mellitus type 2 History of hypertension Admit to hospitalist service for further management IV antihypertensive regimen to maintain systolic blood pressures between 140-180 Neurosurgery consult PMR consult for back pain Nephrology consult for dialysis PO and IV pain control PT OT modalities Heparin for DVT prophylaxis Protonix GI prophylaxis ADA diet CODE STATUS full code Discussed with RN and SW Disposition inpatient management as above DPOA: History of Present Illness History of Present Illness 08/29 Evaluated examined at bedside. Improved. Able to discharge to facility today. Greater than 30 minutes spent on discharge. 19 minutes advance care planning. 08/28 Evaluated examined at bedside. Right knee MRI ordered by PMR team. Patient resting in bed when seen. He will need placement. We will follow up again after the MRI. 08/27 Patient evaluated examined at bedside. Resting in bed. Had undergone MRI now bit lethargic. Neurosurgery PMR nephrology are following. PT OT ordered. May need placement. Discussed with bedside RN. Disposition: Disposition/Orders: D/C to Another Facility Activity: Activity: Resume previous activity Diet: Diet: Renal Medications: Home Meds Active Scripts Pantoprazole Sodium (PANTOPRAZOLE SODIUM ) 40 Mg Tablet., 40 MG PO DAILYAC for gerd for 30 Days, #30 TAB.SR Prov:PRATIMA RODRIGUEZ MD 08/29/21 Methocarbamol (METHOCARBAMOL) 750 Mg Tablet, 750 MG PO PRN Q8HRS PRN for MUSCLE SPASMS for 30 Days, #30 TAB Prov:PRATIMA RODRIGUEZ MD 08/29/21 Tramadol Hcl (TRAMADOL HCL) 50 Mg Tablet, 50 MG PO PRN TID PRN for PAIN for 3 Days, #9 TAB Prov:RIFFELPRATIMA MD 07/25/21 Clopidogrel Bisulfate (CLOPIDOGREL) 75 Mg Tablet, 75 MG PO DAILYWBKFT for blood clotting MDD 75 mg for 90 Days, #90 TAB Prov:KISHOR CHAMBERS [employer] 10/11/20 Reported Medications Sucroferric Oxyhydroxide (VELPHORO) 500 Mg Tab.chew, 2 TAB PO TID for for 30 Days, #180 TAB 0 Refills 07/25/21 Alprazolam (ALPRAZOLAM) 0.5 Mg Tablet, 1 TAB PO PRN TID PRN for ANXIETY / AGITATION, #90 TAB 07/25/21 Amlodipine Besylate (AMLODIPINE BESYLATE) 10 Mg Tablet, 10 MG PO DAILY for , TAB 07/25/21 Clonidine Hcl (CLONIDINE HCL) 0.1 Mg Tablet, 0.1 MG PO DAILY for , TAB 07/25/21 Folic Acid/Vitamin B Comp W-C (DIALYVITE 800 TABLET) 0.8 Mg Tablet, 1 TAB PO DAILY for for 30 Days, #30 TAB 0 Refills 10/10/20 Ferric Citrate (Ferric Citrate) 210 Mg Tablet, 2 TAB PO TIDWMEALS for for 30 Days, #180 TAB 0 Refills 10/10/20 Aspirin (ASPIRIN) 325 Mg Tablet, 1 TAB PO DAILY for heart health, #30 TAB 5 Refills 07/11/20 Insulin Glargine,Hum.rec.anlog (LANTUS SOLOSTAR) 100 Unit/1 Ml Insuln.pen, 10 UNIT SQ DAILY for , #15 ML 3 Refills 8-10 units daily 04/22/14 Scheduled Amlodipine Besylate (Amlodipine Besylate), 10 MG PO DAILY, (Reported) Aspirin (Aspirin), 1 TAB PO DAILY, (Reported) Clonidine Hcl (Clonidine Hcl), 0.1 MG PO DAILY, (Reported) Clopidogrel Bisulfate (Clopidogrel), 75 MG PO DAILYWBKFT Ferric Citrate (Ferric Citrate), 2 TAB PO TIDWMEALS, (Reported) Folic Acid/Vitamin B Comp W-C (Dialyvite 800 Tablet), 1 TAB PO DAILY, (Reported) Insulin Glargine,Hum.rec.anlog (Lantus Solostar), 10 UNIT SQ DAILY, (Reported) Pantoprazole Sodium (Pantoprazole Sodium ), 40 MG PO DAILYAC Sucroferric Oxyhydroxide (Velphoro), 2 TAB PO TID, (Reported) Scheduled PRN Alprazolam (Alprazolam), 1 TAB PO PRN TID PRN for ANXIETY / AGITATION, (Reported) Methocarbamol (Methocarbamol), 750 MG PO PRN Q8HRS PRN for MUSCLE SPASMS Tramadol Hcl (Tramadol Hcl), 50 MG PO PRN TID PRN for PAIN Justicifation of Admission Dx: Justifications for Admission: Justification of Admission Dx: N/A PRATIMA RODRIGUEZ MD Aug 29, 2021 11:11
--- NOTE | 2021-08-29 11:12 | PDOC ---
DATE OF SERVICE DATE: 08/29/21 TIME: 11:09 SUBJECTIVE ROS Stable, denies any complaints . OBJECTIVE Vital Signs Vital Signs Date Time Temp Pulse Resp B/P (MAP) Pulse Ox O2 Delivery O2 Flow Rate FiO2 08/29/21 09:53 93 Room Air 08/29/21 09:53 92 196/88 08/29/21 07:00 98.2 16 98.2 I & 0 Intake and Output 08/29/21 07:00 Intake Total 300 ml Balance 300 ml Intake Oral 300 ml # Bowel Movements 1 PHYSICAL EXAM Physical Exam General: NAD HEENT: Atraumatic, PERRLA, EOMI, Mucous membr. moist/pink neck Supple Lungs: Decreased at bases, Non labored Heart: S1S2, RRR, no thrills, no rubs, no gallops, no murmurs Abdomen: Normal bowel sounds, Soft, No tenderness, No hepatosplenomegaly, No masses Extremities: No clubbing, No cyanosis, No edema, . RUE fistula with good bruit and thrill Skin: No rashes, Neuro: Normal speech Left upper lower extremity 4 out of 5. 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 Psych/Mental Status: Mental status NL, Mood NL No Veliz, No CVA or SP tenderness DIAGNOSIS/ASSESSMENT Assessment & Plan ESRD on HD MWF at [facility], Clinically stable, E-Lytes stable No indication for Dialysis today Hypertensive urgencyPOA - antihypertensives/Dialysis per schedule Anemia . S/P PRBC on 07/24/2021 Currently Hgb at goal Multiple mechanical falls Low back pain- Worsening of T12 compression fracture showing retropulsion History of CVA with residual left-sided weakness-- brainstem in 2006 History of peripheral vascular disease History of diabetes mellitus type 2 Peripheral arterial disease - s/p left leg bypass surgeries and stenting 10/2020, on plavix. CAD - s/p remote stenting. COMMENT/RELEVANT DATA Meds Current Medications Medications (Trade) Dose Ordered Sig/Neeraj Start Time Stop Time Status Last Admin Dose Admin Acetaminophen (Tylenol) 650 mg PRN Q4HRS PRN 08/26/21 15:00 Acetaminophen/ Hydrocodone Bitart (Lortab 5/325) 1 tab PRN Q6HRS PRN 08/26/21 12:00 08/27/21 19:57 1 TAB Alprazolam (Xanax) 0.5 mg PRN TID PRN 08/27/21 13:00 08/29/21 09:52 0.5 MG Amlodipine Besylate (Norvasc) 10 mg DAILY 08/28/21 09:00 08/28/21 14:20 DC Bupivacaine HCl (Sensorcaine-Mpf 0.25%) 10 ml 1X ONCE 08/28/21 10:15 08/28/21 10:19 DC Clonidine HCl (Catapres) 0.1 mg DAILY 08/26/21 12:00 08/29/21 09:52 0.1 MG Clopidogrel Bisulfate (Plavix) 75 mg DAILYWBKFT 08/28/21 08:00 08/29/21 09:52 75 MG Dextrose (Dextrose 50%-Water Syringe) 12.5 gm PRN Q15MIN PRN 08/26/21 15:00 Diclofenac Sodium (Voltaren) 1 terrell BID 08/27/21 21:00 08/29/21 09:54 1 TERRELL Diphenhydramine HCl (Benadryl) 25 mg PRN QHS PRN 08/26/21 15:00 08/26/21 20:56 25 MG Docusate Sodium (Colace) 100 mg PRN DAILY PRN 08/26/21 15:00 Heparin Sodium (Porcine) (Heparin Sodium) 5,000 unit Q12HR 08/26/21 21:00 08/29/21 09:54 5,000 UNIT Hydralazine HCl (Apresoline Inj) 10 mg 1X ONCE 08/29/21 11:15 08/29/21 11:16 Info (PHARMACY MONITORING -- do not chart) 1 each PRN DAILY PRN 08/28/21 12:30 Insulin Glargine (Lantus Syringe) 10 unit DAILY 08/28/21 09:00 08/29/21 09:55 10 UNIT Insulin Human Lispro (HumaLOG) 0-5 UNITS TIDWMEALS 08/26/21 17:00 08/28/21 17:07 2 UNITS Labetalol HCl (Normodyne Iv Push) 10 mg PRN Q15MIN ONCE 08/26/21 11:15 08/26/21 11:28 DC 08/26/21 16:17 10 MG Lidocaine (Lidoderm) 1 patch DAILY 08/28/21 09:00 08/29/21 09:52 1 PATCH Lorazepam (Ativan Inj) 0.25 mg PRN Q4HRS PRN 08/26/21 15:00 08/26/21 22:40 0.25 MG Lorazepam (Ativan) 0.5 mg PRN Q6HRS PRN 08/26/21 15:00 08/28/21 17:06 0.5 MG Methocarbamol (Robaxin) 750 mg PRN Q8HRS PRN 08/26/21 12:00 08/29/21 09:51 750 MG Methylprednisolone Acetate (DEPO-Medrol 80MG VIAL) 40 mg 1X ONCE 08/28/21 10:30 08/28/21 10:31 DC Miscellaneous (Lidoderm Patch Removal) 1 ea QHS 08/27/21 21:00 Morphine Sulfate (Morphine Sulfate) 4 mg 1X ONCE 08/26/21 07:15 08/26/21 07:16 DC 08/26/21 07:54 4 MG Non-Formulary Medication (Ferric Citrate ) 2 tab TIDWMEALS 08/27/21 17:00 08/28/21 07:15 DC Ondansetron HCl (Zofran) 4 mg PRN Q6HRS PRN 08/26/21 15:00 08/26/21 20:56 4 MG Pantoprazole Sodium (Protonix) 40 mg DAILYAC 08/27/21 07:30 08/29/21 09:53 40 MG Prochlorperazine Edisylate (Compazine) 10 mg PRN Q6HRS PRN 08/26/21 15:00 Sennosides (Senna) 17.2 mg PRN BID PRN 08/26/21 15:00 Sodium Chloride 1,000 ml @ 400 mls/hr Q2H30M PRN 08/26/21 12:00 08/26/21 23:59 DC Tramadol HCl (Ultram) 50 mg PRN TID PRN 08/27/21 13:00 08/29/21 09:53 50 MG Vitamin B Complex/ Vitamin C (Tameka-Kapil) 1 tab DAILY 08/28/21 09:00 08/29/21 09:53 1 TAB Zolpidem Tartrate (Ambien) 2.5 mg PRN QHS PRN 08/26/21 15:00 08/27/21 19:57 2.5 MG Lab Laboratory Tests Test 08/28/21 11:36 08/28/21 16:32 08/28/21 20:17 08/29/21 04:10 Glucose (Fingerstick) 128 mg/dL (70-99) 151 mg/dL (70-99) 132 mg/dL (70-99) White Blood Count 4.8 x10^3/uL (4.0-11.0) Red Blood Count 3.38 x10^6/uL (4.30-5.70) Hemoglobin 9.9 g/dL (13.0-17.5) Hematocrit 30.4 % (39.0-53.0) Mean Corpuscular Volume 90 fL (79-100) Mean Corpuscular Hemoglobin 29 pg (25-35) Mean Corpuscular Hemoglobin Concent 33 g/dL (31-37) Red Cell Distribution Width 15.9 % (11.5-14.5) Platelet Count 172 x10^3/uL (140-400) Neutrophils (%) (Auto) 74 % (31-73) Lymphocytes (%) (Auto) 12 % (24-48) Monocytes (%) (Auto) 8 % (0-9) Eosinophils (%) (Auto) 6 % (0-3) Basophils (%) (Auto) 1 % (0-3) Neutrophils # (Auto) 3.5 x10^3/uL (1.8-7.7) Lymphocytes # (Auto) 0.6 x10^3/uL (1.0-4.8) Monocytes # (Auto) 0.4 x10^3/uL (0.0-1.1) Eosinophils # (Auto) 0.3 x10^3/uL (0.0-0.7) Basophils # (Auto) 0.0 x10^3/uL (0.0-0.2) Sodium Level 141 mmol/L (136-145) Potassium Level 4.8 mmol/L (3.5-5.1) Chloride Level 100 mmol/L (98-107) Carbon Dioxide Level 31 mmol/L (21-32) Anion Gap 10 (6-14) Blood Urea Nitrogen 24 mg/dL (8-26) Creatinine 7.4 mg/dL (0.7-1.3) Estimated GFR (Cockcroft-Gault) 8.9 Glucose Level 115 mg/dL (70-99) Calcium Level 9.7 mg/dL (8.5-10.1) Magnesium Level 2.2 mg/dL (1.8-2.4) Test 08/29/21 07:38 Glucose (Fingerstick) 112 mg/dL (70-99) Results All relevant outside records, renal labs, imaging studies, telemetry/EKG's were reviewed. Justicifation of Admission Dx: Justifications for Admission: Justification of Admission Dx: N/A MARRY NATH MD Aug 29, 2021 11:12
[2021-08-29] MEDS ORDERED: hydrALAZINE 20 MG/ML VIAL. IVP ONE (11:15)
--- NOTE | 2021-08-29 11:41 | NUR ---
[facility] following. Discussed with RN, pt accepted at [facility], discharge orders faxed - awaiting transportation time. RN and family notified. [facility] will continue to follow. Addendum: 08/29/21 at 1256 by MELISSA BENITES [facility] arranged transport for [id number]. RN and family notified.
[2021-08-29 13:10] VITALS: BP 153/81
--- NOTE | 2021-08-29 15:01 | PDOC ---
PROGRESS NOTES Date of Service DATE: 08/29/21 TIME: 14:58 Subjective Subjective Right knee joint feels better. He apparently did not sleep well last night. Objective Objective Vital Signs Date Time Temp Pulse Resp B/P (MAP) Pulse Ox O2 Delivery O2 Flow Rate FiO2 08/29/21 13:10 82 153/81 (105) 08/29/21 11:00 99 Room Air 08/29/21 11:00 97.5 18 97.5 08/27/21 08:00 96.0 Intake and Output 08/29/21 07:00 Intake Total 300 ml Balance 300 ml Intake Oral 300 ml # Bowel Movements 1 Physical Exam Physical Exam He is alert,supine in bed with TLSO on higher up and chest piece touching his chin and I have adjusted his brace. I spoke to nursing and his at bedside. Assessment Assessment Problems Medical Problems: (1) ESRD (end stage renal disease) Status: Acute (2) Multiple falls Status: Acute (3) Thoracic compression fracture Status: Acute Plan Plan of Care Agree with plans for transfer to SNF when medically stable. Comment Review of Relevant I have reviewed the following items dariel (where applicable) has been applied. Labs Laboratory Tests Test 08/27/21 15:20 08/27/21 16:35 08/27/21 19:51 08/28/21 06:45 Coronavirus (COVID-19)(PCR) Not detected (NOT DETECTD) Glucose (Fingerstick) 78 mg/dL (70-99) 172 mg/dL (70-99) White Blood Count 3.8 x10^3/uL (4.0-11.0) Red Blood Count 3.04 x10^6/uL (4.30-5.70) Hemoglobin 9.0 g/dL (13.0-17.5) Hematocrit 27.5 % (39.0-53.0) Mean Corpuscular Volume 90 fL (79-100) Mean Corpuscular Hemoglobin 30 pg (25-35) Mean Corpuscular Hemoglobin Concent 33 g/dL (31-37) Red Cell Distribution Width 16.0 % (11.5-14.5) Platelet Count 149 x10^3/uL (140-400) Neutrophils (%) (Auto) 58 % (31-73) Lymphocytes (%) (Auto) 24 % (24-48) Monocytes (%) (Auto) 9 % (0-9) Eosinophils (%) (Auto) 9 % (0-3) Basophils (%) (Auto) 1 % (0-3) Neutrophils # (Auto) 2.2 x10^3/uL (1.8-7.7) Lymphocytes # (Auto) 0.9 x10^3/uL (1.0-4.8) Monocytes # (Auto) 0.3 x10^3/uL (0.0-1.1) Eosinophils # (Auto) 0.3 x10^3/uL (0.0-0.7) Basophils # (Auto) 0.0 x10^3/uL (0.0-0.2) Sodium Level 142 mmol/L (136-145) Potassium Level 4.4 mmol/L (3.5-5.1) Chloride Level 101 mmol/L (98-107) Carbon Dioxide Level 28 mmol/L (21-32) Anion Gap 13 (6-14) Blood Urea Nitrogen 35 mg/dL (8-26) Creatinine 10.2 mg/dL (0.7-1.3) Estimated GFR (Cockcroft-Gault) 6.1 Glucose Level 90 mg/dL (70-99) Calcium Level 9.0 mg/dL (8.5-10.1) Magnesium Level 2.3 mg/dL (1.8-2.4) Test 08/28/21 07:57 08/28/21 11:36 08/28/21 16:32 08/28/21 20:17 Glucose (Fingerstick) 98 mg/dL (70-99) 128 mg/dL (70-99) 151 mg/dL (70-99) 132 mg/dL (70-99) Test 08/29/21 04:10 08/29/21 07:38 08/29/21 11:20 White Blood Count 4.8 x10^3/uL (4.0-11.0) Red Blood Count 3.38 x10^6/uL (4.30-5.70) Hemoglobin 9.9 g/dL (13.0-17.5) Hematocrit 30.4 % (39.0-53.0) Mean Corpuscular Volume 90 fL (79-100) Mean Corpuscular Hemoglobin 29 pg (25-35) Mean Corpuscular Hemoglobin Concent 33 g/dL (31-37) Red Cell Distribution Width 15.9 % (11.5-14.5) Platelet Count 172 x10^3/uL (140-400) Neutrophils (%) (Auto) 74 % (31-73) Lymphocytes (%) (Auto) 12 % (24-48) Monocytes (%) (Auto) 8 % (0-9) Eosinophils (%) (Auto) 6 % (0-3) Basophils (%) (Auto) 1 % (0-3) Neutrophils # (Auto) 3.5 x10^3/uL (1.8-7.7) Lymphocytes # (Auto) 0.6 x10^3/uL (1.0-4.8) Monocytes # (Auto) 0.4 x10^3/uL (0.0-1.1) Eosinophils # (Auto) 0.3 x10^3/uL (0.0-0.7) Basophils # (Auto) 0.0 x10^3/uL (0.0-0.2) Sodium Level 141 mmol/L (136-145) Potassium Level 4.8 mmol/L (3.5-5.1) Chloride Level 100 mmol/L (98-107) Carbon Dioxide Level 31 mmol/L (21-32) Anion Gap 10 (6-14) Blood Urea Nitrogen 24 mg/dL (8-26) Creatinine 7.4 mg/dL (0.7-1.3) Estimated GFR (Cockcroft-Gault) 8.9 Glucose Level 115 mg/dL (70-99) Calcium Level 9.7 mg/dL (8.5-10.1) Magnesium Level 2.2 mg/dL (1.8-2.4) Glucose (Fingerstick) 112 mg/dL (70-99) 135 mg/dL (70-99) Laboratory Tests Test 08/28/21 16:32 08/28/21 20:17 08/29/21 04:10 08/29/21 07:38 Glucose (Fingerstick) 151 mg/dL (70-99) 132 mg/dL (70-99) 112 mg/dL (70-99) White Blood Count 4.8 x10^3/uL (4.0-11.0) Red Blood Count 3.38 x10^6/uL (4.30-5.70) Hemoglobin 9.9 g/dL (13.0-17.5) Hematocrit 30.4 % (39.0-53.0) Mean Corpuscular Volume 90 fL (79-100) Mean Corpuscular Hemoglobin 29 pg (25-35) Mean Corpuscular Hemoglobin Concent 33 g/dL (31-37) Red Cell Distribution Width 15.9 % (11.5-14.5) Platelet Count 172 x10^3/uL (140-400) Neutrophils (%) (Auto) 74 % (31-73) Lymphocytes (%) (Auto) 12 % (24-48) Monocytes (%) (Auto) 8 % (0-9) Eosinophils (%) (Auto) 6 % (0-3) Basophils (%) (Auto) 1 % (0-3) Neutrophils # (Auto) 3.5 x10^3/uL (1.8-7.7) Lymphocytes # (Auto) 0.6 x10^3/uL (1.0-4.8) Monocytes # (Auto) 0.4 x10^3/uL (0.0-1.1) Eosinophils # (Auto) 0.3 x10^3/uL (0.0-0.7) Basophils # (Auto) 0.0 x10^3/uL (0.0-0.2) Sodium Level 141 mmol/L (136-145) Potassium Level 4.8 mmol/L (3.5-5.1) Chloride Level 100 mmol/L (98-107) Carbon Dioxide Level 31 mmol/L (21-32) Anion Gap 10 (6-14) Blood Urea Nitrogen 24 mg/dL (8-26) Creatinine 7.4 mg/dL (0.7-1.3) Estimated GFR (Cockcroft-Gault) 8.9 Glucose Level 115 mg/dL (70-99) Calcium Level 9.7 mg/dL (8.5-10.1) Magnesium Level 2.2 mg/dL (1.8-2.4) Test 08/29/21 11:20 Glucose (Fingerstick) 135 mg/dL (70-99) Medications Current Medications Morphine Sulfate (Morphine Sulfate) 4 mg 1X ONCE IVP Last administered on 08/26/21at 07:54; Start 08/26/21 at 07:15; Stop 08/26/21 at 07:16; Status DC Amlodipine Besylate (Norvasc) 10 mg DAILY PO Last administered on 08/29/21at 09:53; Start 08/27/21 at 09:00 Clonidine HCl (Catapres) 0.1 mg DAILY PO Last administered on 08/29/21at 09:52; Start 08/26/21 at 12:00 Labetalol HCl (Normodyne Iv Push) 10 mg PRN Q2HRS PRN IVP ELEVATED BP, SEE COMMENTS; Start 08/26/21 at 11:15 Labetalol HCl (Normodyne Iv Push) 10 mg PRN Q15MIN ONCE IVP Last administered on 08/26/21at 16:17; Start 08/26/21 at 11:15; Stop 08/26/21 at 11:28; Status DC Acetaminophen/ Hydrocodone Bitart (Lortab 5/325) 1 tab PRN Q6HRS PRN PO MODERATE TO SEVERE PAIN Last administered on 08/27/21at 19:57; Start 08/26/21 at 12:00 Methocarbamol (Robaxin) 750 mg PRN Q8HRS PRN PO MUSCLE SPASMS Last administered on 08/29/21at 09:51; Start 08/26/21 at 12:00 Sodium Chloride 1,000 ml @ 1,000 mls/hr Q1H PRN IV hypotension; Start 08/26/21 at 12:00; Stop 08/26/21 at 17:59; Status DC Sodium Chloride 1,000 ml @ 400 mls/hr Q2H30M PRN IV PATENCY; Start 08/26/21 at 12:00; Stop 08/26/21 at 23:59; Status DC Info (PHARMACY MONITORING -- do not chart) 1 each PRN DAILY PRN MC SEE COMMENTS; Start 08/26/21 at 12:00; Status Cancel Sennosides (Senna) 17.2 mg PRN BID PRN PO CONSTIPATION; Start 08/26/21 at 15:00 Docusate Sodium (Colace) 100 mg PRN DAILY PRN PO HARD STOOLS; Start 08/26/21 at 15:00 Ondansetron HCl (Zofran) 4 mg PRN Q6HRS PRN IVP NAUSEA/VOMITING, 1st CHOICE Last administered on 08/26/21at 20:56; Start 08/26/21 at 15:00 Insulin Human Lispro (HumaLOG) 0-5 UNITS TIDWMEALS SQ Last administered on 08/28/21at 17:07; Start 08/26/21 at 17:00 Dextrose (Dextrose 50%-Water Syringe) 12.5 gm PRN Q15MIN PRN IV SEE COMMENTS; Start 08/26/21 at 15:00 Acetaminophen (Tylenol) 650 mg PRN Q4HRS PRN PO TEMP OVER 100.4F OR MILD PAIN; Start 08/26/21 at 15:00 Lorazepam (Ativan) 0.5 mg PRN Q6HRS PRN PO ANXIETY / AGITATION Last administ ered on 08/28/21at 17:06; Start 08/26/21 at 15:00 Lorazepam (Ativan Inj) 0.25 mg PRN Q4HRS PRN IV ANXIETY / AGITATION Last admin istered on 08/26/21 22:40; Start 08/26/21 at 15:00 Heparin Sodium (Porcine) (Heparin Sodium) 5,000 unit Q12HR SQ Last administered on 08/29/21 09:54; Start 08/26/21 at 21:00 Pantoprazole Sodium (Protonix) 40 mg DAILYAC PO Last administered on 08/29/21 09:53; Start 08/27/21 at 07:30 Prochlorperazine Edisylate (Compazine) 10 mg PRN Q6HRS PRN IV NAUSEA/VOMITING, 2nd CHOICE; Start 08/26/21 at 15:00 Diphenhydramine HCl (Benadryl) 25 mg PRN Q6HRS PRN IVP ITCHING; Start 08/26/21 at 15:00 Diphenhydramine HCl (Benadryl) 25 mg PRN Q6HRS PRN PO ITCHING; Start 08/26/21 at 15:00 Diphenhydramine HCl (Benadryl) 25 mg PRN QHS PRN PO INSOMNIA, 1st CHOICE Last administered on 08/26/21at 20:56; Start 08/26/21 at 15:00 Zolpidem Tartrate (Ambien) 2.5 mg PRN QHS PRN PO INSOMNIA, 2nd CHOICE Last administered on 08/27/21at 19:57; Start 08/26/21 at 15:00 Lidocaine (Lidoderm) 1 patch DAILY TD Last administered on 08/29/21 09:52; Start 08/28/21 at 09:00 Miscellaneous (Lidoderm Patch Removal) 1 ea QHS MC ; Start 08/27/21 at 21:00 Diclofenac Sodium (Voltaren) 1 terrell BID TP Last administered on 08/29/21 09:54; Start 08/27/21 at 21:00 Alprazolam (Xanax) 0.5 mg PRN TID PRN PO ANXIETY / AGITATION Last administered on 08/29/21at 09:52; Start 08/27/21 at 13:00 Amlodipine Besylate (Norvasc) 10 mg DAILY PO ; Start 08/28/21 at 09:00; Stop 08/28/21 at 14:20; Status DC Clopidogrel Bisulfate (Plavix) 75 mg DAILYWBKFT PO Last administered on 08/29/21 09:52; Start 08/28/21 at 08:00 Vitamin B Complex/ Vitamin C (Tameka-Kapil) 1 tab DAILY PO Last administered on 08/29/21at 09:53; Start 08/28/21 at 09:00 Tramadol HCl (Ultram) 50 mg PRN TID PRN PO MILD PAIN 1-3 (2ND CHOICE) Last administered on 08/29/21at 09:53; Start 08/27/21 at 13:00 Non-Formulary Medication (Ferric Citrate ) 2 tab TIDWMEALS PO ; Start 08/27/21 at 17:00; Stop 08/28/21 at 07:15; Status DC Insulin Glargine (Lantus Syringe) 10 unit DAILY SQ Last administered on 08/29/21at 09:55; Start 08/28/21 at 09:00 Methylprednisolone Acetate (DEPO-Medrol 80MG VIAL) 40 mg 1X ONCE IM ; Start at 10:30; Stop 08/28/21 at 10:31; Status DC Bupivacaine HCl (Sensorcaine-Mpf 0.25%) 10 ml 1X ONCE IJ ; Start 08/28/21 at 10:15; Stop 08/28/21 at 10:19; Status DC Info (PHARMACY MONITORING -- do not chart) 1 each PRN DAILY PRN MC SEE COMMENTS; Start 08/28/21 at 12:30 Hydralazine HCl (Apresoline Inj) 10 mg 1X ONCE IVP ; Start 08/29/21 at 11:15; Stop 08/29/21 at 11:16; Status DC Active Scripts Active Pantoprazole Sodium (Pantoprazole Sodium) 40 Mg Tablet.dr 40 Mg PO DAILYAC 30 Days Methocarbamol 750 Mg Tablet 750 Mg PO PRN Q8HRS PRN 30 Days Tramadol Hcl 50 Mg Tablet 50 Mg PO PRN TID PRN 3 Days Clopidogrel (Clopidogrel Bisulfate) 75 Mg Tablet 75 Mg PO DAILYWBKFT MDD 75 mg 90 Days Reported Velphoro (Sucroferric Oxyhydroxide) 500 Mg Tab.chew 2 Tab PO TID 30 Days Alprazolam 0.5 Mg Tablet 1 Tab PO PRN TID PRN Amlodipine Besylate 10 Mg Tablet 10 Mg PO DAILY Clonidine Hcl 0.1 Mg Tablet 0.1 Mg PO DAILY Dialyvite 800 Tablet (Folic Acid/Vitamin B Comp W-C) 0.8 Mg Tablet 1 Tab PO DAILY 30 Days Ferric Citrate 210 Mg Tablet 2 Tab PO TIDWMEALS 30 Days Aspirin 325 Mg Tablet 1 Tab PO DAILY Lantus Solostar (Insulin Glargine,Hum.rec.anlog) 100 Unit/1 Ml Insuln.pen 10 Unit SQ DAILY 8-10 units daily Vitals/I & O Vital Sign - Last 24 Hours 08/28/21 08/28/21 08/28/21 08/28/21 17:06 18:00 19:00 20:00 Temp 97.6 97.6 Pulse 95 Resp 18 B/P (MAP) 136/78 (97) Pulse Ox 96 96 99 O2 Delivery Room Air Room Air Room Air Room Air 08/28/21 08/29/21 08/29/21 08/29/21 23:00 03:00 07:00 08:00 Temp 98.2 98.1 98.2 98.2 98.1 98.2 Pulse 105 88 92 Resp 18 20 16 B/P (MAP) 146/82 (103) 176/89 (118) 196/88 (124) Pulse Ox 99 99 93 O2 Delivery Room Air Room Air Room Air Room Air 08/29/21 08/29/21 08/29/21 08/29/21 09:52 09:53 09:53 11:00 Temp 97.5 97.5 Pulse 92 92 86 Resp 18 B/P (MAP) 196/88 196/88 177/86 (116) Pulse Ox 93 99 O2 Delivery Room Air Room Air 08/29/21 08/29/21 11:00 13:10 Pulse 82 B/P (MAP) 153/81 (105) Pulse Ox 99 O2 Delivery Room Air Intake and Output 08/28/21 08/28/21 08/29/21 15:00 23:00 07:00 Intake Total 300 ml Balance 300 ml Justifications for Admission Other Justification Thoracic Fx LAUREN NAPOLES MD Aug 29, 2021 15:01
--- NOTE | 2021-08-29 15:20 | NUR ---
Patient discharged and belongings with patient and . Escorted out by [employer] transportation in wheelchair with braces. Telemonitor discontinued by this RN.
== END 2021-08-29 15:20 | DRG 542 ==
LOC: ER 05:04 → ED HOLD 09:53 → 5 SOUTH 14:31
PROVIDERS: ADMIT Internal Medicine; ATTEND Internal Medicine
PROC: 5A1D70Z Performance of Urinary Filtration, Intermittent, Less than 6 Hours Per Day (ICD-10-PCS; principal; 2021-08-26)
PROC: 5A1D70Z Performance of Urinary Filtration, Intermittent, Less than 6 Hours Per Day (ICD-10-PCS; 2021-08-28)
PROC: 3E0U33Z Introduction of Anti-inflammatory into Joints, Percutaneous Approach (ICD-10-PCS; 2021-08-28)
PROC: 3E0U3BZ Introduction of Anesthetic Agent into Joints, Percutaneous Approach (ICD-10-PCS; 2021-08-28)
DX: M48.54XA Collapsed vertebra, not elsewhere classified, thoracic region, initial encounter for fracture (principal); N18.6 End stage renal disease; I69.354 Hemiplegia and hemiparesis following cerebral infarction affecting left non-dominant side; I12.0 Hypertensive chronic kidney disease with stage 5 chronic kidney disease or end stage renal disease; I16.0 Hypertensive urgency; E11.22 Type 2 diabetes mellitus with diabetic chronic kidney disease; E11.42 Type 2 diabetes mellitus with diabetic polyneuropathy; E11.51 Type 2 diabetes mellitus with diabetic peripheral angiopathy without gangrene; Z20.822 Contact with and (suspected) exposure to COVID-19; E78.5 Hyperlipidemia, unspecified; I25.10 Atherosclerotic heart disease of native coronary artery without angina pectoris; M19.012 Primary osteoarthritis, left shoulder; M25.78 Osteophyte, vertebrae; Z96.659 Presence of unspecified artificial knee joint; D63.1 Anemia in chronic kidney disease; W10.9XXA Fall (on) (from) unspecified stairs and steps, initial encounter; I49.3 Ventricular premature depolarization; R79.89 Other specified abnormal findings of blood chemistry; E21.3 Hyperparathyroidism, unspecified; M25.461 Effusion, right knee; Z82.49 Family history of ischemic heart disease and other diseases of the circulatory system; Z83.3 Family history of diabetes mellitus; Z87.891 Personal history of nicotine dependence; Z99.2 Dependence on renal dialysis; Z90.49 Acquired absence of other specified parts of digestive tract; Y93.89 Activity, other specified; Y92.89 Other specified places as the place of occurrence of the external cause; Y99.8 Other external cause status
CPT/HCPCS: 36415; 70450; 71045; 72125; 72146; 73562; 74176; 80048; 80053; 82962; 83735; 84100; 84484; 85025; 85610; 85730; 87340; 93005; 96374; J1644; J1815; J2060; J2270; J2405; J3490; U0003; 97116-GP; 97530-GO; 97530-GP; 99285-25; G0378; Q0163

== ENCOUNTER 2021-10-31 18:02 | Inpatient (IN) | payer MEDICARE ==
[~2021-10-31] VITALS: Ht 190.5 cm; Wt 75.6 kg
[~2021-10-31 18:02] MED LIST changes: +METH-562 PO; +PANT40TA77 PO
--- NOTE | 2021-10-31 18:44 | PHYS DOC ---
Past Medical History Past Medical History: Diabetes-Type II, Hypertension, DC, Renal Failure, Stroke Additional Past Medical Histor: Dialysis Past Surgical History: Cholecystectomy, Other Additional Past Surgical Histo: STENTX1, LLE VEIN GRAFT, R UPPER ARM AV FISTULA Smoking Status: Former Smoker Alcohol Use: None Drug Use: None General Adult EDM: Chief Complaint: WEAKNESS/GENERALIZED HPI: HPI: Patient is a 71 year old male with a history of previous stroke chronic back pain and cardiac disease comes in with dyspnea exertion failure to thrive multiple falls. sent the patient into the ER as she is unable to take care of him any longer by herself. Patient denies any suicidal homicidal ideation. Denies any fevers or chills. Denies any new focal weakness. Review of Systems: Review of Systems: Constitutional: Extreme fatigue denies fever or chills. [] Eyes: Denies change in visual acuity. [] HENT: Denies nasal congestion or sore throat. [] Respiratory: Denies cough or shortness of breath. [] Cardiovascular: Dyspnea on exertion denies chest pain or edema. [] GI: Denies abdominal pain, nausea, vomiting, bloody stools or diarrhea. [] : Decreased appetite denies dysuria. [] Musculoskeletal: Chronic back pain Integument: Denies rash. [] Neurologic: Multiple falls gait instability denies headache, focal weakness or sensory changes. [] Endocrine: Denies polyuria or polydipsia. [] Lymphatic: Denies swollen glands. [] Psychiatric: Denies depression or anxiety. [] Heart Score: C/O Chest Pain: No Risk Factors: Risk Factors: DM, Current or recent (<one month) smoker, HTN, HLP, family history of CAD, obesity. Risk Scores: Score 0 - 3: 2.5% MACE over next 6 weeks - Discharge Home Score 4 - 6: 20.3% MACE over next 6 weeks - Admit for Clinical Observation Score 7 - 10: 72.7% MACE over next 6 weeks - Early Invasive Strategies Allergies: Allergies: Allergies Coded Allergies Type Severity Reaction Last Updated Verified No Known Drug Allergies 08/27/20 No Physical Exam: PE: Constitutional: Well developed, no acute distress, non-toxic appearance. [] Frail-appearing HENT: Normocephalic, atraumatic, bilateral external ears normal, oropharynx moist, no oral exudates, nose normal. [] Eyes: PERRLA, EOMI, conjunctiva normal, no discharge. [] Neck: Normal range of motion, no tenderness, supple, no stridor. [] Cardiovascular:Heart rate regular rhythm, no murmur [] Lungs & Thorax: Bilateral breath sounds clear to auscultation [] Abdomen: Bowel sounds normal, soft, no tenderness, no masses, no pulsatile masses. [] Skin: Warm, dry, no erythema, no rash. [] Back: Patient has a back brace no tenderness, no CVA tenderness. [] Extremities: No tenderness, no cyanosis, no clubbing, ROM intact, no edema. [] Neurologic: Patient has old residual left-sided weakness. Patient has a brace for left foot drop as well has a glove over his left hand. Alert and oriented X 3, Psychologic: Affect normal, judgement normal, mood normal. [] Current Patient Data: Labs: Laboratory Tests Test 10/31/21 18:20 White Blood Count 4.3 x10^3/uL Red Blood Count 4.44 x10^6/uL Hemoglobin 13.1 g/dL Hematocrit 39.8 % Mean Corpuscular Volume 90 fL Mean Corpuscular Hemoglobin 30 pg Mean Corpuscular Hemoglobin Concent 33 g/dL Red Cell Distribution Width 16.2 % Platelet Count 181 x10^3/uL Neutrophils (%) (Auto) 60 % Lymphocytes (%) (Auto) 21 % Monocytes (%) (Auto) 13 % Eosinophils (%) (Auto) 7 % Basophils (%) (Auto) 0 % Neutrophils # (Auto) 2.6 x10^3/uL Lymphocytes # (Auto) 0.9 x10^3/uL Monocytes # (Auto) 0.6 x10^3/uL Eosinophils # (Auto) 0.3 x10^3/uL Basophils # (Auto) 0.0 x10^3/uL Prothrombin Time 13.3 SEC Prothromb Time International Ratio 1.0 Sodium Level 139 mmol/L Potassium Level 4.5 mmol/L Chloride Level 101 mmol/L Carbon Dioxide Level 28 mmol/L Anion Gap 10 Blood Urea Nitrogen 32 mg/dL Creatinine 9.9 mg/dL Estimated GFR (Cockcroft-Gault) 6.4 BUN/Creatinine Ratio 3 Glucose Level 85 mg/dL Calcium Level 9.7 mg/dL Total Bilirubin 0.5 mg/dL Aspartate Amino Transf (AST/SGOT) 12 U/L Alanine Aminotransferase (ALT/SGPT) 16 U/L Alkaline Phosphatase 66 U/L Ammonia < 10 mcmol/L Troponin I High Sensitivity 66 ng/L ZN-Ory-N-Type Natriuretic Peptide > 33536 pg/mL Total Protein 6.6 g/dL Albumin 3.3 g/dL Albumin/Globulin Ratio 1.0 Current Medications Medications (Trade) Dose Ordered Sig/Neeraj Route PRN Reason Start Time Stop Time Status Last Admin Dose Admin Morphine Sulfate (Morphine Sulfate) 4 mg 1X ONCE IVP 10/31/21 19:30 10/31/21 19:31 DC 10/31/21 19:22 Vital Signs: Vital Signs Date Time Temp Pulse Resp B/P (MAP) Pulse Ox O2 Delivery O2 Flow Rate FiO2 10/31/21 18:05 98.8 94 16 170/101 (124) 96 Room Air 98.8 EKG: EKG: [] Radiology/Procedures: Radiology/Procedures: [] EXAMINATION: Chest radiograph. VIEWS: Single AP view of the chest COMPARISON: Chest radiograph from 08/26/2021 INDICATION:71 years, Male, generalized weakness. FINDINGS: Stable cardiomediastinal silhouette. Similar bilateral increased interstitial markings and bibasilar opacities favoring scarring and/or chronic interstitial changes. No focal consolidation. No pleural effusion or pneumothorax. No acute osseous process. External thoracic brace is noted overlying the mediastinum. Healed left-sided rib deformities are redemonstrated. IMPRESSION: No acute cardiopulmonary process. CT Head W/O Contrast: History: Reason: ams / Spl. Instructions: / History: Comparison: August 26, 2021 Axial images were obtained without contrast. There is moderate diffuse atrophy. There is no mass effect, extraaxial fluid collections or hydrocephalus. There is no gross bleed. Mild, patchy periventricular and subcortical white matter hypoattenuation is seen. There is no focal loss of otero-white matter distinction to suggest acute ischemia, i.e. stroke. Impression: No acute findings. PQRS Compliance Statement: One or more of the following individualized dose reduction techniques were utilized for this examination: 1. Automated exposure control 2. Adjustment of the mA and/or kV according to patient size 3. Use of iterative reconstruction technique Course & Med Decision Making: Course & Med Decision Making Pertinent Labs and Imaging studies reviewed. (See chart for details) [] Patient has been having frequent falls and states that she is unable to take care of him. Patient unable to carry out daily ADLs by himself and states that he would like to be placed in rehab. Nadeem Disclaimer: Nadeem Disclaimer: This electronic medical record was generated, in whole or in part, using a voice recognition dictation system. Departure Departure Impression: Primary Impression: Failure to thrive Additional Impression: Ambulatory dysfunction Disposition: ADMITTED INPATIENT Condition: STABLE Referrals: ANGELA RM MD (PCP) REANNA NEGRO DO Oct 31, 2021 18:44
--- NOTE | 2021-10-31 19:03 | RAD ---
EXAMINATION: Chest radiograph. VIEWS: Single AP view of the chest COMPARISON: Chest radiograph from 08/26/2021 INDICATION:71 years, Male, generalized weakness. FINDINGS: Stable cardiomediastinal silhouette. Similar bilateral increased interstitial markings and bibasilar opacities favoring scarring and/or chronic interstitial changes. No focal consolidation. No pleural e ffusion or pneumothorax. No acute osseous process. External thoracic brace is noted overlying the med iastinum. Healed left-sided rib deformities are redemonstrated. IMPRESSION: No acute cardiopulmonary process. Electronically signed by: Mando Hughes DO (10/31/2021 7:00 PM) [facility]
--- NOTE | 2021-10-31 19:04 | RAD ---
CT Head W/O Contrast: History: Reason: ams / Spl. Instructions: / History: Comparison: August 26, 2021 Axial images were obtained without contrast. There is moderate diffuse atrophy. There is no mass effect, extraaxial fluid collections or hydrocep halus. There is no gross bleed. Mild, patchy periventricular and subcortical white matter hypoatten uation is seen. There is no focal loss of otero-white matter distinction to suggest acute ischemia, i .e. stroke. Impression: No acute findings. RS Compliance Statement: One or more of the following individualized dose reduction techniques were utilized for this examinat ion: 1. Automated exposure control 2. Adjustment of the mA and/or kV according to patient size 3. Use of iterative reconstruction technique Electronically signed by: Herve Santillan III, MD (10/31/2021 7:02 PM) [facility]
[2021-10-31] MEDS ORDERED: MORPHINE SULFATE 4 MG/ML INJ. IVP ONE (19:30)
[2021-10-31 19:31] LABS: BASO % 0 % (0-3); EOS # 0.3 x10^3/uL (0.0-0.7); EOS % 7 % (0-3); HEMATOCRIT 39.8 % (39.0-53.0); HEMOGLOBIN 13.1 g/dL (13.0-17.5); LYMPH # 0.9 x10^3/uL (1.0-4.8); LYMPH % 21 % (24-48); MEAN CORPUSCULAR HEMOGLOBIN 30 pg (25-35); MEAN CORPUSCULAR HGB CONC 33 g/dL (31-37); MEAN CORPUSCULAR VOLUME 90 fL (79-100); MONO # 0.6 x10^3/uL (0.0-1.1); MONO % 13 % (0-9); NEUT # 2.6 x10^3/uL (1.8-7.7); NEUT % 60 % (31-73); PLATELET COUNT 181 x10^3/uL (140-400); RED BLOOD COUNT 4.44 x10^6/uL (4.30-5.70); RED CELL DISTRIBUTION WIDTH 16.2 % (11.5-14.5); WHITE BLOOD COUNT 4.3 x10^3/uL (4.0-11.0)
[2021-10-31 19:35] LABS: PROTHROMBIN TIME PATIENT 13.3 SEC (11.7-14.0)
[2021-10-31 20:12] LABS: CALCIUM 9.7 mg/dL (8.5-10.1); CREATININE 9.9 mg/dL (0.7-1.3); GFR 6.4; POTASSIUM 4.5 mmol/L (3.5-5.1)
--- NOTE | 2021-10-31 20:16 | EKG ---
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
[2021-10-31 20:17] LABS: ALBUMIN 3.3 g/dL (3.4-5.0); TOTAL BILIRUBIN 0.5 mg/dL (0.2-1.0); TOTAL PROTEIN 6.6 g/dL (6.4-8.2)
[2021-11-01] VITALS (7 sets, daily range): BP systolic 174–205; BP diastolic 63–93
[2021-11-01] MEDS ORDERED: MORPHINE SULFATE 2 MG/ML INJ. IVP ONE (00:45)
[2021-11-01] MEDS ORDERED: ACETAMINOPHEN 325 MG TABLET. PO PRN (03:15)
[2021-11-01] MEDS ORDERED: ONDANSETRON PF 4 MG/2 ML VIAL. IVP PRN (03:15)
[2021-11-01] MEDS: hydrALAZINE 20 MG/ML VIAL. IVP PRN (03:52)
[2021-11-01] MEDS: cloNIDine HCL 0.1 MG TABLET PO SCH ×3 (06:16→23:41)
--- NOTE | 2021-11-01 07:07 | PDOC1 ---
History and Physical Date of Admission Date of Admission DATE: 11/01/21 TIME: 06:54 Identification/Chief Complaint Chief Complaint Progressive weakness, falls Source Source: Patient History of Present Illness History of Present Illness Mr. Michelle is a 71-year-old male with past medical history of ESRD on HD, DM 2, HTN, CAD with prior [place], remote brainstem CVA 2006, PAD status post left lower extremity bypass and stenting who comes to the ED via EMS from home for progressive weakness, frequent falls, progressive dyspnea on exertion and his notes she is unable to care for him at home currently. He has a cane at me to been previously advised his walker. Despite this he still had falls at home he notes he is very dyspneic. 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 He has been hospitalized for symptomatic anemia fall with lumbar fracture within the last year. Normally he uses a cane in his right hand even using his cane he could not stand up and notes he had some right arm weakness which is new to him. CT head interpretation diffuse atrophy no acute radiographic findings. EKG sinus rhythm rate 94 bpm some PACs no T WI no ST segment elevations or depressions. Labs with WBC 4.3, Hb 13.1, platelets 181, INR 1, NA 139, K4.5, BUN 32, CR 9.9, glucose 85, calcium 9.7, bilirubin 0.5, AST 12, ALT 16, alkaline phosphatase 66, ammonia less than 10, NT proBNP greater than 35,000, high-sensitivity troponin is 66, albumin 3.3 Past Medical History Cardiovascular: CAD, HTN, [place], Hyperlipidemia, Other CENTRAL NERVOUS SYSTEM: CVA Heme/Onc: Anemia NOS Musculoskeletal: Osteoarthritis Renal/: Chronic renal failure Endocrine: Diabetes, Hyperparathyroidism Past Surgical History Past Surgical History: Cholecystectomy, Total knee replacement, Other Family History Family History: Diabetes, Hypertension Social History Smoke: No ALCOHOL: none Drugs: None Current Problem List Problem List Problems Medical Problems: (1) Ambulatory dysfunction Status: Acute (2) Failure to thrive Status: Acute Current Medications Current Medications Current Medications Morphine Sulfate (Morphine Sulfate) 4 mg 1X ONCE IVP Last administered on 10/31/21at 19:22; Start 10/31/21 at 19:30; Stop 10/31/21 at 19:31; Status DC Morphine Sulfate (Morphine Sulfate) 2 mg 1X ONCE IVP Last administered on 11/01/21at 00:45; Start 11/01/21 at 00:45; Stop 11/01/21 at 00:46; Status DC Fentanyl Citrate (Fentanyl 2ml Vial) 25 mcg PRN Q3HRS PRN IVP SEVERE PAIN 7-10; Start 11/01/21 at 03:15 Acetaminophen (Tylenol) 650 mg PRN Q6HRS PRN PO MILD PAIN / TEMP > 100.3'F; Start 11/01/21 at 03:15 Ondansetron HCl (Zofran) 4 mg PRN Q4HRS PRN IVP NAUSEA/VOMITING; Start 11/01/21 at 03:15 Hydralazine HCl (Apresoline Inj) 10 mg PRN Q4HRS PRN IVP ELEVATED BP, SEE COMMENTS Last administered on 11/01/21at 03:52; Start 11/01/21 at 03:15 Amlodipine Besylate (Norvasc) 10 mg DAILY PO Last administered on 11/01/21at 03:52; Start 11/01/21 at 03:15 Clonidine HCl (Catapres) 0.1 mg Q8HRS PO Last administered on 11/01/21at 06:16; Start 11/01/21 at 06:00 Active Scripts Active Pantoprazole Sodium (Pantoprazole Sodium) 40 Mg Tablet.dr 40 Mg PO DAILYAC 30 Days Methocarbamol 750 Mg Tablet 750 Mg PO PRN Q8HRS PRN 30 Days Tramadol Hcl 50 Mg Tablet 50 Mg PO PRN TID PRN 3 Days Clopidogrel (Clopidogrel Bisulfate) 75 Mg Tablet 75 Mg PO DAILYWBKFT MDD 75 mg 90 Days Reported Velphoro (Sucroferric Oxyhydroxide) 500 Mg Tab.chew 2 Tab PO TID 30 Days Alprazolam 0.5 Mg Tablet 1 Tab PO PRN TID PRN Amlodipine Besylate 10 Mg Tablet 10 Mg PO DAILY Clonidine Hcl 0.1 Mg Tablet 0.1 Mg PO DAILY Dialyvite 800 Tablet (Folic Acid/Vitamin B Comp W-C) 0.8 Mg Tablet 1 Tab PO DAILY 30 Days Ferric Citrate 210 Mg Tablet 2 Tab PO TIDWMEALS 30 Days Aspirin 325 Mg Tablet 1 Tab PO DAILY Lantus Solostar (Insulin Glargine,Hum.rec.anlog) 100 Unit/1 Ml Insuln.pen 10 Unit SQ DAILY 8-10 units daily Allergies Allergies: Coded Allergies: No Known Drug Allergies (Unverified , 08/27/20) ROS General: YES: Fatigue, Malaise; No: Chills, Night Sweats, Appetite, Other PSYCHOLOGICAL ROS: No: Anxiety, Behavioral Disorder, Concentration difficultie, Decreased libido, Depression, Disorientation, Hallucinations, Hostility, Irritablity, Memory difficulties, Mood Swings, Obsessive thoughts, Physical abuse, Sexual abuse, Sleep disturbances, Suicidal ideation, Other Eyes: No Blurry vision, No Decreased vision, No Double vision, No Dry eyes, No Excessive tearing, No Eye Pain, No Itchy Eyes, No Loss of vision, No Photophobia, No Scotomata, No Uses contacts, No Uses glasses, No Other HEENT: No: Heacaches, Visual Changes, Hearing change, Nasal congestion, Nasal discharge, Oral lesions, Sinus pain, Sore Throat, Epistaxis, Sneezing, Snoring, Tinnitus, Vertigo, Vocal changes, Other ALLERGY AND IMMUNOLOGY: No: Hives, Insect Bite Sensitivity, Itchy/Watery Eyes, Nasal Congestion, Post Nasal Drip, Seasonal Allergies, Other Hematological and Lymphatic: No: Bleeding Problems, Blood Clots, Blood Transfusions, Brusing, Night Sweats, Pallor, Swollen Lymph Nodes, Other ENDOCRINE: No: Breast Changes, Galactorrhea, Hair Pattern Changes, Hot Flashes, Malaise/lethargy, Mood Swings, Palpitations, Polydipsia/polyuria, Skin Changes, Temperature Intolerance, Unexpected Weight Changes, Other Breast: No New/Changing Breast Lumps, No Nipple changes, No Nipple discharge, No Other Respiratory: No: Cough, Hemoptysis, Orthopnea, Pleuritic Pain, Shortness of breath, SOB with excertion, Sputum Changes, Stridor, Tachypnea, Wheezing, Other Cardiovascular: No Chest Pain, No Palpitations, No Orthopnea, No Paroxysmal Noc. Dyspnea, No Edema, No Lt Headedness, No Other Gastrointestinal: No Nausea, No Vomiting, No Abdominal Pain, No Diarrhea, No Constipation, No Melena, No Hematochezia, No Other Genitourinary: No Dysuria, No Frequency, No Incontinence, No Hematuria, No Retention, No Discharge, No Urgency, No Pain, No Flank Pain, No Other, No , No , No , No , No , No , No Musculoskeletal: Yes Gait Disturbance, Yes Muscular Weakness; No Joint Pain, No Joint Stiffness, No Joint Swelling, No Muscle Pain, No Pain In:, No Swelling In:, No Other Neurological: Yes Gait Disturbance; No Behavorial Changes, No Bowel/Bladder ControlChng, No Confusion, No Dizziness, No Headaches, No Impaired Coord/balance, No Memory Loss, No Numbn ess/Tingling, No Seizures, No Speech Problems, No Tremors, No Visual Changes, No Weakness, No Other Skin: No Dry Skin, No Eczema, No Hair Changes, No Lumps, No Mole Changes, No Mottling, No Nail Changes, No Pruritus, No Rash, No Skin Lesion Changes, No Other, No Acne Physical Exam General: Alert, Oriented X3, Cooperative, No acute distress HEENT: Atraumatic, PERRLA, EOMI, Mucous membr. moist/pink Lungs: Other (Bibasilar crackles) Heart: S1S2, RRR, no thrills, no rubs, no gallops, no murmurs Abdomen: Normal bowel sounds, Soft, No tenderness, No hepatosplenomegaly, No masses Extremities: No clubbing, No cyanosis, No edema, Normal pulses, No tenderness/swelling Skin: No rashes, No breakdown, No significant lesion Neuro: Normal speech, Strength at 5/5 X4 ext, Normal tone, Cranial nerves 3-12 NL, Reflexes 2+ Psych/Mental Status: Other (Memory problems) Vitals Vitals Vital Signs Date Time Temp Pulse Resp B/P (MAP) Pulse Ox O2 Delivery O2 Flow Rate FiO2 11/01/21 06:16 185/89 11/01/21 05:34 92 11/01/21 03:20 Room Air 11/01/21 03:00 98.9 20 95 98.9 Labs Labs Laboratory Tests Test 10/31/21 18:20 White Blood Count 4.3 x10^3/uL (4.0-11.0) Red Blood Count 4.44 x10^6/uL (4.30-5.70) Hemoglobin 13.1 g/dL (13.0-17.5) Hematocrit 39.8 % (39.0-53.0) Mean Corpuscular Volume 90 fL (79-100) Mean Corpuscular Hemoglobin 30 pg (25-35) Mean Corpuscular Hemoglobin Concent 33 g/dL (31-37) Red Cell Distribution Width 16.2 % (11.5-14.5) Platelet Count 181 x10^3/uL (140-400) Neutrophils (%) (Auto) 60 % (31-73) Lymphocytes (%) (Auto) 21 % (24-48) Monocytes (%) (Auto) 13 % (0-9) Eosinophils (%) (Auto) 7 % (0-3) Basophils (%) (Auto) 0 % (0-3) Neutrophils # (Auto) 2.6 x10^3/uL (1.8-7.7) Lymphocytes # (Auto) 0.9 x10^3/uL (1.0-4.8) Monocytes # (Auto) 0.6 x10^3/uL (0.0-1.1) Eosinophils # (Auto) 0.3 x10^3/uL (0.0-0.7) Basophils # (Auto) 0.0 x10^3/uL (0.0-0.2) Prothrombin Time 13.3 SEC (11.7-14.0) Prothromb Time International Ratio 1.0 (0.8-1.1) Sodium Level 139 mmol/L (136-145) Potassium Level 4.5 mmol/L (3.5-5.1) Chloride Level 101 mmol/L (98-107) Carbon Dioxide Level 28 mmol/L (21-32) Anion Gap 10 (6-14) Blood Urea Nitrogen 32 mg/dL (8-26) Creatinine 9.9 mg/dL (0.7-1.3) Estimated GFR (Cockcroft-Gault) 6.4 BUN/Creatinine Ratio 3 (6-20) Glucose Level 85 mg/dL (70-99) Calcium Level 9.7 mg/dL (8.5-10.1) Total Bilirubin 0.5 mg/dL (0.2-1.0) Aspartate Amino Transf (AST/SGOT) 12 U/L (15-37) Alanine Aminotransferase (ALT/SGPT) 16 U/L (16-63) Alkaline Phosphatase 66 U/L (46-116) Ammonia < 10 mcmol/L (11-34) Troponin I High Sensitivity 66 ng/L (4-75) DO-Kwv-Q-Type Natriuretic Peptide > 92879 pg/mL (0-124) Total Protein 6.6 g/dL (6.4-8.2) Albumin 3.3 g/dL (3.4-5.0) Albumin/Globulin Ratio 1.0 (1.0-1.7) Laboratory Tests Test 10/31/21 18:20 White Blood Count 4.3 x10^3/uL (4.0-11.0) Red Blood Count 4.44 x10^6/uL (4.30-5.70) Hemoglobin 13.1 g/dL (13.0-17.5) Hematocrit 39.8 % (39.0-53.0) Mean Corpuscular Volume 90 fL (79-100) Mean Corpuscular Hemoglobin 30 pg (25-35) Mean Corpuscular Hemoglobin Concent 33 g/dL (31-37) Red Cell Distribution Width 16.2 % (11.5-14.5) Platelet Count 181 x10^3/uL (140-400) Neutrophils (%) (Auto) 60 % (31-73) Lymphocytes (%) (Auto) 21 % (24-48) Monocytes (%) (Auto) 13 % (0-9) Eosinophils (%) (Auto) 7 % (0-3) Basophils (%) (Auto) 0 % (0-3) Neutrophils # (Auto) 2.6 x10^3/uL (1.8-7.7) Lymphocytes # (Auto) 0.9 x10^3/uL (1.0-4.8) Monocytes # (Auto) 0.6 x10^3/uL (0.0-1.1) Eosinophils # (Auto) 0.3 x10^3/uL (0.0-0.7) Basophils # (Auto) 0.0 x10^3/uL (0.0-0.2) Prothrombin Time 13.3 SEC (11.7-14.0) Prothromb Time International Ratio 1.0 (0.8-1.1) Sodium Level 139 mmol/L (136-145) Potassium Level 4.5 mmol/L (3.5-5.1) Chloride Level 101 mmol/L (98-107) Carbon Dioxide Level 28 mmol/L (21-32) Anion Gap 10 (6-14) Blood Urea Nitrogen 32 mg/dL (8-26) Creatinine 9.9 mg/dL (0.7-1.3) Estimated GFR (Cockcroft-Gault) 6.4 BUN/Creatinine Ratio 3 (6-20) Glucose Level 85 mg/dL (70-99) Calcium Level 9.7 mg/dL (8.5-10.1) Total Bilirubin 0.5 mg/dL (0.2-1.0) Aspartate Amino Transf (AST/SGOT) 12 U/L (15-37) Alanine Aminotransferase (ALT/SGPT) 16 U/L (16-63) Alkaline Phosphatase 66 U/L (46-116) Ammonia < 10 mcmol/L (11-34) Troponin I High Sensitivity 66 ng/L (4-75) CQ-Vog-H-Type Natriuretic Peptide > 61709 pg/mL (0-124) Total Protein 6.6 g/dL (6.4-8.2) Albumin 3.3 g/dL (3.4-5.0) Albumin/Globulin Ratio 1.0 (1.0-1.7) Images Images CT HEAD WO CONTRAST CT Head W/O Contrast: History: Reason: ams / Spl. Instructions: / History: Comparison: August 26, 2021 Axial images were obtained without contrast. There is moderate diffuse atrophy. There is no mass effect, extraaxial fluid collections or hydrocephalus. There is no gross bleed. Mild, patchy periventricular and subcortical white matter hypoattenuation is seen. There is no focal loss of otero-white matter distinction to suggest acute ischemia, i.e. stroke. Impression: No acute findings. Stable cardiomediastinal silhouette. Similar bilateral increased interstitial markings and bibasilar opacities favoring scarring and/or chronic interstitial changes. No focal consolidation. No pleural effusion or pneumothorax. No acute osseous process. External thoracic brace is noted overlying the mediastinum. Healed left-sided rib deformities are redemonstrated. IMPRESSION: No acute cardiopulmonary process. VTE Prophylaxis Ordered VTE Prophylaxis Devices: Yes VTE Pharmacological Prophylaxi: Yes Assessment/Plan Assessment/Plan Weakness -worsening of baseline weakness and some right upper extremity weakness. Not a new CVA. Continue ASA Plavix. Statin. PT eval Frequent falls - progressive gait training rehab Dyspnea - likely acute diastolic CHF Lower back pain -with chronic compression of T11. PMR consulted for pain management. Apply Lidoderm patch F/u/ with PMR physician outpatient Peripheral arterial disease - s/p left leg bypass surgeries and stenting 10/2020, on plavix. Will reassess as pain and weakness worsened End-stage renal disease, on hemodialysis - Nephrology consulted. MWF dialysis Diabetes mellitus - Sliding scale Hypertension - cont home meds CAD - s/p remote stenting. Prior CVA - brainstem in 2006 Memory problems - likely developing vascular dementia / MCI FEN - Renal dialysis diet PPX - heparin FULL CODE Dispo - inpatient Justifications for Admission Other Justification Thoracic Fx PRATIMA MANRIQUEZ MD Nov 01, 2021 07:07
[2021-11-01] MEDS: fentaNYL PF VIAL 100 MCG/2 ML VIAL IVP PRN ×2 (07:09→20:21)
[2021-11-01] MEDS ORDERED: DEXTROSE 50% 25 GM / 50ML DISP.SYRIN. IV PRN (07:15)
[2021-11-01] MEDS ORDERED: IV DEXTROSE 5% 250 ML BAG. IV PRN (07:15)
[2021-11-01] MEDS: INSULIN LISPRO 300 UNITS/3 ML VIAL. SQ SCH ×4 (07:30→21:00)
[2021-11-01] MEDS: PANTOPRAZOLE 40 MG TABLET.DR. PO SCH (09:02)
[2021-11-01] MEDS: CLOPIDOGREL BISULFATE 75 MG TABLET PO SCH (09:02)
--- NOTE | 2021-11-01 09:37 | PDOC2 ---
CONSULT Date of Consult Date of Consult DATE: 11/01/21 TIME: 09:36 Reason for Consult Reason for Consult: ESRD Source Source: Chart review, Patient History of Present Illness Reason for Visit: Patient is a 71-year-old male with past medical history of ESRD on HD, DM 2, HTN, CAD with prior [place], remote brainstem CVA 2006, PAD status post left lower extremity bypass and stenting who comes to the ED via EMS from home for progressive weakness, frequent falls, progressive dyspnea on exertion and his notes she is unable to care for him at home currently. He has a cane at home to been previously advised his walker. Despite this he still had falls at home and he notes he was very dyspneic. 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 He has been hospitalized for symptomatic anemia fall with lumbar fracture within the last year. Normally he uses a cane in his right hand even using his cane he could not stand up and notes he had some right arm weakness which is new to him. Currently he denies any SOB. No CP . No F/C. No N/V. Compliant with dialysis, last was on Wed CT head interpretation diffuse atrophy no acute radiographic findings. EKG sinus rhythm rate 94 bpm some PACs no T WI no ST segment elevations or depressions. Past Medical History Cardiovascular: CAD, HTN, [place], Hyperlipidemia, Other CENTRAL NERVOUS SYSTEM: CVA Heme/Onc: Anemia NOS Musculoskeletal: Osteoarthritis Renal/: Chronic renal failure Endocrine: Diabetes, Hyperparathyroidism Past Surgical History Past Surgical History: Cholecystectomy, Total knee replacement, Other Family History Family History: Diabetes, Hypertension Social History ALCOHOL: none Drugs: None Lives: with Family Current Problem List Problem List Problems Medical Problems: (1) Ambulatory dysfunction Status: Acute (2) Failure to thrive Status: Acute Current Medications Current Medications Current Medications Morphine Sulfate (Morphine Sulfate) 4 mg 1X ONCE IVP Last administered on 10/31/21at 19:22; Start 10/31/21 at 19:30; Stop 10/31/21 at 19:31; Status DC Morphine Sulfate (Morphine Sulfate) 2 mg 1X ONCE IVP Last administered on 11/01/21at 00:45; Start 11/01/21 at 00:45; Stop 11/01/21 at 00:46; Status DC Fentanyl Citrate (Fentanyl 2ml Vial) 25 mcg PRN Q3HRS PRN IVP SEVERE PAIN 7-10 Last administered on 11/01/21at 07:09; Start 11/01/21 at 03:15 Acetaminophen (Tylenol) 650 mg PRN Q6HRS PRN PO MILD PAIN / TEMP > 100.3'F; Start 11/01/21 at 03:15 Ondansetron HCl (Zofran) 4 mg PRN Q4HRS PRN IVP NAUSEA/VOMITING; Start 11/01/21 at 03:15 Hydralazine HCl (Apresoline Inj) 10 mg PRN Q4HRS PRN IVP ELEVATED BP, SEE COMMENTS Last administered on 11/01/21at 03:52; Start 11/01/21 at 03:15 Amlodipine Besylate (Norvasc) 10 mg DAILY PO Last administered on 11/01/21at 03:52; Start 11/01/21 at 03:15 Clonidine HCl (Catapres) 0.1 mg Q8HRS PO Last administered on 11/01/21at 06:16; Start 11/01/21 at 06:00 Clopidogrel Bisulfate (Plavix) 75 mg DAILYWBKFT PO Last administered on 10/05 03/27at 09:02; Start 11/01/21 at 08:00 Pantoprazole Sodium (Protonix) 40 mg DAILYAC PO Last administered on 11/01/21at 09:02; Start 11/01/21 at 07:30 Tramadol HCl (Ultram) 50 mg PRN TID PRN PO MILD TO MODERATE PAIN; Start 11/01/21 at 07:15 Insulin Glargine (Lantus Syringe) 8 unit QHS SQ ; Start 11/01/21 at 21:00 Insulin Human Lispro (HumaLOG) 0-7 UNITS TIDACHC SQ ; Start 11/01/21 at 07:30 Dextrose (Dextrose 50%-Water Syringe) 12.5 gm PRN Q15MIN PRN IV SEE COMMENTS; Start 11/01/21 at 07:15 Dextrose (Iv Dextrose 5%) 250 ml PRN Q15MIN PRN IV SEE COMMENTS; Start 11/01/21 at 07:15 Active Scripts Active Pantoprazole Sodium (Pantoprazole Sodium) 40 Mg Tablet.dr 40 Mg PO DAILYAC 30 Days Methocarbamol 750 Mg Tablet 750 Mg PO PRN Q8HRS PRN 30 Days Tramadol Hcl 50 Mg Tablet 50 Mg PO PRN TID PRN 3 Days Clopidogrel (Clopidogrel Bisulfate) 75 Mg Tablet 75 Mg PO DAILYWBKFT MDD 75 mg 90 Days Reported Velphoro (Sucroferric Oxyhydroxide) 500 Mg Tab.chew 2 Tab PO TID 30 Days Alprazolam 0.5 Mg Tablet 1 Tab PO PRN TID PRN Amlodipine Besylate 10 Mg Tablet 10 Mg PO DAILY Clonidine Hcl 0.1 Mg Tablet 0.1 Mg PO DAILY Dialyvite 800 Tablet (Folic Acid/Vitamin B Comp W-C) 0.8 Mg Tablet 1 Tab PO DAILY 30 Days Ferric Citrate 210 Mg Tablet 2 Tab PO TIDWMEALS 30 Days Aspirin 325 Mg Tablet 1 Tab PO DAILY Lantus Solostar (Insulin Glargine,Hum.rec.anlog) 100 Unit/1 Ml Insuln.pen 10 Unit SQ DAILY 8-10 units daily Allergies Allergies: Coded Allergies: No Known Drug Allergies (Unverified , 08/27/20) ROS Review of System As per HPI, rest of the ROS is negative Physical Exam Physical Exam General: NAD HEENT: Atraumatic, PERRLA, EOMI, Mucous membr. moist/pink neck Supple Lungs: Decreased at bases, Non labored Heart: S1S2, RRR, no thrills, no rubs, no gallops, no murmurs Abdomen: Normal bowel sounds, Soft, No tenderness, No hepatosplenomegaly, No masses Extremities: No clubbing, No cyanosis, No edema, . RUE fistula with good bruit and thrill Skin: No rashes, Neuro: Normal speech Left upper lower extremity 4 out of 5. 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 Psych/Mental Status: Mental status NL, Mood NL No Veliz, No CVA or SP tenderness Vital Signs Vital Signs Date Time Temp Pulse Resp B/P (MAP) Pulse Ox O2 Delivery O2 Flow Rate FiO2 11/01/21 09:02 96 Room Air 11/01/21 08:29 97.7 93 16 183/83 (116) 97.7 Assessment & Plan ESRD on HD MWF at [facility],Dialysis today. Discussed treatment plan with SA[facility] Hypertension Anemia . Past transfusion Hgb stable Weakness -worsening of baseline weakness and some right upper extremity weakness. Not a new CVA. On ASA Plavix. Statin. Frequent falls Dyspnea POA, currently denies Lower back pain -with chronic compression of T11. Peripheral arterial disease - s/p left leg bypass surgeries and stenting 10/2020, on plavix. Will reassess as pain and weakness worsened History of CVA with residual left-sided weakness-- brainstem in 2006 History of diabetes mellitus type 2 CAD - s/p remote stenting. Labs Labs Laboratory Tests Test 10/31/21 18:20 11/01/21 07:22 White Blood Count 4.3 x10^3/uL (4.0-11.0) Red Blood Count 4.44 x10^6/uL (4.30-5.70) Hemoglobin 13.1 g/dL (13.0-17.5) Hematocrit 39.8 % (39.0-53.0) Mean Corpuscular Volume 90 fL (79-100) Mean Corpuscular Hemoglobin 30 pg (25-35) Mean Corpuscular Hemoglobin Concent 33 g/dL (31-37) Red Cell Distribution Width 16.2 % (11.5-14.5) Platelet Count 181 x10^3/uL (140-400) Neutrophils (%) (Auto) 60 % (31-73) Lymphocytes (%) (Auto) 21 % (24-48) Monocytes (%) (Auto) 13 % (0-9) Eosinophils (%) (Auto) 7 % (0-3) Basophils (%) (Auto) 0 % (0-3) Neutrophils # (Auto) 2.6 x10^3/uL (1.8-7.7) Lymphocytes # (Auto) 0.9 x10^3/uL (1.0-4.8) Monocytes # (Auto) 0.6 x10^3/uL (0.0-1.1) Eosinophils # (Auto) 0.3 x10^3/uL (0.0-0.7) Basophils # (Auto) 0.0 x10^3/uL (0.0-0.2) Prothrombin Time 13.3 SEC (11.7-14.0) Prothromb Time International Ratio 1.0 (0.8-1.1) Sodium Level 139 mmol/L (136-145) Potassium Level 4.5 mmol/L (3.5-5.1) Chloride Level 101 mmol/L (98-107) Carbon Dioxide Level 28 mmol/L (21-32) Anion Gap 10 (6-14) Blood Urea Nitrogen 32 mg/dL (8-26) Creatinine 9.9 mg/dL (0.7-1.3) Estimated GFR (Cockcroft-Gault) 6.4 BUN/Creatinine Ratio 3 (6-20) Glucose Level 85 mg/dL (70-99) Calcium Level 9.7 mg/dL (8.5-10.1) Total Bilirubin 0.5 mg/dL (0.2-1.0) Aspartate Amino Transf (AST/SGOT) 12 U/L (15-37) Alanine Aminotransferase (ALT/SGPT) 16 U/L (16-63) Alkaline Phosphatase 66 U/L (46-116) Ammonia < 10 mcmol/L (11-34) Troponin I High Sensitivity 66 ng/L (4-75) ZR-Swc-X-Type Natriuretic Peptide > 37604 pg/mL (0-124) Total Protein 6.6 g/dL (6.4-8.2) Albumin 3.3 g/dL (3.4-5.0) Albumin/Globulin Ratio 1.0 (1.0-1.7) Glucose (Fingerstick) 78 mg/dL (70-99) Laboratory Tests Test 10/31/21 18:20 11/01/21 07:22 White Blood Count 4.3 x10^3/uL (4.0-11.0) Red Blood Count 4.44 x10^6/uL (4.30-5.70) Hemoglobin 13.1 g/dL (13.0-17.5) Hematocrit 39.8 % (39.0-53.0) Mean Corpuscular Volume 90 fL (79-100) Mean Corpuscular Hemoglobin 30 pg (25-35) Mean Corpuscular Hemoglobin Concent 33 g/dL (31-37) Red Cell Distribution Width 16.2 % (11.5-14.5) Platelet Count 181 x10^3/uL (140-400) Neutrophils (%) (Auto) 60 % (31-73) Lymphocytes (%) (Auto) 21 % (24-48) Monocytes (%) (Auto) 13 % (0-9) Eosinophils (%) (Auto) 7 % (0-3) Basophils (%) (Auto) 0 % (0-3) Neutrophils # (Auto) 2.6 x10^3/uL (1.8-7.7) Lymphocytes # (Auto) 0.9 x10^3/uL (1.0-4.8) Monocytes # (Auto) 0.6 x10^3/uL (0.0-1.1) Eosinophils # (Auto) 0.3 x10^3/uL (0.0-0.7) Basophils # (Auto) 0.0 x10^3/uL (0.0-0.2) Prothrombin Time 13.3 SEC (11.7-14.0) Prothromb Time International Ratio 1.0 (0.8-1.1) Sodium Level 139 mmol/L (136-145) Potassium Level 4.5 mmol/L (3.5-5.1) Chloride Level 101 mmol/L (98-107) Carbon Dioxide Level 28 mmol/L (21-32) Anion Gap 10 (6-14) Blood Urea Nitrogen 32 mg/dL (8-26) Creatinine 9.9 mg/dL (0.7-1.3) Estimated GFR (Cockcroft-Gault) 6.4 BUN/Creatinine Ratio 3 (6-20) Glucose Level 85 mg/dL (70-99) Calcium Level 9.7 mg/dL (8.5-10.1) Total Bilirubin 0.5 mg/dL (0.2-1.0) Aspartate Amino Transf (AST/SGOT) 12 U/L (15-37) Alanine Aminotransferase (ALT/SGPT) 16 U/L (16-63) Alkaline Phosphatase 66 U/L (46-116) Ammonia < 10 mcmol/L (11-34) Troponin I High Sensitivity 66 ng/L (4-75) MU-Ugs-Z-Type Natriuretic Peptide > 99178 pg/mL (0-124) Total Protein 6.6 g/dL (6.4-8.2) Albumin 3.3 g/dL (3.4-5.0) Albumin/Globulin Ratio 1.0 (1.0-1.7) Glucose (Fingerstick) 78 mg/dL (70-99) Review All relevant outside records, renal labs, imaging studies, telemetry/EKG's were reviewed. Images Images : PORTABLE CHEST 1V EXAMINATION: Chest radiograph. VIEWS: Single AP view of the chest COMPARISON: Chest radiograph from 08/26/2021 INDICATION:71 years, Male, generalized weakness. FINDINGS: Stable cardiomediastinal silhouette. Similar bilateral increased interstitial markings and bibasilar opacities favoring scarring and/or chronic interstitial changes. No focal consolidation. No pleural effusion or pneumothorax. No acute osseous process. External thoracic brace is noted overlying the mediastinum. Healed left-sided rib deformities are redemonstrated. IMPRESSION: No acute cardiopulmonary process. MARRY NATH MD Nov 01, 2021 09:37
[2021-11-01] MEDS ORDERED: DIALYSIS PATIENT. MC PRN ×2 (11:00)
[2021-11-01] MEDS ORDERED: IV NORMAL SALINE 1000ML BAG 1,000 ML IV PRN ×2 (11:00)
[2021-11-01] MEDS: INSULIN GLARGINE SYRINGE. SQ SCH (20:23)
[2021-11-02] MEDS: ALPRAZolam 0.5 MG TABLET PO PRN ×2 (00:06→07:44)
[2021-11-02 03:47] VITALS: BP 193/88
[2021-11-02] MEDS: cloNIDine HCL 0.1 MG TABLET PO SCH ×3 (06:14→21:05)
[2021-11-02 06:32] LABS: BASO # 0.1 x10^3/uL (0.0-0.2); BASO % 1 % (0-3); EOS # 0.3 x10^3/uL (0.0-0.7); EOS % 7 % (0-3); HEMATOCRIT 37.4 % (39.0-53.0); HEMOGLOBIN 12.6 g/dL (13.0-17.5); LYMPH # 0.7 x10^3/uL (1.0-4.8); LYMPH % 18 % (24-48); MEAN CORPUSCULAR HEMOGLOBIN 30 pg (25-35); MEAN CORPUSCULAR HGB CONC 34 g/dL (31-37); MEAN CORPUSCULAR VOLUME 89 fL (79-100); MONO # 0.5 x10^3/uL (0.0-1.1); MONO % 13 % (0-9); NEUT # 2.6 x10^3/uL (1.8-7.7); NEUT % 61 % (31-73); PLATELET COUNT 178 x10^3/uL (140-400); RED BLOOD COUNT 4.23 x10^6/uL (4.30-5.70); RED CELL DISTRIBUTION WIDTH 15.9 % (11.5-14.5); WHITE BLOOD COUNT 4.2 x10^3/uL (4.0-11.0)
[2021-11-02 06:42] LABS: ALBUMIN 3.1 g/dL (3.4-5.0); ALBUMIN/GLOBULIN RATIO 0.9 (1.0-1.7); CREATININE 8.5 mg/dL (0.7-1.3); GFR 7.6; POTASSIUM 4.1 mmol/L (3.5-5.1); TOTAL BILIRUBIN 0.5 mg/dL (0.2-1.0); TOTAL PROTEIN 6.4 g/dL (6.4-8.2)
[2021-11-02 07:15] VITALS: BP 202/88
[2021-11-02] MEDS: INSULIN LISPRO 300 UNITS/3 ML VIAL. SQ SCH ×4 (07:30→21:00)
[2021-11-02] MEDS: CLOPIDOGREL BISULFATE 75 MG TABLET PO SCH (07:44)
[2021-11-02] MEDS: PANTOPRAZOLE 40 MG TABLET.DR. PO SCH (07:44)
[2021-11-02] MEDS: hydrALAZINE 20 MG/ML VIAL. IVP PRN (07:45)
--- NOTE | 2021-11-02 09:52 | PDOC ---
[employer] PROGRESS NOTE Date of Service DOS: DATE: 11/02/21 TIME: 09:43 Chief Complaint Chief Complaint Weakness -worsening of baseline weakness and some right upper extremity weakness. Not a new CVA. Continue ASA Plavix. Statin. PT eval Frequent falls - progressive gait training rehab Dyspnea - likely acute diastolic CHF Lower back pain -with chronic compression of T11. PMR consulted for pain management. Apply Lidoderm patch F/u/ with PMR physician outpatient Peripheral arterial disease - s/p left leg bypass surgeries and stenting 10/2020, on plavix. Will reassess as pain and weakness worsened End-stage renal disease, on hemodialysis - Nephrology consulted. MWF dialysis Diabetes mellitus - Sliding scale Hypertension - cont home meds CAD - s/p remote stenting. 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 Michelle is a 71-year-old male with past medical history of ESRD on HD, DM 2, HTN, CAD with prior ID, remote brainstem CVA 2006, PAD status post left lower extremity bypass and stenting who comes to the ED via EMS from home for progressive weakness, frequent falls, progressive dyspnea on exertion and his notes she is unable to care for him at home currently. He has a cane at home to been previously advised his walker. Despite this he still had falls at home he notes he is very dyspneic. 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 He has been hospitalized for symptomatic anemia fall with lumbar fracture within the last year. Normally he uses a cane in his right hand even using his cane he could not stand up and notes he had some right arm weakness which is new to him. CT head interpretation diffuse atrophy no acute radiographic findings. EKG sinus rhythm rate 94 bpm some PACs no T WI no ST segment elevations or depressions. Labs with WBC 4.3, Hb 13.1, platelets 181, INR 1, NA 139, K4.5, BUN 32, CR 9.9, glucose 85, calcium 9.7, bilirubin 0.5, AST 12, ALT 16, alkaline phosphatase 66, ammonia less than 10, NT proBNP greater than 35,000, high-sensitivity troponin is 66, albumin 3.3 11/02: Agitated overnight. He still is not oriented to location and day month or year. He is accusing his of trying to kill him, paranoid. Offered zyprexa for paranoia and agitation after discussion with his . arterial doppler results pending, of note he previously had Dr. Jin revascularize him. Vitals/I&O Vitals/I&O: Vital Signs Date Time Temp Pulse Resp B/P (MAP) Pulse Ox O2 Delivery O2 Flow Rate FiO2 11/02/21 07:52 Room Air 11/02/21 07:45 91 202/88 11/02/21 07:15 98.1 16 93 98.1 I & O 11/01/21 11/01/21 11/02/21 15:00 23:00 07:00 Intake Total 300 ml 300 ml Output Total 200 ml Balance 300 ml 300 ml -200 ml Physical Exam General: Alert, Oriented X3, Cooperative, No acute distress Lungs: Clear, Other Abdomen: Normal bowel sounds, Soft, No tenderness, No hepatosplenomegaly, No masses Extremities: No clubbing, No cyanosis, No edema, Normal pulses, No tenderness/swelling Skin: No rashes, No breakdown, No significant lesion Labs Labs: Laboratory Tests Test 11/01/21 11:19 11/01/21 17:11 11/01/21 20:19 11/02/21 05:40 Glucose (Fingerstick) 124 mg/dL (70-99) 109 mg/dL (70-99) 103 mg/dL (70-99) White Blood Count 4.2 x10^3/uL (4.0-11.0) Red Blood Count 4.23 x10^6/uL (4.30-5.70) Hemoglobin 12.6 g/dL (13.0-17.5) Hematocrit 37.4 % (39.0-53.0) Mean Corpuscular Volume 89 fL (79-100) Mean Corpuscular Hemoglobin 30 pg (25-35) Mean Corpuscular Hemoglobin Concent 34 g/dL (31-37) Red Cell Distribution Width 15.9 % (11.5-14.5) Platelet Count 178 x10^3/uL (140-400) Neutrophils (%) (Auto) 61 % (31-73) Lymphocytes (%) (Auto) 18 % (24-48) Monocytes (%) (Auto) 13 % (0-9) Eosinophils (%) (Auto) 7 % (0-3) Basophils (%) (Auto) 1 % (0-3) Neutrophils # (Auto) 2.6 x10^3/uL (1.8-7.7) Lymphocytes # (Auto) 0.7 x10^3/uL (1.0-4.8) Monocytes # (Auto) 0.5 x10^3/uL (0.0-1.1) Eosinophils # (Auto) 0.3 x10^3/uL (0.0-0.7) Basophils # (Auto) 0.1 x10^3/uL (0.0-0.2) Sodium Level 137 mmol/L (136-145) Potassium Level 4.1 mmol/L (3.5-5.1) Chloride Level 100 mmol/L (98-107) Carbon Dioxide Level 28 mmol/L (21-32) Anion Gap 9 (6-14) Blood Urea Nitrogen 32 mg/dL (8-26) Creatinine 8.5 mg/dL (0.7-1.3) Estimated GFR (Cockcroft-Gault) 7.6 BUN/Creatinine Ratio 4 (6-20) Glucose Level 105 mg/dL (70-99) Calcium Level 10.0 mg/dL (8.5-10.1) Total Bilirubin 0.5 mg/dL (0.2-1.0) Aspartate Amino Transf (AST/SGOT) 9 U/L (15-37) Alanine Aminotransferase (ALT/SGPT) 10 U/L (16-63) Alkaline Phosphatase 69 U/L (46-116) Total Protein 6.4 g/dL (6.4-8.2) Albumin 3.1 g/dL (3.4-5.0) Albumin/Globulin Ratio 0.9 (1.0-1.7) Test 11/02/21 07:58 Glucose (Fingerstick) 136 mg/dL (70-99) Assessment and Plan Assessmemt and Plan Problems Medical Problems: (1) Ambulatory dysfunction Status: Acute (2) Failure to thrive Status: Acute Comment Review of Relevant I have reviewed the following items dariel (where applicable) has been applied. Medications: Current Medications Medications (Trade) Dose Ordered Sig/Neeraj Route PRN Reason Start Time Stop Time Status Last Admin Dose Admin Insulin Glargine (Lantus Syringe) 8 unit QHS SQ 11/01/21 21:00 11/01/21 20:23 Alprazolam (Xanax) 0.5 mg PRN QHS PRN PO ANXIETY / AGITATION 11/02/21 00:00 11/02/21 07:44 Justifications for Admission Other Justification Thoracic Fx PRATIMA MANRIQUEZ MD Nov 02, 2021 09:52
[2021-11-02] MEDS: MEMANTINE 5 MG TABLET. PO SCH ×2 (09:59→21:04)
[2021-11-02 11:00] VITALS: BP 168/85
--- NOTE | 2021-11-02 13:04 | PDOC ---
DATE OF SERVICE DATE: 11/02/21 TIME: 13:03 SUBJECTIVE ROS Confused, agitated last night. Sitting up in chair. No SOB OBJECTIVE Vital Signs Vital Signs Date Time Temp Pulse Resp B/P (MAP) Pulse Ox O2 Delivery O2 Flow Rate FiO2 11/02/21 07:52 Room Air 11/02/21 07:45 91 202/88 11/02/21 07:15 98.1 16 93 98.1 I & 0 Intake and Output 11/02/21 07:00 Intake Total 600 ml Output Total 200 ml Balance 400 ml Intake Oral 600 ml Output Urine Total 200 ml PHYSICAL EXAM Physical Exam General: NAD HEENT: Atraumatic, PERRLA, EOMI, Mucous membr. moist/pink neck Supple Lungs: Decreased at bases, Non labored Heart: S1S2, RRR, no thrills, no rubs, no gallops, no murmurs Abdomen: Normal bowel sounds, Soft, No tenderness, No hepatosplenomegaly, No masses Extremities: No clubbing, No cyanosis, No edema, . RUE fistula with good bruit and thrill Skin: No rashes, Neuro: Normal speech Left upper lower extremity 4 out of 5. Right upper extremity with decreased primary teacher strength. Psych/Mental Status: Mental status NL, Mood NL No Veliz, No CVA or SP tenderness DIAGNOSIS/ASSESSMENT Assessment & Plan ESRD on HD MWF at [facility],No indication for HD today. Stable Resp status Hypertension Anemia . Past transfusion Hgb stable Weakness -worsening of baseline weakness and some right upper extremity weakness. Not a new CVA. On ASA Plavix. Statin. Frequent falls Dyspnea POA, currently denies Lower back pain -with chronic compression of T11. Peripheral arterial disease - s/p left leg bypass surgeries and stenting 10/2020, on plavix. Will reassess as pain and weakness worsened History of CVA with residual left-sided weakness-- brainstem in 2006 History of diabetes mellitus type 2 CAD - s/p remote stenting. COMMENT/RELEVANT DATA Meds Current Medications Medications (Trade) Dose Ordered Sig/Neearj Start Time Stop Time Status Last Admin Dose Admin Acetaminophen (Tylenol) 650 mg PRN Q6HRS PRN 11/01/21 03:15 Alprazolam (Xanax) 0.5 mg PRN QHS PRN 11/02/21 00:00 11/02/21 09:32 DC 11/02/21 07:44 0.5 MG Amlodipine Besylate (Norvasc) 10 mg DAILY 11/01/21 03:15 11/02/21 07:44 10 MG Clonidine HCl (Catapres) 0.1 mg Q8HRS 11/01/21 06:00 11/02/21 06:14 0.1 MG Clopidogrel Bisulfate (Plavix) 75 mg DAILYWBKFT 11/01/21 08:00 11/02/21 07:44 75 MG Dextrose (Dextrose 50%-Water Syringe) 12.5 gm PRN Q15MIN PRN 11/01/21 07:15 Dextrose (Iv Dextrose 5%) 250 ml PRN Q15MIN PRN 11/01/21 07:15 Fentanyl Citrate (Fentanyl 2ml Vial) 25 mcg PRN Q3HRS PRN 11/01/21 03:15 11/01/21 20:21 25 MCG Hydralazine HCl (Apresoline Inj) 10 mg PRN Q4HRS PRN 11/01/21 03:15 11/02/21 07:45 10 MG Info (PHARMACY MONITORING -- do not chart) 1 each PRN DAILY PRN 11/01/21 11:00 Insulin Glargine (Lantus Syringe) 8 unit QHS 11/01/21 21:00 11/01/21 20:23 8 UNIT Insulin Human Lispro (HumaLOG) 0-7 UNITS TIDACHC 11/01/21 07:30 Memantine (Namenda) 5 mg BID 11/02/21 09:45 11/02/21 09:59 5 MG Morphine Sulfate (Morphine Sulfate) 2 mg 1X ONCE 11/01/21 00:45 11/01/21 00:46 DC 11/01/21 00:45 2 MG Olanzapine (ZyPREXA ZYDIS) 5 mg BID 11/02/21 10:00 11/02/21 09:59 5 MG Ondansetron HCl (Zofran) 4 mg PRN Q4HRS PRN 11/01/21 03:15 Pantoprazole Sodium (Protonix) 40 mg DAILYAC 11/01/21 07:30 11/02/21 07:44 40 MG Sodium Chloride 1,000 ml @ 400 mls/hr Q2H30M PRN 11/01/21 11:00 11/01/21 22:59 DC Tramadol HCl (Ultram) 50 mg PRN TID PRN 11/01/21 07:15 Ziprasidone (Geodon Im) 20 mg PRN QHS PRN 11/02/21 20:00 Lab Laboratory Tests Test 11/01/21 17:11 11/01/21 20:19 11/02/21 05:40 11/02/21 07:58 Glucose (Fingerstick) 109 mg/dL (70-99) 103 mg/dL (70-99) 136 mg/dL (70-99) White Blood Count 4.2 x10^3/uL (4.0-11.0) Red Blood Count 4.23 x10^6/uL (4.30-5.70) Hemoglobin 12.6 g/dL (13.0-17.5) Hematocrit 37.4 % (39.0-53.0) Mean Corpuscular Volume 89 fL (79-100) Mean Corpuscular Hemoglobin 30 pg (25-35) Mean Corpuscular Hemoglobin Concent 34 g/dL (31-37) Red Cell Distribution Width 15.9 % (11.5-14.5) Platelet Count 178 x10^3/uL (140-400) Neutrophils (%) (Auto) 61 % (31-73) Lymphocytes (%) (Auto) 18 % (24-48) Monocytes (%) (Auto) 13 % (0-9) Eosinophils (%) (Auto) 7 % (0-3) Basophils (%) (Auto) 1 % (0-3) Neutrophils # (Auto) 2.6 x10^3/uL (1.8-7.7) Lymphocytes # (Auto) 0.7 x10^3/uL (1.0-4.8) Monocytes # (Auto) 0.5 x10^3/uL (0.0-1.1) Eosinophils # (Auto) 0.3 x10^3/uL (0.0-0.7) Basophils # (Auto) 0.1 x10^3/uL (0.0-0.2) Sodium Level 137 mmol/L (136-145) Potassium Level 4.1 mmol/L (3.5-5.1) Chloride Level 100 mmol/L (98-107) Carbon Dioxide Level 28 mmol/L (21-32) Anion Gap 9 (6-14) Blood Urea Nitrogen 32 mg/dL (8-26) Creatinine 8.5 mg/dL (0.7-1.3) Estimated GFR (Cockcroft-Gault) 7.6 BUN/Creatinine Ratio 4 (6-20) Glucose Level 105 mg/dL (70-99) Calcium Level 10.0 mg/dL (8.5-10.1) Total Bilirubin 0.5 mg/dL (0.2-1.0) Aspartate Amino Transf (AST/SGOT) 9 U/L (15-37) Alanine Aminotransferase (ALT/SGPT) 10 U/L (16-63) Alkaline Phosphatase 69 U/L (46-116) Total Protein 6.4 g/dL (6.4-8.2) Albumin 3.1 g/dL (3.4-5.0) Albumin/Globulin Ratio 0.9 (1.0-1.7) Thyroid Stimulating Hormone (TSH) 1.032 uIU/mL (0.358-3.74) Treponema pallidum Antibody Nonreactive (Nonreactive) Test 11/02/21 12:04 Glucose (Fingerstick) 102 mg/dL (70-99) Results All relevant outside records, renal labs, imaging studies, telemetry/EKG's were reviewed. Justicifation of Admission Dx: Justifications for Admission: Justification of Admission Dx: N/A MARRY NATH MD Nov 02, 2021 13:04
[2021-11-02 15:00] VITALS: BP 192/88
[2021-11-02 19:00] VITALS: BP 137/77
[2021-11-02] MEDS ORDERED: ZIPRASIDONE IM 20 MG VIAL. IM PRN (20:00)
[2021-11-02] MEDS: INSULIN GLARGINE SYRINGE. SQ SCH (21:12)
--- NOTE | 2021-11-03 03:23 | NUR ---
Patient assessed for elopement risk per elopement risk per elopement policy and procedure, patient not deemed a risk
[2021-11-03] MEDS: cloNIDine HCL 0.1 MG TABLET PO SCH ×3 (06:00→21:17)
[2021-11-03 06:46] VITALS: BP 174/80
[2021-11-03] MEDS: INSULIN LISPRO 300 UNITS/3 ML VIAL. SQ SCH ×4 (07:30→21:00)
[2021-11-03] MEDS: CLOPIDOGREL BISULFATE 75 MG TABLET PO SCH (08:15)
[2021-11-03] MEDS: MEMANTINE 5 MG TABLET. PO SCH ×2 (08:15→21:16)
[2021-11-03] MEDS: PANTOPRAZOLE 40 MG TABLET.DR. PO SCH (08:15)
[2021-11-03 08:24] LABS: ALBUMIN 2.8 g/dL (3.4-5.0); ALBUMIN/GLOBULIN RATIO 0.9 (1.0-1.7); CALCIUM 9.8 mg/dL (8.5-10.1); CREATININE 10.7 mg/dL (0.7-1.3); GFR 5.8; POTASSIUM 4.4 mmol/L (3.5-5.1); TOTAL BILIRUBIN 0.5 mg/dL (0.2-1.0)
[2021-11-03 10:21] LABS: BASO % 1 % (0-3); EOS # 0.4 x10^3/uL (0.0-0.7); EOS % 9 % (0-3); HEMOGLOBIN 11.7 g/dL (13.0-17.5); LYMPH # 1.1 x10^3/uL (1.0-4.8); LYMPH % 27 % (24-48); MEAN CORPUSCULAR HEMOGLOBIN 29 pg (25-35); MEAN CORPUSCULAR HGB CONC 33 g/dL (31-37); MEAN CORPUSCULAR VOLUME 88 fL (79-100); MONO # 0.5 x10^3/uL (0.0-1.1); MONO % 13 % (0-9); NEUT # 2.1 x10^3/uL (1.8-7.7); NEUT % 51 % (31-73); PLATELET COUNT 168 x10^3/uL (140-400); RED BLOOD COUNT 3.97 x10^6/uL (4.30-5.70); RED CELL DISTRIBUTION WIDTH 15.6 % (11.5-14.5); WHITE BLOOD COUNT 4.2 x10^3/uL (4.0-11.0)
[2021-11-03 11:30] VITALS: BP 142/70
--- NOTE | 2021-11-03 12:53 | PDOC ---
DATE OF SERVICE DATE: 11/03/21 TIME: 12:52 SUBJECTIVE ROS Stable No SOB OBJECTIVE Vital Signs Vital Signs Date Time Temp Pulse Resp B/P (MAP) Pulse Ox O2 Delivery O2 Flow Rate FiO2 11/03/21 11:30 98.2 85 18 142/70 (94) 91 Room Air 98.2 I & 0 Intake and Output 11/03/21 07:00 Intake Total 650 ml Balance 650 ml Intake Oral 650 ml PHYSICAL EXAM Physical Exam General: NAD HEENT: Atraumatic, PERRLA, EOMI, Mucous membr. moist/pink neck Supple Lungs: Decreased at bases, Non labored Heart: S1S2, RRR, no thrills, no rubs, no gallops, no murmurs Abdomen: Normal bowel sounds, Soft, No tenderness, No hepatosplenomegaly, No masses Extremities: No clubbing, No cyanosis, No edema, . RUE fistula with good bruit and thrill Skin: No rashes, Neuro: Normal speech Left upper lower extremity 4 out of 5. Right upper extremity with decreased patient navigator strength. Psych/Mental Status: Mental status NL, Mood NL No Veliz, No CVA or SP tenderness DIAGNOSIS/ASSESSMENT Assessment & Plan ESRD on HD MWF at [facility],No indication for HD today. Stable Resp status Hypertension Anemia . Past transfusion Hgb stable Weakness -worsening of baseline weakness and some right upper extremity weakness. Not a new CVA. On ASA Plavix. Statin. Frequent falls Dyspnea POA, currently denies Lower back pain -with chronic compression of T11. Peripheral arterial disease - s/p left leg bypass surgeries and stenting 10/2020, on plavix. Will reassess as pain and weakness worsened History of CVA with residual left-sided weakness-- brainstem in 2006 History of diabetes mellitus type 2 CAD - s/p remote stenting. COMMENT/RELEVANT DATA Meds Current Medications Medications (Trade) Dose Ordered Sig/Neeraj Start Time Stop Time Status Last Admin Dose Admin Acetaminophen (Tylenol) 650 mg PRN Q6HRS PRN 11/01/21 03:15 Alprazolam (Xanax) 0.5 mg PRN QHS PRN 11/02/21 00:00 11/02/21 09:32 DC 11/02/21 07:44 0.5 MG Amlodipine Besylate (Norvasc) 10 mg DAILY 11/01/21 03:15 11/03/21 08:15 10 MG Clonidine HCl (Catapres) 0.1 mg Q8HRS 11/01/21 06:00 11/02/21 21:05 0.1 MG Clopidogrel Bisulfate (Plavix) 75 mg DAILYWBKFT 11/01/21 08:00 11/03/21 08:15 75 MG Dextrose (Dextrose 50%-Water Syringe) 12.5 gm PRN Q15MIN PRN 11/01/21 07:15 Dextrose (Iv Dextrose 5%) 250 ml PRN Q15MIN PRN 11/01/21 07:15 Fentanyl Citrate (Fentanyl 2ml Vial) 25 mcg PRN Q3HRS PRN 11/01/21 03:15 11/01/21 20:21 25 MCG Hydralazine HCl (Apresoline Inj) 10 mg PRN Q4HRS PRN 11/01/21 03:15 11/02/21 07:45 10 MG Info (PHARMACY MONITORING -- do not chart) 1 each PRN DAILY PRN 11/01/21 11:00 Insulin Glargine (Lantus Syringe) 8 unit QHS 11/01/21 21:00 11/02/21 21:12 8 UNIT Insulin Human Lispro (HumaLOG) 0-7 UNITS TIDACHC 11/01/21 07:30 Memantine (Namenda) 5 mg BID 11/02/21 09:45 11/03/21 08:15 5 MG Morphine Sulfate (Morphine Sulfate) 2 mg 1X ONCE 11/01/21 00:45 11/01/21 00:46 DC 11/01/21 00:45 2 MG Olanzapine (ZyPREXA ZYDIS) 5 mg BID 11/02/21 10:00 11/03/21 08:15 5 MG Ondansetron HCl (Zofran) 4 mg PRN Q4HRS PRN 11/01/21 03:15 Pantoprazole Sodium (Protonix) 40 mg DAILYAC 11/01/21 07:30 11/03/21 08:15 40 MG Sodium Chloride 1,000 ml @ 400 mls/hr Q2H30M PRN 11/01/21 11:00 11/01/21 22:59 DC Tramadol HCl (Ultram) 50 mg PRN TID PRN 11/01/21 07:15 Ziprasidone (Geodon Im) 20 mg PRN QHS PRN 11/02/21 20:00 Lab Laboratory Tests Test 11/02/21 17:08 11/02/21 18:44 11/03/21 06:25 11/03/21 08:11 Glucose (Fingerstick) 149 mg/dL (70-99) 187 mg/dL (70-99) 65 mg/dL (70-99) White Blood Count 4.2 x10^3/uL (4.0-11.0) Red Blood Count 3.97 x10^6/uL (4.30-5.70) Hemoglobin 11.7 g/dL (13.0-17.5) Hematocrit 35.0 % (39.0-53.0) Mean Corpuscular Volume 88 fL (79-100) Mean Corpuscular Hemoglobin 29 pg (25-35) Mean Corpuscular Hemoglobin Concent 33 g/dL (31-37) Red Cell Distribution Width 15.6 % (11.5-14.5) Platelet Count 168 x10^3/uL (140-400) Neutrophils (%) (Auto) 51 % (31-73) Lymphocytes (%) (Auto) 27 % (24-48) Monocytes (%) (Auto) 13 % (0-9) Eosinophils (%) (Auto) 9 % (0-3) Basophils (%) (Auto) 1 % (0-3) Neutrophils # (Auto) 2.1 x10^3/uL (1.8-7.7) Lymphocytes # (Auto) 1.1 x10^3/uL (1.0-4.8) Monocytes # (Auto) 0.5 x10^3/uL (0.0-1.1) Eosinophils # (Auto) 0.4 x10^3/uL (0.0-0.7) Basophils # (Auto) 0.0 x10^3/uL (0.0-0.2) Sodium Level 137 mmol/L (136-145) Potassium Level 4.4 mmol/L (3.5-5.1) Chloride Level 99 mmol/L (98-107) Carbon Dioxide Level 29 mmol/L (21-32) Anion Gap 9 (6-14) Blood Urea Nitrogen 47 mg/dL (8-26) Creatinine 10.7 mg/dL (0.7-1.3) Estimated GFR (Cockcroft-Gault) 5.8 BUN/Creatinine Ratio 4 (6-20) Glucose Level 69 mg/dL (70-99) Calcium Level 9.8 mg/dL (8.5-10.1) Total Bilirubin 0.5 mg/dL (0.2-1.0) Aspartate Amino Transf (AST/SGOT) 11 U/L (15-37) Alanine Aminotransferase (ALT/SGPT) 13 U/L (16-63) Alkaline Phosphatase 68 U/L (46-116) Total Protein 6.0 g/dL (6.4-8.2) Albumin 2.8 g/dL (3.4-5.0) Albumin/Globulin Ratio 0.9 (1.0-1.7) Test 11/03/21 09:31 11/03/21 12:43 Glucose (Fingerstick) 128 mg/dL (70-99) 126 mg/dL (70-99) Results All relevant outside records, renal labs, imaging studies, telemetry/EKG's were reviewed. Justicifation of Admission Dx: Justifications for Admission: Justification of Admission Dx: N/A MARRY NATH MD November 03, 2021 12:53
--- NOTE | 2021-11-03 13:24 | PDOC ---
[employer] PROGRESS NOTE Date of Service DOS: DATE: 11/03/21 TIME: 13:21 Chief Complaint Chief Complaint Weakness -worsening of baseline weakness and some right upper extremity weakness. Not a new CVA. Continue ASA Plavix. Statin. PT eval Frequent falls - progressive gait training rehab Dyspnea - likely acute diastolic CHF Acute encephalopathy -likely metabolic and progression of visit as of yet undiagnosed dementia with behavioral disturbance. Improved with redirection but did need Zyprexa which helped his mood. Lower back pain -with chronic compression of T11. PMR consulted for pain management. Apply Lidoderm patch F/u/ with PMR physician outpatient Peripheral arterial disease - s/p left leg bypass surgeries and stenting 10/2020, on plavix. Will reassess as pain and weakness worsened End-stage renal disease, on hemodialysis - Nephrology consulted. MWF dialysis Diabetes mellitus - Sliding scale Hypertension - cont home meds CAD - s/p remote stenting. 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 Wound care to see. These appear superficial, likely vascular in nature FEN - Renal dialysis diet PPX - heparin FULL CODE Dispo - inpatient History of Present Illness History of Present Illness Mr. Michelle is a 71-year-old male with past medical history of ESRD on HD, DM 2, HTN, CAD with prior HI, remote brainstem CVA 2006, PAD status post left lower extremity bypass and stenting who comes to the ED via EMS from home for progressive weakness, frequent falls, progressive dyspnea on exertion and his notes she is unable to care for him at home currently. He has a cane at home to been previously advised his walker. Despite this he still had falls at home he notes he is very dyspneic. 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 He has been hospitalized for symptomatic anemia fall with lumbar fracture within the last year. Normally he uses a cane in his right hand even using his cane he could not stand up and notes he had some right arm weakness which is new to him. CT head interpretation diffuse atrophy no acute radiographic findings. EKG sinus rhythm rate 94 bpm some PACs no T WI no ST segment elevations or depressions. Labs with WBC 4.3, Hb 13.1, platelets 181, INR 1, NA 139, K4.5, BUN 32, CR 9.9, glucose 85, calcium 9.7, bilirubin 0.5, AST 12, ALT 16, alkaline phosphatase 66, ammonia less than 10, NT proBNP greater than 35,000, high-sensitivity troponin is 66, albumin 3.3 11/02: Agitated overnight. He still is not oriented to location and day month or year. He is accusing his of trying to kill him, paranoid. Offered zyprexa for paranoia and agitation after discussion with his . arterial doppler results pending, of note he previously had Dr. Jin revascularize him. Vitals/I&O Vitals/I&O: Vital Signs Date Time Temp Pulse Resp B/P (MAP) Pulse Ox O2 Delivery O2 Flow Rate FiO2 11/03/21 11:30 98.2 85 18 142/70 (94) 91 Room Air 98.2 I & O 11/02/21 11/02/21 11/03/21 15:00 23:00 07:00 Intake Total 420 ml 230 ml Balance 420 ml 230 ml Physical Exam General: Alert, Cooperative, No acute distress Lungs: Clear, Other Abdomen: Normal bowel sounds, Soft, No tenderness, No hepatosplenomegaly, No masses Extremities: No clubbing, No cyanosis, No edema, Normal pulses, No tenderness/swelling Skin: No rashes, No breakdown, No significant lesion Labs Labs: Laboratory Tests Test 11/02/21 17:08 11/02/21 18:44 11/03/21 06:25 11/03/21 08:11 Glucose (Fingerstick) 149 mg/dL (70-99) 187 mg/dL (70-99) 65 mg/dL (70-99) White Blood Count 4.2 x10^3/uL (4.0-11.0) Red Blood Count 3.97 x10^6/uL (4.30-5.70) Hemoglobin 11.7 g/dL (13.0-17.5) Hematocrit 35.0 % (39.0-53.0) Mean Corpuscular Volume 88 fL (79-100) Mean Corpuscular Hemoglobin 29 pg (25-35) Mean Corpuscular Hemoglobin Concent 33 g/dL (31-37) Red Cell Distribution Width 15.6 % (11.5-14.5) Platelet Count 168 x10^3/uL (140-400) Neutrophils (%) (Auto) 51 % (31-73) Lymphocytes (%) (Auto) 27 % (24-48) Monocytes (%) (Auto) 13 % (0-9) Eosinophils (%) (Auto) 9 % (0-3) Basophils (%) (Auto) 1 % (0-3) Neutrophils # (Auto) 2.1 x10^3/uL (1.8-7.7) Lymphocytes # (Auto) 1.1 x10^3/uL (1.0-4.8) Monocytes # (Auto) 0.5 x10^3/uL (0.0-1.1) Eosinophils # (Auto) 0.4 x10^3/uL (0.0-0.7) Basophils # (Auto) 0.0 x10^3/uL (0.0-0.2) Sodium Level 137 mmol/L (136-145) Potassium Level 4.4 mmol/L (3.5-5.1) Chloride Level 99 mmol/L (98-107) Carbon Dioxide Level 29 mmol/L (21-32) Anion Gap 9 (6-14) Blood Urea Nitrogen 47 mg/dL (8-26) Creatinine 10.7 mg/dL (0.7-1.3) Estimated GFR (Cockcroft-Gault) 5.8 BUN/Creatinine Ratio 4 (6-20) Glucose Level 69 mg/dL (70-99) Calcium Level 9.8 mg/dL (8.5-10.1) Total Bilirubin 0.5 mg/dL (0.2-1.0) Aspartate Amino Transf (AST/SGOT) 11 U/L (15-37) Alanine Aminotransferase (ALT/SGPT) 13 U/L (16-63) Alkaline Phosphatase 68 U/L (46-116) Total Protein 6.0 g/dL (6.4-8.2) Albumin 2.8 g/dL (3.4-5.0) Albumin/Globulin Ratio 0.9 (1.0-1.7) Test 11/03/21 09:31 11/03/21 12:43 Glucose (Fingerstick) 128 mg/dL (70-99) 126 mg/dL (70-99) Assessment and Plan Assessmemt and Plan Problems Medical Problems: (1) Ambulatory dysfunction Status: Acute (2) Failure to thrive Status: Acute Comment Review of Relevant I have reviewed the following items dariel (where applicable) has been applied. Justifications for Admission Other Justification Thoracic Fx PRATIMA MANRIQUEZ MD November 03, 2021 13:24
[2021-11-03 15:30] VITALS: BP 154/75
[2021-11-03 19:15] VITALS: BP 124/80
[2021-11-03] MEDS: INSULIN GLARGINE SYRINGE. SQ SCH (21:00)
[2021-11-03 22:55] VITALS: BP 149/71
[2021-11-04 03:20] VITALS: BP 163/77
[2021-11-04] MEDS: cloNIDine HCL 0.1 MG TABLET PO SCH ×3 (05:54→22:00)
[2021-11-04 07:00] VITALS: BP 183/81
[2021-11-04] MEDS ORDERED: ALBUMIN HUMAN 25% 100 ML IV PRN (07:15)
[2021-11-04] MEDS ORDERED: DIALYSIS PATIENT. MC PRN ×2 (07:15)
[2021-11-04] MEDS ORDERED: IV NORMAL SALINE 1000ML BAG 1,000 ML IV PRN ×2 (07:15)
[2021-11-04] MEDS: INSULIN LISPRO 300 UNITS/3 ML VIAL. SQ SCH ×4 (07:30→21:00)
[2021-11-04] MEDS: traMADol 50 MG TABLET PO PRN ×2 (08:08→20:43)
--- NOTE | 2021-11-04 08:11 | NUR ---
Patients' blood sugar level is 165, patient did not receive breakfast this am d/t going to dialysis, insulin held at this time.
[2021-11-04 08:46] LABS: CALCIUM 10.1 mg/dL (8.5-10.1); CREATININE 12.7 mg/dL (0.7-1.3); GFR 4.8; POTASSIUM 4.5 mmol/L (3.5-5.1)
--- NOTE | 2021-11-04 09:03 | RAD ---
Right lower extremity arterial duplex Doppler examination spectral waveform analysis HISTORY: Progressive weakness claudication and decreased pulses, patient on dialysis. Sonographic examination right lower extremity is performed and multiple static images were obtained. In addition color Doppler was applied as well as arterial waveform spectral analysis. FINDINGS: There is calcification and plaque seen throughout the right lower extremity arteries. There is monoph asic flow in the popliteal artery and below the knee. There is no sagittal flow in the dorsalis pedis . There is increased velocity within the right popliteal artery with a peak systolic velocity of 181 cm/s. IMPRESSION: 1. Greater than 50 percent stenosis of the right popliteal artery with monophasic flow below the knee . 2. No flow in the dorsalis pedis artery. 3. Significant atherosclerotic disease. Small vessel disease is likely. Electronically signed by: Herve Santillan III, MD (11/04/2021 9:00 AM) [facility]
--- NOTE | 2021-11-04 09:31 | PDOC ---
DATE OF SERVICE DATE: 11/04/21 TIME: 09:31 SUBJECTIVE ROS Stable No SOB , No complaints on dialysis OBJECTIVE Vital Signs Vital Signs Date Time Temp Pulse Resp B/P (MAP) Pulse Ox O2 Delivery O2 Flow Rate FiO2 11/04/21 08:08 19 94 Room Air 11/04/21 07:00 97.6 89 183/81 (115) 97.6 I & 0 Intake and Output 11/04/21 07:00 Intake Total 1430 ml Balance 1430 ml Intake Oral 1430 ml # Voids 1 PHYSICAL EXAM Physical Exam General: NAD HEENT: Atraumatic, PERRLA, EOMI, Mucous membr. moist/pink neck Supple Lungs: Decreased at bases, Non labored Heart: S1S2, RRR, no thrills, no rubs, no gallops, no murmurs Abdomen: Normal bowel sounds, Soft, No tenderness, No hepatosplenomegaly, No masses Extremities: No clubbing, No cyanosis, No edema, . RUE fistula with good bruit and thrill Skin: No rashes, Neuro: Normal speech Left upper lower extremity 4 out of 5. Right upper extremity with decreased costumer strength. Psych/Mental Status: Mental status NL, Mood NL No Veliz, No CVA or SP tenderness DIAGNOSIS/ASSESSMENT Assessment & Plan ESRD on HD MWF at [facility],Seen during treatment , tolerating well. Continue as ordered. Rc BAXTER Hypertension Anemia . Past transfusion Hgb stable Weakness -worsening of baseline weakness and some right upper extremity weakness. Not a new CVA. On ASA Plavix. Statin. Frequent falls Dyspnea POA, currently denies Lower back pain -with chronic compression of T11. Peripheral arterial disease - s/p left leg bypass surgeries and stenting 10/2020, on plavix. Will reassess as pain and weakness worsened History of CVA with residual left-sided weakness-- brainstem in 2006 History of diabetes mellitus type 2 CAD - s/p remote stenting. DC per primary COMMENT/RELEVANT DATA Meds Current Medications Medications (Trade) Dose Ordered Sig/Neeraj Start Time Stop Time Status Last Admin Dose Admin Acetaminophen (Tylenol) 650 mg PRN Q6HRS PRN 11/01/21 03:15 Albumin Human 100 ml @ 100 mls/hr 1X PRN PRN 11/04/21 07:15 11/04/21 13:14 Alprazolam (Xanax) 0.5 mg PRN QHS PRN 11/02/21 00:00 11/02/21 09:32 DC 11/02/21 07:44 0.5 MG Amlodipine Besylate (Norvasc) 10 mg DAILY 11/01/21 03:15 11/03/21 08:15 10 MG Clonidine HCl (Catapres) 0.1 mg Q8HRS 11/01/21 06:00 11/04/21 05:54 0.1 MG Clopidogrel Bisulfate (Plavix) 75 mg DAILYWBKFT 11/01/21 08:00 11/03/21 08:15 75 MG Dextrose (Dextrose 50%-Water Syringe) 12.5 gm PRN Q15MIN PRN 11/01/21 07:15 Dextrose (Iv Dextrose 5%) 250 ml PRN Q15MIN PRN 11/01/21 07:15 Fentanyl Citrate (Fentanyl 2ml Vial) 25 mcg PRN Q3HRS PRN 11/01/21 03:15 11/01/21 20:21 25 MCG Hydralazine HCl (Apresoline Inj) 10 mg PRN Q4HRS PRN 11/01/21 03:15 11/02/21 07:45 10 MG Info (PHARMACY MONITORING -- do not chart) 1 each PRN DAILY PRN 11/04/21 07:15 Insulin Glargine (Lantus Syringe) 5 unit QHS 11/03/21 21:00 Insulin Human Lispro (HumaLOG) 0-7 UNITS TIDACHC 11/01/21 07:30 11/03/21 17:50 3 UNITS Memantine (Namenda) 5 mg BID 11/02/21 09:45 11/03/21 21:16 5 MG Morphine Sulfate (Morphine Sulfate) 2 mg 1X ONCE 11/01/21 00:45 11/01/21 00:46 DC 11/01/21 00:45 2 MG Olanzapine (ZyPREXA ZYDIS) 5 mg BID 11/02/21 10:00 11/03/21 21:16 5 MG Ondansetron HCl (Zofran) 4 mg PRN Q4HRS PRN 11/01/21 03:15 Pantoprazole Sodium (Protonix) 40 mg DAILYAC 11/01/21 07:30 11/03/21 08:15 40 MG Sodium Chloride 1,000 ml @ 400 mls/hr Q2H30M PRN 11/04/21 07:15 11/04/21 19:14 Tramadol HCl (Ultram) 50 mg PRN TID PRN 11/01/21 07:15 11/04/21 08:08 50 MG Ziprasidone (Geodon Im) 20 mg PRN QHS PRN 11/02/21 20:00 Lab Laboratory Tests Test 11/03/21 12:43 11/03/21 17:16 11/03/21 21:15 11/04/21 06:40 Glucose (Fingerstick) 126 mg/dL (70-99) 165 mg/dL (70-99) 120 mg/dL (70-99) Sodium Level 139 mmol/L (136-145) Potassium Level 4.5 mmol/L (3.5-5.1) Chloride Level 99 mmol/L (98-107) Carbon Dioxide Level 28 mmol/L (21-32) Anion Gap 12 (6-14) Blood Urea Nitrogen 57 mg/dL (8-26) Creatinine 12.7 mg/dL (0.7-1.3) Estimated GFR (Cockcroft-Gault) 4.8 Glucose Level 146 mg/dL (70-99) Calcium Level 10.1 mg/dL (8.5-10.1) Test 11/04/21 07:32 Glucose (Fingerstick) 162 mg/dL (70-99) Results All relevant outside records, renal labs, imaging studies, telemetry/EKG's were reviewed. Justicifation of Admission Dx: Justifications for Admission: Justification of Admission Dx: N/A MARRY NATH MD November 04, 2021 09:31
--- NOTE | 2021-11-04 09:55 | PDOC2 ---
CONSULT Date of Service Date of Service DATE: 11/04/21 TIME: 09:10 Reason for Consult Reason for Consult: PVD Referring Physician Referring Physician: Dr. Reynaga Identification/Chief Complaint Chief Complaint falls, weakness Source Source: Patient History of Present Illness Reason for Visit: Mr. Michelle is a 71-year-old male with past medical history of ESRD on HD via RUE access, DM 2, HTN, CAD with prior MT, remote brainstem CVA 2006, PAD status post left lower extremity bypass and RLE stenting who presented with progressive weakness, frequent falls, progressive dyspnea on exertion. We have been asked to evaluate him regarding his bilateral lower extremity wounds and peripheral vascular disease. He has had a prior left femoral to popliteal bypass that per report is a known occluded. He had right SFA and PT angioplasty by IR in October 2020. He reports he used to be ambulatory, a week ago, with a cane. However has not ambulated in a week due to his weakness and falls. He reports some pain in his legs bilaterally however not at rest, more with movement and ambulation. He denies any fevers or chills. He had a duplex that shows greater than 50 percent stenosis of the right popliteal artery with monophasic flow below the knee. He has known chronic occlusion of left leg bypass. He is able to give me some history, however some of his responses to not correlate with the questions being asked. He denies any problems with Right arm HD access, denies complaints regarding right hand Past Medical History Cardiovascular: CAD, HTN, MT, Hyperlipidemia, Other CENTRAL NERVOUS SYSTEM: CVA Heme/Onc: Anemia NOS Musculoskeletal: Osteoarthritis Renal/: Chronic renal failure Endocrine: Diabetes, Hyperparathyroidism Past Surgical History Past Surgical History: Cholecystectomy, Total knee replacement, Other Family History Family History: Diabetes, Hypertension Social History No ALCOHOL: none Drugs: None Lives: with Family Current Problem List Problem List Problems Medical Problems: (1) Ambulatory dysfunction Status: Acute (2) Failure to thrive Status: Acute Current Medications Current Medications Current Medications Morphine Sulfate (Morphine Sulfate) 4 mg 1X ONCE IVP Last administered on 10/31/21at 19:22; Start 10/31/21 at 19:30; Stop 10/31/21 at 19:31; Status DC Morphine Sulfate (Morphine Sulfate) 2 mg 1X ONCE IVP Last administered on 11/01/21at 00:45; Start 11/01/21 at 00:45; Stop 11/01/21 at 00:46; Status DC Fentanyl Citrate (Fentanyl 2ml Vial) 25 mcg PRN Q3HRS PRN IVP SEVERE PAIN 7-10 Last administered on 11/01/21at 20:21; Start 11/01/21 at 03:15 Acetaminophen (Tylenol) 650 mg PRN Q6HRS PRN PO MILD PAIN / TEMP > 100.3'F; Start 11/01/21 at 03:15 Ondansetron HCl (Zofran) 4 mg PRN Q4HRS PRN IVP NAUSEA/VOMITING; Start 11/01/21 at 03:15 Hydralazine HCl (Apresoline Inj) 10 mg PRN Q4HRS PRN IVP ELEVATED BP, SEE COMMENTS Last administered on 11/02/21at 07:45; Start 11/01/21 at 03:15 Amlodipine Besylate (Norvasc) 10 mg DAILY PO Last administered on 11/03/21at 08:15; Start 11/01/21 at 03:15 Clonidine HCl (Catapres) 0.1 mg Q8HRS PO Last administered on 11/04/21at 05:54; Start 11/01/21 at 06:00 Clopidogrel Bisulfate (Plavix) 75 mg DAILYWBKFT PO Last administered on 11/03/21at 08:15; Start 11/01/21 at 08:00 Pantoprazole Sodium (Protonix) 40 mg DAILYAC PO Last administered on 11/03/21at 08:15; Start 11/01/21 at 07:30 Tramadol HCl (Ultram) 50 mg PRN TID PRN PO MILD TO MODERATE PAIN Last administered on 11/04/21 08:08; Start 11/01/21 at 07:15 Insulin Glargine (Lantus Syringe) 8 unit QHS SQ Last administered on 11/02/21at 21:12; Start 11/01/21 at 21:00; Stop 11/03/21 at 13:24; Status DC Insulin Human Lispro (HumaLOG) 0-7 UNITS TIDACHC SQ Last administered on 11/03/21at 17:50; Start 11/01/21 at 07:30 Dextrose (Dextrose 50%-Water Syringe) 12.5 gm PRN Q15MIN PRN IV SEE COMMENTS; Start 11/01/21 at 07:15 Dextrose (Iv Dextrose 5%) 250 ml PRN Q15MIN PRN IV SEE COMMENTS; Start 11/01/21 at 07:15 Sodium Chloride 1,000 ml @ 1,000 mls/hr Q1H PRN IV hypotension; Start 11/01/21 at 11:00; Stop 11/01/21 at 16:59; Status DC Sodium Chloride 1,000 ml @ 400 mls/hr Q2H30M PRN IV PATENCY; Start 11/01/21 at 11:00; Stop 11/01/21 at 22:59; Status DC Info (PHARMACY MONITORING -- do not chart) 1 each PRN DAILY PRN MC SEE COMMENTS; Start 11/01/21 at 11:00; Status UNV Info (PHARMACY MONITORING -- do not chart) 1 each PRN DAILY PRN MC SEE COMMENTS; Start 11/01/21 at 11:00 Alprazolam (Xanax) 0.5 mg PRN QHS PRN PO ANXIETY / AGITATION Last administered on 11/02/21at 07:44; Start 11/02/21 at 00:00; Stop 11/02/21 at 09:32; Status DC Olanzapine (ZyPREXA ZYDIS) 5 mg PRN BID PRN PO ANXIETY / AGITATION; Start 11/02/21 at 09:30; Stop 11/02/21 at 09:49; Status DC Memantine (Namenda) 5 mg BID PO Last administered on 11/03/21at 21:16; Start 11/02/21 at 09:45 Ziprasidone (Geodon Im) 20 mg PRN QHS PRN IM ANXIETY / AGITATION; Start 11/02/21 at 20:00 Olanzapine (ZyPREXA ZYDIS) 5 mg BID PO Last administered on 11/03/21at 21:16; Start 11/02/21 at 10:00 Insulin Glargine (Lantus Syringe) 5 unit QHS SQ ; Start 11/03/21 at 21:00 Sodium Chloride 1,000 ml @ 1,000 mls/hr Q1H PRN IV hypotension; Start 11/04/21 at 07:15; Stop 11/04/21 at 13:14 Albumin Human 100 ml @ 100 mls/hr 1X PRN PRN IV Hypotension; Start 11/04/21 at 07:15; Stop 11/04/21 at 13:14 Sodium Chloride 1,000 ml @ 400 mls/hr Q2H30M PRN IV PATENCY; Start 11/04/21 at 07:15; Stop 11/04/21 at 19:14 Info (PHARMACY MONITORING -- do not chart) 1 each PRN DAILY PRN MC SEE COMMENTS; Start 11/04/21 at 07:15; Status UNV Info (PHARMACY MONITORING -- do not chart) 1 each PRN DAILY PRN MC SEE COMMENTS; Start 11/04/21 at 07:15 Active Scripts Active Pantoprazole Sodium (Pantoprazole Sodium) 40 Mg Tablet.dr 40 Mg PO DAILYAC 30 Days Methocarbamol 750 Mg Tablet 750 Mg PO PRN Q8HRS PRN 30 Days Tramadol Hcl 50 Mg Tablet 50 Mg PO PRN TID PRN 3 Days Clopidogrel (Clopidogrel Bisulfate) 75 Mg Tablet 75 Mg PO DAILYWBKFT MDD 75 mg 90 Days Reported Velphoro (Sucroferric Oxyhydroxide) 500 Mg Tab.chew 2 Tab PO TID 30 Days Alprazolam 0.5 Mg Tablet 1 Tab PO PRN TID PRN Amlodipine Besylate 10 Mg Tablet 10 Mg PO DAILY Clonidine Hcl 0.1 Mg Tablet 0.1 Mg PO DAILY Dialyvite 800 Tablet (Folic Acid/Vitamin B Comp W-C) 0.8 Mg Tablet 1 Tab PO DAILY 30 Days Ferric Citrate 210 Mg Tablet 2 Tab PO TIDWMEALS 30 Days Aspirin 325 Mg Tablet 1 Tab PO DAILY Lantus Solostar (Insulin Glargine,Hum.rec.anlog) 100 Unit/1 Ml Insuln.pen 10 Unit SQ DAILY 8-10 units daily Allergies Allergies: Coded Allergies: No Known Drug Allergies (Unverified , 08/27/20) ROS General: No: Chills, Other (fevers) Respiratory: No: Cough Cardiovascular: No Chest Pain, No Edema Gastrointestinal: No Nausea, No Vomiting, No Abdominal Pain Musculoskeletal: Yes Gait Disturbance (falling), Yes Pain In: (legs) Skin: Yes Skin Lesion Changes; No Rash Physical Exam General: Alert, No acute distress, Other (Oriented to self and place, some confused/disoriented answers ) Heart: Regular rate Abdomen: Soft, No tenderness Extremities: No cyanosis, No edema, Other (No doppler available in dialysis. Not able to palpate pulses. His feet are warm with motor function and sensation intact. ) Skin: Other (Left leg with superficial wounds on anterior valenzuela and lower leg, scabbing. Right leg foot with callus overlying dorsal midfoot hallus extensor tendon without drainage, erythema or fluctuance. Small superficial wounds to 2nd and 3rd toes. No heel ulcers bilaterally. Scarring down his left leg that is all healed. ) Neuro: Normal speech Psych/Mental Status: Mental status NL, Mood NL Vitals VITALS Vital Signs Date Time Temp Pulse Resp B/P (MAP) Pulse Ox O2 Delivery O2 Flow Rate FiO2 11/04/21 08:08 19 94 Room Air 11/04/21 07:00 97.6 89 183/81 (115) 97.6 Labs Labs Laboratory Tests Test 11/02/21 12:04 11/02/21 17:08 11/02/21 18:44 11/03/21 06:25 Glucose (Fingerstick) 102 mg/dL (70-99) 149 mg/dL (70-99) 187 mg/dL (70-99) White Blood Count 4.2 x10^3/uL (4.0-11.0) Red Blood Count 3.97 x10^6/uL (4.30-5.70) Hemoglobin 11.7 g/dL (13.0-17.5) Hematocrit 35.0 % (39.0-53.0) Mean Corpuscular Volume 88 fL (79-100) Mean Corpuscular Hemoglobin 29 pg (25-35) Mean Corpuscular Hemoglobin Concent 33 g/dL (31-37) Red Cell Distribution Width 15.6 % (11.5-14.5) Platelet Count 168 x10^3/uL (140-400) Neutrophils (%) (Auto) 51 % (31-73) Lymphocytes (%) (Auto) 27 % (24-48) Monocytes (%) (Auto) 13 % (0-9) Eosinophils (%) (Auto) 9 % (0-3) Basophils (%) (Auto) 1 % (0-3) Neutrophils # (Auto) 2.1 x10^3/uL (1.8-7.7) Lymphocytes # (Auto) 1.1 x10^3/uL (1.0-4.8) Monocytes # (Auto) 0.5 x10^3/uL (0.0-1.1) Eosinophils # (Auto) 0.4 x10^3/uL (0.0-0.7) Basophils # (Auto) 0.0 x10^3/uL (0.0-0.2) Sodium Level 137 mmol/L (136-145) Potassium Level 4.4 mmol/L (3.5-5.1) Chloride Level 99 mmol/L (98-107) Carbon Dioxide Level 29 mmol/L (21-32) Anion Gap 9 (6-14) Blood Urea Nitrogen 47 mg/dL (8-26) Creatinine 10.7 mg/dL (0.7-1.3) Estimated GFR (Cockcroft-Gault) 5.8 BUN/Creatinine Ratio 4 (6-20) Glucose Level 69 mg/dL (70-99) Calcium Level 9.8 mg/dL (8.5-10.1) Total Bilirubin 0.5 mg/dL (0.2-1.0) Aspartate Amino Transf (AST/SGOT) 11 U/L (15-37) Alanine Aminotransferase (ALT/SGPT) 13 U/L (16-63) Alkaline Phosphatase 68 U/L (46-116) Total Protein 6.0 g/dL (6.4-8.2) Albumin 2.8 g/dL (3.4-5.0) Albumin/Globulin Ratio 0.9 (1.0-1.7) Test 11/03/21 08:11 11/03/21 09:31 11/03/21 12:43 11/03/21 17:16 Glucose (Fingerstick) 65 mg/dL (70-99) 128 mg/dL (70-99) 126 mg/dL (70-99) 165 mg/dL (70-99) Test 11/03/21 21:15 11/04/21 06:40 11/04/21 07:32 Glucose (Fingerstick) 120 mg/dL (70-99) 162 mg/dL (70-99) Sodium Level 139 mmol/L (136-145) Potassium Level 4.5 mmol/L (3.5-5.1) Chloride Level 99 mmol/L (98-107) Carbon Dioxide Level 28 mmol/L (21-32) Anion Gap 12 (6-14) Blood Urea Nitrogen 57 mg/dL (8-26) Creatinine 12.7 mg/dL (0.7-1.3) Estimated GFR (Cockcroft-Gault) 4.8 Glucose Level 146 mg/dL (70-99) Calcium Level 10.1 mg/dL (8.5-10.1) Laboratory Tests Test 11/03/21 09:31 11/03/21 12:43 11/03/21 17:16 11/03/21 21:15 Glucose (Fingerstick) 128 mg/dL (70-99) 126 mg/dL (70-99) 165 mg/dL (70-99) 120 mg/dL (70-99) Test 11/04/21 06:40 11/04/21 07:32 Sodium Level 139 mmol/L (136-145) Potassium Level 4.5 mmol/L (3.5-5.1) Chloride Level 99 mmol/L (98-107) Carbon Dioxide Level 28 mmol/L (21-32) Anion Gap 12 (6-14) Blood Urea Nitrogen 57 mg/dL (8-26) Creatinine 12.7 mg/dL (0.7-1.3) Estimated GFR (Cockcroft-Gault) 4.8 Glucose Level 146 mg/dL (70-99) Calcium Level 10.1 mg/dL (8.5-10.1) Glucose (Fingerstick) 162 mg/dL (70-99) Images Images Art duplex reviewed, as in HPI Had TBI's done in our office May 2021 with right TBI 0.43, toe pressure 80 ALMA's noncompressible Assessment/Plan Assessment/Plan PAD, bilateral s/p left leg bypass that is chronically occluded 71-year-old male that is here for generalized weakness and recent falls who has known PAD. He is currently nonambulatory due to his recent falls and weakness, but reports previously (couple weeks ago) was walking with a cane. His wounds are superficial and actually appear to be in some stages of healing, they do not warrant surgical debridement at this time. He does not have rest pain. Although he has PAD, he may still have adequate flow for superficial wound healing and with his other acute issues going on right now, would not recommend any non- urgent vascular interventions at this time. Will ask wound care to do TCOM's. He is on daily plavix. Attending attestation: I independently saw and evaluated Mr. Michelle and agree with the findings of Myesha Easton PA-C unless otherwise noted. He is a 71-year-old male with a history of a left lower extremity bypass which has unfortunately thrombosed. Last fall he underwent left SFA and tibial angioplasty with good result and resolution of his recurrent rest pain. He presents to the hospital with generalized weakness and falls. He has been utilizing a wheelchair for mobility and has not been ambulating recently, though he states that several weeks ago he was ambulatory with a cane. He denies claudication or rest pain at this time but has scattered wounds over the bilateral lower extremities. These are superficial in nature. There is no erythema or induration surrounding the wounds. He has bilateral femoral pulses, with nonpalpable DP and PT bilaterally. Arterial duplex demonstrates known reduction in flow to both lower extremities. However, his most recent TBI's in our clinic last fall demonstrated toe pressures which should be adequate to heal the superficial wounds on his right foot. We will obtain TCOM to evaluate his ability to heal. We will continue to follow along and will consider angiogram with possible intervention should his overall condition improve and his wounds persist. Continue Plavix and statin therapy. DO LFOR Villatoro KELSEY R PA November 04, 2021 09:55 IRMA MARK DO November 04, 2021 11:34
[2021-11-04 11:00] VITALS: BP 133/70
--- NOTE | 2021-11-04 11:33 | PDOC ---
[facility] PROGRESS NOTE Date of Service DOS: DATE: 11/04/21 TIME: 11:31 Chief Complaint Chief Complaint ESRD on dialysis Weakness Frequent falls Dyspnea Encephalopathy Chronic back pain Neuropathy Diabetes Hypertension CAD History of cardiac stents Prior strokes Memory problems Lower extremity ulcers History of Present Illness History of Present Illness 11/04/2021 Patient seen and examined in the dialysis area (he is on dialysis Thursday) Discussed with RN Discussed with case management Chart reviewed We are awaiting discharge to senior care or long-term care Mr. Michelle is a 71-year-old male with past medical history of ESRD on HD, DM 2, HTN, CAD with prior [place], remote brainstem CVA 2006, PAD status post left lower extremity bypass and stenting who comes to the ED via EMS from home for progressive weakness, frequent falls, progressive dyspnea on exertion and his notes she is unable to care for him at home currently. He has a cane at home to been previously advised his walker. Despite this he still had falls at home he notes he is very dyspneic. 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 He has been hospitalized for symptomatic anemia fall with lumbar fracture within the last year. Normally he uses a cane in his right hand even using his cane he could not stand up and notes he had some right arm weakness which is new to him. CT head interpretation diffuse atrophy no acute radiographic findings. EKG sinus rhythm rate 94 bpm some PACs no T WI no ST segment elevations or depressions. Labs with WBC 4.3, Hb 13.1, platelets 181, INR 1, NA 139, K4.5, BUN 32, CR 9.9, glucose 85, calcium 9.7, bilirubin 0.5, AST 12, ALT 16, alkaline phosphatase 66, ammonia less than 10, NT proBNP greater than 35,000, high-sensitivity troponin is 66, albumin 3.3 11/02: Agitated overnight. He still is not oriented to location and day month or year. He is accusing his of trying to kill him, paranoid. Offered zyprexa for paranoia and agitation after discussion with his . arterial doppler results pending, of note he previously had Dr. Jin revascularize him. Vitals/I&O Vitals/I&O: Vital Signs Date Time Temp Pulse Resp B/P (MAP) Pulse Ox O2 Delivery O2 Flow Rate FiO2 11/04/21 08:08 19 94 Room Air 11/04/21 07:00 97.6 89 183/81 (115) 97.6 I & O 11/03/21 11/03/21 11/04/21 15:00 23:00 07:00 Intake Total 720 ml 620 ml 90 ml Balance 720 ml 620 ml 90 ml Physical Exam General: Alert, No acute distress, Other (Oriented to self and place, some confused/disoriented answers ) Heart: Regular rate Lungs: Clear, Other Abdomen: Soft, No tenderness Extremities: No cyanosis, No edema, Other (No doppler available in dialysis. Not able to palpate pulses. His feet are warm with motor function and sensation intact. ) Skin: Other (Left leg with superficial wounds on anterior valenzuela and lower leg, scabbing. Right leg foot with callus overlying dorsal midfoot hallus extensor tendon without drainage, erythema or fluctuance. Small superficial wounds to 2nd and 3rd toes. No heel ulcers bilaterally. Scarring down his left leg that is all healed. ) Labs Labs: Laboratory Tests Test 11/03/21 12:43 11/03/21 17:16 11/03/21 21:15 11/04/21 06:40 Glucose (Fingerstick) 126 mg/dL (70-99) 165 mg/dL (70-99) 120 mg/dL (70-99) Sodium Level 139 mmol/L (136-145) Potassium Level 4.5 mmol/L (3.5-5.1) Chloride Level 99 mmol/L (98-107) Carbon Dioxide Level 28 mmol/L (21-32) Anion Gap 12 (6-14) Blood Urea Nitrogen 57 mg/dL (8-26) Creatinine 12.7 mg/dL (0.7-1.3) Estimated GFR (Cockcroft-Gault) 4.8 Glucose Level 146 mg/dL (70-99) Calcium Level 10.1 mg/dL (8.5-10.1) Test 11/04/21 07:32 11/04/21 08:10 Glucose (Fingerstick) 162 mg/dL (70-99) Hepatitis B Surface Antibody Nonreactive Assessment and Plan Assessmemt and Plan Problems Medical Problems: (1) Ambulatory dysfunction Status: Acute (2) Failure to thrive Status: Acut We are awaiting discharge disposition hopefully to senior care or long-term care for now continue the following Weakness -worsening of baseline weakness and some right upper extremity weakness. Not a new CVA. Continue ASA Plavix. Statin. PT eval Frequent falls - progressive gait training rehab Dyspnea - likely acute diastolic CHF Acute encephalopathy -likely metabolic and progression of visit as of yet undiagnosed dementia with behavioral disturbance. Improved with redirection but did need Zyprexa which helped his mood. Lower back pain -with chronic compression of T11. PMR consulted for pain management. Apply Lidoderm patch F/u/ with PMR physician outpatient Peripheral arterial disease - s/p left leg bypass surgeries and stenting 10/2020, on plavix. Will reassess as pain and weakness worsened End-stage renal disease, on hemodialysis - Nephrology consulted. MWF dialysis Diabetes mellitus - Sliding scale Hypertension - cont home meds CAD - s/p remote stenting. 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 Wound care to see. These appear superficial, likely vascular in nature FEN - Renal dialysis diet PPX - heparin FULL CODE Dispo - inpatient Comment Review of Relevant I have reviewed the following items dariel (where applicable) has been applied. Justifications for Admission Other Justification Thoracic Fx SHAYY MALLOY III DO November 04, 2021 11:33
[2021-11-04] MEDS: CLOPIDOGREL BISULFATE 75 MG TABLET PO SCH (13:31)
[2021-11-04] MEDS: PANTOPRAZOLE 40 MG TABLET.DR. PO SCH (13:31)
[2021-11-04] MEDS: MEMANTINE 5 MG TABLET. PO SCH ×2 (13:31→20:38)
[2021-11-04 15:00] VITALS: BP 137/70
--- NOTE | 2021-11-04 16:34 | NUR ---
Wound Care Wound Type/Assessment: Consult to eval and treat weeping cellulitis to BLE, coccyx redness, Posterior scalp laceration, and L elbow wound. On inspection, bilateral legs are 2+ edematous with small, dry, stable scabs. Skin is pink and warm to touch; no weeping or open areas observed. Posterior scalp laceration is well approximated and scabbed, left CRISTIAN. Bilateral buttocks are bright red and nonblanchable, but intact. L elbow has a stage III ulcer with a slough covered wound base and pink margins. No other wounds noted on head to toe inspection. Treatment Recommendations/Plan: Bilateral buttocks: Keep pt clean and dry. Apply barrier cream BID and as needed. Turn Q2H. L elbow: Apply skin prep to intact skin. Cover with small piece of hydrocolloid dressing and foam. Change every 2-3 days. Education provided: On turning to prevent pressure sores Offloading surface/device: Pt is able to turn independently but requires queuing. Recommended Referrals/Tests: NA Discharge Recommendations for dressings: As above Addendum: 11/07/21 at 1134 by WASHINGTON DELGADO RN The above narrative has been documented on the incorrect patient. Please disregard
[2021-11-04 19:00] VITALS: BP 105/36
[2021-11-04 22:58] VITALS: BP 101/77
[2021-11-04] MEDS: INSULIN GLARGINE SYRINGE. SQ SCH (23:14)
[2021-11-05 03:00] VITALS: BP 121/58
[2021-11-05 06:10] VITALS: BP 156/84
[2021-11-05] MEDS: traMADol 50 MG TABLET PO PRN ×2 (06:13→13:57)
[2021-11-05] MEDS: cloNIDine HCL 0.1 MG TABLET PO SCH ×3 (06:13→22:00)
[2021-11-05] MEDS: INSULIN LISPRO 300 UNITS/3 ML VIAL. SQ SCH ×4 (07:30→21:00)
[2021-11-05] MEDS: MEMANTINE 5 MG TABLET. PO SCH ×2 (08:42→20:59)
[2021-11-05] MEDS: CLOPIDOGREL BISULFATE 75 MG TABLET PO SCH (08:42)
[2021-11-05] MEDS: PANTOPRAZOLE 40 MG TABLET.DR. PO SCH (08:42)
--- NOTE | 2021-11-05 09:41 | PDOC ---
SURGICAL PROGRESS NOTE DATE: 11/05/21 TIME: 09:37 Subjective Patient was seen and examined at the bedside today. Overall he is doing well and there were no acute events overnight. He denies any lower extremity discomfort. Vital Signs Vital Signs Date Time Temp Pulse Resp B/P (MAP) Pulse Ox O2 Delivery O2 Flow Rate FiO2 11/05/21 08:42 87 156/84 11/05/21 08:00 Room Air 11/05/21 06:13 20 11/05/21 03:00 98.9 95 98.9 I&O Intake and Output 11/05/21 07:00 Intake Total 760 ml Output Total 0 ml Balance 760 ml Intake Oral 760 ml Output Urine Total 0 ml # Voids 1 General: Alert, Oriented X3, Cooperative HEENT: Atraumatic, PERRLA Lungs: Clear to auscultation, Normal air movement Heart: Regular rate Abdomen: Normal bowel sounds, Soft, No tenderness Extremities: Other (Palpable femoral pulses bilaterally, intact Doppler signals in bilateral lower extremities) Skin: Other (Right dorsal foot wound is superficial without evidence of cellulitis, no purulent drainage, no malodor) Neuro: Normal speech, Strength at 5/5 X4 ext, Sensation intact, Cranial nerves 3-12 NL Psych/Mental Status: Mental status NL, Mood NL Labs Laboratory Tests Test 11/03/21 12:43 11/03/21 17:16 11/03/21 21:15 11/04/21 06:40 Glucose (Fingerstick) 126 mg/dL (70-99) 165 mg/dL (70-99) 120 mg/dL (70-99) Sodium Level 139 mmol/L (136-145) Potassium Level 4.5 mmol/L (3.5-5.1) Chloride Level 99 mmol/L (98-107) Carbon Dioxide Level 28 mmol/L (21-32) Anion Gap 12 (6-14) Blood Urea Nitrogen 57 mg/dL (8-26) Creatinine 12.7 mg/dL (0.7-1.3) Estimated GFR (Cockcroft-Gault) 4.8 Glucose Level 146 mg/dL (70-99) Calcium Level 10.1 mg/dL (8.5-10.1) Test 11/04/21 07:32 11/04/21 08:10 11/04/21 12:34 11/04/21 16:49 Glucose (Fingerstick) 162 mg/dL (70-99) 124 mg/dL (70-99) 146 mg/dL (70-99) Hepatitis B Surface Antibody Nonreactive Test 11/04/21 21:04 11/05/21 07:49 Glucose (Fingerstick) 183 mg/dL (70-99) 121 mg/dL (70-99) Laboratory Tests Test 11/04/21 12:34 11/04/21 16:49 11/04/21 21:04 11/05/21 07:49 Glucose (Fingerstick) 124 mg/dL (70-99) 146 mg/dL (70-99) 183 mg/dL (70-99) 121 mg/dL (70-99) Problem List Problems Medical Problems: (1) Ambulatory dysfunction Status: Acute (2) Failure to thrive Status: Acute Assessment/Plan Peripheral arterial disease--patient has chronic known peripheral arterial disease. He has a chronically thrombosed left femoropopliteal bypass. He has had previous tibial vascular intervention in the past. He seems to have adequate arterial blood flow based on Doppler exam. He has a very superficial dorsal foot wound on the right that appears uncomplicated. Recommend antibiotics for the foot wound. Local wound care. I suspect no further re vascularization is necessary at this time. He can follow-up in our office for chronic management of his lower extremity peripheral arterial disease. Lower extremity weakness--I discussed this with the patient's over the phone today. Her concerns are his lower extremity weakness and the concern of new stroke. I discussed with her that we will defer to the hospitalist team to decide whether to involve neurology. I believe his dementia symptoms are chronic from old stroke. I did review the patient's CT scan of the brain which showed chronic brain findings without evidence of new intracranial lesion. Clinically, the patient does not demonstrate obvious signs of acute stroke. Again I will defer to the hospitalist service on whether to involve neurology to evaluate. I suspect that many of these findings are chronic. All questions were answered to the satisfaction today. The plan was discussed with the nursing staff at the bedside. Marleni Velazquez DO, FACS Justicifation of Admission Dx: Justifications for Admission: Justification of Admission Dx: N/A MARLENI VELAZQUEZ DO November 05, 2021 09:41
--- NOTE | 2021-11-05 10:47 | PDOC ---
[facility] PROGRESS NOTE Date of Service DOS: DATE: 11/05/21 TIME: 10:46 Chief Complaint Chief Complaint ESRD on dialysis Weakness Frequent falls Dyspnea Encephalopathy Chronic back pain Neuropathy Diabetes Hypertension CAD History of cardiac stents Prior strokes Memory problems Lower extremity ulcers History of Present Illness History of Present Illness 11/05/2021 Patient seen and examined Discussed with RN Chart reviewed Discussed with case management 11/04/2021 Patient seen and examined in the dialysis area (he is on dialysis Thursday) Discussed with RN Discussed with case management Chart reviewed We are awaiting discharge to longterm or long-term care Mr. Michelle is a 71-year-old male with past medical history of ESRD on HD, DM 2, HTN, CAD with prior [place], remote brainstem CVA 2006, PAD status post left lower extremity bypass and stenting who comes to the ED via EMS from home for progressive weakness, frequent falls, progressive dyspnea on exertion and his notes she is unable to care for him at home currently. He has a cane at home to been previously advised his walker. Despite this he still had falls at home he notes he is very dyspneic. 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 He has been hospitalized for symptomatic anemia fall with lumbar fracture within the last year. Normally he uses a cane in his right hand even using his cane he could not stand up and notes he had some right arm weakness which is new to him. CT head interpretation diffuse atrophy no acute radiographic findings. EKG sinus rhythm rate 94 bpm some PACs no T WI no ST segment elevations or depressions. Labs with WBC 4.3, Hb 13.1, platelets 181, INR 1, NA 139, K4.5, BUN 32, CR 9.9, glucose 85, calcium 9.7, bilirubin 0.5, AST 12, ALT 16, alkaline phosphatase 66, ammonia less than 10, NT proBNP greater than 35,000, high-sensitivity troponin is 66, albumin 3.3 11/02: Agitated overnight. He still is not oriented to location and day month or year. He is accusing his of trying to kill him, paranoid. Offered zyprexa for paranoia and agitation after discussion with his . arterial doppler results pending, of note he previously had Dr. Jin revascularize him. Vitals/I&O Vitals/I&O: Vital Signs Date Time Temp Pulse Resp B/P (MAP) Pulse Ox O2 Delivery O2 Flow Rate FiO2 11/05/21 08:42 87 156/84 11/05/21 08:00 Room Air 11/05/21 06:13 20 11/05/21 03:00 98.9 95 98.9 I & O 11/04/21 11/04/21 11/05/21 15:00 23:00 07:00 Intake Total 180 ml 380 ml 200 ml Output Total 0 ml Balance 180 ml 380 ml 200 ml Physical Exam General: Alert, Oriented X3, Cooperative Heart: Regular rate Lungs: Clear, Other Abdomen: Normal bowel sounds, Soft, No tenderness Extremities: Other (Palpable femoral pulses bilaterally, intact Doppler signals in bilateral lower extremities) Skin: Other (Right dorsal foot wound is superficial without evidence of cellulitis, no purulent drainage, no malodor) Labs Labs: Laboratory Tests Test 11/04/21 12:34 11/04/21 16:49 11/04/21 21:04 11/05/21 07:49 Glucose (Fingerstick) 124 mg/dL (70-99) 146 mg/dL (70-99) 183 mg/dL (70-99) 121 mg/dL (70-99) Assessment and Plan Assessmemt and Plan Problems Medical Problems: (1) Ambulatory dysfunction Status: Acute (2) Failure to thrive Status: Acute We are awaiting discharge disposition hopefully to longterm or long-term care for now continue the following Appreciate subspecialist input Continue antibiotics Home meds DVT prophylaxis Full code Hope to discharge to skilled tomorrow Weakness -worsening of baseline weakness and some right upper extremity weakness. Not a new CVA. Continue ASA Plavix. Statin. PT eval Frequent falls - progressive gait training rehab Dyspnea - likely acute diastolic CHF Acute encephalopathy -likely metabolic and progression of visit as of yet undiagnosed dementia with behavioral disturbance. Improved with redirection but did need Zyprexa which helped his mood. Lower back pain -with chronic compression of T11. PMR consulted for pain management. Apply Lidoderm patch F/u/ with PMR physician outpatient Peripheral arterial disease - s/p left leg bypass surgeries and stenting 10/2020, on plavix. Will reassess as pain and weakness worsened End-stage renal disease, on hemodialysis - Nephrology consulted. MWF dialysis Diabetes mellitus - Sliding scale Hypertension - cont home meds CAD - s/p remote stenting. 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 Wound care to see. These appear superficial, likely vascular in nature FEN - Renal dialysis diet PPX - heparin FULL CODE Dispo - inpatient Comment Review of Relevant I have reviewed the following items dariel (where applicable) has been applied. Justifications for Admission Other Justification Thoracic Fx SHAYY MALLOY III DO November 05, 2021 10:47
[2021-11-05 11:00] VITALS: BP 164/79
--- NOTE | 2021-11-05 12:35 | NUR ---
WOUND CARE Patient was seen today for completion of a TCOM test as ordered by Vascular Surgery. Patient was agitated and confused and an accurate exam was not possible. Vascular Surgery (Myesha Easton) was notified.
--- NOTE | 2021-11-05 13:30 | NUR ---
PATIENT ALERT AND VERBALLY RESPONSIVE AT THIS TIME, EXHIBITS ANXIOUSNESS WITHOUT BEING AGGRESSIVE, PATIENT STATING THAT HE GOING HOME TODAY, WANTS TO PUT ON HIS CLOTHES AND SHOES, TRYING TO PACK THINGS IN HIS OVERNIGHT BAG AND LEANING LEGS OVER THE SIDE OF THE BED, PATIENT REDIRECTED BY THIS EXEC. CREATIVE DIRECTOR, WILL MONITOR.
--- NOTE | 2021-11-05 14:27 | PDOC ---
DATE OF SERVICE DATE: 11/05/21 TIME: 14:25 SUBJECTIVE ROS Stable No SOB OBJECTIVE Vital Signs Vital Signs Date Time Temp Pulse Resp B/P (MAP) Pulse Ox O2 Delivery O2 Flow Rate FiO2 11/05/21 13:57 21 94 Room Air 11/05/21 13:57 77 164/79 11/05/21 11:00 98.2 98.2 I & 0 Intake and Output 11/05/21 07:00 Intake Total 760 ml Output Total 0 ml Balance 760 ml Intake Oral 760 ml Output Urine Total 0 ml # Voids 1 PHYSICAL EXAM Physical Exam General: NAD HEENT: Atraumatic, PERRLA, EOMI, Mucous membr. moist/pink neck Supple Lungs: Decreased at bases, Non labored Heart: S1S2, RRR, no thrills, no rubs, no gallops, no murmurs Abdomen: Normal bowel sounds, Soft, No tenderness, No hepatosplenomegaly, No masses Extremities: No clubbing, No cyanosis, No edema, . RUE fistula with good bruit and thrill Skin: No rashes, Neuro: Normal speech Left upper lower extremity 4 out of 5. Right upper extre mity with decreased pastry sous chef strength. Psych/Mental Status: Mental status NL, Mood NL No Veliz, No CVA or SP tenderness DIAGNOSIS/ASSESSMENT Assessment & Plan ESRD on HD MWF at [facility], No indication for dialysis today Hypertension Anemia . Past transfusion Hgb stable Weakness -worsening of baseline weakness and some right upper extremity weakness. Not a new CVA. On ASA Plavix. Statin. Frequent falls Dyspnea POA, currently denies Lower back pain -with chronic compression of T11. Peripheral arterial disease - s/p left leg bypass surgeries and stenting 10/2020, on plavix. Will reassess as pain and weakness worsened History of CVA with residual left-sided weakness-- brainstem in 2006 History of diabetes mellitus type 2 CAD - s/p remote stenting. DC per primary COMMENT/RELEVANT DATA Meds Current Medications Medications (Trade) Dose Ordered Sig/Neeraj Start Time Stop Time Status Last Admin Dose Admin Acetaminophen (Tylenol) 650 mg PRN Q6HRS PRN 11/01/21 03:15 Albumin Human 100 ml @ 100 mls/hr 1X PRN PRN 11/04/21 07:15 11/04/21 13:14 DC Alprazolam (Xanax) 0.5 mg PRN QHS PRN 11/02/21 00:00 11/02/21 09:32 DC 11/02/21 07:44 0.5 MG Amlodipine Besylate (Norvasc) 10 mg DAILY 11/01/21 03:15 11/05/21 08:42 10 MG Clonidine HCl (Catapres) 0.1 mg Q8HRS 11/01/21 06:00 11/05/21 13:57 0.1 MG Clopidogrel Bisulfate (Plavix) 75 mg DAILYWBKFT 11/01/21 08:00 11/05/21 08:42 75 MG Dextrose (Dextrose 50%-Water Syringe) 12.5 gm PRN Q15MIN PRN 11/01/21 07:15 Dextrose (Iv Dextrose 5%) 250 ml PRN Q15MIN PRN 11/01/21 07:15 Fentanyl Citrate (Fentanyl 2ml Vial) 25 mcg PRN Q3HRS PRN 11/01/21 03:15 11/01/21 20:21 25 MCG Hydralazine HCl (Apresoline Inj) 10 mg PRN Q4HRS PRN 11/01/21 03:15 11/02/21 07:45 10 MG Info (PHARMACY MONITORING -- do not chart) 1 each PRN DAILY PRN 11/04/21 07:15 Insulin Glargine (Lantus Syringe) 5 unit QHS 11/03/21 21:00 11/04/21 23:14 5 UNIT Insulin Human Lispro (HumaLOG) 0-7 UNITS TIDACHC 11/01/21 07:30 11/03/21 17:50 3 UNITS Memantine (Namenda) 5 mg BID 11/02/21 09:45 11/05/21 08:42 5 MG Morphine Sulfate (Morphine Sulfate) 2 mg 1X ONCE 11/01/21 00:45 11/01/21 00:46 DC 11/01/21 00:45 2 MG Olanzapine (ZyPREXA ZYDIS) 5 mg BID 11/02/21 10:00 11/05/21 08:41 5 MG Ondansetron HCl (Zofran) 4 mg PRN Q4HRS PRN 11/01/21 03:15 Pantoprazole Sodium (Protonix) 40 mg DAILYAC 11/01/21 07:30 11/05/21 08:42 40 MG Sodium Chloride 1,000 ml @ 400 mls/hr Q2H30M PRN 11/04/21 07:15 11/04/21 19:14 DC Tramadol HCl (Ultram) 50 mg PRN TID PRN 11/01/21 07:15 11/05/21 13:57 50 MG Ziprasidone (Geodon Im) 20 mg PRN QHS PRN 11/02/21 20:00 Lab Laboratory Tests Test 11/04/21 16:49 11/04/21 21:04 11/05/21 07:49 11/05/21 11:39 Glucose (Fingerstick) 146 mg/dL (70-99) 183 mg/dL (70-99) 121 mg/dL (70-99) 149 mg/dL (70-99) Results All relevant outside records, renal labs, imaging studies, telemetry/EKG's were reviewed. Justicifation of Admission Dx: Justifications for Admission: Justification of Admission Dx: N/A MARRY NATH MD November 05, 2021 14:27
--- NOTE | 2021-11-05 15:42 | NUR ---
REPORT CALLED TO [facility] ON THE FOURTH FLOOR, QUESTIONS AND CONCERNS ANSWERED.
[2021-11-05 19:00] VITALS: BP 178/69
[2021-11-05] MEDS: INSULIN GLARGINE SYRINGE. SQ SCH (21:09)
[2021-11-05 23:00] VITALS: BP 179/70
[2021-11-06 03:00] VITALS: BP 162/72
[2021-11-06 05:44] LABS: CALCIUM 9.8 mg/dL (8.5-10.1); GFR 5.1
[2021-11-06] MEDS: cloNIDine HCL 0.1 MG TABLET PO SCH ×3 (06:00→22:00)
[2021-11-06 07:15] VITALS: BP 169/65
[2021-11-06] MEDS: MEMANTINE 5 MG TABLET. PO SCH ×2 (07:27→21:00)
[2021-11-06] MEDS: CLOPIDOGREL BISULFATE 75 MG TABLET PO SCH (07:27)
[2021-11-06] MEDS: PANTOPRAZOLE 40 MG TABLET.DR. PO SCH (07:27)
[2021-11-06] MEDS: INSULIN LISPRO 300 UNITS/3 ML VIAL. SQ SCH ×4 (07:30→21:00)
--- NOTE | 2021-11-06 09:04 | PDOC ---
DATE OF SERVICE DATE: 11/06/21 TIME: 09:03 SUBJECTIVE ROS Stable No SOB , no complaints during dialysis OBJECTIVE Vital Signs Vital Signs Date Time Temp Pulse Resp B/P (MAP) Pulse Ox O2 Delivery O2 Flow Rate FiO2 11/06/21 07:15 97.8 76 20 169/65 (99) 96 Room Air 97.8 I & 0 Intake and Output 11/06/21 07:00 Intake Total 120 ml Output Total 0 ml Balance 120 ml Intake Oral 120 ml Output Urine Total 0 ml PHYSICAL EXAM Physical Exam General: NAD HEENT: Atraumatic, PERRLA, EOMI, Mucous membr. moist/pink neck Supple Lungs: Decreased at bases, Non labored Heart: S1S2, RRR, no thrills, no rubs, no gallops, no murmurs Abdomen: Normal bowel sounds, Soft, No tenderness, No hepatosplenomegaly, No masses Extremities: No clubbing, No cyanosis, No edema, . RUE fistula with good bruit and thrill Skin: No rashes, Neuro: Normal speech Left upper lower extremity 4 out of 5. Right upper extremity with decreased field service consultant strength. Psych/Mental Status: Mental status NL, Mood NL No Veliz, No CVA or SP tenderness DIAGNOSIS/ASSESSMENT Assessment & Plan ESRD on HD MWF at [facility],Seen during treatment , tolerating well. Continue as ordered. Rc BAXTER Hypertension - Resume Home Meds Anemia . Past transfusion Hgb stable Weakness -worsening of baseline weakness and some right upper extremity weakness. Not a new CVA. On ASA Plavix. Statin. Frequent falls Dyspnea POA, currently denies Lower back pain -with chronic compression of T11. Peripheral arterial disease - s/p left leg bypass surgeries and stenting 10/2020, on plavix. Will reassess as pain and weakness worsened History of CVA with residual left-sided weakness-- brainstem in 2006 History of diabetes mellitus type 2 CAD - s/p remote stenting. DC per primary COMMENT/RELEVANT DATA Meds Current Medications Medications (Trade) Dose Ordered Sig/Neeraj Start Time Stop Time Status Last Admin Dose Admin Acetaminophen (Tylenol) 650 mg PRN Q6HRS PRN 11/01/21 03:15 Albumin Human 100 ml @ 100 mls/hr 1X PRN PRN 11/04/21 07:15 11/04/21 13:14 DC Alprazolam (Xanax) 0.5 mg PRN QHS PRN 11/02/21 00:00 11/02/21 09:32 DC 11/02/21 07:44 0.5 MG Amlodipine Besylate (Norvasc) 10 mg DAILY 11/01/21 03:15 11/05/21 08:42 10 MG Clonidine HCl (Catapres) 0.1 mg Q8HRS 11/01/21 06:00 11/05/21 13:57 0.1 MG Clopidogrel Bisulfate (Plavix) 75 mg DAILYWBKFT 11/01/21 08:00 11/05/21 08:42 75 MG Dextrose (Dextrose 50%-Water Syringe) 12.5 gm PRN Q15MIN PRN 11/01/21 07:15 Dextrose (Iv Dextrose 5%) 250 ml PRN Q15MIN PRN 11/01/21 07:15 Fentanyl Citrate (Fentanyl 2ml Vial) 25 mcg PRN Q3HRS PRN 11/01/21 03:15 11/01/21 20:21 25 MCG Hydralazine HCl (Apresoline Inj) 10 mg PRN Q4HRS PRN 11/01/21 03:15 11/02/21 07:45 10 MG Info (PHARMACY MONITORING -- do not chart) 1 each PRN DAILY PRN 11/04/21 07:15 Insulin Glargine (Lantus Syringe) 5 unit QHS 11/03/21 21:00 11/05/21 21:09 5 UNIT Insulin Human Lispro (HumaLOG) 0-7 UNITS TIDACHC 11/01/21 07:30 11/03/21 17:50 3 UNITS Memantine (Namenda) 5 mg BID 11/02/21 09:45 11/05/21 20:59 5 MG Morphine Sulfate (Morphine Sulfate) 2 mg 1X ONCE 11/01/21 00:45 11/01/21 00:46 DC 11/01/21 00:45 2 MG Olanzapine (ZyPREXA ZYDIS) 5 mg BID 11/02/21 10:00 11/05/21 20:59 5 MG Ondansetron HCl (Zofran) 4 mg PRN Q4HRS PRN 11/01/21 03:15 Pantoprazole Sodium (Protonix) 40 mg DAILYAC 11/01/21 07:30 11/05/21 08:42 40 MG Sodium Chloride 1,000 ml @ 400 mls/hr Q2H30M PRN 11/04/21 07:15 11/04/21 19:14 DC Tramadol HCl (Ultram) 50 mg PRN TID PRN 11/01/21 07:15 11/05/21 13:57 50 MG Ziprasidone (Geodon Im) 20 mg PRN QHS PRN 11/02/21 20:00 Lab Laboratory Tests Test 11/05/21 09:30 11/05/21 11:39 11/05/21 20:52 11/06/21 04:45 SARS-CoV-2 Antigen (Rapid) Negative (NEGATIVE) Glucose (Fingerstick) 149 mg/dL (70-99) 124 mg/dL (70-99) Sodium Level 137 mmol/L (136-145) Potassium Level 5.0 mmol/L (3.5-5.1) Chloride Level 99 mmol/L (98-107) Carbon Dioxide Level 33 mmol/L (21-32) Anion Gap 5 (6-14) Blood Urea Nitrogen 62 mg/dL (8-26) Creatinine 12.0 mg/dL (0.7-1.3) Estimated GFR (Cockcroft-Gault) 5.1 Glucose Level 142 mg/dL (70-99) Calcium Level 9.8 mg/dL (8.5-10.1) Test 11/06/21 07:14 Glucose (Fingerstick) 140 mg/dL (70-99) Results All relevant outside records, renal labs, imaging studies, telemetry/EKG's were reviewed. Justicifation of Admission Dx: Justifications for Admission: Justification of Admission Dx: N/A MARRY NATH MD November 06, 2021 09:03
--- NOTE | 2021-11-06 09:51 | PDOC ---
[facility] PROGRESS NOTE Date of Service DOS: DATE: 11/06/21 TIME: 09:50 Chief Complaint Chief Complaint ESRD on dialysis Weakness Frequent falls Dyspnea Encephalopathy Chronic back pain Neuropathy Diabetes Hypertension CAD History of cardiac stents Prior strokes Memory problems Lower extremity ulcers History of Present Illness History of Present Illness 11/06 Patient evaluated examined at bedside. Clinically stable no acute changes or events overnight. Outpatient dialysis set up. Working on jail placement. From my point of view is able to discharge whenever placement is found. Discussed with bedside RN. Nephrology recommendations reviewed. 11/05/2021 Patient seen and examined Discussed with RN Chart reviewed Discussed with case management 11/04/2021 Patient seen and examined in the dialysis area (he is on dialysis Thursday) Discussed with RN Discussed with case management Chart reviewed We are awaiting discharge to jail or long-term care Mr. Michelle is a 71-year-old male with past medical history of ESRD on HD, DM 2, HTN, CAD with prior [place], remote brainstem CVA 2006, PAD status post left lower extremity bypass and stenting who comes to the ED via EMS from home for progressive weakness, frequent falls, progressive dyspnea on exertion and his notes she is unable to care for him at home currently. He has a cane at home to been previously advised his walker. Despite this he still had falls at home he notes he is very dyspneic. 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 He has been hospitalized for symptomatic anemia fall with lumbar fracture within the last year. Normally he uses a cane in his right hand even using his cane he could not stand up and notes he had some right arm weakness which is new to him. CT head interpretation diffuse atrophy no acute radiographic findings. EKG sinus rhythm rate 94 bpm some PACs no T WI no ST segment elevations or depr essions. Labs with WBC 4.3, Hb 13.1, platelets 181, INR 1, NA 139, K4.5, BUN 32, CR 9.9, glucose 85, calcium 9.7, bilirubin 0.5, AST 12, ALT 16, alkaline phosphatase 66, ammonia less than 10, NT proBNP greater than 35,000, high-sensitivity troponin is 66, albumin 3.3 11/02: Agitated overnight. He still is not oriented to location and day month or year. He is accusing his of trying to kill him, paranoid. Offered zyprexa for paranoia and agitation after discussion with his . arterial doppler results pending, of note he previously had Dr. Jin revascularize him. Vitals/I&O Vitals/I&O: Vital Signs Date Time Temp Pulse Resp B/P (MAP) Pulse Ox O2 Delivery O2 Flow Rate FiO2 11/06/21 07:15 97.8 76 20 169/65 (99) 96 Room Air 97.8 I & O 11/05/21 11/05/21 11/06/21 15:00 23:00 07:00 Intake Total 120 ml Output Total 0 ml Balance 120 ml Physical Exam General: Alert, Oriented X3, Cooperative Heart: Regular rate Lungs: Clear, Other Abdomen: Normal bowel sounds, Soft, No tenderness Extremities: Other (Palpable femoral pulses bilaterally, intact Doppler signals in bilateral lower extremities) Skin: Other (Right dorsal foot wound is superficial without evidence of cellulitis, no purulent drainage, no malodor) Labs Labs: Laboratory Tests Test 11/05/21 11:39 11/05/21 20:52 11/06/21 04:45 11/06/21 07:14 Glucose (Fingerstick) 149 mg/dL (70-99) 124 mg/dL (70-99) 140 mg/dL (70-99) Sodium Level 137 mmol/L (136-145) Potassium Level 5.0 mmol/L (3.5-5.1) Chloride Level 99 mmol/L (98-107) Carbon Dioxide Level 33 mmol/L (21-32) Anion Gap 5 (6-14) Blood Urea Nitrogen 62 mg/dL (8-26) Creatinine 12.0 mg/dL (0.7-1.3) Estimated GFR (Cockcroft-Gault) 5.1 Glucose Level 142 mg/dL (70-99) Calcium Level 9.8 mg/dL (8.5-10.1) Assessment and Plan Assessmemt and Plan Problems Medical Problems: (1) Ambulatory dysfunction Status: Acute (2) Failure to thrive Status: Acute Comment Review of Relevant I have reviewed the following items dariel (where applicable) has been applied. Justifications for Admission Other Justification Thoracic Fx PRATIMA RODRIGUEZ MD November 06, 2021 09:51
[2021-11-06] MEDS: traMADol 50 MG TABLET PO PRN (12:21)
[2021-11-06 15:15] VITALS: BP 143/75
[2021-11-06 19:00] VITALS: BP 159/62
[2021-11-06] MEDS: INSULIN GLARGINE SYRINGE. SQ SCH (21:00)
[2021-11-06 23:00] VITALS: BP 160/83
[2021-11-07 03:00] VITALS: BP 154/80
[2021-11-07] MEDS: cloNIDine HCL 0.1 MG TABLET PO SCH ×2 (06:00→13:00)
[2021-11-07 07:00] VITALS: BP 104/74
[2021-11-07] MEDS: INSULIN LISPRO 300 UNITS/3 ML VIAL. SQ SCH ×2 (07:30→11:30)
[2021-11-07] MEDS: MEMANTINE 5 MG TABLET. PO SCH (09:12)
[2021-11-07] MEDS: CLOPIDOGREL BISULFATE 75 MG TABLET PO SCH (09:13)
[2021-11-07] MEDS: PANTOPRAZOLE 40 MG TABLET.DR. PO SCH (09:13)
[2021-11-07] MEDS ORDERED: MEMA5TAB42 PO (09:25)
[2021-11-07] MEDS ORDERED: OLAN5TAB7 PO (09:25)
--- NOTE | 2021-11-07 09:26 | SNU/HH DC ---
DISCHARGE ORDERS DISCHARGE INFORMATION: FINAL DIAGNOSIS Problems Medical Problems: (1) Ambulatory dysfunction Status: Acute (2) Failure to thrive Status: Acute CONDITION ON DISCHARGE: Stable CODE STATUS: Code Status: Full [facility]: SNF STAY <30 DAYS: No HOSPICE: HOSPICE: No HOSPICE EVAL & TREAT: No LTAC: ADMIT TO LTAC: No POST DISCHARGE ORDERS: ACTIVITY ORDERS: Activity as tolerated WEIGHT BEARING STATUS: As tolerated BATHING ORDERS: Shower-keep dressing dry DIET AFTER DISCHARGE: Renal WOUND/INCISION CARE: Ice to area for comfort, May get incision wet CHECKS AFTER DISCHARGE: CHECKS AFTER DISCHARGE: Check blood press - daily, Check blood sugar, ac/hs, Check your Temp as needed, Weigh Yourself Daily TREATMENT/EQUIPMENT ORDERS: ADAPTIVE EQUIPMENT NEEDED: Walker DISCHARGE MEDICATIONS: Home Meds Active Scripts Memantine HCl (Memantine HCl) 5 Mg Tablet, 5 MG PO BID for . for 30 Days, #60 TAB Prov:CASTLE,NIAL K III DO 11/07/21 Olanzapine (OLANZAPINE ODT) 5 Mg Tab.rapdis, 5 MG PO BID for . for 30 Days, #60 TAB Prov:CASTLE,NIAL K III DO 11/07/21 Pantoprazole Sodium (PANTOPRAZOLE SODIUM ) 40 Mg Tablet.dr, 40 MG PO DAILYAC for gerd for 30 Days, #30 TAB.SR Prov:PRATIMA RODRIGUEZ MD 08/29/21 Methocarbamol (METHOCARBAMOL) 750 Mg Tablet, 750 MG PO PRN Q8HRS PRN for MUSCLE SPASMS for 30 Days, #30 TAB Prov:PRATIMA RODRIGUEZ MD 08/29/21 Tramadol Hcl (TRAMADOL HCL) 50 Mg Tablet, 50 MG PO PRN TID PRN for PAIN for 3 Days, #9 TAB Prov:RIFPRATIMA GAITAN MD 07/25/21 Clopidogrel Bisulfate (CLOPIDOGREL) 75 Mg Tablet, 75 MG PO DAILYWBKFT for blood clotting MDD 75 mg for 90 Days, #90 TAB Prov:KISHOR CHAMBERS PATTERN WEAVER 10/11/20 Reported Medications Sucroferric Oxyhydroxide (VELPHORO) 500 Mg Tab.chew, 2 TAB PO TID for for 30 Days, #180 TAB 0 Refills 07/25/21 Alprazolam (ALPRAZOLAM) 0.5 Mg Tablet, 1 TAB PO PRN TID PRN for ANXIETY / AGITATION, #90 TAB 07/25/21 Amlodipine Besylate (AMLODIPINE BESYLATE) 10 Mg Tablet, 10 MG PO DAILY for , TAB 07/25/21 Clonidine Hcl (CLONIDINE HCL) 0.1 Mg Tablet, 0.1 MG PO DAILY for , TAB 07/25/21 Folic Acid/Vitamin B Comp W-C (DIALYVITE 800 TABLET) 0.8 Mg Tablet, 1 TAB PO DAILY for for 30 Days, #30 TAB 0 Refills 10/10/20 Ferric Citrate (Ferric Citrate) 210 Mg Tablet, 2 TAB PO TIDWMEALS for for 30 Days, #180 TAB 0 Refills 10/10/20 Aspirin (ASPIRIN) 325 Mg Tablet, 1 TAB PO DAILY for heart health, #30 TAB 5 Refills 07/11/20 Insulin Glargine,Hum.rec.anlog (LANTUS SOLOSTAR) 100 Unit/1 Ml Insuln.pen, 10 UNIT SQ DAILY for , #15 ML 3 Refills 8-10 units daily 04/22/14 SHAYY MALLOY III DO November 07, 2021 09:26
--- NOTE | 2021-11-07 09:27 | PDOC ---
[employer] PROGRESS NOTE Date of Service DOS: DATE: 11/07/21 TIME: 09:27 Chief Complaint Chief Complaint ESRD on dialysis Weakness Frequent falls Dyspnea Encephalopathy Chronic back pain Neuropathy Diabetes Hypertension CAD History of cardiac stents Prior strokes Memory problems Lower extremity ulcers History of Present Illness History of Present Illness 11/07/2021 Patient seen examined Discussed with RN Discussed with case management Chart reviewed He appears to be at his baseline We will go ahead and discharge back to [place] long-term [facility] 11/06 Patient evaluated examined at bedside. Clinically stable no acute changes or events overnight. Outpatient dialysis set up. Working on [facility] placement. From my point of view is able to discharge whenever placement is found. Discussed with bedside RN. Nephrology recommendations reviewed. 11/05/2021 Patient seen and examined Discussed with RN Chart reviewed Discussed with case management 11/04/2021 Patient seen and examined in the dialysis area (he is on dialysis Thursday) Discussed with RN Discussed with case management Chart reviewed We are awaiting discharge to [facility] or long-term care Mr. Michelle is a 71-year-old male with past medical history of ESRD on HD, DM 2, HTN, CAD with prior UT, remote brainstem CVA 2006, PAD status post left lower extremity bypass and stenting who comes to the ED via EMS from home for p rogressive weakness, frequent falls, progressive dyspnea on exertion and his notes she is unable to care for him at home currently. He has a cane at home to been previously advised his walker. Despite this he still had falls at home he notes he is very dyspneic. 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 He has been hospitalized for symptomatic anemia fall with lumbar fracture within the last year. Normally he uses a cane in his right hand even using his cane he could not stand up and notes he had some right arm weakness which is new to him. CT head interpretation diffuse atrophy no acute radiographic findings. EKG sinus rhythm rate 94 bpm some PACs no T WI no ST segment elevations or depressions. Labs with WBC 4.3, Hb 13.1, platelets 181, INR 1, NA 139, K4.5, BUN 32, CR 9.9, glucose 85, calcium 9.7, bilirubin 0.5, AST 12, ALT 16, alkaline phosphatase 66, ammonia less than 10, NT proBNP greater than 35,000, high-sensitivity troponin is 66, albumin 3.3 11/02: Agitated overnight. He still is not oriented to location and day month or year. He is accusing his of trying to kill him, paranoid. Offered zyprexa for paranoia and agitation after discussion with his . arterial doppler results pending, of note he previously had Dr. Jin revascularize him. Vitals/I&O Vitals/I&O: Vital Signs Date Time Temp Pulse Resp B/P (MAP) Pulse Ox O2 Delivery O2 Flow Rate FiO2 11/07/21 09:14 90 104/74 11/07/21 08:00 Room Air 11/07/21 03:00 98.0 18 91 98.0 I & O 11/06/21 11/06/21 11/07/21 15:00 23:00 07:00 Intake Total 240 ml 360 ml Output Total 0 ml 300 ml Balance 240 ml 360 ml -300 ml Physical Exam General: Alert, Oriented X3, Cooperative Heart: Regular rate Lungs: Clear, Other Abdomen: Normal bowel sounds, Soft, No tenderness Extremities: Other (Palpable femoral pulses bilaterally, intact Doppler signals in bilateral lower extremities) Skin: Other (Right dorsal foot wound is superficial without evidence of cellulitis, no purulent drainage, no malodor) Labs Labs: Laboratory Tests Test 11/06/21 12:06 11/06/21 16:40 11/06/21 20:49 11/07/21 08:31 Glucose (Fingerstick) 91 mg/dL (70-99) 147 mg/dL (70-99) 157 mg/dL (70-99) 101 mg/dL (70-99) Assessment and Plan Assessmemt and Plan Problems Medical Problems: (1) Ambulatory dysfunction Status: Acute (2) Failure to thrive Status: Acute Comment Review of Relevant I have reviewed the following items dariel (where applicable) has been applied. Justifications for Admission Other Justification Thoracic Fx SHAYY MALLOY III DO November 07, 2021 09:27
--- NOTE | 2021-11-07 09:28 | PDOC ---
DATE OF SERVICE DATE: 11/07/21 TIME: 09:27 SUBJECTIVE ROS Stable No SOB , OBJECTIVE Vital Signs Vital Signs Date Time Temp Pulse Resp B/P (MAP) Pulse Ox O2 Delivery O2 Flow Rate FiO2 11/07/21 09:14 90 104/74 11/07/21 08:00 Room Air 11/07/21 03:00 98.0 18 91 98.0 I & 0 Intake and Output 11/07/21 07:00 Intake Total 600 ml Output Total 300 ml Balance 300 ml Intake Oral 600 ml Output Urine Total 300 ml Stool Total 0 ml PHYSICAL EXAM Physical Exam General: NAD HEENT: Atraumatic, PERRLA, EOMI, Mucous membr. moist/pink neck Supple Lungs: Decreased at bases, Non labored Heart: S1S2, RRR, no thrills, no rubs, no gallops, no murmurs Abdomen: Normal bowel sounds, Soft, No tenderness, No hepatosplenomegaly, No masses Extremities: No clubbing, No cyanosis, No edema, . RUE fistula with good bruit and thrill Skin: No rashes, Neuro: Normal speech Left upper lower extremity 4 out of 5. Right upper extremity with decreased washing machine installer strength. Psych/Mental Status: Mental status NL, Mood NL No Veliz, No CVA or SP tenderness DIAGNOSIS/ASSESSMENT Assessment & Plan ESRD on HD MWF at [facility], No indication for dialysis today Hypertension Anemia . Past transfusion Hgb stable Weakness -worsening of baseline weakness and some right upper extremity weakness. Not a new CVA. On ASA Plavix. Statin. Frequent falls Dyspnea POA, currently denies Lower back pain -with chronic compression of T11. Peripheral arterial disease - s/p left leg bypass surgeries and stenting 10/2020, on plavix. Will reassess as pain and weakness worsened History of CVA with residual left-sided weakness-- brainstem in 2006 History of diabetes mellitus type 2 CAD - s/p remote stenting. DC per primary COMMENT/RELEVANT DATA Meds Current Medications Medications (Trade) Dose Ordered Sig/Neeraj Start Time Stop Time Status Last Admin Dose Admin Acetaminophen (Tylenol) 650 mg PRN Q6HRS PRN 11/01/21 03:15 11/06/21 17:34 650 MG Albumin Human 100 ml @ 100 mls/hr 1X PRN PRN 11/04/21 07:15 11/04/21 13:14 DC Alprazolam (Xanax) 0.5 mg PRN QHS PRN 11/02/21 00:00 11/02/21 09:32 DC 11/02/21 07:44 0.5 MG Amlodipine Besylate (Norvasc) 10 mg DAILY 11/01/21 03:15 11/07/21 09:14 10 MG Clonidine HCl (Catapres) 0.1 mg Q8HRS 11/01/21 06:00 11/06/21 14:17 0.1 MG Clopidogrel Bisulfate (Plavix) 75 mg DAILYWBKFT 11/01/21 08:00 11/07/21 09:13 75 MG Dextrose (Dextrose 50%-Water Syringe) 12.5 gm PRN Q15MIN PRN 11/01/21 07:15 Dextrose (Iv Dextrose 5%) 250 ml PRN Q15MIN PRN 11/01/21 07:15 Fentanyl Citrate (Fentanyl 2ml Vial) 25 mcg PRN Q3HRS PRN 11/01/21 03:15 11/01/21 20:21 25 MCG Hydralazine HCl (Apresoline Inj) 10 mg PRN Q4HRS PRN 11/01/21 03:15 11/02/21 07:45 10 MG Info (PHARMACY MONITORING -- do not chart) 1 each PRN DAILY PRN 11/04/21 07:15 Insulin Glargine (Lantus Syringe) 5 unit QHS 11/03/21 21:00 11/06/21 21:00 5 UNIT Insulin Human Lispro (HumaLOG) 0-7 UNITS TIDACHC 11/01/21 07:30 11/03/21 17:50 3 UNITS Memantine (Namenda) 5 mg BID 11/02/21 09:45 11/07/21 09:12 5 MG Morphine Sulfate (Morphine Sulfate) 2 mg 1X ONCE 11/01/21 00:45 11/01/21 00:46 DC 11/01/21 00:45 2 MG Olanzapine (ZyPREXA ZYDIS) 5 mg BID 11/02/21 10:00 11/07/21 09:12 5 MG Ondansetron HCl (Zofran) 4 mg PRN Q4HRS PRN 11/01/21 03:15 Pantoprazole Sodium (Protonix) 40 mg DAILYAC 11/01/21 07:30 11/07/21 09:13 40 MG Sodium Chloride 1,000 ml @ 400 mls/hr Q2H30M PRN 11/04/21 07:15 11/04/21 19:14 DC Tramadol HCl (Ultram) 50 mg PRN TID PRN 11/01/21 07:15 11/06/21 12:21 50 MG Ziprasidone (Geodon Im) 20 mg PRN QHS PRN 11/02/21 20:00 Lab Laboratory Tests Test 11/06/21 12:06 11/06/21 16:40 11/06/21 20:49 11/07/21 08:31 Glucose (Fingerstick) 91 mg/dL (70-99) 147 mg/dL (70-99) 157 mg/dL (70-99) 101 mg/dL (70-99) Results All relevant outside records, renal labs, imaging studies, telemetry/EKG's were reviewed. Justicifation of Admission Dx: Justifications for Admission: Justification of Admission Dx: N/A MARRY NATH MD November 07, 2021 09:28
--- NOTE | 2021-11-07 10:07 | SNU/HH DC ---
DISCHARGE ORDERS DISCHARGE INFORMATION: FINAL DIAGNOSIS Problems Medical Problems: (1) Ambulatory dysfunction Status: Acute (2) Failure to thrive Status: Acute CONDITION ON DISCHARGE: Stable CODE STATUS: Code Status: Full [facility]: SNF STAY <30 DAYS: Yes HOSPICE: HOSPICE: No HOSPICE EVAL & TREAT: No LTAC: ADMIT TO LTAC: No POST DISCHARGE ORDERS: ACTIVITY ORDERS: Activity as tolerated WEIGHT BEARING STATUS: As tolerated BATHING ORDERS: Shower-keep dressing dry DIET AFTER DISCHARGE: Renal WOUND/INCISION CARE: Ice to area for comfort, May get incision wet CHECKS AFTER DISCHARGE: CHECKS AFTER DISCHARGE: Check blood press - daily, Check blood sugar, ac/hs, Check your Temp as needed, Weigh Yourself Daily TREATMENT/EQUIPMENT ORDERS: ADAPTIVE EQUIPMENT NEEDED: Walker Physical Therapy For: Evalulation/Treatment Occupational Therapy For: Evaluation/Treatment DISCHARGE MEDICATIONS: Home Meds Active Scripts Memantine HCl (Memantine HCl) 5 Mg Tablet, 5 MG PO BID for . for 30 Days, #60 TAB Prov:CASTLE,NIAL K III DO 11/07/21 Olanzapine (OLANZAPINE ODT) 5 Mg Tab.rapdis, 5 MG PO BID for . for 30 Days, #60 TAB Prov:CASTLE,NIAL K III DO 11/07/21 Pantoprazole Sodium (PANTOPRAZOLE SODIUM ) 40 Mg Tablet.dr, 40 MG PO DAILYAC for gerd for 30 Days, #30 TAB.SR Prov:PRATIMA RODRIGUEZ MD 08/29/21 Methocarbamol (METHOCARBAMOL) 750 Mg Tablet, 750 MG PO PRN Q8HRS PRN for MUSCLE SPASMS for 30 Days, #30 TAB Prov:PRATIMA RODRIGUEZ MD 08/29/21 Tramadol Hcl (TRAMADOL HCL) 50 Mg Tablet, 50 MG PO PRN TID PRN for PAIN for 3 Days, #9 TAB Prov:RIFFELPRATIMA MD 07/25/21 Clopidogrel Bisulfate (CLOPIDOGREL) 75 Mg Tablet, 75 MG PO DAILYWBKFT for blood clotting MDD 75 mg for 90 Days, #90 TAB Prov:KISHOR CHAMBERS GENERAL DENTIST/OWNER 10/11/20 Reported Medications Sucroferric Oxyhydroxide (VELPHORO) 500 Mg Tab.chew, 2 TAB PO TID for for 30 Days, #180 TAB 0 Refills 07/25/21 Alprazolam (ALPRAZOLAM) 0.5 Mg Tablet, 1 TAB PO PRN TID PRN for ANXIETY / AGITATION, #90 TAB 07/25/21 Amlodipine Besylate (AMLODIPINE BESYLATE) 10 Mg Tablet, 10 MG PO DAILY for , TAB 07/25/21 Clonidine Hcl (CLONIDINE HCL) 0.1 Mg Tablet, 0.1 MG PO DAILY for , TAB 07/25/21 Folic Acid/Vitamin B Comp W-C (DIALYVITE 800 TABLET) 0.8 Mg Tablet, 1 TAB PO DAILY for for 30 Days, #30 TAB 0 Refills 10/10/20 Ferric Citrate (Ferric Citrate) 210 Mg Tablet, 2 TAB PO TIDWMEALS for for 30 Days, #180 TAB 0 Refills 10/10/20 Aspirin (ASPIRIN) 325 Mg Tablet, 1 TAB PO DAILY for heart health, #30 TAB 5 Refills 07/11/20 Insulin Glargine,Hum.rec.anlog (LANTUS SOLOSTAR) 100 Unit/1 Ml Insuln.pen, 10 UNIT SQ DAILY for , #15 ML 3 Refills 8-10 units daily 04/22/14 SHAYY MALLOY III DO November 07, 2021 10:07
[2021-11-07 11:00] VITALS: BP 179/85
[2021-11-07] MEDS: hydrALAZINE 20 MG/ML VIAL. IVP PRN (11:41)
[2021-11-07 12:00] VITALS: BP 173/82
--- NOTE | 2021-11-07 12:30 | NUR ---
Wound Care Wound Type/Assessment: patient seen per wound care consult. see wound assessment. patient has a right lower leg stasis ulcer, the wound was cleaned, measured, pictured and a recommended dressing applied at this time- Medihoney Alginate with a foam dressing. Patient has a right dorsal diabetic foot wound the wound was cleaned, measured, pictured and redressed with the recommended dressing at this time- Medihoney alginate with a foam dressing. Patient has DFU to the right 2nd, 3rd and 4th toes- the wounds were cleaned, measured, pictured and redressed with the recommended dressing- Cleanse the wound then paint with Betadine and leave [facility]. Treatment Recommendations/Plan: Recommendations of For the right lower leg and right dorsal foot- cleanse the wound then apply Medihoney alginate with a foam dressing, change every 3-4 days. Recommendation for the right 2nd, 3rd and 4th toe- cleanse the wound then paint with Betadine and leave [facility]. Education provided: Educated patient on the POC and for patient to f/u in the wound clinic Recommended Referrals/Tests: N/A Discharge Recommendations for dressings: Patient stated he had no other wounds and did not want us to look at the rest of his skin. Recommend Patient to f/u in the outpatient wound clinic, wound care will continue to f/u for changes
[2021-11-07 15:00] VITALS: BP 161/84
[2021-11-07] MEDS: traMADol 50 MG TABLET PO PRN (16:13)
--- NOTE | 2021-11-07 17:00 | NUR ---
Discharge Note: [facility] Discharge instructions and discharge home medications reviewed with Other facility and a copy given. All questions have been answered and understanding verbalized. Report given to MITZI Starr at [facility] . The following instructions and handouts were given: information about labs, dialysis, diet, activity, wound info, follow up appointment. Discontinued lines and drains: IV line in left AC removed, catheter tip intact. Patient discharged to [facility] with transportation services representative, patient in wheelchair to discharge vehicle.
--- NOTE | 2021-11-08 14:28 | NUR ---
Wound assessment for 11/04/21 by user KTYLER was documented in another pt record erroneously. The wound to L elbow was added to the wound assessment with the correct date. Bilateral buttocks wound is labeled as "coccyx." Addendum: 11/08/21 at 1432 by WASHINGTON DELGADO RN Amended: Links added.
--- NOTE | 2021-11-08 21:42 | DS ---
DATE OF DISCHARGE: 11/07/2021 ADMISSION DIAGNOSES: Falls and weakness, debility, failure to thrive, end-stage renal disease on dialysis. DISCHARGE DIAGNOSES: Resolving falls, resolving weakness, end-stage renal disease on dialysis, chronic lower back pain, peripheral artery disease, diabetes, hypertension, coronary artery disease, strokes, decreased memory. CONSULTS: Vascular Surgery and Nephrology. PROCEDURES: Dialysis. HOSPITAL COURSE: The patient is a pleasant middle-aged male who has multiple comorbidities and is on dialysis. Basically, he was weak and falling and failing to thrive. He was admitted. We did physical therapy and occupational therapy. The above consults were obtained. We dialyzed him. Yesterday, I saw and examined him. He was doing better, seemed to be back to his baseline. We discharged back to his long-term care facility. DISPOSITION: Long-term care. ACTIVITY: As tolerated. DIET: Renal. DISCHARGE MEDICATIONS: Please see the MRAD. Memantine 5 b.i.d., olanzapine 5 b.i.d., Xanax 0.5 t.i.d., amlodipine 10 a day, aspirin 325 a day, clonidine 0.1 daily, Plavix 75 a day, iron tablets t.i.d., multiple vitamins, insulin 10 units daily of Lantus, methocarbamol 750 q. 8 hours p.r.n., Protonix 40 a day, and Ultram 50 q. 8 p.r.n. Total time 32 minutes. TIFFANY/LUAN/AUDI DR: TIFFANY/fanny TID: [id number]
== END 2021-11-07 17:00 | DRG 291 ==
LOC: ER 18:02 → 2 NORTH 11-01 00:08 → 4 NORTH 11-05 16:24
PROVIDERS: ADMIT Internal Medicine; ATTEND Internal Medicine
PROC: 5A1D70Z Performance of Urinary Filtration, Intermittent, Less than 6 Hours Per Day (ICD-10-PCS; principal; 2021-11-01)
PROC: 5A1D70Z Performance of Urinary Filtration, Intermittent, Less than 6 Hours Per Day (ICD-10-PCS; 2021-11-04)
DX: I13.2 Hypertensive heart and chronic kidney disease with heart failure and with stage 5 chronic kidney disease, or end stage renal disease (principal); I50.31 Acute diastolic (congestive) heart failure; G93.41 Metabolic encephalopathy; N18.6 End stage renal disease; L97.909 Non-pressure chronic ulcer of unspecified part of unspecified lower leg with unspecified severity; I69.354 Hemiplegia and hemiparesis following cerebral infarction affecting left non-dominant side; R62.7 Adult failure to thrive; E11.22 Type 2 diabetes mellitus with diabetic chronic kidney disease; E78.5 Hyperlipidemia, unspecified; F01.50 Vascular dementia, unspecified severity, without behavioral disturbance, psychotic disturbance, mood disturbance, and anxiety; G89.29 Other chronic pain; I25.10 Atherosclerotic heart disease of native coronary artery without angina pectoris; I25.2 Old myocardial infarction; I70.201 Unspecified atherosclerosis of native arteries of extremities, right leg; R29.6 Repeated falls; Z79.02 Long term (current) use of antithrombotics/antiplatelets; Z82.49 Family history of ischemic heart disease and other diseases of the circulatory system; Z83.3 Family history of diabetes mellitus; Z87.891 Personal history of nicotine dependence; Z95.5 Presence of coronary angioplasty implant and graft; Z96.659 Presence of unspecified artificial knee joint; Z99.2 Dependence on renal dialysis; Z99.3 Dependence on wheelchair; E21.3 Hyperparathyroidism, unspecified; M19.90 Unspecified osteoarthritis, unspecified site; E11.42 Type 2 diabetes mellitus with diabetic polyneuropathy; D64.9 Anemia, unspecified; R53.81 Other malaise
CPT/HCPCS: 36415; 70450; 71045; 80048; 80053; 82140; 82607; 82962; 83880; 84443; 84484; 85025; 85610; 86592; 86706; 87426; 93005; 93923; 96374; 96376; J0360; J1815; J2270; J3010; U0003; 97530-GO; 97530-GP; 97535-GO; 99285-25; G0378